=== PATIENT | male | born 1960 | race Caucasian/White ===

== ENCOUNTER 2018-03-27 18:31 | Inpatient (IN) ==
[2018-03-27] MEDS ORDERED: 0.9 % Sodium Chloride 1,000 ML IVC ONE (18:36)
--- NOTE | 2018-03-27 18:42 | Emergency Department Note ---
Disposition Clinical Impression: Alcoholism, NIKITA (acute kidney injury), Hyperglycemia, Heat exposure, Fever Disposition: Admitted As Inpatient Condition: Fair General Adult HPI - General Chief complaint: ED Arrhythmia/Palpitations Stated complaint: SVT Time Seen by Provider: 03/27/18 18:36 - Related Data Previous Rx's Medication Instructions Recorded Famotidine [Pepcid] 20 mg PO BID 10 Days #20 tablet 03/25/18 Allergies Allergy/AdvReac Type Severity Reaction Status Date / Time No Known Allergies Allergy Verified 03/25/18 00:58 Past Medical History - Past Medical History Medical history: Reports: no medical history Psychiatric history: Reports: bipolar - Social History Smoking Status: Never smoker Smokeless Tobacco Status: No Alcohol use: Reports: heavy Drug use: Reports: unknown Course Vital Signs Temperature 103.3 F H 03/27/18 18:33 Pulse Rate 153 03/27/18 18:33 Respiratory Rate 56 03/27/18 18:33 Blood Pressure 135/77 03/27/18 18:33 O2 Sat by Pulse Oximetry 92 03/27/18 18:33 Temperature 98.1 F 03/28/18 07:08 Pulse Rate 77 03/28/18 07:08 Respiratory Rate 16 03/28/18 07:08 Blood Pressure 103/67 03/28/18 07:08 O2 Sat by Pulse Oximetry 94 03/28/18 07:08 Oxygen Delivery Oxygen Delivery Room Air Medical Decision Making - Lab Data Result diagrams: 03/27/18 22:23 03/27/18 22:23 Lab Results 03/27/18 03/27/18 03/27/18 Range/Units 18:36 18:36 18:36 WBC 15.1 H D (4.3-11.1) K/mcL RBC 4.03 L (4.19-5.50) M/mcL Hgb 13.4 (12.9-16.9) g/dL Hct 38.8 (37.5-50.1) % MCV 96.3 (83.0-100.0) fL MCH 33.3 (28.0-33.3) pg MCHC 34.5 (31.6-35.5) g/dL RDW 11.9 (11.5-14.5) % Plt Count 155 (140-400) K/mcL MPV 10.2 (9.4-12.4) fL Immature Gran % 3.2 (0-4) % Seg Neutrophils % 78.3 % Lymphocytes % 7.7 % Monocytes % 10.3 % Eosinophils % 0.1 % Basophils % 0.4 % Neutrophils # 11.8 H (1.6-8.9) K/mcL Lymphocytes # 1.2 (0.6-4.6) K/mcL Monocytes # 1.6 H (0.0-1.3) K/mcL Eosinophils # 0.0 (0.0-0.6) K/mcL Basophils # 0.1 (0.0-0.2) K/mcL PT 13.3 H (9.4-12.1) Seconds INR 1.2 APTT 27.7 (26.0-36.0) Seconds ABG pH (7.32-7.45) pH Units ABG pCO2 (35-45) mmHg ABG pO2 (85-104) mmHg ABG HCO3 (21-27) mEq/L ABG Total CO2 (20-26) mEq/L ABG O2 Saturation (95-98) % ABG Base Excess (-2 to 3) mEq/L Carboxyhemoglobin (0-5) % O2 Delivery Device Inspired O2 (1-15=lpm [id number]=%) Sodium 131 L (136-145) mEq/L Potassium 4.0 (3.5-5.1) mEq/L Chloride 94 L (98-107) mEq/L Carbon Dioxide 14 L (23-29) mEq/L BUN 15 (6-20) mg/dL Creatinine 1.99 H (0.70-1.30) mg/dL Est GFR ( Amer) 42 L (> 60) Est GFR (Non-Af Amer) 35 L (> 60) BUN/Creatinine Ratio 8 (6-26) Glucose 425 H (70-105) mg/dL Calculated Osmolality 291 (280-300) Lactic Acid (0.5-2.2) mmol/L Calcium 9.9 (8.6-10.3) mg/dL Total Bilirubin 0.9 (0.3-1.0) mg/dL Direct Bilirubin 0.4 H (0.0-0.2) mg/dL Indirect Bilirubin 0.5 (0.0-1.2) mg/dL AST 49 H (13-39) Units/L ALT 28 (7-52) Units/L Alkaline Phosphatase 102 (34-104) Units/L Ammonia (16-53) mcmol/L Creatine Kinase 251 H (30-223) Units/L Troponin I 0.04 H* (< 0.04) ng/mL Serum Total Protein 8.0 (6.4-8.9) g/dL Albumin 4.2 (3.5-5.7) g/dL Globulin 3.8 H (2.4-3.5) g/dL Albumin/Globulin Ratio 1.1 (1.1-2.2) Beta-Hydroxybutyric Acd (0.02-0.27) mmol/L TSH 4.080 (0.340-5.600) mcIU/mL Urine Color (Yellow) Urine Clarity (Clear) Urine pH (5.0-8.0) pH Units Ur Specific [place] (1.010-1.025) Urine Protein (Neg-Trace) mg/dL Urine Glucose (UA) (Normal) mg/dL Urine Ketones (Negative) mg/dL Urine Blood (Negative) Urine Nitrite (Negative) Urine Bilirubin (Negative) Urine Urobilinogen (Normal) mg/dL Ur Leukocyte Esterase (Negative) Ur Transition Epith Cell (None-Few) per hpf Urine Bacteria (None-Few) per hpf Hyaline Casts (None-Few) per lpf Ur Culture Indicated? (NO) Urine Opiates Screen (Gpeliz=538) ng/mL Ur Barbiturates Screen (Pmyrky=306) ng/mL Ur Phencyclidine Scrn (Cutoff=25) ng/mL Ur Amphetamines Screen (Hrxgfc=0479) ng/mL U Benzodiazepines Scrn (Iyrpuv=525) ng/mL Urine Cocaine Screen (Cutoff= 300) ng/mL U Marijuana (THC) Screen (Cutoff = 50) ng/mL Ur Drug Screen Interp Ethyl Alcohol < 10 (Less than 10) mg/dL 03/27/18 03/27/18 03/27/18 Range/Units 18:36 18:36 18:36 WBC (4.3-11.1) K/mcL RBC (4.19-5.50) M/mcL Hgb (12.9-16.9) g/dL Hct (37.5-50.1) % MCV (83.0-100.0) fL MCH (28.0-33.3) pg MCHC (31.6-35.5) g/dL RDW (11.5-14.5) % Plt Count (140-400) K/mcL MPV (9.4-12.4) fL Immature Gran % (0-4) % Seg Neutrophils % % Lymphocytes % % Monocytes % % Eosinophils % % Basophils % % Neutrophils # (1.6-8.9) K/mcL Lymphocytes # (0.6-4.6) K/mcL Monocytes # (0.0-1.3) K/mcL Eosinophils # (0.0-0.6) K/mcL Basophils # (0.0-0.2) K/mcL PT (9.4-12.1) Seconds INR APTT (26.0-36.0) Seconds ABG pH (7.32-7.45) pH Units ABG pCO2 (35-45) mmHg ABG pO2 (85-104) mmHg ABG HCO3 (21-27) mEq/L ABG Total CO2 (20-26) mEq/L ABG O2 Saturation (95-98) % ABG Base Excess (-2 to 3) mEq/L Carboxyhemoglobin 4.7 (0-5) % O2 Delivery Device Inspired O2 (1-15=lpm [id number]=%) Sodium (136-145) mEq/L Potassium (3.5-5.1) mEq/L Chloride (98-107) mEq/L Carbon Dioxide (23-29) mEq/L BUN (6-20) mg/dL Creatinine (0.70-1.30) mg/dL Est GFR ( Amer) (> 60) Est GFR (Non-Af Amer) (> 60) BUN/Creatinine Ratio (6-26) Glucose (70-105) mg/dL Calculated Osmolality (280-300) Lactic Acid 8.8 H* (0.5-2.2) mmol/L Calcium (8.6-10.3) mg/dL Total Bilirubin (0.3-1.0) mg/dL Direct Bilirubin (0.0-0.2) mg/dL Indirect Bilirubin (0.0-1.2) mg/dL AST (13-39) Units/L ALT (7-52) Units/L Alkaline Phosphatase (34-104) Units/L Ammonia (16-53) mcmol/L Creatine Kinase (30-223) Units/L Troponin I (< 0.04) ng/mL Serum Total Protein (6.4-8.9) g/dL Albumin (3.5-5.7) g/dL Globulin (2.4-3.5) g/dL Albumin/Globulin Ratio (1.1-2.2) Beta-Hydroxybutyric Acd 0.36 H (0.02-0.27) mmol/L TSH (0.340-5.600) mcIU/mL Urine Color (Yellow) Urine Clarity (Clear) Urine pH (5.0-8.0) pH Units Ur Specific [place] (1.010-1.025) Urine Protein (Neg-Trace) mg/dL Urine Glucose (UA) (Normal) mg/dL Urine Ketones (Negative) mg/dL Urine Blood (Negative) Urine Nitrite (Negative) Urine Bilirubin (Negative) Urine Urobilinogen (Normal) mg/dL Ur Leukocyte Esterase (Negative) Ur Transition Epith Cell (None-Few) per hpf Urine Bacteria (None-Few) per hpf Hyaline Casts (None-Few) per lpf Ur Culture Indicated? (NO) Urine Opiates Screen (Dngrel=620) ng/mL Ur Barbiturates Screen (Qdgjxt=011) ng/mL Ur Phencyclidine Scrn (Cutoff=25) ng/mL Ur Amphetamines Screen (Zpgrsp=7125) ng/mL U Benzodiazepines Scrn (Hhdgnv=401) ng/mL Urine Cocaine Screen (Cutoff= 300) ng/mL U Marijuana (THC) Screen (Cutoff = 50) ng/mL Ur Drug Screen Interp Ethyl Alcohol (Less than 10) mg/dL 03/27/18 03/27/18 03/27/18 Range/Units 19:12 20:13 20:13 WBC (4.3-11.1) K/mcL RBC (4.19-5.50) M/mcL Hgb (12.9-16.9) g/dL Hct (37.5-50.1) % MCV (83.0-100.0) fL MCH (28.0-33.3) pg MCHC (31.6-35.5) g/dL RDW (11.5-14.5) % Plt Count (140-400) K/mcL MPV (9.4-12.4) fL Immature Gran % (0-4) % Seg Neutrophils % % Lymphocytes % % Monocytes % % Eosinophils % % Basophils % % Neutrophils # (1.6-8.9) K/mcL Lymphocytes # (0.6-4.6) K/mcL Monocytes # (0.0-1.3) K/mcL Eosinophils # (0.0-0.6) K/mcL Basophils # (0.0-0.2) K/mcL PT (9.4-12.1) Seconds INR APTT (26.0-36.0) Seconds ABG pH (7.32-7.45) pH Units ABG pCO2 (35-45) mmHg ABG pO2 (85-104) mmHg ABG HCO3 (21-27) mEq/L ABG Total CO2 (20-26) mEq/L ABG O2 Saturation (95-98) % ABG Base Excess (-2 to 3) mEq/L Carboxyhemoglobin (0-5) % O2 Delivery Device Inspired O2 (1-15=lpm [id number]=%) Sodium (136-145) mEq/L Potassium (3.5-5.1) mEq/L Chloride (98-107) mEq/L Carbon Dioxide (23-29) mEq/L BUN (6-20) mg/dL Creatinine (0.70-1.30) mg/dL Est GFR ( Amer) (> 60) Est GFR (Non-Af Amer) (> 60) BUN/Creatinine Ratio (6-26) Glucose (70-105) mg/dL Calculated Osmolality (280-300) Lactic Acid (0.5-2.2) mmol/L Calcium (8.6-10.3) mg/dL Total Bilirubin (0.3-1.0) mg/dL Direct Bilirubin (0.0-0.2) mg/dL Indirect Bilirubin (0.0-1.2) mg/dL AST (13-39) Units/L ALT (7-52) Units/L Alkaline Phosphatase (34-104) Units/L Ammonia 66 H (16-53) mcmol/L Creatine Kinase (30-223) Units/L Troponin I (< 0.04) ng/mL Serum Total Protein (6.4-8.9) g/dL Albumin (3.5-5.7) g/dL Globulin (2.4-3.5) g/dL Albumin/Globulin Ratio (1.1-2.2) Beta-Hydroxybutyric Acd (0.02-0.27) mmol/L TSH (0.340-5.600) mcIU/mL Urine Color Yellow (Yellow) Urine Clarity Clear (Clear) Urine pH 5.5 (5.0-8.0) pH Units Ur Specific [place] 1.028 H (1.010-1.025) Urine Protein 30 H (Neg-Trace) mg/dL Urine Glucose (UA) >=1000 H (Normal) mg/dL Urine Ketones Trace H (Negative) mg/dL Urine Blood Negative (Negative) Urine Nitrite Negative (Negative) Urine Bilirubin Small H (Negative) Urine Urobilinogen Normal (Normal) mg/dL Ur Leukocyte Esterase Negative (Negative) Ur Transition Epith Cell Few (None-Few) per hpf Urine Bacteria Few (None-Few) per hpf Hyaline Casts Few (None-Few) per lpf Ur Culture Indicated? NO (NO) Urine Opiates Screen Negative (Hxnxgx=721) ng/mL Ur Barbiturates Screen Negative (Obzhuc=037) ng/mL Ur Phencyclidine Scrn Negative (Cutoff=25) ng/mL Ur Amphetamines Screen Negative (Jluwca=4092) ng/mL U Benzodiazepines Scrn Negative (Wygatw=436) ng/mL Urine Cocaine Screen Negative (Cutoff= 300) ng/mL U Marijuana (THC) Screen Negative (Cutoff = 50) ng/mL Ur Drug Screen Interp See Below Ethyl Alcohol (Less than 10) mg/dL 03/27/18 03/27/18 03/27/18 Range/Units 20:17 20:59 22:23 WBC (4.3-11.1) K/mcL RBC (4.19-5.50) M/mcL Hgb (12.9-16.9) g/dL Hct (37.5-50.1) % MCV (83.0-100.0) fL MCH (28.0-33.3) pg MCHC (31.6-35.5) g/dL RDW (11.5-14.5) % Plt Count (140-400) K/mcL MPV (9.4-12.4) fL Immature Gran % (0-4) % Seg Neutrophils % % Lymphocytes % % Monocytes % % Eosinophils % % Basophils % % Neutrophils # (1.6-8.9) K/mcL Lymphocytes # (0.6-4.6) K/mcL Monocytes # (0.0-1.3) K/mcL Eosinophils # (0.0-0.6) K/mcL Basophils # (0.0-0.2) K/mcL PT (9.4-12.1) Seconds INR APTT (26.0-36.0) Seconds ABG pH 7.41 (7.32-7.45) pH Units ABG pCO2 37 (35-45) mmHg ABG pO2 86 (85-104) mmHg ABG HCO3 23 (21-27) mEq/L ABG Total CO2 25 (20-26) mEq/L ABG O2 Saturation 97 (95-98) % ABG Base Excess -1 (-2 to 3) mEq/L Carboxyhemoglobin (0-5) % O2 Delivery Device Cannula Inspired O2 2.0 (1-15=lpm sk00-331=%) Sodium 135 L (136-145) mEq/L Potassium 3.9 (3.5-5.1) mEq/L Chloride 105 (98-107) mEq/L Carbon Dioxide 20 L (23-29) mEq/L BUN 14 (6-20) mg/dL Creatinine 1.44 H (0.70-1.30) mg/dL Est GFR ( Amer) > 60 (> 60) Est GFR (Non-Af Amer) 50 L (> 60) BUN/Creatinine Ratio 10 (6-26) Glucose 180 H (70-105) mg/dL Calculated Osmolality 285 (280-300) Lactic Acid 2.9 H (0.5-2.2) mmol/L Calcium 8.4 L (8.6-10.3) mg/dL Total Bilirubin (0.3-1.0) mg/dL Direct Bilirubin (0.0-0.2) mg/dL Indirect Bilirubin (0.0-1.2) mg/dL AST (13-39) Units/L ALT (7-52) Units/L Alkaline Phosphatase (34-104) Units/L Ammonia (16-53) mcmol/L Creatine Kinase (30-223) Units/L Troponin I (< 0.04) ng/mL Serum Total Protein (6.4-8.9) g/dL Albumin (3.5-5.7) g/dL Globulin (2.4-3.5) g/dL Albumin/Globulin Ratio (1.1-2.2) Beta-Hydroxybutyric Acd (0.02-0.27) mmol/L TSH (0.340-5.600) mcIU/mL Urine Color (Yellow) Urine Clarity (Clear) Urine pH (5.0-8.0) pH Units Ur Specific [place] (1.010-1.025) Urine Protein (Neg-Trace) mg/dL Urine Glucose (UA) (Normal) mg/dL Urine Ketones (Negative) mg/dL Urine Blood (Negative) Urine Nitrite (Negative) Urine Bilirubin (Negative) Urine Urobilinogen (Normal) mg/dL Ur Leukocyte Esterase (Negative) Ur Transition Epith Cell (None-Few) per hpf Urine Bacteria (None-Few) per hpf Hyaline Casts (None-Few) per lpf Ur Culture Indicated? (NO) Urine Opiates Screen (Ccpfze=364) ng/mL Ur Barbiturates Screen (Nwhfcv=936) ng/mL Ur Phencyclidine Scrn (Cutoff=25) ng/mL Ur Amphetamines Screen (Egtmcu=2407) ng/mL U Benzodiazepines Scrn (Qftafi=802) ng/mL Urine Cocaine Screen (Cutoff= 300) ng/mL U Marijuana (THC) Screen (Cutoff = 50) ng/mL Ur Drug Screen Interp Ethyl Alcohol (Less than 10) mg/dL 03/27/18 03/27/18 03/28/18 Range/Units 22:23 22:23 02:07 WBC 12.0 H (4.3-11.1) K/mcL RBC 3.51 L (4.19-5.50) M/mcL Hgb 11.8 L D (12.9-16.9) g/dL Hct 34.5 L (37.5-50.1) % MCV 98.3 (83.0-100.0) fL MCH 33.6 H (28.0-33.3) pg MCHC 34.2 (31.6-35.5) g/dL RDW 12.0 (11.5-14.5) % Plt Count 108 L (140-400) K/mcL MPV 10.0 (9.4-12.4) fL Immature Gran % 4.5 H (0-4) % Seg Neutrophils % 75.2 % Lymphocytes % 2.8 % Monocytes % 17.1 % Eosinophils % 0.1 % Basophils % 0.3 % Neutrophils # 9.0 H (1.6-8.9) K/mcL Lymphocytes # 0.3 L (0.6-4.6) K/mcL Monocytes # 2.1 H (0.0-1.3) K/mcL Eosinophils # 0.0 (0.0-0.6) K/mcL Basophils # 0.0 (0.0-0.2) K/mcL PT (9.4-12.1) Seconds INR APTT (26.0-36.0) Seconds ABG pH (7.32-7.45) pH Units ABG pCO2 (35-45) mmHg ABG pO2 (85-104) mmHg ABG HCO3 (21-27) mEq/L ABG Total CO2 (20-26) mEq/L ABG O2 Saturation (95-98) % ABG Base Excess (-2 to 3) mEq/L Carboxyhemoglobin (0-5) % O2 Delivery Device Inspired O2 (1-15=lpm [id number]=%) Sodium (136-145) mEq/L Potassium (3.5-5.1) mEq/L Chloride (98-107) mEq/L Carbon Dioxide (23-29) mEq/L BUN (6-20) mg/dL Creatinine (0.70-1.30) mg/dL Est GFR ( Amer) (> 60) Est GFR (Non-Af Amer) (> 60) BUN/Creatinine Ratio (6-26) Glucose (70-105) mg/dL Calculated Osmolality (280-300) Lactic Acid 2.2 (0.5-2.2) mmol/L Calcium (8.6-10.3) mg/dL Total Bilirubin (0.3-1.0) mg/dL Direct Bilirubin (0.0-0.2) mg/dL Indirect Bilirubin (0.0-1.2) mg/dL AST (13-39) Units/L ALT (7-52) Units/L Alkaline Phosphatase (34-104) Units/L Ammonia (16-53) mcmol/L Creatine Kinase (30-223) Units/L Troponin I 0.05 H* (< 0.04) ng/mL Serum Total Protein (6.4-8.9) g/dL Albumin (3.5-5.7) g/dL Globulin (2.4-3.5) g/dL Albumin/Globulin Ratio (1.1-2.2) Beta-Hydroxybutyric Acd (0.02-0.27) mmol/L TSH (0.340-5.600) mcIU/mL Urine Color (Yellow) Urine Clarity (Clear) Urine pH (5.0-8.0) pH Units Ur Specific [place] (1.010-1.025) Urine Protein (Neg-Trace) mg/dL Urine Glucose (UA) (Normal) mg/dL Urine Ketones (Negative) mg/dL Urine Blood (Negative) Urine Nitrite (Negative) Urine Bilirubin (Negative) Urine Urobilinogen (Normal) mg/dL Ur Leukocyte Esterase (Negative) Ur Transition Epith Cell (None-Few) per hpf Urine Bacteria (None-Few) per hpf Hyaline Casts (None-Few) per lpf Ur Culture Indicated? (NO) Urine Opiates Screen (Aunttl=737) ng/mL Ur Barbiturates Screen (Udypwg=651) ng/mL Ur Phencyclidine Scrn (Cutoff=25) ng/mL Ur Amphetamines Screen (Cjmyre=5752) ng/mL U Benzodiazepines Scrn (Scyenv=400) ng/mL Urine Cocaine Screen (Cutoff= 300) ng/mL U Marijuana (THC) Screen (Cutoff = 50) ng/mL Ur Drug Screen Interp Ethyl Alcohol (Less than 10) mg/dL Critical Care Time Critical Care Time: Yes Total Critical Care Time: 30 Attestation: The high probability of a clinically significant, sudden or life threatening deterioration of the [] system(s) required my full and direct attention, intervention and personal management. The aggregate critical care time was [] minutes. This time is in addition to time spent performing reported procedures but includes the following: [] Data Review and interpretation [] Patient assessment and monitoring of vital signs [] Documentation [] Medication orders and management Attestation Statement - Attestation Attestation: I examined this patient and my medical decision-making was reviewed with the Resident Physician. I agree with the documented findings, disposition and treatment plan as described except to the extent set forth below. Cvwe-mn-behs time provided 18:30: Patient arrives by EMS. The patient is appropriately answering questions but answers them slowly. He is profusely diaphoretic and tachycardic. He is febrile. He complains of no chest pain. It was reported that the patient was found in front of an auto [employer] store with an abrasion to his nose. He denies drinking alcohol today. He cannot explain to me why he was sitting outside. Upon arrival given the patient's fever and tachycardia the differential is broad but includes sepsis versus heat exposure versus thyroid storm versus NMS versus serotonin syndrome. Workup initiated. Care will be endorsed to oncoming physician Dr. Hall at 19:00 pending workup. He will reevaluate the patient upon completion of studies and determine disposition
--- NOTE | 2018-03-27 18:43 | Emergency Department Note ---
Disposition Clinical Impression: Altered mental status Qualifiers: Altered mental status type: unspecified Qualified Code(s): R41.82 - Altered mental status, unspecified Disposition: Still a Patient Condition: Fair Forms: ED Satisfaction Letter General Adult HPI - General Chief complaint: ED Arrhythmia/Palpitations Stated complaint: SVT Time Seen by Provider: 03/27/18 18:36 Source: patient, EMS Mode of arrival: EMS Limitations: no limitations Nursing Notes Reviewed: Yes Vital Signs Reviewed: Yes - History of Present Illness HPI Narrative: 57-year-old male presents with EMS after being altered mental status. Someone said he was sitting in front of an [employer] store sitting on the ground. They said he was profusely diaphoretic he was able to answer questions easily was and where he was at. They noticed that he was very tachycardic so they brought him immediately here to the emergency department. Patient is alert and oriented 3. It is unknown if patient took anything. There was no one around the scene. Patient did not have any neurological deficits. Patient was recent seen 2 days ago for epigastric pain for most likely peptic ulcers. Otherwise patient has no other complaints. He is feverish at 103. - Related Data Previous Rx's Medication Instructions Recorded Famotidine [Pepcid] 20 mg PO BID 10 Days #20 tablet 03/25/18 Allergies Allergy/AdvReac Type Severity Reaction Status Date / Time No Known Allergies Allergy Verified 03/25/18 00:58 Limitations: ROS unobtainable due to patients medical condition Past Medical History - Past Medical History Attestation: Yes The following information was validated with the patient. Source: patient Medical history: Reports: no medical history Psychiatric history: Reports: bipolar - Social History Smoking Status: Never smoker Smokeless Tobacco Status: No Alcohol use: Reports: heavy Drug use: Reports: unknown Physical Exam - General Limitations: no limitations General appearance: in no apparent distress, lethargic, obese, other (Patient is very diaphoretic and he seems very lethargic and he is able to answer questions but is very slow to answer them.) - Head Head exam: atraumatic, normocephalic, normal inspection - Eye Eye exam: Present: normal appearance, PERRL, EOMI - ENT ENT exam: normal exam, normal oropharynx, mucous membranes moist - Neck Neck exam: Present: normal inspection, full ROM, trachea midline - Chest Chest inspection: Present: normal inspection, symmetric chest wall rise - Respiratory Respiratory exam: Present: normal lung sounds bilaterally. Absent: respiratory distress, wheezes, accessory muscle use - Cardiovascular Cardiovascular exam: Present: normal rhythm, tachycardia, normal heart sounds - Abdominal Exam Abdominal exam: Present: soft, Non-Tender, distention, normal bowel sounds. Absent: tenderness, guarding, rebound, rigidity - Extremities Exam Extremities exam: Present: normal inspection, full ROM. Absent: tenderness, pedal edema - Neurological Exam Neurological exam: Present: alert, oriented X3. Absent: motor sensory deficit - Expanded Neurological Exam Patient oriented to: Present: person, place, time Motor strength - LUE: 3/5 Motor strength - RUE: 3/5 Motor strength - LLE: 3/5 Motor strength - RLE: 3/5 Coma Scale Eye Opening: Spontaneous Coma Scale Motor Response: Obeys Commands Coma Scale Verbal Response: Oriented Coma Scale Total: 15 - Skin Skin exam: Present: warm Course Course Narrative: 57-year-old male presents to the emergency department altered mental status very diaphoretic with an unknown differential. We will do a very broad workup including head CT as well as EKG and chest x-ray. We will also get labs including CBC, BMP, blood glucose, VBG, beta hydroxybutyrate, hepatic panel, urinalysis, urine drug sting, ethanol, salicylates, acetaminophen, urinalysis, blood cultures carboxyhemoglobin. We will give patient IV fluids as well as start cooling measures as patient's temperature is 103. Patient was not in SVT when we evaluated him he did have noticeable P waves on EKG. Medical Decision Making - [facility] Narrative Medical decision making narrative: Patient came in with altered mental status were doing a very broad workup. On the differential is thyroid storm, heat exhaustion, heat stroke, DKA, acute [place], stroke, NMS, and it a possible ingestion. We are getting patient's medication list. This patient will be signed out to the night team Dr. Hall and Dr. Rogers. See their note for further workup results. - Medical Records Medical records reviewed: Yes I reviewed the patient's medical records. - EKG Data EKG #1 EKG attestation: Yes I reviewed and interpreted this EKG. EKG results narrative: EKG done at 1839 reviewed on myself and attending shows sinus tachycardia at a rate of 153, CO 129, QRS 91, QTC 420. There is no acute ST changes no acute T- wave changes there are noticeable P waves. There is no other signs of ischemia. No hypertrophy no heart strain, heart block. No WPW/Brugada/HOCM. This EKG does show tachycardia when compared with old one done 03/02/18.
[2018-03-27 18:51] LABS: Basophils # 0.1 K/mcL (0.0-0.2); Basophils % 0.4 %; Eosinophils % 0.1 %; Hematocrit 38.8 % (37.5-50.1); Hemoglobin 13.4 g/dL (12.9-16.9); Immature Granulocytes % 3.2 % (0-4); Lymphocytes # 1.2 K/mcL (0.6-4.6); Lymphocytes % 7.7 %; Mean Corpuscular HGB Conc 34.5 g/dL (31.6-35.5); Mean Corpuscular Hemoglobin 33.3 pg (28.0-33.3); Mean Corpuscular Volume 96.3 fL (83.0-100.0); Mean Platelet Volume 10.2 fL (9.4-12.4); Monocytes # 1.6 K/mcL (0.0-1.3); Monocytes % 10.3 %; Neutrophils # 11.8 K/mcL (1.6-8.9); Platelet Count 155 K/mcL (140-400); Red Blood Count 4.03 M/mcL (4.19-5.50); Red Cell Distribution Width 11.9 % (11.5-14.5); Segmented Neutrophils % 78.3 %
[2018-03-27 18:57] LABS: INR 1.2; Prothrombin Time 13.3 Seconds (9.4-12.1)
[2018-03-27 19:00] LABS: Activated Partial Thrombo Time 27.7 Seconds (26.0-36.0)
[2018-03-27 19:18] LABS: Alanine Aminotransferase 28 Units/L (7-52); Albumin 4.2 g/dL (3.5-5.7); Albumin/Globulin Ratio 1.1 (1.1-2.2); Alkaline Phosphatase 102 Units/L (34-104); Aspartate Amino Transferase 49 Units/L (13-39); BUN/Creatinine Ratio 8 (6-26); Bilirubin,Direct 0.4 mg/dL (0.0-0.2); Bilirubin,Indirect 0.5 mg/dL (0.0-1.2); Bilirubin,Total 0.9 mg/dL (0.3-1.0); Blood Urea Nitrogen 15 mg/dL (6-20); Calcium 9.9 mg/dL (8.6-10.3); Carbon Dioxide 14 mEq/L (23-29); Chloride 94 mEq/L (98-107); Creatine Kinase 251 Units/L (30-223); Ethanol < 10 mg/dL (Less than 10); Globulin 3.8 g/dL (2.4-3.5); Glucose 425 mg/dL (70-105); Osmolality,Calculated 291 (280-300); Sodium 131 mEq/L (136-145); eGFR For Non-African Americans 35 (> 60)
[2018-03-27 19:28] LABS: Troponin I 0.04 ng/mL (< 0.04)
[2018-03-27] MEDS ORDERED: 0.9 % Sodium Chloride 1,000 ML ONE (19:43)
[2018-03-27] MEDS: 0.9 % Sodium Chloride 1,000 ML IVC SCH ×2 (19:47→21:34)
[2018-03-27] MEDS ORDERED: Insulin Human Regular 10 UNIT in 0.9 % Sodium Chloride 10 ML IV ONE (20:06)
--- NOTE | 2018-03-27 20:13 | Emergency Department Note ---
Disposition Clinical Impression: Alcoholism, NIKITA (acute kidney injury), Hyperglycemia Heat exposure Qualifiers: Encounter type: initial encounter Qualified Code(s): T67.9XXA - Effect of heat and light, unspecified, initial encounter Fever Qualifiers: Fever type: unspecified Qualified Code(s): R50.9 - Fever, unspecified Disposition: Admitted As Inpatient Condition: Fair [facility] Care Provider[facility] - Forms: ED Satisfaction Letter Time of Disposition: 21:45 General Adult HPI - General Chief complaint: ED Arrhythmia/Palpitations Stated complaint: SVT Time Seen by Provider: 03/27/18 18:36 Source: patient, EMS Mode of arrival: EMS Limitations: no limitations - History of Present Illness HPI Narrative: Patient was signed out by the prior provider. Please see their documentation for complete history and physical. Pain Scale: 0 - Related Data Previous Rx's Medication Instructions Recorded Famotidine [Pepcid] 20 mg PO BID 10 Days #20 tablet 03/25/18 Allergies Allergy/AdvReac Type Severity Reaction Status Date / Time No Known Allergies Allergy Verified 03/25/18 00:58 Past Medical History - Past Medical History Medical history: Reports: no medical history Psychiatric history: Reports: bipolar - Social History Smoking Status: Never smoker Smokeless Tobacco Status: No Alcohol use: Reports: heavy Drug use: Reports: unknown Physical Exam - General Limitations: no limitations General appearance: in no apparent distress, lethargic, obese, other (Patient is very diaphoretic and he seems very lethargic and he is able to answer questions but is very slow to answer them.) Course Course Narrative: Briefly, the patient is a 57-year-old alcoholic who presented with concerns of heat stroke. Patient was febrile with a temperature and active cooling measures were in place. Patient had a broad workup including metabolic as well as infectious etiologies. Head CT was negative. Chest x-ray was also negative. Patient states that he does report what happened today. States that he fell asleep outside in the heat. Does admit to drinking earlier today. States that he drinks a pint a day. No changes in medications. Patient denies any fevers or cough. No abdominal pain. No nausea or vomiting. - Reevaluation(s) Reevaluation #1: Patient seen and examined. Patient's records from the [place] were obtained. Patient heart rate as well as temperature is improving with active drooling. Patient's lactate was noted be elevated. Patient received 3 L boluses and started on a rate. Becerra catheter was placed. Patient is producing urine. Patient was noted to have elevated glucose with some ketones and was given a bolus dose of 10 units of insulin. Patient denies any needs at this time. Alert and oriented. Time: 20:22 Vital Signs Temperature 103.3 F H 03/27/18 18:33 Pulse Rate 153 03/27/18 18:33 Respiratory Rate 56 03/27/18 18:33 Blood Pressure 135/77 03/27/18 18:33 O2 Sat by Pulse Oximetry 92 03/27/18 18:33 Temperature 98 F 03/27/18 22:00 Pulse Rate 97 03/27/18 22:00 Respiratory Rate 20 03/27/18 22:00 Blood Pressure 143/87 03/27/18 22:00 O2 Sat by Pulse Oximetry 96 03/27/18 22:00 Oxygen Delivery Oxygen Delivery Room Air Medical Decision Making - MDM Narrative Medical decision making narrative: Patient presented initially for concerns of hearing related illness. Patient's workup was initiated by the prior provider. Patient had a broad differential given his tachycardia as well as associated fever. Patient admits to drinking and passing out earlier today and heat. Upon arrival he was noted the patient was diaphoretic and profusely sweating. Patient did have active cooling measures given his elevated temperature. Patient ED evaluation included an elevated lactate. Patient received 3 L of fluid was placed on maintenance. Patient's lactate did trend down. Patient was also noted to have an elevated glucose with ketones. Patient was given a bolus of insulin. Patient was not treated and DKA given multifactorial setting of elevated lactate as well as known alcoholism. Patient's urine shows no signs of infection. Patient's chest x-ray also shows no signs of infection. Antibiotics were not initiated as there was no potential source. Patient's lactate likely secondary to the patient's stress induced with the he related illness. Patient did have an elevated troponin with no complaints of chest pain and was given aspirin. Patient abdominal exam is been unremarkable and nontender. Patient's mental status has been appropriate at baseline. Alert and oriented 3. Nonfocal exam. Patient did get initial head CT given his history of alcoholism and the fact that he was found passed out. Patient's heart rate did not improve with IV fluids. - Lab Data Lab results reviewed: Yes I reviewed the patient's lab results. Result diagrams: 03/27/18 18:36 03/27/18 18:36 Lab Results 03/27/18 03/27/18 03/27/18 Range/Units 18:36 18:36 18:36 WBC 15.1 H D (4.3-11.1) K/mcL RBC 4.03 L (4.19-5.50) M/mcL Hgb 13.4 (12.9-16.9) g/dL Hct 38.8 (37.5-50.1) % MCV 96.3 (83.0-100.0) fL MCH 33.3 (28.0-33.3) pg MCHC 34.5 (31.6-35.5) g/dL RDW 11.9 (11.5-14.5) % Plt Count 155 (140-400) K/mcL MPV 10.2 (9.4-12.4) fL Immature Gran % 3.2 (0-4) % Seg Neutrophils % 78.3 % Lymphocytes % 7.7 % Monocytes % 10.3 % Eosinophils % 0.1 % Basophils % 0.4 % Neutrophils # 11.8 H (1.6-8.9) K/mcL Lymphocytes # 1.2 (0.6-4.6) K/mcL Monocytes # 1.6 H (0.0-1.3) K/mcL Eosinophils # 0.0 (0.0-0.6) K/mcL Basophils # 0.1 (0.0-0.2) K/mcL PT 13.3 H (9.4-12.1) Seconds INR 1.2 APTT 27.7 (26.0-36.0) Seconds ABG pH (7.32-7.45) pH Units ABG pCO2 (35-45) mmHg ABG pO2 (85-104) mmHg ABG HCO3 (21-27) mEq/L ABG Total CO2 (20-26) mEq/L ABG O2 Saturation (95-98) % ABG Base Excess (-2 to 3) mEq/L Carboxyhemoglobin (0-5) % O2 Delivery Device Inspired O2 (1-15=lpm [id number]=%) Sodium 131 L (136-145) mEq/L Potassium 4.0 (3.5-5.1) mEq/L Chloride 94 L (98-107) mEq/L Carbon Dioxide 14 L (23-29) mEq/L BUN 15 (6-20) mg/dL Creatinine 1.99 H (0.70-1.30) mg/dL Est GFR ( Amer) 42 L (> 60) Est GFR (Non-Af Amer) 35 L (> 60) BUN/Creatinine Ratio 8 (6-26) Glucose 425 H (70-105) mg/dL Calculated Osmolality 291 (280-300) Lactic Acid (0.5-2.2) mmol/L Calcium 9.9 (8.6-10.3) mg/dL Total Bilirubin 0.9 (0.3-1.0) mg/dL Direct Bilirubin 0.4 H (0.0-0.2) mg/dL Indirect Bilirubin 0.5 (0.0-1.2) mg/dL AST 49 H (13-39) Units/L ALT 28 (7-52) Units/L Alkaline Phosphatase 102 (34-104) Units/L Ammonia (16-53) mcmol/L Creatine Kinase 251 H (30-223) Units/L Troponin I 0.04 H* (< 0.04) ng/mL Serum Total Protein 8.0 (6.4-8.9) g/dL Albumin 4.2 (3.5-5.7) g/dL Globulin 3.8 H (2.4-3.5) g/dL Albumin/Globulin Ratio 1.1 (1.1-2.2) Beta-Hydroxybutyric Acd (0.02-0.27) mmol/L TSH 4.080 (0.340-5.600) mcIU/mL Urine Color (Yellow) Urine Clarity (Clear) Urine pH (5.0-8.0) pH Units Ur Specific [place] (1.010-1.025) Urine Protein (Neg-Trace) mg/dL Urine Glucose (UA) (Normal) mg/dL Urine Ketones (Negative) mg/dL Urine Blood (Negative) Urine Nitrite (Negative) Urine Bilirubin (Negative) Urine Urobilinogen (Normal) mg/dL Ur Leukocyte Esterase (Negative) Ur Transition Epith Cell (None-Few) per hpf Urine Bacteria (None-Few) per hpf Hyaline Casts (None-Few) per lpf Ur Culture Indicated? (NO) Urine Opiates Screen (Yemcds=231) ng/mL Ur Barbiturates Screen (Zsqtvt=079) ng/mL Ur Phencyclidine Scrn (Cutoff=25) ng/mL Ur Amphetamines Screen (Acqxhf=2706) ng/mL U Benzodiazepines Scrn (Cqnqln=727) ng/mL Urine Cocaine Screen (Cutoff= 300) ng/mL U Marijuana (THC) Screen (Cutoff = 50) ng/mL Ur Drug Screen Interp Ethyl Alcohol < 10 (Less than 10) mg/dL 03/27/18 03/27/18 03/27/18 Range/Units 18:36 18:36 18:36 WBC (4.3-11.1) K/mcL RBC (4.19-5.50) M/mcL Hgb (12.9-16.9) g/dL Hct (37.5-50.1) % MCV (83.0-100.0) fL MCH (28.0-33.3) pg MCHC (31.6-35.5) g/dL RDW (11.5-14.5) % Plt Count (140-400) K/mcL MPV (9.4-12.4) fL Immature Gran % (0-4) % Seg Neutrophils % % Lymphocytes % % Monocytes % % Eosinophils % % Basophils % % Neutrophils # (1.6-8.9) K/mcL Lymphocytes # (0.6-4.6) K/mcL Monocytes # (0.0-1.3) K/mcL Eosinophils # (0.0-0.6) K/mcL Basophils # (0.0-0.2) K/mcL PT (9.4-12.1) Seconds INR APTT (26.0-36.0) Seconds ABG pH (7.32-7.45) pH Units ABG pCO2 (35-45) mmHg ABG pO2 (85-104) mmHg ABG HCO3 (21-27) mEq/L ABG Total CO2 (20-26) mEq/L ABG O2 Saturation (95-98) % ABG Base Excess (-2 to 3) mEq/L Carboxyhemoglobin 4.7 (0-5) % O2 Delivery Device Inspired O2 (1-15=lpm ae44-639=%) Sodium (136-145) mEq/L Potassium (3.5-5.1) mEq/L Chloride (98-107) mEq/L Carbon Dioxide (23-29) mEq/L BUN (6-20) mg/dL Creatinine (0.70-1.30) mg/dL Est GFR ( Amer) (> 60) Est GFR (Non-Af Amer) (> 60) BUN/Creatinine Ratio (6-26) Glucose (70-105) mg/dL Calculated Osmolality (280-300) Lactic Acid 8.8 H* (0.5-2.2) mmol/L Calcium (8.6-10.3) mg/dL Total Bilirubin (0.3-1.0) mg/dL Direct Bilirubin (0.0-0.2) mg/dL Indirect Bilirubin (0.0-1.2) mg/dL AST (13-39) Units/L ALT (7-52) Units/L Alkaline Phosphatase (34-104) Units/L Ammonia (16-53) mcmol/L Creatine Kinase (30-223) Units/L Troponin I (< 0.04) ng/mL Serum Total Protein (6.4-8.9) g/dL Albumin (3.5-5.7) g/dL Globulin (2.4-3.5) g/dL Albumin/Globulin Ratio (1.1-2.2) Beta-Hydroxybutyric Acd 0.36 H (0.02-0.27) mmol/L TSH (0.340-5.600) mcIU/mL Urine Color (Yellow) Urine Clarity (Clear) Urine pH (5.0-8.0) pH Units Ur Specific [place] (1.010-1.025) Urine Protein (Neg-Trace) mg/dL Urine Glucose (UA) (Normal) mg/dL Urine Ketones (Negative) mg/dL Urine Blood (Negative) Urine Nitrite (Negative) Urine Bilirubin (Negative) Urine Urobilinogen (Normal) mg/dL Ur Leukocyte Esterase (Negative) Ur Transition Epith Cell (None-Few) per hpf Urine Bacteria (None-Few) per hpf Hyaline Casts (None-Few) per lpf Ur Culture Indicated? (NO) Urine Opiates Screen (Lcvocd=472) ng/mL Ur Barbiturates Screen (Ruwrfp=527) ng/mL Ur Phencyclidine Scrn (Cutoff=25) ng/mL Ur Amphetamines Screen (Fttccb=1059) ng/mL U Benzodiazepines Scrn (Uibzel=073) ng/mL Urine Cocaine Screen (Cutoff= 300) ng/mL U Marijuana (THC) Screen (Cutoff = 50) ng/mL Ur Drug Screen Interp Ethyl Alcohol (Less than 10) mg/dL 03/27/18 03/27/18 03/27/18 Range/Units 19:12 20:13 20:13 WBC (4.3-11.1) K/mcL RBC (4.19-5.50) M/mcL Hgb (12.9-16.9) g/dL Hct (37.5-50.1) % MCV (83.0-100.0) fL MCH (28.0-33.3) pg MCHC (31.6-35.5) g/dL RDW (11.5-14.5) % Plt Count (140-400) K/mcL MPV (9.4-12.4) fL Immature Gran % (0-4) % Seg Neutrophils % % Lymphocytes % % Monocytes % % Eosinophils % % Basophils % % Neutrophils # (1.6-8.9) K/mcL Lymphocytes # (0.6-4.6) K/mcL Monocytes # (0.0-1.3) K/mcL Eosinophils # (0.0-0.6) K/mcL Basophils # (0.0-0.2) K/mcL PT (9.4-12.1) Seconds INR APTT (26.0-36.0) Seconds ABG pH (7.32-7.45) pH Units ABG pCO2 (35-45) mmHg ABG pO2 (85-104) mmHg ABG HCO3 (21-27) mEq/L ABG Total CO2 (20-26) mEq/L ABG O2 Saturation (95-98) % ABG Base Excess (-2 to 3) mEq/L Carboxyhemoglobin (0-5) % O2 Delivery Device Inspired O2 (1-15=lpm [id number]=%) Sodium (136-145) mEq/L Potassium (3.5-5.1) mEq/L Chloride (98-107) mEq/L Carbon Dioxide (23-29) mEq/L BUN (6-20) mg/dL Creatinine (0.70-1.30) mg/dL Est GFR ( Amer) (> 60) Est GFR (Non-Af Amer) (> 60) BUN/Creatinine Ratio (6-26) Glucose (70-105) mg/dL Calculated Osmolality (280-300) Lactic Acid (0.5-2.2) mmol/L Calcium (8.6-10.3) mg/dL Total Bilirubin (0.3-1.0) mg/dL Direct Bilirubin (0.0-0.2) mg/dL Indirect Bilirubin (0.0-1.2) mg/dL AST (13-39) Units/L ALT (7-52) Units/L Alkaline Phosphatase (34-104) Units/L Ammonia 66 H (16-53) mcmol/L Creatine Kinase (30-223) Units/L Troponin I (< 0.04) ng/mL Serum Total Protein (6.4-8.9) g/dL Albumin (3.5-5.7) g/dL Globulin (2.4-3.5) g/dL Albumin/Globulin Ratio (1.1-2.2) Beta-Hydroxybutyric Acd (0.02-0.27) mmol/L TSH (0.340-5.600) mcIU/mL Urine Color Yellow (Yellow) Urine Clarity Clear (Clear) Urine pH 5.5 (5.0-8.0) pH Units Ur Specific [place] 1.028 H (1.010-1.025) Urine Protein 30 H (Neg-Trace) mg/dL Urine Glucose (UA) >=1000 H (Normal) mg/dL Urine Ketones Trace H (Negative) mg/dL Urine Blood Negative (Negative) Urine Nitrite Negative (Negative) Urine Bilirubin Small H (Negative) Urine Urobilinogen Normal (Normal) mg/dL Ur Leukocyte Esterase Negative (Negative) Ur Transition Epith Cell Few (None-Few) per hpf Urine Bacteria Few (None-Few) per hpf Hyaline Casts Few (None-Few) per lpf Ur Culture Indicated? NO (NO) Urine Opiates Screen Negative (Kooneq=433) ng/mL Ur Barbiturates Screen Negative (Ftlmno=012) ng/mL Ur Phencyclidine Scrn Negative (Cutoff=25) ng/mL Ur Amphetamines Screen Negative (Hkeell=7659) ng/mL U Benzodiazepines Scrn Negative (Fxzdsu=564) ng/mL Urine Cocaine Screen Negative (Cutoff= 300) ng/mL U Marijuana (THC) Screen Negative (Cutoff = 50) ng/mL Ur Drug Screen Interp See Below Ethyl Alcohol (Less than 10) mg/dL 03/27/18 03/27/18 Range/Units 20:17 20:59 WBC (4.3-11.1) K/mcL RBC (4.19-5.50) M/mcL Hgb (12.9-16.9) g/dL Hct (37.5-50.1) % MCV (83.0-100.0) fL MCH (28.0-33.3) pg MCHC (31.6-35.5) g/dL RDW (11.5-14.5) % Plt Count (140-400) K/mcL MPV (9.4-12.4) fL Immature Gran % (0-4) % Seg Neutrophils % % Lymphocytes % % Monocytes % % Eosinophils % % Basophils % % Neutrophils # (1.6-8.9) K/mcL Lymphocytes # (0.6-4.6) K/mcL Monocytes # (0.0-1.3) K/mcL Eosinophils # (0.0-0.6) K/mcL Basophils # (0.0-0.2) K/mcL PT (9.4-12.1) Seconds INR APTT (26.0-36.0) Seconds ABG pH 7.41 (7.32-7.45) pH Units ABG pCO2 37 (35-45) mmHg ABG pO2 86 (85-104) mmHg ABG HCO3 23 (21-27) mEq/L ABG Total CO2 25 (20-26) mEq/L ABG O2 Saturation 97 (95-98) % ABG Base Excess -1 (-2 to 3) mEq/L Carboxyhemoglobin (0-5) % O2 Delivery Device Cannula Inspired O2 2.0 (1-15=lpm el38-288=%) Sodium (136-145) mEq/L Potassium (3.5-5.1) mEq/L Chloride (98-107) mEq/L Carbon Dioxide (23-29) mEq/L BUN (6-20) mg/dL Creatinine (0.70-1.30) mg/dL Est GFR ( Amer) (> 60) Est GFR (Non-Af Amer) (> 60) BUN/Creatinine Ratio (6-26) Glucose (70-105) mg/dL Calculated Osmolality (280-300) Lactic Acid 2.9 H (0.5-2.2) mmol/L Calcium (8.6-10.3) mg/dL Total Bilirubin (0.3-1.0) mg/dL Direct Bilirubin (0.0-0.2) mg/dL Indirect Bilirubin (0.0-1.2) mg/dL AST (13-39) Units/L ALT (7-52) Units/L Alkaline Phosphatase (34-104) Units/L Ammonia (16-53) mcmol/L Creatine Kinase (30-223) Units/L Troponin I (< 0.04) ng/mL Serum Total Protein (6.4-8.9) g/dL Albumin (3.5-5.7) g/dL Globulin (2.4-3.5) g/dL Albumin/Globulin Ratio (1.1-2.2) Beta-Hydroxybutyric Acd (0.02-0.27) mmol/L TSH (0.340-5.600) mcIU/mL Urine Color (Yellow) Urine Clarity (Clear) Urine pH (5.0-8.0) pH Units Ur Specific [place] (1.010-1.025) Urine Protein (Neg-Trace) mg/dL Urine Glucose (UA) (Normal) mg/dL Urine Ketones (Negative) mg/dL Urine Blood (Negative) Urine Nitrite (Negative) Urine Bilirubin (Negative) Urine Urobilinogen (Normal) mg/dL Ur Leukocyte Esterase (Negative) Ur Transition Epith Cell (None-Few) per hpf Urine Bacteria (None-Few) per hpf Hyaline Casts (None-Few) per lpf Ur Culture Indicated? (NO) Urine Opiates Screen (Uxoewc=038) ng/mL Ur Barbiturates Screen (Ecvapm=977) ng/mL Ur Phencyclidine Scrn (Cutoff=25) ng/mL Ur Amphetamines Screen (Qvwrur=6900) ng/mL U Benzodiazepines Scrn (Btzpez=169) ng/mL Urine Cocaine Screen (Cutoff= 300) ng/mL U Marijuana (THC) Screen (Cutoff = 50) ng/mL Ur Drug Screen Interp Ethyl Alcohol (Less than 10) mg/dL - Radiology Data Radiology results reviewed: Yes I reviewed the patient's radiology results. Chest X-Ray 03/27/18 18:36 IMPRESSION: Bibasilar hypoaeration. Otherwise, stable chest D/ / Valdemar Jules MD / Valdemar Jules MD Interpreting Provider: Valdemar Jules MD Head CT 03/27/18 18:37 IMPRESSION: No acute intracranial abnormality. Diffuse atrophic changes with findings suggesting chronic microvascular ischemia D/ / Valdemar Jules MD / Valdemar Jules MD Interpreting Provider: Valdemar Jules MD uhas - Christopher Situation: Demographics Background: Presenting Complaint Assessment: Vital Signs, Course and respsone to treatment, Patient/Family Expectation Recommendation: Barrier(s) to disposition, Recommendation based on pending studies, treatments, or consults S.B.AMorgan Report Given to: Dr. Kelley White Repor Time: 22:18
[2018-03-27] MEDS ORDERED: 0.9 % Sodium Chloride 1,000 ML IVC SCH (20:15)
[2018-03-27 20:20] LABS: ABG Base Excess -1 mEq/L (-2 to 3); ABG HCO3 23 mEq/L (21-27); ABG Oxygen Saturation 97 % (95-98); ABG PCO2 37 mmHg (35-45); ABG PH 7.41 pH Units (7.32-7.45); ABG PO2 86 mmHg (85-104); ABG TCO2 25 mEq/L (20-26)
[2018-03-27 20:25] LABS: Bilirubin,Urine Small (Negative); Blood,Urine Negative (Negative); Clarity,Urine Clear (Clear); Color,Urine Yellow (Yellow); Glucose,Urine (UA) >=1000 mg/dL (Normal); Ketones,Urine Trace mg/dL (Negative); Leukocyte Esterase,Urine Negative (Negative); Nitrite,Urine Negative (Negative); PH,Urine 5.5 pH Units (5.0-8.0); Protein,Urine 30 mg/dL (Neg-Trace); Specific Gravity,Urine 1.028 (1.010-1.025); Urobilinogen,Urine Normal (Normal)
[2018-03-27 20:34] LABS: Amphetamine Screen,Urine Negative ng/mL (Cutoff=1000); Barbiturate Screen,Urine Negative ng/mL (Cutoff=200); Benzodiazepines Screen,Urine Negative ng/mL (Cutoff=200); Cannabinoid Screen,Urine Negative ng/mL (Cutoff = 50); Cocaine Screen,Urine Negative ng/mL (Cutoff= 300); Opiate Screen,Urine Negative ng/mL (Cutoff=300); Phencyclidine Screen,Urine Negative ng/mL (Cutoff=25)
[2018-03-27 20:56] LABS: Bacteria,Urine Few per hpf (None-Few); Hyaline Casts,Urine Few per lpf (None-Few); Transitional Epi Cells,Urine Few per hpf (None-Few)
[2018-03-27] MEDS ORDERED: Aspirin 325 MG TABLET PO ONE (21:10)
--- NOTE | 2018-03-27 21:57 | Emergency Department Note ---
Disposition Clinical Impression: Alcoholism, NIKITA (acute kidney injury), Hyperglycemia Heat exposure Qualifiers: Encounter type: initial encounter Qualified Code(s): T67.9XXA - Effect of heat and light, unspecified, initial encounter Fever Qualifiers: Fever type: unspecified Qualified Code(s): R50.9 - Fever, unspecified Disposition: Admitted As Inpatient Condition: Fair General Adult HPI - General Chief complaint: ED Arrhythmia/Palpitations Stated complaint: SVT Time Seen by Provider: 03/27/18 18:36 Source: patient, EMS Mode of arrival: EMS Limitations: no limitations Nursing Notes Reviewed: Yes Vital Signs Reviewed: Yes - History of Present Illness Pain Scale: 0 - Related Data Previous Rx's Medication Instructions Recorded Famotidine [Pepcid] 20 mg PO BID 10 Days #20 tablet 03/25/18 Allergies Allergy/AdvReac Type Severity Reaction Status Date / Time No Known Allergies Allergy Verified 03/25/18 00:58 Past Medical History - Past Medical History Medical history: Reports: no medical history Psychiatric history: Reports: bipolar - Social History Smoking Status: Never smoker Smokeless Tobacco Status: No Alcohol use: Reports: heavy Drug use: Reports: unknown Physical Exam - General Limitations: no limitations General appearance: in no apparent distress, lethargic, obese, other (Patient is very diaphoretic and he seems very lethargic and he is able to answer questions but is very slow to answer them.) Course Vital Signs Temperature 103.3 F H 03/27/18 18:33 Pulse Rate 153 03/27/18 18:33 Respiratory Rate 56 03/27/18 18:33 Blood Pressure 135/77 03/27/18 18:33 O2 Sat by Pulse Oximetry 92 03/27/18 18:33 Temperature 98 F 03/27/18 22:00 Pulse Rate 97 03/27/18 22:00 Respiratory Rate 20 03/27/18 22:00 Blood Pressure 143/87 03/27/18 22:00 O2 Sat by Pulse Oximetry 96 03/27/18 22:00 Oxygen Delivery Oxygen Delivery Room Air Medical Decision Making - Medical Records Medical records reviewed: Yes I reviewed the patient's medical records. - Lab Data Lab results reviewed: Yes I reviewed the patient's lab results. Result diagrams: 03/27/18 22:23 03/27/18 18:36 Lab Results 03/27/18 03/27/18 03/27/18 Range/Units 18:36 18:36 18:36 WBC 15.1 H D (4.3-11.1) K/mcL RBC 4.03 L (4.19-5.50) M/mcL Hgb 13.4 (12.9-16.9) g/dL Hct 38.8 (37.5-50.1) % MCV 96.3 (83.0-100.0) fL MCH 33.3 (28.0-33.3) pg MCHC 34.5 (31.6-35.5) g/dL RDW 11.9 (11.5-14.5) % Plt Count 155 (140-400) K/mcL MPV 10.2 (9.4-12.4) fL Immature Gran % 3.2 (0-4) % Seg Neutrophils % 78.3 % Lymphocytes % 7.7 % Monocytes % 10.3 % Eosinophils % 0.1 % Basophils % 0.4 % Neutrophils # 11.8 H (1.6-8.9) K/mcL Lymphocytes # 1.2 (0.6-4.6) K/mcL Monocytes # 1.6 H (0.0-1.3) K/mcL Eosinophils # 0.0 (0.0-0.6) K/mcL Basophils # 0.1 (0.0-0.2) K/mcL PT 13.3 H (9.4-12.1) Seconds INR 1.2 APTT 27.7 (26.0-36.0) Seconds ABG pH (7.32-7.45) pH Units ABG pCO2 (35-45) mmHg ABG pO2 (85-104) mmHg ABG HCO3 (21-27) mEq/L ABG Total CO2 (20-26) mEq/L ABG O2 Saturation (95-98) % ABG Base Excess (-2 to 3) mEq/L Carboxyhemoglobin (0-5) % O2 Delivery Device Inspired O2 (1-15=lpm [id number]=%) Sodium 131 L (136-145) mEq/L Potassium 4.0 (3.5-5.1) mEq/L Chloride 94 L (98-107) mEq/L Carbon Dioxide 14 L (23-29) mEq/L BUN 15 (6-20) mg/dL Creatinine 1.99 H (0.70-1.30) mg/dL Est GFR ( Amer) 42 L (> 60) Est GFR (Non-Af Amer) 35 L (> 60) BUN/Creatinine Ratio 8 (6-26) Glucose 425 H (70-105) mg/dL Calculated Osmolality 291 (280-300) Lactic Acid (0.5-2.2) mmol/L Calcium 9.9 (8.6-10.3) mg/dL Total Bilirubin 0.9 (0.3-1.0) mg/dL Direct Bilirubin 0.4 H (0.0-0.2) mg/dL Indirect Bilirubin 0.5 (0.0-1.2) mg/dL AST 49 H (13-39) Units/L ALT 28 (7-52) Units/L Alkaline Phosphatase 102 (34-104) Units/L Ammonia (16-53) mcmol/L Creatine Kinase 251 H (30-223) Units/L Troponin I 0.04 H* (< 0.04) ng/mL Serum Total Protein 8.0 (6.4-8.9) g/dL Albumin 4.2 (3.5-5.7) g/dL Globulin 3.8 H (2.4-3.5) g/dL Albumin/Globulin Ratio 1.1 (1.1-2.2) Beta-Hydroxybutyric Acd (0.02-0.27) mmol/L TSH 4.080 (0.340-5.600) mcIU/mL Urine Color (Yellow) Urine Clarity (Clear) Urine pH (5.0-8.0) pH Units Ur Specific [place] (1.010-1.025) Urine Protein (Neg-Trace) mg/dL Urine Glucose (UA) (Normal) mg/dL Urine Ketones (Negative) mg/dL Urine Blood (Negative) Urine Nitrite (Negative) Urine Bilirubin (Negative) Urine Urobilinogen (Normal) mg/dL Ur Leukocyte Esterase (Negative) Ur Transition Epith Cell (None-Few) per hpf Urine Bacteria (None-Few) per hpf Hyaline Casts (None-Few) per lpf Ur Culture Indicated? (NO) Urine Opiates Screen (Cdplso=383) ng/mL Ur Barbiturates Screen (Lygwbw=059) ng/mL Ur Phencyclidine Scrn (Cutoff=25) ng/mL Ur Amphetamines Screen (Lmjigg=9462) ng/mL U Benzodiazepines Scrn (Nakoex=037) ng/mL Urine Cocaine Screen (Cutoff= 300) ng/mL U Marijuana (THC) Screen (Cutoff = 50) ng/mL Ur Drug Screen Interp Ethyl Alcohol < 10 (Less than 10) mg/dL 03/27/18 03/27/18 03/27/18 Range/Units 18:36 18:36 18:36 WBC (4.3-11.1) K/mcL RBC (4.19-5.50) M/mcL Hgb (12.9-16.9) g/dL Hct (37.5-50.1) % MCV (83.0-100.0) fL MCH (28.0-33.3) pg MCHC (31.6-35.5) g/dL RDW (11.5-14.5) % Plt Count (140-400) K/mcL MPV (9.4-12.4) fL Immature Gran % (0-4) % Seg Neutrophils % % Lymphocytes % % Monocytes % % Eosinophils % % Basophils % % Neutrophils # (1.6-8.9) K/mcL Lymphocytes # (0.6-4.6) K/mcL Monocytes # (0.0-1.3) K/mcL Eosinophils # (0.0-0.6) K/mcL Basophils # (0.0-0.2) K/mcL PT (9.4-12.1) Seconds INR APTT (26.0-36.0) Seconds ABG pH (7.32-7.45) pH Units ABG pCO2 (35-45) mmHg ABG pO2 (85-104) mmHg ABG HCO3 (21-27) mEq/L ABG Total CO2 (20-26) mEq/L ABG O2 Saturation (95-98) % ABG Base Excess (-2 to 3) mEq/L Carboxyhemoglobin 4.7 (0-5) % O2 Delivery Device Inspired O2 (1-15=lpm [id number]=%) Sodium (136-145) mEq/L Potassium (3.5-5.1) mEq/L Chloride (98-107) mEq/L Carbon Dioxide (23-29) mEq/L BUN (6-20) mg/dL Creatinine (0.70-1.30) mg/dL Est GFR ( Amer) (> 60) Est GFR (Non-Af Amer) (> 60) BUN/Creatinine Ratio (6-26) Glucose (70-105) mg/dL Calculated Osmolality (280-300) Lactic Acid 8.8 H* (0.5-2.2) mmol/L Calcium (8.6-10.3) mg/dL Total Bilirubin (0.3-1.0) mg/dL Direct Bilirubin (0.0-0.2) mg/dL Indirect Bilirubin (0.0-1.2) mg/dL AST (13-39) Units/L ALT (7-52) Units/L Alkaline Phosphatase (34-104) Units/L Ammonia (16-53) mcmol/L Creatine Kinase (30-223) Units/L Troponin I (< 0.04) ng/mL Serum Total Protein (6.4-8.9) g/dL Albumin (3.5-5.7) g/dL Globulin (2.4-3.5) g/dL Albumin/Globulin Ratio (1.1-2.2) Beta-Hydroxybutyric Acd 0.36 H (0.02-0.27) mmol/L TSH (0.340-5.600) mcIU/mL Urine Color (Yellow) Urine Clarity (Clear) Urine pH (5.0-8.0) pH Units Ur Specific [place] (1.010-1.025) Urine Protein (Neg-Trace) mg/dL Urine Glucose (UA) (Normal) mg/dL Urine Ketones (Negative) mg/dL Urine Blood (Negative) Urine Nitrite (Negative) Urine Bilirubin (Negative) Urine Urobilinogen (Normal) mg/dL Ur Leukocyte Esterase (Negative) Ur Transition Epith Cell (None-Few) per hpf Urine Bacteria (None-Few) per hpf Hyaline Casts (None-Few) per lpf Ur Culture Indicated? (NO) Urine Opiates Screen (Nlshkv=285) ng/mL Ur Barbiturates Screen (Deuxap=449) ng/mL Ur Phencyclidine Scrn (Cutoff=25) ng/mL Ur Amphetamines Screen (Ehtdis=1498) ng/mL U Benzodiazepines Scrn (Renznv=233) ng/mL Urine Cocaine Screen (Cutoff= 300) ng/mL U Marijuana (THC) Screen (Cutoff = 50) ng/mL Ur Drug Screen Interp Ethyl Alcohol (Less than 10) mg/dL 03/27/18 03/27/18 03/27/18 Range/Units 19:12 20:13 20:13 WBC (4.3-11.1) K/mcL RBC (4.19-5.50) M/mcL Hgb (12.9-16.9) g/dL Hct (37.5-50.1) % MCV (83.0-100.0) fL MCH (28.0-33.3) pg MCHC (31.6-35.5) g/dL RDW (11.5-14.5) % Plt Count (140-400) K/mcL MPV (9.4-12.4) fL Immature Gran % (0-4) % Seg Neutrophils % % Lymphocytes % % Monocytes % % Eosinophils % % Basophils % % Neutrophils # (1.6-8.9) K/mcL Lymphocytes # (0.6-4.6) K/mcL Monocytes # (0.0-1.3) K/mcL Eosinophils # (0.0-0.6) K/mcL Basophils # (0.0-0.2) K/mcL PT (9.4-12.1) Seconds INR APTT (26.0-36.0) Seconds ABG pH (7.32-7.45) pH Units ABG pCO2 (35-45) mmHg ABG pO2 (85-104) mmHg ABG HCO3 (21-27) mEq/L ABG Total CO2 (20-26) mEq/L ABG O2 Saturation (95-98) % ABG Base Excess (-2 to 3) mEq/L Carboxyhemoglobin (0-5) % O2 Delivery Device Inspired O2 (1-15=lpm fr85-425=%) Sodium (136-145) mEq/L Potassium (3.5-5.1) mEq/L Chloride (98-107) mEq/L Carbon Dioxide (23-29) mEq/L BUN (6-20) mg/dL Creatinine (0.70-1.30) mg/dL Est GFR ( Amer) (> 60) Est GFR (Non-Af Amer) (> 60) BUN/Creatinine Ratio (6-26) Glucose (70-105) mg/dL Calculated Osmolality (280-300) Lactic Acid (0.5-2.2) mmol/L Calcium (8.6-10.3) mg/dL Total Bilirubin (0.3-1.0) mg/dL Direct Bilirubin (0.0-0.2) mg/dL Indirect Bilirubin (0.0-1.2) mg/dL AST (13-39) Units/L ALT (7-52) Units/L Alkaline Phosphatase (34-104) Units/L Ammonia 66 H (16-53) mcmol/L Creatine Kinase (30-223) Units/L Troponin I (< 0.04) ng/mL Serum Total Protein (6.4-8.9) g/dL Albumin (3.5-5.7) g/dL Globulin (2.4-3.5) g/dL Albumin/Globulin Ratio (1.1-2.2) Beta-Hydroxybutyric Acd (0.02-0.27) mmol/L TSH (0.340-5.600) mcIU/mL Urine Color Yellow (Yellow) Urine Clarity Clear (Clear) Urine pH 5.5 (5.0-8.0) pH Units Ur Specific [place] 1.028 H (1.010-1.025) Urine Protein 30 H (Neg-Trace) mg/dL Urine Glucose (UA) >=1000 H (Normal) mg/dL Urine Ketones Trace H (Negative) mg/dL Urine Blood Negative (Negative) Urine Nitrite Negative (Negative) Urine Bilirubin Small H (Negative) Urine Urobilinogen Normal (Normal) mg/dL Ur Leukocyte Esterase Negative (Negative) Ur Transition Epith Cell Few (None-Few) per hpf Urine Bacteria Few (None-Few) per hpf Hyaline Casts Few (None-Few) per lpf Ur Culture Indicated? NO (NO) Urine Opiates Screen Negative (Oltfdg=583) ng/mL Ur Barbiturates Screen Negative (Bizkqn=771) ng/mL Ur Phencyclidine Scrn Negative (Cutoff=25) ng/mL Ur Amphetamines Screen Negative (Utsrty=2676) ng/mL U Benzodiazepines Scrn Negative (Rjqgde=924) ng/mL Urine Cocaine Screen Negative (Cutoff= 300) ng/mL U Marijuana (THC) Screen Negative (Cutoff = 50) ng/mL Ur Drug Screen Interp See Below Ethyl Alcohol (Less than 10) mg/dL 0903/27/18 03/27/18 Range/Units 20:17 20:59 22:23 WBC 12.0 H (4.3-11.1) K/mcL RBC 3.51 L (4.19-5.50) M/mcL Hgb 11.8 L D (12.9-16.9) g/dL Hct 34.5 L (37.5-50.1) % MCV 98.3 (83.0-100.0) fL MCH 33.6 H (28.0-33.3) pg MCHC 34.2 (31.6-35.5) g/dL RDW 12.0 (11.5-14.5) % Plt Count 108 L (140-400) K/mcL MPV 10.0 (9.4-12.4) fL Immature Gran % 4.5 H (0-4) % Seg Neutrophils % 75.2 % Lymphocytes % 2.8 % Monocytes % 17.1 % Eosinophils % 0.1 % Basophils % 0.3 % Neutrophils # 9.0 H (1.6-8.9) K/mcL Lymphocytes # 0.3 L (0.6-4.6) K/mcL Monocytes # 2.1 H (0.0-1.3) K/mcL Eosinophils # 0.0 (0.0-0.6) K/mcL Basophils # 0.0 (0.0-0.2) K/mcL PT (9.4-12.1) Seconds INR APTT (26.0-36.0) Seconds ABG pH 7.41 (7.32-7.45) pH Units ABG pCO2 37 (35-45) mmHg ABG pO2 86 (85-104) mmHg ABG HCO3 23 (21-27) mEq/L ABG Total CO2 25 (20-26) mEq/L ABG O2 Saturation 97 (95-98) % ABG Base Excess -1 (-2 to 3) mEq/L Carboxyhemoglobin (0-5) % O2 Delivery Device Cannula Inspired O2 2.0 (1-15=lpm ih75-305=%) Sodium (136-145) mEq/L Potassium (3.5-5.1) mEq/L Chloride (98-107) mEq/L Carbon Dioxide (23-29) mEq/L BUN (6-20) mg/dL Creatinine (0.70-1.30) mg/dL Est GFR ( Amer) (> 60) Est GFR (Non-Af Amer) (> 60) BUN/Creatinine Ratio (6-26) Glucose (70-105) mg/dL Calculated Osmolality (280-300) Lactic Acid 2.9 H (0.5-2.2) mmol/L Calcium (8.6-10.3) mg/dL Total Bilirubin (0.3-1.0) mg/dL Direct Bilirubin (0.0-0.2) mg/dL Indirect Bilirubin (0.0-1.2) mg/dL AST (13-39) Units/L ALT (7-52) Units/L Alkaline Phosphatase (34-104) Units/L Ammonia (16-53) mcmol/L Creatine Kinase (30-223) Units/L Troponin I (< 0.04) ng/mL Serum Total Protein (6.4-8.9) g/dL Albumin (3.5-5.7) g/dL Globulin (2.4-3.5) g/dL Albumin/Globulin Ratio (1.1-2.2) Beta-Hydroxybutyric Acd (0.02-0.27) mmol/L TSH (0.340-5.600) mcIU/mL Urine Color (Yellow) Urine Clarity (Clear) Urine pH (5.0-8.0) pH Units Ur Specific [place] (1.010-1.025) Urine Protein (Neg-Trace) mg/dL Urine Glucose (UA) (Normal) mg/dL Urine Ketones (Negative) mg/dL Urine Blood (Negative) Urine Nitrite (Negative) Urine Bilirubin (Negative) Urine Urobilinogen (Normal) mg/dL Ur Leukocyte Esterase (Negative) Ur Transition Epith Cell (None-Few) per hpf Urine Bacteria (None-Few) per hpf Hyaline Casts (None-Few) per lpf Ur Culture Indicated? (NO) Urine Opiates Screen (Udkovt=961) ng/mL Ur Barbiturates Screen (Fcpljr=228) ng/mL Ur Phencyclidine Scrn (Cutoff=25) ng/mL Ur Amphetamines Screen (Yvccpq=4286) ng/mL U Benzodiazepines Scrn (Paauqg=658) ng/mL Urine Cocaine Screen (Cutoff= 300) ng/mL U Marijuana (THC) Screen (Cutoff = 50) ng/mL Ur Drug Screen Interp Ethyl Alcohol (Less than 10) mg/dL - Radiology Data Radiology results reviewed: Yes I reviewed the patient's radiology results. Chest X-Ray 03/27/18 18:36 IMPRESSION: Bibasilar hypoaeration. Otherwise, stable chest D/ / Valdemar Jules MD / Valdemar Jules MD Interpreting Provider: Valdemar Jules MD Head CT 03/27/18 18:37 IMPRESSION: No acute intracranial abnormality. Diffuse atrophic changes with findings suggesting chronic microvascular ischemia D/ / Valdemar Julse MD / Valdemar Jules MD Interpreting Provider: Valdemar Jules MD Critical Care Time Critical Care Time: Yes Total Critical Care Time: 45 Attestation: Critical care performed: Time is exclusive of separately billable procedures. Time includes: direct patient care, patient reassessment, coordination of patient care, interpretation of data (laboratory data, radiology data, and respiratory data), review of patient's medical records, medical consultation and documentation of patient care. Procedures included in critical care time: Procedures excluded from critical care time: Attestation Statement - Attestation Attestation: I, Ayad Hall MD, personally evaluated this patient and discussed their management with the resident physician. I reviewed the resident's note and agree with the documented findings, medical decision making, and plan of care. This patient was signed out at shift change from Dr. Turk and Dr. Friedman. Please refer to their notes for complete details of the history and physical examination. Patient is a 57-year-old male with a history of psychiatric problems who resides at a [place] prison. He was apparently found in a park or parking lot leaning against a tree. They felt he had an altered mental status and he was brought here. Patient was profusely diaphoretic and febrile with a temperature greater than 103. He was tachypneic. Patient reported that he had been out in the heat all day and he just got overheated. He was thought to possibly be altered however he did respond appropriately and answers questions appropriately. I just saw this patient here 2 days ago for a different problem and on talking with the patient tonight his mental status and speech is his baseline and unchanged from 2 days ago. Patient denies any complaints other than he states he just feels like he is in a daze. He denies any headache. No chest pain or shortness of breath. No abdominal pain. He denies vomiting or diarrhea. No UTI symptoms. On examination patient is a well-developed well-nourished male. He is alert and oriented and answers questions appropriately. He is mildly diaphoretic. No cyanosis. Breath sounds are equal bilaterally. No rales or wheezes noted. Heart is tachycardic and regular. Abdomen is soft and nontender with normal bowel sounds. No gross focal neurological deficits. Chest x-ray negative. Head CT negative. Urinalysis negative. Labs reviewed. Patient has elevated glucose and positive ketones however he is not acidotic with a normal pH on ABG. Initial lactate 8.8 which improved down to 2.9 with IV fluids. Also his heart rate improved from 140s down to about 110 with IV fluids. Fever also resolved. Patient feeling much better and still has no specific complaints. The hospitalist, Dr. Benson, was consulted and accepted admission of the patient.
[2018-03-27 22:38] LABS: Basophils % 0.3 %; Eosinophils % 0.1 %; Hematocrit 34.5 % (37.5-50.1); Hemoglobin 11.8 g/dL (12.9-16.9); Immature Granulocytes % 4.5 % (0-4); Lymphocytes # 0.3 K/mcL (0.6-4.6); Lymphocytes % 2.8 %; Mean Corpuscular HGB Conc 34.2 g/dL (31.6-35.5); Mean Corpuscular Hemoglobin 33.6 pg (28.0-33.3); Mean Corpuscular Volume 98.3 fL (83.0-100.0); Monocytes # 2.1 K/mcL (0.0-1.3); Monocytes % 17.1 %; Platelet Count 108 K/mcL (140-400); Red Blood Count 3.51 M/mcL (4.19-5.50); Segmented Neutrophils % 75.2 %
[2018-03-27 22:56] LABS: BUN/Creatinine Ratio 10 (6-26); Blood Urea Nitrogen 14 mg/dL (6-20); Calcium 8.4 mg/dL (8.6-10.3); Carbon Dioxide 20 mEq/L (23-29); Chloride 105 mEq/L (98-107); Glucose 180 mg/dL (70-105); Osmolality,Calculated 285 (280-300); Potassium 3.9 mEq/L (3.5-5.1); Sodium 135 mEq/L (136-145); eGFR For Non-African Americans 50 (> 60)
--- NOTE | 2018-03-28 01:00 | Internal Med History&Physical ---
<Jeri Payne M - Last Filed: 03/28/18 04:55> Date of Encounter: 03/28/18 Time of Encounter: 01:00 Internal Medicine - H&P: HPI Chief complaint: found passed out Admitted From: Home Plans for Post Hospital Care: Home History of present illness: Mr. Gooden is a 57 year old male who was found passed out and brought to ED. He is now more awake but last thing he remembers today is buying a soda because he was hot and then walking towards the red [employer]. He denies that he has a problem with alcohol use but admits that he drank 2 cans of 24 oz beer yesterday before passing out. He denos taking anything was not prescribed for him but then admits to getting high early in day. He became irritated when I asked how much alcohol he drank and protested that he drinks a "normal amount for a man". He complains of headache and shaking he attributes to being cold - he denies chest pain. In ED, he had tempatature of 103 and HR 153- improved with cooling and 3L bolus of IV fluids. Glucose of 425 - given insulin. Per chart review, patient has presented to ED altered due to intoxication on several previous occasions including 12-13-17 and more recently on 03-02-18 when he was transferred to trauma center after found with GCS of 14. Past Med Surg Social Fam HX - Past Medical History Medical history: no medical history Psychiatric history: bipolar - Past Surgical History Surgical History: appendectomy - Social History Smoking Status: Current every day smoker Packs per day: <pack Smokeless Tobacco Status: No Alcohol use: heavy Drug use: unknown - Family History Father Living Status: Age at : 69 Cause of : cancer Hx Family Cancer: Yes Internal Medicine - H&P: Meds Famotidine [Pepcid] 20 mg PO BID 10 Days #20 tablet 03/25/18 [Rx] 3 Allergy/AdvReac Type Severity Reaction Status Date / Time No Known Allergies Allergy Verified 03/25/18 00:58 ROS unobtainable: due to mental status All Systems PM: A 10-system review of systems was performed and is negative for pertinent findings except as documented above in the HPI. - Constitutional Constitutional: chills - Cardiovascular Cardiovascular ROS IM: syncope, no chest pain - Respiratory Respiratory: no cough, no dyspnea on exertion - Gastrointestinal Gastrointestinal: no abdominal pain - Genitourinary Genitourinary ROS male: no dysuria, no urinary incontinence - Neurological Neurological ROS: headache(s), no dizziness - Constitutional Vitals: Temp Pulse Resp BP Pulse Ox 98.2 F 91 17 134/80 96 03/27/18 23:43 03/27/18 23:43 03/27/18 23:43 03/27/18 23:43 03/27/18 23:43 General appearance: Present: mild distress, A&O X 3, obese. Absent: answers questions appropriately Exam: Patient appears drowsy - Head Head exam: Present: atraumatic, normocephalic - Respiratory Respiratory exam: Present: CTAB. Absent: rales, wheezes - Cardiovascular Cardiovascular exam: Present: RRR. Absent: gallop, rubs - GI/Abdominal GI/Abdominal exam: Present: normal bowel sounds. Absent: mass, tenderness - Extremities Exam Extremities exam: Present: full ROM, radial pulses palpable and symmetrical. Absent: pedal edema - Psychiatric Psychiatric exam: Present: agitated. Absent: anxious Additional comments: he often fails to complete sentences, decrease focus, must be asked simple questions multiple times before answering Internal Med - H&P Results - Labs CBC & Chem 7: 03/27/18 22:23 03/27/18 22:23 - Assessment and plan (1) Encephalopathy Status: Acute Assessment and plan: unclear etiology but possibly due to heat stroke or chronic EtOH abuse - UDS negative several hours after he was found - CIWAS protocol with Ativan - Thiamine, Folic Acid - Acetaminophen for headache - Diet Clear Liquids (2) Heat exposure Status: Acute Assessment and plan: Improved after aggressive IV fluids - T 97.5 -lactic acid improved at normal 2.2 from 8.87 Qualifiers: Encounter type: initial encounter Qualified Code(s): T67.9XXA - Effect of heat and light, unspecified, initial encounter (3) Hyperglycemia Status: Acute Assessment and plan: Improving; Glucose 425 on arrival now 180. More likely to be chronically uncontrolled diabetes than to hyperosmolar hyperglycemia syndrome or DKA - pH 7.41 but beta hydroxybutyric acid elevated at 0.36 - no anion gap - Serum Osm calculated normal at 291 (4) NIKITA (acute kidney injury) Status: Acute Assessment and plan: Improved Scr 1.44 from 1.99 after IVF -Likely due to heat exhaustion and dehydration from baseline around 1.05 (5) Hyponatremia Status: Acute (6) Elevated troponin Status: Acute Assessment and plan: Elevated troponins with out symptoms or EKG changes likely due to heat exhaustion - monitor with q 6hr : 0.05, 0.04 - Time Spent With Patient Total time spent is greater than 50% in coordination of care (as documented) at patient's floor/unit and/or counseling patient: Greater than 35 minutes <Lui Benson - Last Filed: 03/29/18 08:37> Date of Encounter: 03/28/18 Internal Medicine - H&P: HPI History of present illness: Mr. Gooden is a 57 year old male All Systems PM: A 10-system review of systems was performed and is negative for pertinent findings except as documented above in the HPI. - Constitutional Vitals: Temp Pulse Resp BP Pulse Ox 98.1 F 77 16 103/67 94 03/28/18 07:08 03/28/18 07:08 03/28/18 07:08 03/28/18 07:08 03/28/18 07:08 Internal Med - H&P Results - Labs CBC & Chem 7: 03/27/18 22:23 03/27/18 22:23 - Time Spent With Patient Total time spent is greater than 50% in coordination of care (as documented) at patient's floor/unit and/or counseling patient: - Attending Attestation Patient seen and examined. Case discussed with the resident. Agree with assessment and plan. We will continue supportive care for possible heat exhaustion, alcohol withdrawal. Patient hurt improving after fluid resuscitation.
[2018-03-28] MEDS ORDERED: Acetaminophen 325 MG TABLET PO PRN (01:50)
[2018-03-28] MEDS ORDERED: Naloxone 0.4 MG/ML INJ IVP PRN ×2 (01:50→05:27)
[2018-03-28] MEDS ORDERED: *HR* LORazepam 2 MG/ML VIAL IVP PRN ×3 (02:06→04:43)
[2018-03-28] MEDS ORDERED: Thiamine (B-1) 100 MG in 0.9 % Sodium Chloride 50 ML IVPB ONE (02:30)
[2018-03-28 07:19] VITALS: BP 103/67
[2018-03-28] MEDS ORDERED: Folic Acid 1 MG TABLET PO SCH (09:00)
--- NOTE | 2018-03-28 09:36 | Event Note ---
Date of Encounter: 03/28/18 Time of Encounter: 08:00 Pt was admitted overnight for acute encephalopathy secondary to dehydration vs alcohol abuse. He signed out AMA this am before I got a chance to see him
--- NOTE | 2018-04-01 10:58 | Electrocardiograph Report ---
[address] [place], [place] [address] Test Date: 2018-03-27 Pat Name: Srini Gooden Department: [id number] Room: 3B47 Gender: M [employer] Tender: : 1960 Requested By: Christian Turk Order Number: [id number] Reading MD: Camelia Babcock Measurements Intervals [place] Rate: 153 P: 50 DC: 129 QRS: 114 QRSD: 91 T: -1 QT: 263 QTc: 420 Interpretive Statements Sinus tachycardia Right axis deviation Repolarization abnormality, prob rate related Electronically Signed On 04-01-2018 10:56:27 EDT by Camelia Babcock
== END 2018-03-28 07:47 | disposition left against medical advice (07) | DRG 922 ==
LOC: 3BNU 18:31 → EMEROOARM 18:31 → 3BNU 22:52
PROVIDERS: ADMIT Internal Medicine; ATTEND Internal Medicine

== ENCOUNTER 2018-03-30 15:10 | Inpatient (IN) ==
[2018-03-30] MEDS ORDERED: *HR* LORazepam 2 MG/ML VIAL IVP ONE (15:13)
[2018-03-30] MEDS ORDERED: 0.9 % Sodium Chloride 1,000 ML ONE (15:16)
[2018-03-30] MEDS ORDERED: *HR* LORazepam 2 MG/ML VIAL ONE (15:16)
[2018-03-30] MEDS ORDERED: Acetaminophen 650 MG RECTAL SUPP RC ONE (15:18)
--- NOTE | 2018-03-30 15:18 | Emergency Department Note ---
Disposition Clinical Impression: Confusion, Lactic acidemia, Alcohol abuse Acute kidney failure Qualifiers: Acute renal failure type: unspecified Qualified Code(s): N17.9 - Acute kidney failure, unspecified Disposition: Admitted As Inpatient Condition: Fair Forms: ED Satisfaction Letter Time of Disposition: 17:30 General Adult HPI - General Chief complaint: ED Altered Mental Status Stated complaint: unresponsive Time Seen by Provider: 03/30/18 15:13 Source: EMS Limitations: altered mental status Nursing Notes Reviewed: Yes Vital Signs Reviewed: Yes - History of Present Illness HPI Narrative: 57yo male presents from skilled nursing via EMS for evaluation of unresponsiveness. Patient is shivering, diaphoretic, slow mentation. He is protecting his airway. He occasionally answers simple questions. He knows that he did fall today however, is unable to provide additional detail. ROS not obtainable secondary to patient's medical condition. Pain Scale: 0 - Related Data Home Medications Medication Instructions Recorded Confirmed Unable To Obtain [Unable to Obtain] 03/30/18 03/30/18 Allergies Allergy/AdvReac Type Severity Reaction Status Date / Time No Known Allergies Allergy Verified 03/25/18 00:58 All systems ED: reviewed and negative except as stated. Review of Systems: As Per HPI Past Medical History - Past Medical History Medical history: Reports: non-contributory Surgical history: Reports: appendectomy Psychiatric history: Reports: bipolar - Social History Smoking Status: Never smoker Smokeless Tobacco Status: No Alcohol use: Reports: heavy Drug use: Reports: unknown Physical Exam Primary survey: Airway: Intact; patient is speaking in 1-2 word sentences. Maintaining secretions. Breathing: No chest wall tenderness. Bilateral breath sounds equal. Circulation: Bilateral radial, posterior tibial, pulses 2/4. No hemorrhaging. Disability: GCS 15. Exposure: Skin diaphoretic. No abrasions, lacerations, ecchymosis, or hematomas on the patient's scalp or face, trunk, extremities. Secondary survey Vital Signs Reviewed General: Patient is alert, oriented, and in no acute distress. HEENT: No facial asymmetry. Head is normocephalic and atraumatic. PERRLA, EOMI. Cardiovascular: Heart tachycardic rate and regular rhythm without clicks, rubs, gallops, or murmurs. No JVD. PMI nondisplaced. Respiratory: Symmetric chest rise with poor respiratory effort. Bilateral breath sounds are clear without wheezing, crackles, or rhonchi. Abdomen: Bowel sounds present normoactive x-4 quadrants. Abdomen is soft, nondistended, and nontender. No organomegaly noted. Musculoskeletal: Spontaneously moving all extremities. Fire Extinguisher Installer strength 5/5 and equal. Neuro: Sensation light touch intact. Psych: Patient's affect is appropriate for situation. - General Limitations: altered mental status General appearance: alert, lethargic Course Course Narrative: On intake, patient is tachycardic, diaphoretic, febrile to 101. He is able to take oral Tylenol. EKG dated 04/13/1815: 19 interpreted as sinus tachycardia with rate of 135. OK 127, QTC 434. Right axis. Lipoma branch block. Nonspecific ST-T changes. Compared to previous EKG dated 03/27/2018 showing no acute ischemic changes or comparison. Chart check shows patient was seen in this department 2 days ago with similar presentation. He was admitted then left AMA the following morning. He has a known history of alcoholism. Current every day smoker. Urinalysis unremarkable at that time. CT head unremarkable at that time. CT head and CT C-spine as patient reports a fall. Will not repeat urinalysis as recent UA was unremarkable. Patient verbally agrees to lumbar puncture. He is unable to write his name. Provided 2 mg IV Ativan with 1 L banana bag. Serum hematology is unremarkable. Patient does have very mild leukocytosis and very mild anemia however this is not exquisite his clinical picture. Serum chemistry shows acute kidney injury with elevated creatinine as well as lactic acidemia with lactate 6.0. Patient is receiving fluids. CSF analysis not indicative of a CSF infection. CSF is hyperglycemic however, patient's serum is also hyperglycemic. There is the possibility of EtOH withdrawl. Ativan 2mg provided on arrival. No listed psychiatric medications; serotonin syndrome unlikely. I discussed the patient with the admitting hospitalist, Dr. Reich, who agrees to accept the patient for continued evaluation monitoring. Vital Signs Temperature 101.0 F H 03/30/18 15:11 Pulse Rate 130 03/30/18 15:11 Respiratory Rate 22 03/30/18 15:11 Blood Pressure 124/90 03/30/18 15:11 O2 Sat by Pulse Oximetry 94 03/30/18 15:11 Temperature 101.0 F H 03/30/18 15:11 Pulse Rate 104 09/06/18 17:13 Respiratory Rate 20 03/30/18 17:13 Blood Pressure 118/77 03/30/18 17:13 O2 Sat by Pulse Oximetry 98 03/30/18 17:13 Oxygen Delivery Oxygen Delivery Room Air Procedures - Lumbar Puncture Consent Obtained: verbal consent Time Out Performed: Yes Patient Position: upright Skin Prep: Povidone-Iodine 1% Local Anesthetic: lidocaine 1% Amount of anesthesia used (mL): 5 Spinal Needle Gauge: 22G Interspace Used: L3-L4 Fluid Initially Obtained: clear Additional Comments: Levoscoliosis. Patient moving throughout the procedure despite appropriate holding and instruction. Complications: Need to have other Practitioner Attempt, bleeding Medical Decision Making - Lab Data Result diagrams: 03/30/18 15:19 03/30/18 15:19 Lab Results 03/30/18 03/30/18 03/30/18 Range/Units 15:19 15:19 15:19 WBC 11.6 H (4.3-11.1) K/mcL RBC 3.84 L (4.19-5.50) M/mcL Hgb 12.6 L (12.9-16.9) g/dL Hct 38.3 (37.5-50.1) % MCV 99.7 (83.0-100.0) fL MCH 32.8 (28.0-33.3) pg MCHC 32.9 (31.6-35.5) g/dL RDW 12.4 (11.5-14.5) % Plt Count 161 (140-400) K/mcL MPV 10.0 (9.4-12.4) fL Immature Gran % 2.8 (0-4) % Seg Neutrophils % 74.5 % Lymphocytes % 9.8 % Monocytes % 12.3 % Eosinophils % 0.1 % Basophils % 0.5 % Neutrophils # 8.6 (1.6-8.9) K/mcL Lymphocytes # 1.1 (0.6-4.6) K/mcL Monocytes # 1.4 H (0.0-1.3) K/mcL Eosinophils # 0.0 (0.0-0.6) K/mcL Basophils # 0.1 (0.0-0.2) K/mcL ESR (0-10) mm/hr PT (9.4-12.1) Seconds INR Sodium 137 (136-145) mEq/L Potassium 3.9 (3.5-5.1) mEq/L Chloride 100 (98-107) mEq/L Carbon Dioxide 22 L (23-29) mEq/L BUN 13 (6-20) mg/dL Creatinine 1.69 H (0.70-1.30) mg/dL Est GFR ( Amer) 51 L (> 60) Est GFR (Non-Af Amer) 42 L (> 60) BUN/Creatinine Ratio 8 (6-26) Glucose 220 H (70-105) mg/dL POC Glucose (70-99) mg/dL Calculated Osmolality 291 (280-300) Lactic Acid 6.0 H* (0.5-2.2) mmol/L Calcium 9.2 (8.6-10.3) mg/dL Magnesium 2.0 (1.6-2.6) mg/dL Total Bilirubin 0.8 (0.3-1.0) mg/dL AST 44 H (13-39) Units/L ALT 26 (7-52) Units/L Alkaline Phosphatase 100 (34-104) Units/L Ammonia (16-53) mcmol/L Troponin I 0.03 (< 0.04) ng/mL C-Reactive Protein 161 H (Less than 10) mg/L Serum Total Protein 7.7 (6.4-8.9) g/dL Albumin 3.7 (3.5-5.7) g/dL Globulin 4.0 H (2.4-3.5) g/dL Albumin/Globulin Ratio 0.9 L (1.1-2.2) CSF Volume mL CSF Appearance (Clear) CSF Color (Colorless) CSF RBC (0.000 - 0.002) M/mcL CSF Tot Nucleated Cells (0-5) TNC/mcL CSF Glucose (40-70) mg/dL CSF Xanth Comm (Not Observe) CSF Total Protein (15-45) mg/dL Ethyl Alcohol 13 H (Less than 10) mg/dL 03/30/18 03/30/18 03/30/18 Range/Units 15:19 15:19 15:19 WBC (4.3-11.1) K/mcL RBC (4.19-5.50) M/mcL Hgb (12.9-16.9) g/dL Hct (37.5-50.1) % MCV (83.0-100.0) fL MCH (28.0-33.3) pg MCHC (31.6-35.5) g/dL RDW (11.5-14.5) % Plt Count (140-400) K/mcL MPV (9.4-12.4) fL Immature Gran % (0-4) % Seg Neutrophils % % Lymphocytes % % Monocytes % % Eosinophils % % Basophils % % Neutrophils # (1.6-8.9) K/mcL Lymphocytes # (0.6-4.6) K/mcL Monocytes # (0.0-1.3) K/mcL Eosinophils # (0.0-0.6) K/mcL Basophils # (0.0-0.2) K/mcL ESR 124 H (0-10) mm/hr PT 13.7 H (9.4-12.1) Seconds INR 1.2 Sodium (136-145) mEq/L Potassium (3.5-5.1) mEq/L Chloride (98-107) mEq/L Carbon Dioxide (23-29) mEq/L BUN (6-20) mg/dL Creatinine (0.70-1.30) mg/dL Est GFR ( Amer) (> 60) Est GFR (Non-Af Amer) (> 60) BUN/Creatinine Ratio (6-26) Glucose (70-105) mg/dL POC Glucose (70-99) mg/dL Calculated Osmolality (280-300) Lactic Acid (0.5-2.2) mmol/L Calcium (8.6-10.3) mg/dL Magnesium (1.6-2.6) mg/dL Total Bilirubin (0.3-1.0) mg/dL AST (13-39) Units/L ALT (7-52) Units/L Alkaline Phosphatase (34-104) Units/L Ammonia 58 H (16-53) mcmol/L Troponin I (< 0.04) ng/mL C-Reactive Protein (Less than 10) mg/L Serum Total Protein (6.4-8.9) g/dL Albumin (3.5-5.7) g/dL Globulin (2.4-3.5) g/dL Albumin/Globulin Ratio (1.1-2.2) CSF Volume mL CSF Appearance (Clear) CSF Color (Colorless) CSF RBC (0.000 - 0.002) M/mcL CSF Tot Nucleated Cells (0-5) TNC/mcL CSF Glucose (40-70) mg/dL CSF Xanth Comm (Not Observe) CSF Total Protein (15-45) mg/dL Ethyl Alcohol (Less than 10) mg/dL 03/30/18 03/30/18 Range/Units 15:22 16:00 WBC (4.3-11.1) K/mcL RBC (4.19-5.50) M/mcL Hgb (12.9-16.9) g/dL Hct (37.5-50.1) % MCV (83.0-100.0) fL MCH (28.0-33.3) pg MCHC (31.6-35.5) g/dL RDW (11.5-14.5) % Plt Count (140-400) K/mcL MPV (9.4-12.4) fL Immature Gran % (0-4) % Seg Neutrophils % % Lymphocytes % % Monocytes % % Eosinophils % % Basophils % % Neutrophils # (1.6-8.9) K/mcL Lymphocytes # (0.6-4.6) K/mcL Monocytes # (0.0-1.3) K/mcL Eosinophils # (0.0-0.6) K/mcL Basophils # (0.0-0.2) K/mcL ESR (0-10) mm/hr PT (9.4-12.1) Seconds INR Sodium (136-145) mEq/L Potassium (3.5-5.1) mEq/L Chloride (98-107) mEq/L Carbon Dioxide (23-29) mEq/L BUN (6-20) mg/dL Creatinine (0.70-1.30) mg/dL Est GFR ( Amer) (> 60) Est GFR (Non-Af Amer) (> 60) BUN/Creatinine Ratio (6-26) Glucose (70-105) mg/dL POC Glucose 230 H (70-99) mg/dL Calculated Osmolality (280-300) Lactic Acid (0.5-2.2) mmol/L Calcium (8.6-10.3) mg/dL Magnesium (1.6-2.6) mg/dL Total Bilirubin (0.3-1.0) mg/dL AST (13-39) Units/L ALT (7-52) Units/L Alkaline Phosphatase (34-104) Units/L Ammonia (16-53) mcmol/L Troponin I (< 0.04) ng/mL C-Reactive Protein (Less than 10) mg/L Serum Total Protein (6.4-8.9) g/dL Albumin (3.5-5.7) g/dL Globulin (2.4-3.5) g/dL Albumin/Globulin Ratio (1.1-2.2) CSF Volume 2.0 mL CSF Appearance Clear (Clear) CSF Color Colorless (Colorless) CSF RBC < 0.002 (0.000 - 0.002) M/mcL CSF Tot Nucleated Cells < 3 (0-5) TNC/mcL CSF Glucose 85 H (40-70) mg/dL CSF Xanth Comm Not Observed (Not Observe) CSF Total Protein 44 (15-45) mg/dL Ethyl Alcohol (Less than 10) mg/dL Attestation Statement - Attestation Attestation: I examined this patient and my medical decision-making was reviewed with the Resident Physician. I agree with the documented findings, disposition and treatment plan as described except to the extent set forth below. Face to face time provided Patient to the emergency department from a skilled nursing after patient was found to have altered mentation. Possible seizure activity. Concern for possible alcohol withdrawal. Patient is alert but tachycardic and diaphoretic upon arrival. He is protecting his airway
[2018-03-30] MEDS ORDERED: 0.9 % Sodium Chloride 1,000 ML IVC ONE (15:22)
[2018-03-30 15:39] LABS: Basophils # 0.1 K/mcL (0.0-0.2); Basophils % 0.5 %; Eosinophils % 0.1 %; Hematocrit 38.3 % (37.5-50.1); Hemoglobin 12.6 g/dL (12.9-16.9); Immature Granulocytes % 2.8 % (0-4); Lymphocytes # 1.1 K/mcL (0.6-4.6); Lymphocytes % 9.8 %; Mean Corpuscular HGB Conc 32.9 g/dL (31.6-35.5); Mean Corpuscular Hemoglobin 32.8 pg (28.0-33.3); Mean Corpuscular Volume 99.7 fL (83.0-100.0); Monocytes # 1.4 K/mcL (0.0-1.3); Monocytes % 12.3 %; Neutrophils # 8.6 K/mcL (1.6-8.9); Platelet Count 161 K/mcL (140-400); Red Blood Count 3.84 M/mcL (4.19-5.50); Red Cell Distribution Width 12.4 % (11.5-14.5); Segmented Neutrophils % 74.5 %
[2018-03-30 15:54] LABS: INR 1.2; Prothrombin Time 13.7 Seconds (9.4-12.1)
[2018-03-30] MEDS ORDERED: Lidocaine -MPF 1% 2 ML VIAL ONE (15:55)
[2018-03-30 15:59] LABS: Albumin 3.7 g/dL (3.5-5.7); Albumin/Globulin Ratio 0.9 (1.1-2.2); Bilirubin,Total 0.8 mg/dL (0.3-1.0); Calcium 9.2 mg/dL (8.6-10.3); Potassium 3.9 mEq/L (3.5-5.1); Total Protein 7.7 g/dL (6.4-8.9); Troponin I 0.03 ng/mL (< 0.04)
[2018-03-30] MEDS ORDERED: Thiamine (B-1) 100 MG, Folic Acid 1 MG, MVI, adult with vitamin K 10 ML in 0.9 % Sodi... IVPB SCH (16:00)
[2018-03-30 16:27] LABS: Red Blood Cell,CSF < 0.002 M/mcL
[2018-03-30 16:38] LABS: Appearance,CSF Clear (Clear)
[2018-03-30 16:56] LABS: Glucose,CSF 85 mg/dL (40-70); Total Protein,CSF 44 mg/dL (15-45)
[2018-03-30] MEDS ORDERED: Acetaminophen 325 MG TABLET PO PRN (19:58)
[2018-03-30] MEDS ORDERED: Naloxone 0.4 MG/ML INJ IVP PRN ×2 (19:58→21:13)
[2018-03-30] MEDS ORDERED: *HR* Promethazine 25 MG/ML VIAL IVP PRN (20:04)
--- NOTE | 2018-03-30 20:25 | Internal Med History&Physical ---
<Jeri Payne M - Last Filed: 03/30/18 22:22> Date of Encounter: 03/30/18 Time of Encounter: 20:13 Internal Medicine - H&P: HPI Chief complaint: fall Admitted From: Emergency Dept Plans for Post Hospital Care: Transfer Inp Rehab Fac History of present illness: Mr. Gooden is a 57 year old male with hx of EtOH presented by [facility] for fall and AMS. In ED he was shivering , diaphoretic and slow mentation but afebrile with stable vitals. A mild leukocystosis with elevated lactic acid 6 lead them to work up for sepsis and meningitis with lumbar puncture which was negative except for elevated glucose 85 corresponding to blood glucose 230. In response to history of fall - negative chest X-ray, CT cervical spine and head CT showed atrophy but no acute process. Creatinine of 1.69 is elevated from last admit. [facility] halfway at [phone]: Another resident found him fallen in bathroom, fall was unwitnessed as gentleman who saw it happen has significant psychiatric history. She called the EMS because he was snoring and could not be awoke. In last four months income increased thus EtOH consumption of 2 large 40oz beers and 2 pints of wine daily. He has had several falls while intoxicated and often goes into "coma" were he doesn't speak and muscle tight and shakes - he urinates on self and doesn't bit tongue. He sleeps 16 hrs per day. He doesn't use any other substances other than EtOH but in past used crack cocaine. She know of no other medical problems and his stomach always looks "funny" for 2 years which he attributed to emergency appendectomy in past. [facility] is [facility] - maybe diagnosed with schizophrenia with and takes all his medications including divalproex as she manages it. He has delusion of government mind control brain wave machine and congregational outburst. Now, he is difficult to arouse but sleeping comfortably and snoring loudly. When woken he denies pain and can not tell me what happened today. He left AMA on 03-28-18 after overnight admit for AMS where he told me that his drinking was not a problem and was standard consumption for male. Past Med Surg Social Fam HX - Past Medical History Medical history: non-contributory Psychiatric history: bipolar - Past Surgical History Surgical History: appendectomy - Social History Smoking Status: Never smoker Smokeless Tobacco Status: No Alcohol use: heavy Drug use: unknown - Family History Father Living Status: Hx Family Cancer: Yes Internal Medicine - H&P: Meds Unable To Obtain [Unable to Obtain] 03/30/18 [History] 3 Allergy/AdvReac Type Severity Reaction Status Date / Time No Known Allergies Allergy Verified 03/25/18 00:58 ROS unobtainable: due to mental status - Constitutional Vitals: Temp Pulse Resp BP Pulse Ox 98.4 F 94 18 138/94 95 03/30/18 18:52 03/30/18 18:52 03/30/18 18:52 03/30/18 18:52 03/30/18 18:52 General appearance: Present: disheveled, no acute distress, obese. Absent: cooperative, answers questions appropriately Exam: opens eyes in response to yelling his name, after sternal rub he answers questions but begins snoring again with in seconds . Thus unable to comply with full neurological exam - Head Head exam: Present: atraumatic, normocephalic - Respiratory Respiratory exam: Present: CTAB. Absent: rales, respiratory distress, rhonchi, wheezes, tachypnea Additional comments: snoring loudly - Cardiovascular Cardiovascular exam: Present: RRR. Absent: gallop, rubs - GI/Abdominal GI/Abdominal exam: Present: diminished bowel sounds, distended, soft. Absent: mass, tenderness - Extremities Exam Extremities exam: Present: warm, radial pulses palpable and symmetrical. Absent : pedal edema, tenderness - Neurological Exam Neurological exam: Present: altered. Absent: alert Additional comments: arms held rigid on abdomen and increased tone makes difficult to move - Psychiatric Psychiatric exam: Absent: agitated, anxious - Skin Skin exam: Present: diaphoretic, normal color. Absent: rash Additional comments: previous noted excoriations to bilat lower extremities appear to healing, no new injuries noted Internal Med - H&P Results - Labs CBC & Chem 7: 03/30/18 15:19 03/30/18 15:19 - Assessment and plan (1) Encephalopathy Current Visit: No Status: Acute Assessment and plan: likely due to acute EtOH intoxication with level of 13 but ddx still includes Wernicke- Korsokoff and seizure as history from halfway is consistent -Head CT with artifact showed no acute but there is signs of atrophy - consider neurology consult, brain MRI and EEG in future - monitor with neuro checks q2hr, CIWAS q1hr and cardiac monitoring overnight - we will pink slip him due to his inability to provide for his own basic physical needs and consult psychiatry - hepatic encephalopathy unlikely due near normal ammonium level and liver function - EKG is same as earlier this week and troponins negative - for sepsis work up see lactic acidemia (2) NIKITA (acute kidney injury) Current Visit: No Status: Acute Assessment and plan: Scr 1.69 up from 1.44 last admit and baseline around 1.05 - IVF - received 1.5 liters in ED - creatinine kinase to evaluate for rhabdomyolysis as history of all in unknown (3) Fall Current Visit: No Status: Acute Assessment and plan: No obvious signs of injury and patient denies pain - no acute on chest x-ray, CT head or neck Qualifiers: Encounter type: initial encounter Qualified Code(s): W19.XXXA - Unspecified fall, initial encounter (4) Alcoholism Current Visit: No Status: Acute Assessment and plan: 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 - CIWAS protocol - NPO - social work consulted (5) Lactic acidemia Current Visit: Yes Status: Acute Assessment and plan: LA 6.00 and CRP 161; unknown etiology with no obvious sources of infectious process and current vitals do not meet SIRs criteria Ddx: - meningitis ruled out with lumbar puncture - PNA unlikely with normal chest x-ray - UTI -will obtain UA when awakes (6) Hyperammonemia Current Visit: Yes Status: Acute Assessment and plan: level 58 with distended abdomen and history of alcoholism - CT abdomen (7) Schizophrenia Current Visit: Yes Status: Acute Assessment and plan: Continue home medications as confirmed by halfway when he awakes - psych consulted Qualifiers: Schizophrenia type: paranoid schizophrenia Qualified Code(s): F20.0 - Paranoid schizophrenia (8) DVT prophylaxis Current Visit: Yes Status: Acute Assessment and plan: heparin SQ - Time Spent With Patient Total time spent is greater than 50% in coordination of care (as documented) at patient's floor/unit and/or counseling patient: 25 - 35 minutes <Lui Benson - Last Filed: 04/04/18 10:51> Date of Encounter: 03/30/18 Internal Medicine - H&P: HPI History of present illness: Mr. Gooden is a 57 year old male All Systems PM: A 10-system review of systems was performed and is negative for pertinent findings except as documented above in the HPI. - Constitutional Vitals: Temp Pulse Resp BP Pulse Ox 98.3 F 92 18 131/70 91 04/04/18 08:06 04/04/18 08:45 04/04/18 08:06 04/04/18 08:45 04/04/18 08:45 Internal Med - H&P Results - Labs CBC & Chem 7: 04/04/18 05:28 04/04/18 05:28 Labs: Short CBC 04/04/18 Range/Units 05:28 WBC 5.3 (4.3-11.1) K/mcL Hgb 11.7 L (12.9-16.9) g/dL Hct 36.1 L (37.5-50.1) % Plt Count 215 (140-400) K/mcL Neutrophils # 2.7 (1.6-8.9) K/mcL BMP 04/04/18 05:28 Sodium 142 Potassium 3.5 Chloride 107 Carbon Dioxide 26 BUN 7 Creatinine 0.90 Glucose 111 H Calcium 8.7 Liver Function 04/04/18 04/04/18 Range/Units 05:28 05:28 Total Bilirubin 0.4 0.5 (0.3-1.0) mg/dL Direct Bilirubin 0.1 (0.0-0.2) mg/dL AST 36 34 (13-39) Units/L ALT 17 17 (7-52) Units/L Alkaline Phosphatase 97 100 (34-104) Units/L Albumin 3.1 L 3.1 L (3.5-5.7) g/dL - Impressions ITS Impressions Gallbladder Ultrasound 03/31/18 14:00 IMPRESSION: 1. Cholelithiasis and thickening of the gallbladder wall with mild distention. Small amount of pericholecystic fluid also seen. Acute cholecystitis should be considered. 2. Fatty infiltration of the liver. 3. Normal looking common bile duct. RECOMMENDATIONS: HIDA scan to confirm the diagnosis of acute cholecystitis. D/ / 03/31/2018 14:20:17 Jacklyn Arroyo MD / kevin Interpreting Provider: Jacklyn Arroyo MD Abdomen/Pelvis CT 03/31/18 21:46 IMPRESSION: 1. Findings suggest acute cholecystitis. 2. Fatty liver. 3. Gas in the urinary bladder may indicate cystitis if there has not been recent catheterization. D/ / Delonte Mott MD / Delonte Mott MD Interpreting Provider: Delonte Mott MD - Assessment and plan (1) Fall Current Visit: Yes Status: Acute Qualifiers: Encounter type: initial encounter Qualified Code(s): W19.XXXA - Unspecified fall, initial encounter (2) Alcoholism Current Visit: No Status: Chronic (3) NIKITA (acute kidney injury) Current Visit: Yes Status: Resolved (4) DVT prophylaxis Current Visit: Yes Status: Acute (5) Schizophrenia Current Visit: No Status: Chronic Qualifiers: Schizophrenia type: paranoid schizophrenia Qualified Code(s): F20.0 - Paranoid schizophrenia (6) Acute cholecystitis Current Visit: Yes Status: Acute (7) Acute encephalopathy Current Visit: Yes Status: Resolved (8) Alcohol withdrawal delirium Current Visit: Yes Status: Acute - Time Spent With Patient Total time spent is greater than 50% in coordination of care (as documented) at patient's floor/unit and/or counseling patient: - Attending Attestation Patient seen and examined. Findings discussed with resident. Recurrent admission for AMS in the setting of mild leukocytosis and elevated LA of 6 in a patient with Psych Hx and alocohol abuse who recently left AMA. Suspicion for Seizure withdrawal vs infectious etiology. CT abdomen due to elevated LA. C/w fluids; supportive care. Psych Consult AM. Will pink slip patient due to recurrent admission for similar presentation after patient recently left AMA before further workup could be completed.
[2018-03-30] MEDS: *HR* Heparin 5,000 UNIT/ML VIAL SQ SCH (21:23)
[2018-03-30] MEDS ORDERED: Isovue-370 500 ML INFUS..BTL IV ONE (21:46)
[2018-03-30] MEDS: *HR* LORazepam 2 MG/ML VIAL IVP PRN (22:36)
[2018-03-31 00:33] LABS: Bilirubin,Urine Negative (Negative); Blood,Urine Negative (Negative); Clarity,Urine Cloudy (Clear); Color,Urine Yellow (Yellow); Glucose,Urine (UA) Normal (Normal); Ketones,Urine Trace mg/dL (Negative); Leukocyte Esterase,Urine Negative (Negative); Nitrite,Urine Negative (Negative); PH,Urine 5.5 pH Units (5.0-8.0); Protein,Urine Negative (Neg-Trace); Specific Gravity,Urine 1.014 (1.010-1.025); Urobilinogen,Urine Normal (Normal)
[2018-03-31 00:36] LABS: Bacteria,Urine None Seen per hpf (None-Few); Hyaline Casts,Urine None Seen per lpf (None-Few); Squamous Epithelial Cell,Urine Moderate per lpf (None-Few); WBC,Urine 0-3 per hpf (0-3)
[2018-03-31 00:43] LABS: Amphetamine Screen,Urine Negative ng/mL (Cutoff=1000); Barbiturate Screen,Urine Negative ng/mL (Cutoff=200); Benzodiazepines Screen,Urine Negative ng/mL (Cutoff=200); Cannabinoid Screen,Urine Negative ng/mL (Cutoff = 50); Cocaine Screen,Urine Negative ng/mL (Cutoff= 300); Opiate Screen,Urine Negative ng/mL (Cutoff=300); Phencyclidine Screen,Urine Negative ng/mL (Cutoff=25)
[2018-03-31 02:29] LABS: Basophils # 0.1 K/mcL (0.0-0.2); Basophils % 0.4 %; Hematocrit 37.9 % (37.5-50.1); Hemoglobin 11.9 g/dL (12.9-16.9); Immature Granulocytes % 1.9 % (0-4); Lymphocytes % 15.4 %; Mean Corpuscular HGB Conc 31.4 g/dL (31.6-35.5); Mean Corpuscular Hemoglobin 31.9 pg (28.0-33.3); Mean Corpuscular Volume 101.6 fL (83.0-100.0); Mean Platelet Volume 10.5 fL (9.4-12.4); Monocytes # 1.5 K/mcL (0.0-1.3); Monocytes % 11.5 %; Neutrophils # 9.1 K/mcL (1.6-8.9); Platelet Count 153 K/mcL (140-400); Red Blood Count 3.73 M/mcL (4.19-5.50); Red Cell Distribution Width 12.6 % (11.5-14.5); Segmented Neutrophils % 70.8 %
[2018-03-31 02:45] LABS: Alanine Aminotransferase 22 Units/L (7-52); Albumin 3.5 g/dL (3.5-5.7); Albumin/Globulin Ratio 1.1 (1.1-2.2); Alkaline Phosphatase 84 Units/L (34-104); Aspartate Amino Transferase 50 Units/L (13-39); BUN/Creatinine Ratio 10 (6-26); Bilirubin,Total 0.7 mg/dL (0.3-1.0); Blood Urea Nitrogen 13 mg/dL (6-20); Calcium 8.6 mg/dL (8.6-10.3); Carbon Dioxide 24 mEq/L (23-29); Chloride 108 mEq/L (98-107); Globulin 3.3 g/dL (2.4-3.5); Glucose 111 mg/dL (70-105); Osmolality,Calculated 293 (280-300); Potassium 4.2 mEq/L (3.5-5.1); Sodium 141 mEq/L (136-145); Total Protein 6.8 g/dL (6.4-8.9); eGFR For Non-African Americans 58 (> 60)
[2018-03-31] MEDS: *HR* Heparin 5,000 UNIT/ML VIAL SQ SCH ×2 (05:57→16:59)
[2018-03-31] MEDS: cefTRIAXone 2,000 MG in Water for inj. (sterile) 20 ML 20 ML IVP SCH (05:58)
[2018-03-31] MEDS: metroNIDAZOLE 500 MG TABLET PO SCH ×3 (08:51→20:40)
[2018-03-31] MEDS: Divalproex (24 HR) 500 MG TABLET PO SCH ×2 (08:51→20:40)
[2018-03-31] MEDS: *HR* LORazepam 2 MG/ML VIAL IVP PRN ×2 (09:06→17:00)
--- NOTE | 2018-03-31 10:00 | Internal Med Progress Note ---
<SchaefferMagdiel S - Last Filed: 03/31/18 09:57> Hospitalist Progress Note - Encounter Date of Encounter: 03/31/18 Time of Encounter: 09:57 - Subjective Interval History: Pt is seen at [facility] He is a 57yo male with an extensive hx of EtOH abuse and mental health issues. He is shivering in bed and appears to be in distress. He is hard to arouse and I have to ask him multiple times to get any qustions. He is unsure about why he is here or what is going on but knows he had a fall. -Another resident found him in the bathroom at detention according to notes from night resident -he has been increasing his EtOH intake over the last few months Pt is unable to give me a history. Nurse states he urinated himself this morning , has been shaking and sweating. - Exam Vitals: Temp Pulse Resp BP Pulse Ox 99.3 F 93 20 124/76 96 03/31/18 07:02 03/31/18 07:02 03/31/18 07:02 03/31/18 07:02 03/31/18 07:02 Exam: general - aox3, in distress cardio - S1s2, cta, rrr lungs - ctab abd - (+) poe sign, distended abd extremities - no edema skin - intact - Assessment and Plan (1) Fall Current Visit: Yes Status: Acute Assessment and Plan: Workup for fall showed no acute changes on CXR, CT head or neck -no s/s of injury, no bruises -pt denies pain, although it is hard to get a hx from him (2) Alcoholism Current Visit: No Status: Chronic Assessment and Plan: Pt has a senior care hx of EtOH abuse, has been drinking more as of recently Plan: -[facility] protocol -NPO in case of sx -social work consulted (3) NIKITA (acute kidney injury) Current Visit: Yes Status: Acute Assessment and Plan: Creatinine 1.69 on admission, 1.27 this monring -baseline around 1.05 Plan: -continue 125cc/hr IVF -check CMP in AM -check CK (4) DVT prophylaxis Current Visit: Yes Status: Acute (5) Schizophrenia Current Visit: No Status: Chronic Assessment and Plan: Continue home meds when detention confirms -psych consulted (6) Acute cholecystitis Current Visit: Yes Status: Acute Assessment and Plan: CT scan showed -marked fatty infiltration of the liver, gallbladder wall thickening with pericholecystic fat stranding. No definite cholelithiasis is identified. --findings suggest acute cholecstisits Pt is afebrile currently, had a t 101 on admission WBC count of 12.8 BP stable Lactic acid 6 on admission, 1.2 currently ESR 124 Not likely to be ascending cholangitis, pt shows no s/s of jaundice, hypotension , currently febrile. Plan: -surgery consulted -start 125cc.hr IVF NS -keep NPO. -on ceftriaxone day 1 -abdominal ultrasound pending DVT Prophylaxis: sq heparin - Time Spent with Patient Total time spent is greater than 50% in coordination of care (as documented) at patient's floor/unit and/or counseling patient: less than 15 minutes Plan of Care Discussed with: patient Internal Medicine: Result - Labs CBC & Chem 7: 03/31/18 00:38 03/31/18 00:38 Labs: Short CBC 03/31/18 Range/Units 00:38 WBC 12.8 H (4.3-11.1) K/mcL Hgb 11.9 L (12.9-16.9) g/dL Hct 37.9 (37.5-50.1) % Plt Count 153 (140-400) K/mcL Neutrophils # 9.1 H (1.6-8.9) K/mcL BMP 03/31/18 00:38 Sodium 141 Potassium 4.2 Chloride 108 H Carbon Dioxide 24 BUN 13 Creatinine 1.27 Glucose 111 H Calcium 8.6 Liver Function 03/31/18 Range/Units 00:38 Total Bilirubin 0.7 (0.3-1.0) mg/dL AST 50 H (13-39) Units/L ALT 22 (7-52) Units/L Alkaline Phosphatase 84 (34-104) Units/L Albumin 3.5 (3.5-5.7) g/dL Urine 03/31/18 Range/Units 00:19 Urine Color Yellow (Yellow) Urine Clarity Cloudy A (Clear) Urine pH 5.5 (5.0-8.0) pH Units Ur Specific Ventress 1.014 (1.010-1.025) Urine Protein Negative (Neg-Trace) mg/dL Urine Glucose (UA) Normal (Normal) mg/dL - ABG Interpretation ABG results: PT/INR, D-dimer PT 13.7 Seconds (9.4-12.1) H 03/30/18 15:19 - Impressions Impressions Abdomen/Pelvis CT 03/31/18 21:46 IMPRESSION: 1. Findings suggest acute cholecystitis. 2. Fatty liver. 3. Gas in the urinary bladder may indicate cystitis if there has not been recent catheterization. D/ / Delonte Mott MD / Delonte Mott MD Interpreting Provider: Delonte Mott MD Consult Discharge Plan - Plan Additional Instructions: Coordinate mental health follow up once surgery is complete. [facility]: [facility] Care Provider[facility] - <Verna Mcmanus - Last Filed: 03/31/18 16:13> Hospitalist Progress Note - Encounter Date of Encounter: 03/31/18 - Exam Vitals: Temp Pulse Resp BP Pulse Ox 99.8 F H 98 20 152/80 95 03/31/18 15:03 03/31/18 15:03 03/31/18 15:03 03/31/18 15:03 03/31/18 15:03 - Assessment and Plan (1) Fall Current Visit: Yes Status: Acute (2) Alcoholism Current Visit: No Status: Chronic (3) NIKITA (acute kidney injury) Current Visit: Yes Status: Acute (4) DVT prophylaxis Current Visit: Yes Status: Acute (5) Schizophrenia Current Visit: No Status: Chronic (6) Acute cholecystitis Current Visit: Yes Status: Acute - Time Spent with Patient Total time spent is greater than 50% in coordination of care (as documented) at patient's floor/unit and/or counseling patient: Internal Medicine: Result - Labs CBC & Chem 7: 03/31/18 00:38 03/31/18 00:38 - ABG Interpretation ABG results: PT/INR, D-dimer PT 13.7 Seconds (9.4-12.1) H 03/30/18 15:19 - Impressions Impressions Gallbladder Ultrasound 03/31/18 14:00 IMPRESSION: 1. Cholelithiasis and thickening of the gallbladder wall with mild distention. Small amount of pericholecystic fluid also seen. Acute cholecystitis should be considered. 2. Fatty infiltration of the liver. 3. Normal looking common bile duct. RECOMMENDATIONS: HIDA scan to confirm the diagnosis of acute cholecystitis. D/ / 03/31/2018 14:20:17 Jacklyn Arroyo MD / kevin Interpreting Provider: Jacklyn Arroyo MD Abdomen/Pelvis CT 03/31/18 21:46 IMPRESSION: 1. Findings suggest acute cholecystitis. 2. Fatty liver. 3. Gas in the urinary bladder may indicate cystitis if there has not been recent catheterization. D/ / Delonte Mott MD / Delonte Mott MD Interpreting Provider: Delonte Mott MD - Attending Attestation I examined this patient and my medical decision-making was reviewed with the Resident Physician Dr. Schaeffer. I agree with the documented findings, disposition and treatment plan as described except to the extent set forth below. Mr. Gooden is a 57-year-old gentlemen with known history of schizophrenia and substance abuse patient who is chronic alcohol dependence admitted here with acute abdominal pain and the fall. Patient CT of abdomen showed acute cholecystitis. He is alert, awake oriented to self only seems to be sleepy/ sedative. Gen: Sleepy Chest: Diminished BS b/l, No wheezing, no crackles Heart: S1S2+ sinus tachy Abd: Soft, NT a/p 1. Acute cholecystitis Surgery consulted NPO IV hydration empirical abx Rocephin + Flagyl 2. Alcohol dependence 3. Alcohol withdrawal symptoms Cont CIWA protocol Patient does need to stay in the hospital more than 2 midnights due to his complex medical problems. So we will change him to full admission today. I did review my colleague H & P including HPI, PMH, PSH, FH, SH, and ROS no changes noticed <Magdiel Schaeffer S - Last Filed: 03/31/18 09:57> (1) Fall Qualifiers: Encounter type: initial encounter Qualified Code(s): W19.XXXA - Unspecified fall, initial encounter (5) Schizophrenia Qualifiers: Schizophrenia type: paranoid schizophrenia Qualified Code(s): F20.0 - Paranoid schizophrenia <Verna Mcmanus - Last Filed: 03/31/18 16:13> (1) Fall Qualifiers: Encounter type: initial encounter Qualified Code(s): W19.XXXA - Unspecified fall, initial encounter (5) Schizophrenia Qualifiers: Schizophrenia type: paranoid schizophrenia Qualified Code(s): F20.0 - Paranoid schizophrenia
[2018-03-31] MEDS: 0.9 % Sodium Chloride 1,000 ML IVC SCH ×2 (10:31→18:10)
--- NOTE | 2018-03-31 11:09 | General Surgery Consult Note ---
<Andrew Garsia R - Last Filed: 03/31/18 16:16> Date of Encounter: 03/31/18 Time of Encounter: 11:07 Assessment and Plan (1) Abnormal CT of the abdomen Current Visit: Yes Status: Acute History and Exam are unreliable at this time Patient is withdrawing from EtOH, and is on benzodiazepine medications Plan: Obtain hepatitis panel IV- fluids IV antibiotics NPO comfort care and pain management Will reassess as patient becomes more reliable Repeat labs, ordered by internal medicine team Withdrawal management per primary team History of Present Illness Consult date: 03/31/18 (Dr. Blanco) Reason for consult: other (possible acute cholecystitis by CT) Requesting physician: Magdiel Schaeffer History of present illness: Mr. Gooden is a 57 year old resident of a longterm with a history of alcoholism and schizophrenia. Presented to the ED by EMS yesterday after falling , found by another resident. Patient presented to ED shivering, diaphoretic, febrile at 101 F, tachycardic, and altered mental status. Mild leukocytosis and elevated lactate of 6. Initial work up for sepsis was negative. Patient was admitted with pink slip for encephalopathy and medical management of withdrawal. History of alcohol abuse with prior admissions for falls, recently left AMA. CT of the abdomen was obtained by primary care team. Findings were suggestive of acute cholecystitis with gallbladder wall thickening and pericholecystic fat stranding. No cholelithiasis was identified on CT. Gallbladder ultrasound did reveal cholithiasis, wall thickening and pericholecystic fluid. Patient was seen and examined at the bed side. He is snoring and somnolent but will arouse with effort to answer questions. He doesn' t know why he is in the hospital. He denies an recent or ongoing abdominal pain. Denies nausea, vomiting, change in bowel habits. States scars on abdomen are from prior hernia repair. Past Med Surg Social Fam HX - Past Medical History Medical history: non-contributory Psychiatric history: bipolar - Past Surgical History Surgical History: appendectomy - Social History Smoking Status: Never smoker Smokeless Tobacco Status: No Alcohol use: heavy Drug use: unknown - Family History Father Living Status: Hx Family Cancer: Yes Medications and Allergies Unable To Obtain [Unable to Obtain] 03/30/18 [History] 3 Allergy/AdvReac Type Severity Reaction Status Date / Time No Known Allergies Allergy Verified 03/25/18 00:58 Review of Systems All systems PM: The remainder of the systems were reviewed and are negative General Surgery Exam Initial Vital Signs Temp Pulse Resp BP Pulse Ox 101.0 F H 130 22 124/90 94 03/30/18 15:11 03/30/18 15:11 03/30/18 15:11 03/30/18 15:11 03/30/18 15:11 - General physical appearance well developed, no distress, no pain, other (somnolent) - Eyes PERRL - ENT normal mucosa, atraumatic, normocephalic - Neck trachea midline - Respiratory normal respiratory effort, clear to auscultation - Cardiovascular Cardiovascular exam: Present: RRR - Abdomen Abdomen general surgery: Present: bowel sounds present, soft, non tender, surgical scars (at RLQ and umbilicus). Absent: distended, guarding, rebound - Integumentary Integumentary general surgery: Present: warm and dry - Neurologic Present: other (somnolent) - Musculoskeletal Present: normal posture - Psychiatric Psychiatric general surgery: Present: oriented to person, oriented to place, oriented to time Exam Initial Vital Signs Temp Pulse Resp BP Pulse Ox 101.0 F H 130 22 124/90 94 03/30/18 15:11 03/30/18 15:11 03/30/18 15:11 03/30/18 15:11 03/30/18 15:11 Results - Labs 03/31/18 00:38 03/31/18 00:38 Abnormal lab results WBC 12.8 K/mcL (4.3-11.1) H 03/31/18 00:38 RBC 3.73 M/mcL (4.19-5.50) L 03/31/18 00:38 Hgb 11.9 g/dL (12.9-16.9) L 03/31/18 00:38 MCV 101.6 fL (83.0-100.0) H 03/31/18 00:38 MCHC 31.4 g/dL (31.6-35.5) L 03/31/18 00:38 Neutrophils # 9.1 K/mcL (1.6-8.9) H 03/31/18 00:38 Monocytes # 1.5 K/mcL (0.0-1.3) H 03/31/18 00:38 ESR 124 mm/hr (0-10) H 03/30/18 15:19 PT 13.7 Seconds (9.4-12.1) H 03/30/18 15:19 Chloride 108 mEq/L (98-107) H 03/31/18 00:38 Est GFR (Non-Af Amer) 58 (> 60) L 18 00:38 Glucose 111 mg/dL (70-105) H 03/31/18 00:38 POC Glucose 135 mg/dL (70-99) H 03/31/18 00:24 Phosphorus 5.0 mg/dL (2.7-4.5) H 03/31/18 00:38 AST 50 Units/L (13-39) H 03/31/18 00:38 Ammonia 58 mcmol/L (16-53) H 03/30/18 15:19 C-Reactive Protein 161 mg/L (Less than 10) H 03/30/18 15:19 Prealbumin 10.5 mg/dL (17.0-34.0) L 03/31/18 00:38 Urine Clarity Cloudy (Clear) A 03/31/18 00:19 Urine Ketones Trace mg/dL (Negative) H 03/31/18 00:19 Urine Microscopic RBC 5-15 per hpf (0-3) H 03/31/18 00:19 Ur Squamous Epith Cells Moderate per lpf (None-Few) H 03/31/18 00:19 CSF Glucose 85 mg/dL (40-70) H 03/30/18 16:00 Ethyl Alcohol 13 mg/dL (Less than 10) H 03/30/18 15:19 Diabetes panel 03/31/18 Range/Units 00:38 Sodium 141 (136-145) mEq/L Potassium 4.2 (3.5-5.1) mEq/L Chloride 108 H (98-107) mEq/L Carbon Dioxide 24 (23-29) mEq/L BUN 13 (6-20) mg/dL Creatinine 1.27 (0.70-1.30) mg/dL Glucose 111 H (70-105) mg/dL Calcium 8.6 (8.6-10.3) mg/dL AST 50 H (13-39) Units/L ALT 22 (7-52) Units/L Alkaline Phosphatase 84 (34-104) Units/L Albumin 3.5 (3.5-5.7) g/dL Calcium panel 03/31/18 03/31/18 Range/Units 00:38 00:38 Calcium 8.6 (8.6-10.3) mg/dL Phosphorus 5.0 H (2.7-4.5) mg/dL Albumin 3.5 (3.5-5.7) g/dL Pituitary panel 03/31/18 Range/Units 00:38 Sodium 141 (136-145) mEq/L Potassium 4.2 (3.5-5.1) mEq/L Chloride 108 H (98-107) mEq/L Carbon Dioxide 24 (23-29) mEq/L BUN 13 (6-20) mg/dL Creatinine 1.27 (0.70-1.30) mg/dL Glucose 111 H (70-105) mg/dL Calcium 8.6 (8.6-10.3) mg/dL Adrenal panel 03/31/18 Range/Units 00:38 Sodium 141 (136-145) mEq/L Potassium 4.2 (3.5-5.1) mEq/L Chloride 108 H (98-107) mEq/L Carbon Dioxide 24 (23-29) mEq/L BUN 13 (6-20) mg/dL Creatinine 1.27 (0.70-1.30) mg/dL Glucose 111 H (70-105) mg/dL Calcium 8.6 (8.6-10.3) mg/dL Total Bilirubin 0.7 (0.3-1.0) mg/dL AST 50 H (13-39) Units/L ALT 22 (7-52) Units/L Alkaline Phosphatase 84 (34-104) Units/L Albumin 3.5 (3.5-5.7) g/dL All other labs normal. Consult Discharge Plan - Plan Additional Instructions: Coordinate mental health follow up once surgery is complete. [facility]errals: [facility]Primary Care Provider[facility] - <Diana Blanco - Last Filed: 04/02/18 14:45> Date of Encounter: 03/31/18 Assessment and Plan (1) Delirium Current Visit: Yes Status: Acute alcohol withdrawal per hosptialilst (2) Alcoholism Current Visit: No Status: Chronic (3) Symptomatic cholelithiasis Current Visit: Yes Status: Acute patient appears to have symptomatic cholelithiasis given history, PE and imaging /labs patient is unable to have any type of meaningful conversation given his current mental status/delerium due to alcohol withdrawal. will continue to follow along with patient until he becomes more appropriate continue abx npo ivfh prn pain control History of Present Illness History of present illness: Patient is delerius from alcohol and unable to obtain any appropriate information. The above mentioned by the resident was conveyed information and chart information. Past Med Surg Social Fam HX - Past Medical History Source: old records reviewed Review of Systems ROS unobtainable: due to mental status All systems PM: The remainder of the systems were reviewed and are negative General Surgery Exam Initial Vital Signs Temp Pulse Resp BP Pulse Ox 101.0 F H 130 22 124/90 94 03/30/18 15:11 03/30/18 15:11 03/30/18 15:11 03/30/18 15:11 03/30/18 15:11 - General physical appearance well developed, no distress, no pain - Eyes PERRL - ENT normal mucosa - Respiratory normal expansion, normal respiratory effort - Cardiovascular Cardiovascular exam: Present: RRR - Abdomen Abdomen general surgery: Present: bowel sounds present, soft, tender Abdominal Tenderness: Present: RUQ - Integumentary Integumentary general surgery: Present: warm and dry - Neurologic Present: normal sensation - Musculoskeletal Present: normal posture - Psychiatric Psychiatric general surgery: Present: oriented to person Exam Initial Vital Signs Temp Pulse Resp BP Pulse Ox 101.0 F H 130 22 124/90 94 03/30/18 15:11 03/30/18 15:11 03/30/18 15:11 03/30/18 15:11 03/30/18 15:11 Results - Labs 04/02/18 06:37 04/02/18 06:37 Abnormal lab results RBC 3.27 M/mcL (4.19-5.50) L 04/02/18 06:37 Hgb 10.5 g/dL (12.9-16.9) L 04/02/18 06:37 Hct 33.2 % (37.5-50.1) L 04/02/18 06:37 MCV 101.5 fL (83.0-100.0) H 04/02/18 06:37 ESR 124 mm/hr (0-10) H 09/06/18 15:19 PT 13.7 Seconds (9.4-12.1) H 03/30/18 15:19 Chloride 109 mEq/L (98-107) H 04/02/18 06:37 Calcium 8.3 mg/dL (8.6-10.3) L 04/02/18 06:37 Phosphorus 5.0 mg/dL (2.7-4.5) H 03/31/18 00:38 AST 41 Units/L (13-39) H 04/02/18 06:37 Creatine Kinase 550 Units/L (30-223) H 04/01/18 15:30 C-Reactive Protein 161 mg/L (Less than 10) H 03/30/18 15:19 Serum Total Protein 6.1 g/dL (6.4-8.9) L 04/02/18 06:37 Albumin 2.9 g/dL (3.5-5.7) L 04/02/18 06:37 Albumin/Globulin Ratio 0.9 (1.1-2.2) L 04/02/18 06:37 Prealbumin 10.5 mg/dL (17.0-34.0) L 03/31/18 00:38 Urine Clarity Cloudy (Clear) A 03/31/18 00:19 Urine Ketones Trace mg/dL (Negative) H 03/31/18 00:19 Urine Microscopic RBC 5-15 per hpf (0-3) H 03/31/18 00:19 Ur Squamous Epith Cells Moderate per lpf (None-Few) H 03/31/18 00:19 CSF Glucose 85 mg/dL (40-70) H 03/30/18 16:00 Ethyl Alcohol 13 mg/dL (Less than 10) H 03/30/18 15:19 Diabetes panel 04/02/18 Range/Units 06:37 Sodium 142 (136-145) mEq/L Potassium 3.9 (3.5-5.1) mEq/L Chloride 109 H (98-107) mEq/L Carbon Dioxide 26 (23-29) mEq/L BUN 15 (6-20) mg/dL Creatinine 0.96 (0.70-1.30) mg/dL Glucose 86 (70-105) mg/dL Calcium 8.3 L (8.6-10.3) mg/dL AST 41 H (13-39) Units/L ALT 18 (7-52) Units/L Alkaline Phosphatase 92 (34-104) Units/L Albumin 2.9 L (3.5-5.7) g/dL Calcium panel 04/02/18 Range/Units 06:37 Calcium 8.3 L (8.6-10.3) mg/dL Albumin 2.9 L (3.5-5.7) g/dL Pituitary panel 04/02/18 Range/Units 06:37 Sodium 142 (136-145) mEq/L Potassium 3.9 (3.5-5.1) mEq/L Chloride 109 H (98-107) mEq/L Carbon Dioxide 26 (23-29) mEq/L BUN 15 (6-20) mg/dL Creatinine 0.96 (0.70-1.30) mg/dL Glucose 86 (70-105) mg/dL Calcium 8.3 L (8.6-10.3) mg/dL Adrenal panel 04/02/18 Range/Units 06:37 Sodium 142 (136-145) mEq/L Potassium 3.9 (3.5-5.1) mEq/L Chloride 109 H (98-107) mEq/L Carbon Dioxide 26 (23-29) mEq/L BUN 15 (6-20) mg/dL Creatinine 0.96 (0.70-1.30) mg/dL Glucose 86 (70-105) mg/dL Calcium 8.3 L (8.6-10.3) mg/dL Total Bilirubin 0.5 (0.3-1.0) mg/dL AST 41 H (13-39) Units/L ALT 18 (7-52) Units/L Alkaline Phosphatase 92 (34-104) Units/L Albumin 2.9 L (3.5-5.7) g/dL All other labs normal. - Imaging CT scan - abdomen: report reviewed, image reviewed CT scan - pelvis: report reviewed, image reviewed Additional studies: US gallbladder - Attending Attestation I examined this patient and my medical decision-making was reviewed with the Resident Physician. I agree with the documented findings, disposition and treatment plan as described except to the extent set forth below.
--- NOTE | 2018-03-31 14:42 | Consult Note ---
Date of Encounter: 03/31/18 Time of Encounter: 14:15 Assessment & Recommendation (1) Delirium Current visit: Yes Status: Acute (2) Alcohol abuse Current visit: Yes Status: Acute (3) Confusion Current visit: Yes Status: Acute (4) Schizophrenia Current visit: No Status: Chronic Qualifiers: Schizophrenia type: paranoid schizophrenia Qualified Code(s): F20.0 - Paranoid schizophrenia History of Present Illness Patient: known to practice within the last 3 years Requesting Physician: Josh Morrow MD Reason for consult: alterd mental status History of present illness: Pt was very lethargic during the interview and was minimal in participation. Pt is a 57 yo ,, male, who presents for acute intermittent delirium with hx of schizophrenia and alchol use D/O. Pt noted I don't feel good. Per charting and staff pt has an exacerbation of his gallbladder with multiple stones and requires surgery for removal. Pt noted he did feel safe and comfortable on the unit. Pt denied any side effects to current medications. Pt was in agreement with current treatment plan. Pt noted that he is doing alright today. Pt noted he slept great too much. Pt noted his appetite is hungry. Pt rated his depression a 7, on a scale of zero to ten with ten being the worst and zero being none. Pt rate his anxiety a 10, on the same scale. Pt denied any auditory or visual hallucinations. Pt denied any current thoughts to harm himself or anyone else. Pt denies any recent hx of HEPC, HIV, TBIs or Seizures. No TD noted, AIMS=0 Assessment/Plan 1.Interval hx 2.Continue current medications 3.Review current labs 4.Pt had an opportunity to ask questions and discuss current treatment plan. 5.Supportive therapy was provided 6.Pt encouraged to consider group or individual therapy 7.Pt was in agreement with treatment plan. 8.Pt was educated on the risks benefits and side effects of current medications. 9. Coordinate mental health follow up once surgery is complete. CC: Josh Morrow MD Past Med Surg Social Fam HX - Past Medical History Medical history: non-contributory - Past Psychiatric History Psychiatric history: Reports: schizophrenia, previous psychiatric hospitalization, other (substance abuse) Family psychiatric history: Yes Family History of Suicide: None - Past Surgical History Surgical History: appendectomy - Social History Smoking Status: Never smoker Smokeless Tobacco Status: No Alcohol use: heavy Drug use: unknown - Family History Father Living Status: Hx Family Cancer: Yes Medications & Allergies Unable To Obtain [Unable to Obtain] 03/30/18 [History] 3 Allergy/AdvReac Type Severity Reaction Status Date / Time No Known Allergies Allergy Verified 03/25/18 00:58 Review of Systems Constitutional: Denies: fever, chills, weakness, weight change Eyes: Denies: eye pain, vision change Ears, Nose, Throat: Denies: ear pain, throat pain, dental pain, hearing loss, congestion Cardiovascular: Denies: chest pain, palpitations, dyspnea on exertion Respiratory: Denies: cough, dyspnea, wheezes Gastrointestinal: Reports: abdominal pain, nausea Genitourinary male: Denies: urgency, dysuria, frequency, genital lesions Musculoskeletal: Denies: joint swelling, joint pain Integumentary: Denies: rash, lesions, pruritus Neurological: Denies: headache, weakness, numbness, memory loss Psychiatric: Reports: depression (hx of schizophrenia), homicidal ideation, auditory hallucinations, confusion Endocrine: Denies: fatigue, heat or cold intolerance Hematologic/Lymphatic: Denies: easy bruising, lymphadenopathy Allergic/Immunologic: Denies: urticaria, itchy eyes Psychiatry Exam - Constitutional Vitals: Temp Pulse Resp BP Pulse Ox 98.4 F 95 20 133/83 95 03/31/18 11:00 03/31/18 11:00 03/31/18 11:00 03/31/18 11:00 03/31/18 11:00 General appearance: age & developmentally appropriate, well-groomed, well- nourished - Musculoskeletal Gait: normal Station: relaxed Strength & Tone: normal for patient - Psychiatric Patient Orientation: Yes Person, Yes Time, Yes Place Level of alertness: Sedated Behavior: cooperative Psychomotor activity: Slowed Eye Contact: Minimal Contact Mood Description: Depressed Affect description: flat, dysphoric Speech Volume: Normal Speech pattern: normal rate, normal rhythm, normal tone, fluent, spontaneous Language & Vocabulary: consistent with education Thought Process: Disorganized, Slowed Thinking Thought Content: No Suicidal ideation, No Homicidal ideation, Yes Overt delusions, Yes Paranoid delusion Perceptual Disturbances: No Auditory hallucinations, No Visual hallucinations ( per hx ) Attention Span Ability: Unable to Focus, Unable to Sustain Attention Memory Description: Recent Impaired Patient Reliability: Not Reliable Historian Fund of knowledge: Yes average Intelligence Estimate: Below Average Judgment: Poor Insight: Minimal Results - Labs Labs: Laboratory Last Values WBC 12.8 K/mcL (4.3-11.1) H 03/31/18 00:38 RBC 3.73 M/mcL (4.19-5.50) L 03/31/18 00:38 Hgb 11.9 g/dL (12.9-16.9) L 03/31/18 00:38 Hct 37.9 % (37.5-50.1) 03/31/18 00:38 MCV 101.6 fL (83.0-100.0) H 03/31/18 00:38 MCH 31.9 pg (28.0-33.3) 03/31/18 00:38 MCHC 31.4 g/dL (31.6-35.5) L 03/31/18 00:38 RDW 12.6 % (11.5-14.5) 03/31/18 00:38 Plt Count 153 K/mcL (140-400) 03/31/18 00:38 MPV 10.5 fL (9.4-12.4) 03/31/18 00:38 Immature Gran % 1.9 % (0-4) 03/31/18 00:38 Seg Neutrophils % 70.8 % 03/31/18 00:38 Lymphocytes % 15.4 % 03/31/18 00:38 Monocytes % 11.5 % 03/31/18 00:38 Eosinophils % 0.0 % 03/31/18 00:38 Basophils % 0.4 % 03/31/18 00:38 Neutrophils # 9.1 K/mcL (1.6-8.9) H 03/31/18 00:38 Lymphocytes # 2.0 K/mcL (0.6-4.6) 03/31/18 00:38 Monocytes # 1.5 K/mcL (0.0-1.3) H 03/31/18 00:38 Eosinophils # 0.0 K/mcL (0.0-0.6) 03/31/18 00:38 Basophils # 0.1 K/mcL (0.0-0.2) 03/31/18 00:38 ESR 124 mm/hr (0-10) H 03/30/18 15:19 PT 13.7 Seconds (9.4-12.1) H 03/30/18 15:19 INR 1.2 03/30/18 15:19 Sodium 141 mEq/L (136-145) 03/31/18 00:38 Potassium 4.2 mEq/L (3.5-5.1) 03/31/18 00:38 Chloride 108 mEq/L (98-107) H 03/31/18 00:38 Carbon Dioxide 24 mEq/L (23-29) 03/31/18 00:38 BUN 13 mg/dL (6-20) 03/31/18 00:38 Creatinine 1.27 mg/dL (0.70-1.30) 03/31/18 00:38 Est GFR ( Amer) > 60 (> 60) 03/31/18 00:38 Est GFR (Non-Af Amer) 58 (> 60) L 03/31/18 00:38 BUN/Creatinine Ratio 10 (6-26) 03/31/18 00:38 Glucose 111 mg/dL (70-105) H 03/31/18 00:38 POC Glucose 135 mg/dL (70-99) H 03/31/18 00:24 Calculated Osmolality 293 (280-300) 03/31/18 00:38 Lactic Acid 1.2 mmol/L (0.5-2.2) 03/31/18 00:38 Calcium 8.6 mg/dL (8.6-10.3) 03/31/18 00:38 Phosphorus 5.0 mg/dL (2.7-4.5) H 03/31/18 00:38 Magnesium 2.0 mg/dL (1.6-2.6) 03/30/18 15:19 Total Bilirubin 0.7 mg/dL (0.3-1.0) 03/31/18 00:38 AST 50 Units/L (13-39) H 03/31/18 00:38 ALT 22 Units/L (7-52) 03/31/18 00:38 Alkaline Phosphatase 84 Units/L (34-104) 03/31/18 00:38 Ammonia 58 mcmol/L (16-53) H 03/30/18 15:19 Creatine Kinase 1025 Units/L (30-223) H 03/31/18 10:38 Troponin I 0.03 ng/mL (< 0.04) 03/30/18 15:19 C-Reactive Protein 161 mg/L (Less than 10) H 03/30/18 15:19 Serum Total Protein 6.8 g/dL (6.4-8.9) 03/31/18 00:38 Albumin 3.5 g/dL (3.5-5.7) 03/31/18 00:38 Globulin 3.3 g/dL (2.4-3.5) 03/31/18 00:38 Albumin/Globulin Ratio 1.1 (1.1-2.2) 03/31/18 00:38 Prealbumin 10.5 mg/dL (17.0-34.0) L 03/31/18 00:38 Urine Color Yellow (Yellow) 03/31/18 00:19 Urine Clarity Cloudy (Clear) A 03/31/18 00:19 Urine pH 5.5 pH Units (5.0-8.0) 03/31/18 00:19 Ur Specific [place] 1.014 (1.010-1.025) 03/31/18 00:19 Urine Protein Negative mg/dL (Neg-Trace) 03/31/18 00:19 Urine Glucose (UA) Normal mg/dL (Normal) 03/31/18 00:19 Urine Ketones Trace mg/dL (Negative) H 03/31/18 00:19 Urine Blood Negative (Negative) 03/31/18 00:19 Urine Nitrite Negative (Negative) 03/31/18 00:19 Urine Bilirubin Negative (Negative) 03/31/18 00:19 Urine Urobilinogen Normal mg/dL (Normal) 03/31/18 00:19 Ur Leukocyte Esterase Negative (Negative) 03/31/18 00:19 Urine Microscopic RBC 5-15 per hpf (0-3) H 03/31/18 00:19 Urine Microscopic WBC 0-3 per hpf (0-3) 03/31/18 00:19 Ur Squamous Epith Cells Moderate per lpf (None-Few) H 18 00:19 Urine Bacteria None Seen per hpf (None-Few) 03/31/18 00:19 Hyaline Casts None Seen per lpf (None-Few) 03/31/18 00:19 Ur Culture Indicated? NO (NO) 03/31/18 00:19 CSF Volume 2.0 mL 03/30/18 16:00 CSF Appearance Clear (Clear) 03/30/18 16:00 CSF Color Colorless (Colorless) 03/30/18 16:00 CSF RBC < 0.002 M/mcL (0.000-0.002) 03/30/18 16:00 CSF Tot Nucleated Cells < 3 TNC/mcL (0-5) 03/30/18 16:00 CSF Glucose 85 mg/dL (40-70) H 03/30/18 16:00 CSF Xanth Comm Not Observed (Not Observe) 03/30/18 16:00 CSF Total Protein 44 mg/dL (15-45) 03/30/18 16:00 Urine Opiates Screen Negative ng/mL (Vrypng=952) 03/31/18 00:19 Ur Barbiturates Screen Negative ng/mL (Wzhifu=055) 03/31/18 00:19 Ur Phencyclidine Scrn Negative ng/mL (Cutoff=25) 03/31/18 00:19 Ur Amphetamines Screen Negative ng/mL (Tatmcd=4839) 03/31/18 00:19 U Benzodiazepines Scrn Negative ng/mL (Rhtxtz=765) 03/31/18 00:19 Urine Cocaine Screen Negative ng/mL (Cutoff= 300) 03/31/18 00:19 U Marijuana (THC) Screen Negative ng/mL (Cutoff = 50) 03/31/18 00:19 Ur Drug Screen Interp See Below 03/31/18 00:19 Ethyl Alcohol 13 mg/dL (Less than 10) H 03/30/18 15:19 - Impressions Impressions Gallbladder Ultrasound 03/31/18 14:00 IMPRESSION: 1. Cholelithiasis and thickening of the gallbladder wall with mild distention. Small amount of pericholecystic fluid also seen. Acute cholecystitis should be considered. 2. Fatty infiltration of the liver. 3. Normal looking common bile duct. RECOMMENDATIONS: HIDA scan to confirm the diagnosis of acute cholecystitis. D/ / 03/31/2018 14:20:17 Jacklyn Arroyo MD / kevin Interpreting Provider: Jacklyn Arroyo MD Abdomen/Pelvis CT 03/31/18 21:46 IMPRESSION: 1. Findings suggest acute cholecystitis. 2. Fatty liver. 3. Gas in the urinary bladder may indicate cystitis if there has not been recent catheterization. D/ / Delonte Mott MD / Delonte Mott MD Interpreting Provider: Delonte Mott MD Consult Discharge Plan - Plan Additional Instructions: Coordinate mental health follow up once surgery is complete. [facility]errals: [facility] [Primary Care Provider] -
[2018-03-31] MEDS: Thiamine (B-1) 100 MG, Folic Acid 1 MG, MVI, adult with vitamin K 10 ML in 0.9 % Sodi... IVPB SCH (16:59)
[2018-03-31] MEDS: Acetaminophen 325 MG TABLET PO PRN (17:00)
[2018-03-31 18:08] LABS: Hepatitis A Antibody IgM Nonreactive (Nonreactive); Hepatitis B Core IgM Nonreactive (Nonreactive); Hepatitis B Surface Antigen Nonreactive (Nonreactive); Hepatitis C Virus Antibody Nonreactive (Nonreactive)
[2018-04-01 04:33] LABS: Basophils # 0.1 K/mcL (0.0-0.2); Basophils % 0.6 %; Eosinophils % 0.2 %; Hematocrit 34.6 % (37.5-50.1); Hemoglobin 10.8 g/dL (12.9-16.9); Immature Granulocytes % 2.6 % (0-4); Lymphocytes # 1.2 K/mcL (0.6-4.6); Lymphocytes % 14.7 %; Mean Corpuscular HGB Conc 31.2 g/dL (31.6-35.5); Mean Corpuscular Volume 102.7 fL (83.0-100.0); Monocytes # 0.8 K/mcL (0.0-1.3); Monocytes % 9.7 %; Neutrophils # 5.9 K/mcL (1.6-8.9); Platelet Count 159 K/mcL (140-400); Red Blood Count 3.37 M/mcL (4.19-5.50); Red Cell Distribution Width 12.6 % (11.5-14.5); Segmented Neutrophils % 72.2 %
[2018-04-01 04:49] LABS: Alanine Aminotransferase 19 Units/L (7-52); Albumin 3.1 g/dL (3.5-5.7); Albumin/Globulin Ratio 0.9 (1.1-2.2); Alkaline Phosphatase 88 Units/L (34-104); Aspartate Amino Transferase 44 Units/L (13-39); BUN/Creatinine Ratio 15 (6-26); Bilirubin,Total 0.4 mg/dL (0.3-1.0); Blood Urea Nitrogen 16 mg/dL (6-20); Calcium 8.4 mg/dL (8.6-10.3); Carbon Dioxide 28 mEq/L (23-29); Chloride 107 mEq/L (98-107); Globulin 3.5 g/dL (2.4-3.5); Glucose 92 mg/dL (70-105); Osmolality,Calculated 297 (280-300); Sodium 143 mEq/L (136-145); Total Protein 6.6 g/dL (6.4-8.9); eGFR For Non-African Americans > 60 (> 60)
[2018-04-01] MEDS: *HR* Heparin 5,000 UNIT/ML VIAL SQ SCH ×2 (05:33→18:44)
[2018-04-01] MEDS: cefTRIAXone 2,000 MG in Water for inj. (sterile) 20 ML 20 ML IVP SCH (05:33)
[2018-04-01] MEDS: 0.9 % Sodium Chloride 1,000 ML IVC SCH ×3 (06:18→18:13)
[2018-04-01] MEDS: metroNIDAZOLE 500 MG TABLET PO SCH ×3 (08:19→19:47)
[2018-04-01] MEDS: Divalproex (24 HR) 500 MG TABLET PO SCH ×2 (08:19→19:47)
[2018-04-01] MEDS: *HR* LORazepam 2 MG/ML VIAL IVP PRN ×3 (11:09→16:49)
--- NOTE | 2018-04-01 12:02 | General Surgery Progress Note ---
<Andrew Garsia - Last Filed: 04/01/18 15:05> Date of Encounter: 04/01/18 Time of Encounter: 11:50 - Assessment and Plan (1) Abnormal CT of the abdomen Current Visit: Yes Status: Acute History and exam remain unreliable due to active withdrawal from EtOH and ongoing treatment Plan: IV- fluids Continue IV antibiotics NPO Comfort care pain management Will continue to reassess patient has exam becomes more reliable Repeat a.m. labs- CBC, BMP, LFTs (2) Alcoholism Current Visit: No Status: Chronic Management per primary team (3) DVT prophylaxis Current Visit: Yes Status: Acute Heparin SQ 5000 units Q12H Subjective Patient reports: no new complaints, afebrile Narrative: Patient was seen and evaluated at the bedside. Remains poor historian with ongoing delirium and somnolence. Patient does not endorse new complaint at this time. Objective Vital Signs - Last 8 Hours Temp Pulse Resp BP Pulse Ox 04/01/18 11:21 97.9 F 87 16 148/88 91 04/01/18 07:23 99.2 F 83 16 165/105 96 Intake and Output 03/31/18 04/01/18 04/01/18 23:59 07:59 15:59 Intake Total 1000 / 1000 1000 / 1000 0 / 0 Output Total 350 / 350 400 / 400 Balance 650 / 650 1000 / 1000 -400 / -400 Intake: IV Fluids 1000 / 1000 1000 / 1000 0.9 % Sodium Chloride 1,000 ML 1000 / 1000 1000 / 1000 @ 125 mls/hr IVC .Q8H [facility] Rx#: [id number] Oral 0 / 0 Output: Urine 350 / 350 400 / 400 Other: Meal Breakfast Percent of Meal Consumed 0% Weight 102.9 kg Blood Glucose* 96 99 Patient Weight 04/01/18 23:59 Weight 102.9 kg - General physical appearance no pain, other (Mild distress related to alcohol withdrawal) - Eyes PERRL, normal ocular movement - ENT normal mucosa, atraumatic, normocephalic - Neck Neck exam: trachea midline - Respiratory normal respiratory effort, clear to auscultation - Cardiovascular Cardiovascular exam: Present: RRR - Abdomen Abdomen: Present: bowel sounds present, soft, non tender (No areas identified is tender to palpation, however reliability of exam is limited at this time) - Integumentary no rash - Neurologic CN 2-12 grossly intact - Musculoskeletal normal posture - Psychiatric oriented to time, oriented to person, oriented to place - Labs 04/01/18 03:20 04/01/18 03:20 Diabetes panel 04/01/18 Range/Units 03:20 Sodium 143 (136-145) mEq/L Potassium 4.0 (3.5-5.1) mEq/L Chloride 107 (98-107) mEq/L Carbon Dioxide 28 (23-29) mEq/L BUN 16 (6-20) mg/dL Creatinine 1.04 (0.70-1.30) mg/dL Glucose 92 (70-105) mg/dL Calcium 8.4 L (8.6-10.3) mg/dL AST 44 H (13-39) Units/L ALT 19 (7-52) Units/L Alkaline Phosphatase 88 (34-104) Units/L Albumin 3.1 L (3.5-5.7) g/dL Calcium panel 04/01/18 Range/Units 03:20 Calcium 8.4 L (8.6-10.3) mg/dL Albumin 3.1 L (3.5-5.7) g/dL Pituitary panel 04/01/18 Range/Units 03:20 Sodium 143 (136-145) mEq/L Potassium 4.0 (3.5-5.1) mEq/L Chloride 107 (98-107) mEq/L Carbon Dioxide 28 (23-29) mEq/L BUN 16 (6-20) mg/dL Creatinine 1.04 (0.70-1.30) mg/dL Glucose 92 (70-105) mg/dL Calcium 8.4 L (8.6-10.3) mg/dL Adrenal panel 04/01/18 Range/Units 03:20 Sodium 143 (136-145) mEq/L Potassium 4.0 (3.5-5.1) mEq/L Chloride 107 (98-107) mEq/L Carbon Dioxide 28 (23-29) mEq/L BUN 16 (6-20) mg/dL Creatinine 1.04 (0.70-1.30) mg/dL Glucose 92 (70-105) mg/dL Calcium 8.4 L (8.6-10.3) mg/dL Total Bilirubin 0.4 (0.3-1.0) mg/dL AST 44 H (13-39) Units/L ALT 19 (7-52) Units/L Alkaline Phosphatase 88 (34-104) Units/L Albumin 3.1 L (3.5-5.7) g/dL Consult Discharge Plan - Plan Additional Instructions: Coordinate mental health follow up once surgery is complete. Referrals: [facility] [Primary Care Provider] - <Diana Blanco - Last Filed: 04/01/18 16:40> Date of Encounter: 04/01/18 - Assessment and Plan (1) Delirium Current Visit: Yes Status: Acute (2) Alcoholism Current Visit: No Status: Chronic (3) Symptomatic cholelithiasis Current Visit: Yes Status: Acute patient still is not able to have any appropriate conversation regarding his symptoms he is tender RUQ wbc normal today ok clears ok po meds patient is undergoing delerium d/t alcohol withdrawal patient is not consentable currently continue current management prn pain control Subjective Narrative: asked patient if having pain and he said no, voluntary guarding with palpation of RUQ told patient I was here to talk with him about his gallbladder and he told me he already had it removed 3 months ago Objective Vital Signs - Last 8 Hours Temp Pulse Resp BP Pulse Ox 04/01/18 11:21 97.9 F 87 16 148/88 91 Intake and Output 04/01/18 04/01/18 04/01/18 07:59 15:59 23:59 Intake Total 1000 / 1000 0 / 0 Output Total 400 / 400 Balance 1000 / 1000 -400 / -400 Intake: IV Fluids 1000 / 1000 0.9 % Sodium Chloride 1,000 ML 1000 / 1000 @ 125 mls/hr IVC .Q8H [facility] Rx#: [id number] Oral 0 / 0 Output: Urine 400 / 400 Other: Meal Breakfast Percent of Meal Consumed 0% Weight 102.9 kg Blood Glucose* 99 81 Patient Weight 04/01/18 23:59 Weight 102.9 kg - General physical appearance well developed, well nourished, moderate distress, moderate pain - Eyes PERRL, normal ocular movement - ENT dry mucosa, atraumatic, normocephalic - Neck Neck exam: trachea midline - Respiratory normal expansion, normal respiratory effort - Cardiovascular Cardiovascular exam: Present: RRR - Abdomen Abdomen: Present: bowel sounds present, soft, tender, guarding (volutanry). Absent: distended, rebound Abdominal Tenderness: RUQ - Integumentary no rash, no growths - Neurologic CN 2-12 grossly intact - Musculoskeletal normal posture - Psychiatric oriented to person, other (confused) - Labs 04/01/18 03:20 04/01/18 03:20 Diabetes panel 04/01/18 Range/Units 03:20 Sodium 143 (136-145) mEq/L Potassium 4.0 (3.5-5.1) mEq/L Chloride 107 (98-107) mEq/L Carbon Dioxide 28 (23-29) mEq/L BUN 16 (6-20) mg/dL Creatinine 1.04 (0.70-1.30) mg/dL Glucose 92 (70-105) mg/dL Calcium 8.4 L (8.6-10.3) mg/dL AST 44 H (13-39) Units/L ALT 19 (7-52) Units/L Alkaline Phosphatase 88 (34-104) Units/L Albumin 3.1 L (3.5-5.7) g/dL Calcium panel 04/01/18 Range/Units 03:20 Calcium 8.4 L (8.6-10.3) mg/dL Albumin 3.1 L (3.5-5.7) g/dL Pituitary panel 04/01/18 Range/Units 03:20 Sodium 143 (136-145) mEq/L Potassium 4.0 (3.5-5.1) mEq/L Chloride 107 (98-107) mEq/L Carbon Dioxide 28 (23-29) mEq/L BUN 16 (6-20) mg/dL Creatinine 1.04 (0.70-1.30) mg/dL Glucose 92 (70-105) mg/dL Calcium 8.4 L (8.6-10.3) mg/dL Adrenal panel 04/01/18 Range/Units 03:20 Sodium 143 (136-145) mEq/L Potassium 4.0 (3.5-5.1) mEq/L Chloride 107 (98-107) mEq/L Carbon Dioxide 28 (23-29) mEq/L BUN 16 (6-20) mg/dL Creatinine 1.04 (0.70-1.30) mg/dL Glucose 92 (70-105) mg/dL Calcium 8.4 L (8.6-10.3) mg/dL Total Bilirubin 0.4 (0.3-1.0) mg/dL AST 44 H (13-39) Units/L ALT 19 (7-52) Units/L Alkaline Phosphatase 88 (34-104) Units/L Albumin 3.1 L (3.5-5.7) g/dL - Attending Attestation I examined this patient and my medical decision-making was reviewed with the Resident Physician. I agree with the documented findings, disposition and treatment plan as described except to the extent set forth below.
--- NOTE | 2018-04-01 14:44 | Internal Med Progress Note ---
Hospitalist Progress Note - Encounter Date of Encounter: 04/01/18 Time of Encounter: 13:00 - Subjective Interval History: Mr. Gooden is a 57-year-old gentlemen with known history of schizophrenia and substance abuse patient who is chronic alcohol dependence admitted here with acute abdominal pain and the fall. Patient CT of abdomen showed acute cholecystitis. He is alert, awake oriented to self only seems to be still sleepy/sedative. No even so night - Exam Vitals: Temp Pulse Resp BP Pulse Ox 97.9 F 87 16 148/88 91 04/01/18 11:21 04/01/18 11:21 04/01/18 11:21 04/01/18 11:21 04/01/18 11:21 Exam: Gen: sleepy/sedative and confused Chest: Diminished breath sounds B/L, No wheezing, No crackles, No rales Heart: S1S2+ RRR No murmurs Abd: Soft, NT, BS +, No organomegaly Ext: No edema, pulses are palpable, No calf tenderness Neuro : Benign findings Skin: No rash. - Assessment and Plan (1) Acute cholecystitis Current Visit: Yes Status: Acute Assessment and Plan: CT of abdomen showed acute cholecystitis ultrasound of gallbladder showed: Cholelithiasis and thickening of the gallbladder wall with the mild distention concerning for acute cholecystitis he does not have any abdominal pain right now NPO for now diet as per surgery recommendations only IV hydration surgery consulted a pressure surgery recommendation continue empirical antibiotic Rocephin + Flagyl (2) Alcoholism Current Visit: No Status: Chronic Assessment and Plan: Pt has a exterminator termite hx of EtOH abuse, has been drinking more as of recently Cont CIWA protocol Cont NPO since pt is still sleepy / toxicated Banana bag IV hydration (3) Acute encephalopathy Current Visit: Yes Status: Acute Assessment and Plan: Mostly due to toxic encephalopathy Due to alcohol withdrawal improving slowly continue close monitoring strict NPO continue sitter (4) Fall Current Visit: Yes Status: Acute Assessment and Plan: Workup for fall showed no acute changes on CXR, CT head or neck no s/s of injury, no bruises - (5) NIKITA (acute kidney injury) Current Visit: Yes Status: Acute Assessment and Plan: Due to dehydration Improving (6) DVT prophylaxis Current Visit: Yes Status: Acute Assessment and Plan: On SQ heparin (7) Schizophrenia Current Visit: No Status: Chronic Assessment and Plan: Continue home meds when [facility] psych consulted - Time Spent with Patient Total time spent is greater than 50% in coordination of care (as documented) at patient's floor/unit and/or counseling patient: Internal Medicine: Result - Labs CBC & Chem 7: 04/01/18 03:20 04/01/18 03:20 Labs: Short CBC 04/01/18 Range/Units 03:20 WBC 8.2 (4.3-11.1) K/mcL Hgb 10.8 L (12.9-16.9) g/dL Hct 34.6 L (37.5-50.1) % Plt Count 159 (140-400) K/mcL Neutrophils # 5.9 (1.6-8.9) K/mcL BMP 04/01/18 03:20 Sodium 143 Potassium 4.0 Chloride 107 Carbon Dioxide 28 BUN 16 Creatinine 1.04 Glucose 92 Calcium 8.4 L Liver Function 04/01/18 Range/Units 03:20 Total Bilirubin 0.4 (0.3-1.0) mg/dL AST 44 H (13-39) Units/L ALT 19 (7-52) Units/L Alkaline Phosphatase 88 (34-104) Units/L Albumin 3.1 L (3.5-5.7) g/dL - ABG Interpretation ABG results: PT/INR, D-dimer PT 13.7 Seconds (9.4-12.1) H 03/30/18 15:19 - Impressions Impressions Gallbladder Ultrasound 03/31/18 14:00 IMPRESSION: 1. Cholelithiasis and thickening of the gallbladder wall with mild distention. Small amount of pericholecystic fluid also seen. Acute cholecystitis should be considered. 2. Fatty infiltration of the liver. 3. Normal looking common bile duct. RECOMMENDATIONS: HIDA scan to confirm the diagnosis of acute cholecystitis. D/ / 03/31/2018 14:20:17 Jacklyn Arroyo MD / kevin Interpreting Provider: Jacklyn Arroyo MD Consult Discharge Plan - Plan Additional Instructions: Coordinate mental health follow up once surgery is complete. Referrals: [facility] [Primary Care Provider] - (4) Fall Qualifiers: Encounter type: initial encounter Qualified Code(s): W19.XXXA - Unspecified fall, initial encounter (7) Schizophrenia Qualifiers: Schizophrenia type: paranoid schizophrenia Qualified Code(s): F20.0 - Paranoid schizophrenia
--- NOTE | 2018-04-01 15:39 | Electrocardiograph Report ---
[address] [place], [place] [address] Test Date: 2018-03-30 Pat Name: Srini Gooden Department: [id number] Room: 3B Gender: M Manager Image: : 1960 Requested By: Gordon Friedman Order Number: [id number] Reading MD: Camelia Babcock Measurements Intervals [place] Rate: 135 P: 76 VA: 127 QRS: 96 QRSD: 81 T: 32 QT: 289 QTc: 434 Interpretive Statements Sinus tachycardia Electronically Signed On 04-01-2018 15:37:33 EDT by Camelia Babcock
[2018-04-01] MEDS: Thiamine (B-1) 100 MG, Folic Acid 1 MG, MVI, adult with vitamin K 10 ML in 0.9 % Sodi... IVPB SCH (18:54)
[2018-04-02] MEDS: 0.9 % Sodium Chloride 1,000 ML IVC SCH ×2 (00:44→10:04)
[2018-04-02 07:38] LABS: Hematocrit 33.2 % (37.5-50.1); Hemoglobin 10.5 g/dL (12.9-16.9); Mean Corpuscular HGB Conc 31.6 g/dL (31.6-35.5); Mean Corpuscular Hemoglobin 32.1 pg (28.0-33.3); Mean Corpuscular Volume 101.5 fL (83.0-100.0); Mean Platelet Volume 9.8 fL (9.4-12.4); Platelet Count 176 K/mcL (140-400); Red Blood Count 3.27 M/mcL (4.19-5.50); Red Cell Distribution Width 12.2 % (11.5-14.5)
[2018-04-02 07:45] LABS: Alanine Aminotransferase 18 Units/L (7-52); Albumin 2.9 g/dL (3.5-5.7); Albumin/Globulin Ratio 0.9 (1.1-2.2); Alkaline Phosphatase 92 Units/L (34-104); Aspartate Amino Transferase 41 Units/L (13-39); BUN/Creatinine Ratio 16 (6-26); Bilirubin,Direct 0.1 mg/dL (0.0-0.2); Bilirubin,Indirect 0.4 mg/dL (0.0-1.2); Bilirubin,Total 0.5 mg/dL (0.3-1.0); Blood Urea Nitrogen 15 mg/dL (6-20); Calcium 8.3 mg/dL (8.6-10.3); Carbon Dioxide 26 mEq/L (23-29); Chloride 109 mEq/L (98-107); Globulin 3.2 g/dL (2.4-3.5); Glucose 86 mg/dL (70-105); Osmolality,Calculated 294 (280-300); Potassium 3.9 mEq/L (3.5-5.1); Sodium 142 mEq/L (136-145); Total Protein 6.1 g/dL (6.4-8.9); eGFR For Non-African Americans > 60 (> 60)
--- NOTE | 2018-04-02 07:55 | General Surgery Progress Note ---
<Andrew Garsia Moises - Last Filed: 04/02/18 11:47> Date of Encounter: 04/02/18 Time of Encounter: 07:35 - Assessment and Plan (1) Abnormal CT of the abdomen Current Visit: Yes Status: Acute History and exam remain unreliable due to active withdrawal from EtOH and ongoing treatment Vital signs WNL, afebrile. Leukocytosis resolved. Plan: Continue antibiotics IV fluids Clear liquid diet okay PO medications okay Comfort care and pain management Will continue to reassess for reliable exam and consent (2) Alcoholism Current Visit: No Status: Chronic Management per primary team (3) Delirium Current Visit: Yes Status: Acute Ongoing EtOH withdrawal and management. Management per primary team with psych following (4) DVT prophylaxis Current Visit: Yes Status: Acute Heparin SQ 5000 units Q12H Subjective Patient reports: no new complaints, voiding w/o difficulty, flatus, afebrile Narrative: Patient was seen and evaluated at the bedside. Patient remains on 1:1 observation precautions. History was obtained from the patient and nursing staff. This morning patient states he has not had his gallbladder removed. Denies abdominal pain or nausea. Does not know why he is in the hospital. Objective Vital Signs - Last 8 Hours Temp Pulse Resp BP Pulse Ox 04/02/18 07:25 98.0 F 84 19 159/94 95 04/02/18 06:00 98.1 F 82 20 147/91 96 04/02/18 00:00 98.6 F 85 158/94 95 Intake and Output 04/01/18 04/01/18 04/02/18 15:59 23:59 07:59 Intake Total 1000 / 1000 0 / 0 Output Total 400 / 400 Balance 600 / 600 0 / 0 Intake: IV Fluids 1000 / 1000 0 / 0 0.9 % Sodium Chloride 1,000 ML 1000 / 1000 0 / 0 @ 125 mls/hr IVC .Q8H [facility] Rx#: [id number] Oral 0 / 0 Output: Urine 400 / 400 Other: Meal Breakfast Percent of Meal Consumed 0% Blood Glucose* 81 - General physical appearance well nourished, no distress, no pain, other (Delirium present from acute alcohol withdrawal, limiting exam reliability) - Eyes PERRL - ENT normal mucosa, atraumatic, normocephalic - Neck Neck exam: trachea midline - Respiratory normal expansion, clear to auscultation - Cardiovascular Cardiovascular exam: Present: RRR - Abdomen Abdomen: Present: bowel sounds present, soft, non tender, surgical scars (Well- healed scars from prior hernia repair in the region of right lower quadrant and umbilicus). Absent: distended, guarding, rebound - Integumentary no rash, no growths - Psychiatric oriented to person - Labs 04/02/18 06:37 04/02/18 06:37 Diabetes panel 04/02/18 Range/Units 06:37 Sodium 142 (136-145) mEq/L Potassium 3.9 (3.5-5.1) mEq/L Chloride 109 H (98-107) mEq/L Carbon Dioxide 26 (23-29) mEq/L BUN 15 (6-20) mg/dL Creatinine 0.96 (0.70-1.30) mg/dL Glucose 86 (70-105) mg/dL Calcium 8.3 L (8.6-10.3) mg/dL AST 41 H (13-39) Units/L ALT 18 (7-52) Units/L Alkaline Phosphatase 92 (34-104) Units/L Albumin 2.9 L (3.5-5.7) g/dL Calcium panel 04/02/18 Range/Units 06:37 Calcium 8.3 L (8.6-10.3) mg/dL Albumin 2.9 L (3.5-5.7) g/dL Pituitary panel 04/02/18 Range/Units 06:37 Sodium 142 (136-145) mEq/L Potassium 3.9 (3.5-5.1) mEq/L Chloride 109 H (98-107) mEq/L Carbon Dioxide 26 (23-29) mEq/L BUN 15 (6-20) mg/dL Creatinine 0.96 (0.70-1.30) mg/dL Glucose 86 (70-105) mg/dL Calcium 8.3 L (8.6-10.3) mg/dL Adrenal panel 04/02/18 Range/Units 06:37 Sodium 142 (136-145) mEq/L Potassium 3.9 (3.5-5.1) mEq/L Chloride 109 H (98-107) mEq/L Carbon Dioxide 26 (23-29) mEq/L BUN 15 (6-20) mg/dL Creatinine 0.96 (0.70-1.30) mg/dL Glucose 86 (70-105) mg/dL Calcium 8.3 L (8.6-10.3) mg/dL Total Bilirubin 0.5 (0.3-1.0) mg/dL AST 41 H (13-39) Units/L ALT 18 (7-52) Units/L Alkaline Phosphatase 92 (34-104) Units/L Albumin 2.9 L (3.5-5.7) g/dL Consult Discharge Plan - Plan Additional Instructions: Coordinate mental health follow up once surgery is complete. [facility]errals: [facility]Primary Care Provider[facility] - <Diana Blanco - Last Filed: 04/02/18 14:59> Date of Encounter: 04/02/18 Time of Encounter: 12:00 - Assessment and Plan (1) Delirium Current Visit: Yes Status: Acute appears to be improving, hopefully will be able to have an appropriate conversation in the next 24-48 hrs (2) Alcoholism Current Visit: No Status: Chronic (3) Symptomatic cholelithiasis Current Visit: Yes Status: Acute again patient with symptomatic cholelithiasis mikayla appears to have resolved today continue clears prn pain control prn antiemetics antibiotics awaiting for delerium to clear to be able to talk about potential for surgery Subjective Patient reports: no new complaints, feels better, pain is less, tolerating liquids well, voiding w/o difficulty, flatus, afebrile, other (still confused but improved, could tell me he was at the [place] or [place] "to get checked out" but could not relay further information) Objective Vital Signs - Last 8 Hours Temp Pulse Resp BP Pulse Ox 04/02/18 11:49 98.1 F 67 18 129/77 95 04/02/18 07:25 98.0 F 84 19 159/94 95 Intake and Output 04/01/18 04/02/18 04/02/18 23:59 07:59 15:59 Intake Total 0 / 0 1120 / 1120 Balance 0 / 0 1120 / 1120 Intake: IV Fluids 0 / 0 1000 / 1000 0.9 % Sodium Chloride 1,000 ML 0 / 0 1000 / 1000 @ 125 mls/hr IVC .Q8H [facility] Rx#: [id number] Oral 120 / 120 Other: Meal Lunch Percent of Meal Consumed 0% # Urine Diapers 1 - General physical appearance well nourished, no distress, no pain - Eyes PERRL - ENT normal mucosa, normocephalic - Neck Neck exam: trachea midline - Respiratory normal expansion, normal respiratory effort - Cardiovascular Cardiovascular exam: Present: RRR - Abdomen Abdomen: Present: bowel sounds present, soft, non tender. Absent: distended, guarding, rebound - Integumentary no rash, no growths - Neurologic CN 2-12 grossly intact - Psychiatric oriented to person - Labs 04/02/18 06:37 04/02/18 06:37 Vital Signs Temp Pulse Resp BP Pulse Ox 04/02/18 11:49 98.1 F 67 18 129/77 95 04/02/18 07:25 98.0 F 84 19 159/94 95 04/02/18 06:00 98.1 F 82 20 147/91 96 04/02/18 00:00 98.6 F 85 158/94 95 04/01/18 19:59 98.5 F 89 154/103 92 Intake and Output 04/01/18 04/02/18 04/02/18 23:59 07:59 15:59 Intake Total 0 / 0 1120 / 1120 Balance 0 / 0 1120 / 1120 Intake: IV Fluids 0 / 0 1000 / 1000 0.9 % Sodium Chloride 1,000 ML 0 / 0 1000 / 1000 @ 125 mls/hr IVC .Q8H [facility] Rx#: [id number] Oral 120 / 120 Other: Meal Lunch Percent of Meal Consumed 0% # Urine Diapers 1 Short CBC 04/02/18 Range/Units 06:37 WBC 6.4 (4.3-11.1) K/mcL Hgb 10.5 L (12.9-16.9) g/dL Hct 33.2 L (37.5-50.1) % Plt Count 176 (140-400) K/mcL Neutrophils # 4.7 (1.6-8.9) K/mcL BMP 04/02/18 Range/Units 06:37 Sodium 142 (136-145) mEq/L Potassium 3.9 (3.5-5.1) mEq/L Chloride 109 H (98-107) mEq/L Carbon Dioxide 26 (23-29) mEq/L BUN 15 (6-20) mg/dL Creatinine 0.96 (0.70-1.30) mg/dL Glucose 86 (70-105) mg/dL Calcium 8.3 L (8.6-10.3) mg/dL Liver Function 04/02/18 Range/Units 06:37 Total Bilirubin 0.5 (0.3-1.0) mg/dL Direct Bilirubin 0.1 (0.0-0.2) mg/dL AST 41 H (13-39) Units/L ALT 18 (7-52) Units/L Alkaline Phosphatase 92 (34-104) Units/L Albumin 2.9 L (3.5-5.7) g/dL - Attending Attestation I examined this patient and my medical decision-making was reviewed with the Resident Physician. I agree with the documented findings, disposition and treatment plan as described except to the extent set forth below.
[2018-04-02] MEDS: metroNIDAZOLE 500 MG TABLET PO SCH ×3 (08:22→20:23)
[2018-04-02] MEDS: *HR* Heparin 5,000 UNIT/ML VIAL SQ SCH ×2 (08:22→18:48)
[2018-04-02] MEDS: Divalproex (24 HR) 500 MG TABLET PO SCH ×2 (08:22→20:23)
[2018-04-02] MEDS: cefTRIAXone 2,000 MG in Water for inj. (sterile) 20 ML 20 ML IVP SCH (08:22)
[2018-04-02 10:04] LABS: Monocytes # 0.6 K/mcL (0.0-1.3); Neutrophils # 4.7 K/mcL (1.6-8.9); Platelet Estimate Normal (Normal)
--- NOTE | 2018-04-02 12:57 | Internal Med Progress Note ---
Hospitalist Progress Note - Encounter Date of Encounter: 04/02/18 Time of Encounter: 12:55 - Subjective Interval History: Mr. Gooden is a 57-year-old gentlemen with known history of schizophrenia and substance abuse patient who is chronic alcohol dependence admitted here with acute abdominal pain and the fall. Patient CT of abdomen showed acute cholecystitis.Going through active DT's now, so transferred to step down unit on 04/01/18 He is more alert, awake and O to place and person today. Still looks confused.. - Exam Vitals: Temp Pulse Resp BP Pulse Ox 98.1 F 67 18 129/77 95 04/02/18 11:49 04/02/18 11:49 04/02/18 11:49 04/02/18 11:49 04/02/18 11:49 Exam: Gen: sleepy and confused Chest: Diminished breath sounds B/L, No wheezing, No crackles, No rales Heart: S1S2+ RRR No murmurs Abd: Soft, NT, BS +, No organomegaly Ext: No edema, pulses are palpable, No calf tenderness Neuro : Benign findings Skin: No rash. - Assessment and Plan (1) Alcohol withdrawal delirium Current Visit: Yes Status: Acute Assessment and Plan: Going through active DT's now cont CIWA protocol No need of precedex at this point cont Ativan PRN cont close monitoring IV hydration + Banana bag (2) Acute cholecystitis Current Visit: Yes Status: Acute Assessment and Plan: CT of abdomen showed acute cholecystitis ultrasound of gallbladder showed: Cholelithiasis and thickening of the gallbladder wall with the mild distention concerning for acute cholecystitis he does not have any abdominal pain right now surgery cleared for clear liquid diet diet as per surgery recommendations only IV hydration appreciate surgery recommendations continue empirical antibiotic Rocephin + Flagyl (3) Alcoholism Current Visit: No Status: Chronic Assessment and Plan: Pt has a mcfp hx of EtOH abuse, has been drinking more as of recently Cont CIWA protocol Banana bag IV hydration (4) Acute encephalopathy Current Visit: Yes Status: Acute Assessment and Plan: Mostly due to toxic encephalopathy Due to alcohol withdrawal improving slowly no suicidal ideation continue close monitoring may not need sitter any more (5) Fall Current Visit: Yes Status: Acute Assessment and Plan: Workup for fall showed no acute changes on CXR, CT head or neck no s/s of injury, no bruises - (6) NIKITA (acute kidney injury) Current Visit: Yes Status: Acute Assessment and Plan: Due to dehydration Improving (7) DVT prophylaxis Current Visit: Yes Status: Acute Assessment and Plan: On SQ heparin (8) Schizophrenia Current Visit: No Status: Chronic Assessment and Plan: Continue home meds when longterm confirms psych consulted - Time Spent with Patient Total time spent is greater than 50% in coordination of care (as documented) at patient's floor/unit and/or counseling patient: Internal Medicine: Result - Labs CBC & Chem 7: 04/02/18 06:37 04/02/18 06:37 Labs: Short CBC 04/02/18 Range/Units 06:37 WBC 6.4 (4.3-11.1) K/mcL Hgb 10.5 L (12.9-16.9) g/dL Hct 33.2 L (37.5-50.1) % Plt Count 176 (140-400) K/mcL Neutrophils # 4.7 (1.6-8.9) K/mcL BMP 04/02/18 06:37 Sodium 142 Potassium 3.9 Chloride 109 H Carbon Dioxide 26 BUN 15 Creatinine 0.96 Glucose 86 Calcium 8.3 L Liver Function 04/02/18 Range/Units 06:37 Total Bilirubin 0.5 (0.3-1.0) mg/dL Direct Bilirubin 0.1 (0.0-0.2) mg/dL AST 41 H (13-39) Units/L ALT 18 (7-52) Units/L Alkaline Phosphatase 92 (34-104) Units/L Albumin 2.9 L (3.5-5.7) g/dL - ABG Interpretation ABG results: PT/INR, D-dimer PT 13.7 Seconds (9.4-12.1) H 03/30/18 15:19 Consult Discharge Plan - Plan Additional Instructions: Coordinate mental health follow up once surgery is complete. [facility]errals: [facility] [Primary Care Provider[facility] - (5) Fall Qualifiers: Encounter type: initial encounter Qualified Code(s): W19.XXXA - Unspecified fall, initial encounter (8) Schizophrenia Qualifiers: Schizophrenia type: paranoid schizophrenia Qualified Code(s): F20.0 - Paranoid schizophrenia
[2018-04-02] MEDS: *HR* LORazepam 2 MG/ML VIAL IVP PRN ×4 (13:01→23:50)
[2018-04-02] MEDS: D5% in 0.45% NACL 1,000 ML IVC SCH (13:01)
[2018-04-02] MEDS: Thiamine (B-1) 100 MG, Folic Acid 1 MG, MVI, adult with vitamin K 10 ML in 0.9 % Sodi... IVPB SCH (20:00)
[2018-04-03] MEDS: *HR* LORazepam 2 MG/ML VIAL IVP PRN ×3 (00:42→17:17)
[2018-04-03 05:54] LABS: Basophils # 0.1 K/mcL (0.0-0.2); Hematocrit 37.1 % (37.5-50.1); Hemoglobin 11.6 g/dL (12.9-16.9); Mean Corpuscular HGB Conc 31.3 g/dL (31.6-35.5); Mean Corpuscular Hemoglobin 31.4 pg (28.0-33.3); Mean Corpuscular Volume 100.5 fL (83.0-100.0); Mean Platelet Volume 9.8 fL (9.4-12.4); Platelet Count 201 K/mcL (140-400); Red Blood Count 3.69 M/mcL (4.19-5.50); Red Cell Distribution Width 12.2 % (11.5-14.5)
[2018-04-03 06:11] LABS: BUN/Creatinine Ratio 11 (6-26); Blood Urea Nitrogen 11 mg/dL (6-20); Calcium 8.9 mg/dL (8.6-10.3); Carbon Dioxide 29 mEq/L (23-29); Chloride 108 mEq/L (98-107); Glucose 104 mg/dL (70-105); Osmolality,Calculated 294 (280-300); Sodium 142 mEq/L (136-145); eGFR For Non-African Americans > 60 (> 60)
[2018-04-03 06:26] LABS: Eosinophils # 0.2 K/mcL (0.0-0.6); Lymphocytes # 1.7 K/mcL (0.6-4.6); Macrocytosis Present (Not Present); Monocytes # 0.5 K/mcL (0.0-1.3); Neutrophils # 3.2 K/mcL (1.6-8.9); Platelet Estimate Normal (Normal)
[2018-04-03] MEDS: D5% in 0.45% NACL 1,000 ML IVC SCH ×4 (06:34→23:30)
[2018-04-03] MEDS: cefTRIAXone 2,000 MG in Water for inj. (sterile) 20 ML 20 ML IVP SCH (06:34)
[2018-04-03] MEDS: *HR* Heparin 5,000 UNIT/ML VIAL SQ SCH ×2 (06:38→17:17)
[2018-04-03] MEDS ORDERED: Vitamin B Complex/Vit C/Vit E 1 EACH TABLET PO SCH (09:00)
[2018-04-03] MEDS ORDERED: Thiamine (B-1) 100 MG TABLET PO SCH (09:00)
--- NOTE | 2018-04-03 09:00 | General Surgery Progress Note ---
<AdyAshishAndrew R - Last Filed: 04/03/18 11:51> Date of Encounter: 04/03/18 Time of Encounter: 08:35 - Assessment and Plan (1) Abnormal CT of the abdomen Current Visit: Yes Status: Acute History and exam somewhat improved however remains unreliable due to active withdrawal from EtOH and ongoing treatment Afebrile. Leukocytosis resolved. No apparent abdominal pain to palpation Plan: Continue Abx Clear liquid diet PO medications ok prn antiemetic Comfort care and pain management Will follow and reassess for resolution of delerium (2) Alcoholism Current Visit: No Status: Chronic Management per primary team (3) Delirium Current Visit: Yes Status: Acute Ongoing EtOH withdrawal and management. Management per primary team with psych following Will continue to reassess for improvement (4) DVT prophylaxis Current Visit: Yes Status: Acute Heparin SQ 5000 units Q12H Subjective Patient reports: no new complaints, tolerating liquids well, voiding w/o difficulty, flatus, bowel movement, afebrile Narrative: Patient does not know why he is in the hospital. Remains quite somnolent but arousable and more alert than yesterday. States that sometimes his abdomen hurts "a little", doesn't currently hurt, cannot localize position of pain. States that he doesn't need surgery because it doesn't really hurt. Denies nausea or vomiting. Denies previous history of gallbladder disease. Objective Vital Signs - Last 8 Hours Temp Pulse Resp BP Pulse Ox 04/03/18 07:52 97.6 F 72 18 144/90 95 04/03/18 04:08 99.2 F 71 18 127/66 95 Intake and Output 04/02/18 04/03/18 04/03/18 23:59 07:59 15:59 Intake Total 1000 / 1000 Output Total 900 / 900 Balance 1000 / 1000 -900 / -900 Intake: IV Fluids 1000 / 1000 D5% And 0.45% Nacl 1000 Ml Bag 1000 / 1000 1,000 ML @ 125 mls/hr IVC .Q8H [facility] Rx#:[id number] Output: Urine 900 / 900 Other: # Voids 1 # Urine Diapers 1 Weight 102.5 kg Patient Weight 04/03/18 23:59 Weight 102.5 kg - General physical appearance well nourished, no distress - Eyes PERRL - ENT normal mucosa, atraumatic, normocephalic - Neck Neck exam: trachea midline - Respiratory normal expansion, normal respiratory effort - Cardiovascular Cardiovascular exam: Present: RRR - Abdomen Abdomen: Present: bowel sounds present, soft, non tender, surgical scars (well healed). Absent: distended, guarding, rebound - Integumentary no rash - Neurologic CN 2-12 grossly intact, other - Psychiatric oriented to person, oriented to place - Labs 04/03/18 05:20 04/03/18 05:20 Diabetes panel 04/03/18 Range/Units 05:20 Sodium 142 (136-145) mEq/L Potassium 4.0 (3.5-5.1) mEq/L Chloride 108 H (98-107) mEq/L Carbon Dioxide 29 (23-29) mEq/L BUN 11 (6-20) mg/dL Creatinine 0.98 (0.70-1.30) mg/dL Glucose 104 (70-105) mg/dL Calcium 8.9 (8.6-10.3) mg/dL Calcium panel 04/03/18 Range/Units 05:20 Calcium 8.9 (8.6-10.3) mg/dL Pituitary panel 04/03/18 Range/Units 05:20 Sodium 142 (136-145) mEq/L Potassium 4.0 (3.5-5.1) mEq/L Chloride 108 H (98-107) mEq/L Carbon Dioxide 29 (23-29) mEq/L BUN 11 (6-20) mg/dL Creatinine 0.98 (0.70-1.30) mg/dL Glucose 104 (70-105) mg/dL Calcium 8.9 (8.6-10.3) mg/dL Adrenal panel 04/03/18 Range/Units 05:20 Sodium 142 (136-145) mEq/L Potassium 4.0 (3.5-5.1) mEq/L Chloride 108 H (98-107) mEq/L Carbon Dioxide 29 (23-29) mEq/L BUN 11 (6-20) mg/dL Creatinine 0.98 (0.70-1.30) mg/dL Glucose 104 (70-105) mg/dL Calcium 8.9 (8.6-10.3) mg/dL Consult Discharge Plan - Plan Additional Instructions: Coordinate mental health follow up once surgery is complete. Referrals: [facility] [Primary Care Provider[facility] - 04/14/18 10:30 am (THIS APPOINTMENT IS WITH [facility]) <Diana Blanco - Last Filed: 04/03/18 15:57> Date of Encounter: 04/03/18 - Assessment and Plan (1) Delirium Current Visit: Yes Status: Acute appears to be making small progress daily patient is still not consentable (2) Alcoholism Current Visit: No Status: Chronic (3) Symptomatic cholelithiasis Current Visit: Yes Status: Acute patient presented to hospital with symptomatic cholelithiasis his symptoms seem to have resolved currently and he has no RUQ pain advance diet to fulls, if tolerates advance to low fat diet given that patient has been delerious this entire admission he will not remember his pain or discomfort as he has none now. I imagine it will be an unfruitful conversation to convince him he needs his gallbladder out if he does not remember any of the reason he is here to begin with. will follow along Subjective Patient reports: no new complaints, tolerating liquids well, flatus, afebrile Objective Vital Signs - Last 8 Hours Temp Pulse Resp BP Pulse Ox 04/03/18 15:40 98.7 F 73 16 135/70 98 04/03/18 15:00 65 16 98 04/03/18 14:45 65 04/03/18 13:00 62 16 98 04/03/18 11:46 98.9 F 67 19 114/84 94 Intake and Output 04/02/18 04/03/18 04/03/18 23:59 07:59 15:59 Intake Total 1999 2551.2 / 2551.2 Output Total 900 / 900 Balance 1999 -880 / -880 2551.2 / 2551.2 Intake: IV Fluids 1999 1511.2 / 1511.2 D5% And 0.45% Nacl 1000 Ml Bag 1000 / 1000 1000 / 1000 1,000 ML @ 125 mls/hr IVC .Q8H [facility] Rx#:[id number] Rocephin 2,000 MG In Water for inj. (sterile) 20 ML @ 600 mls/ hr IVP Q24H [facility] Rx#:[id number] Vitamin B-1 100 MG Folvite 1 MG 511.2 / 511.2 M.v.i. Adult 10 ml In 0.9 % Sodium Chloride 500 ML @ 85.2 mls/hr IVPB DAILY@1800 [facility] Rx#: [id number] Oral 1040 / 1040 Output: Urine 900 / 900 Other: Meal Lunch Percent of Meal Consumed 0% Stool Size Large Stool Consistency soft Stool Color Brown Green # Voids 1 # Urine Diapers 1 2 Weight 102.5 kg Patient Weight 04/03/18 23:59 Weight 102.5 kg - General physical appearance well developed, well nourished, no distress - Eyes PERRL - ENT normal mucosa, normocephalic - Neck Neck exam: trachea midline - Respiratory normal expansion, normal respiratory effort - Cardiovascular Cardiovascular exam: Present: RRR - Abdomen Abdomen: Present: bowel sounds present, soft, non tender. Absent: distended, guarding, rebound - Integumentary no rash, no growths - Neurologic CN 2-12 grossly intact - Musculoskeletal normal posture - Psychiatric oriented to person, oriented to place - Labs 04/03/18 05:20 04/03/18 05:20 Diabetes panel 04/03/18 Range/Units 05:20 Sodium 142 (136-145) mEq/L Potassium 4.0 (3.5-5.1) mEq/L Chloride 108 H (98-107) mEq/L Carbon Dioxide 29 (23-29) mEq/L BUN 11 (6-20) mg/dL Creatinine 0.98 (0.70-1.30) mg/dL Glucose 104 (70-105) mg/dL Calcium 8.9 (8.6-10.3) mg/dL Calcium panel 04/03/18 Range/Units 05:20 Calcium 8.9 (8.6-10.3) mg/dL Pituitary panel 04/03/18 Range/Units 05:20 Sodium 142 (136-145) mEq/L Potassium 4.0 (3.5-5.1) mEq/L Chloride 108 H (98-107) mEq/L Carbon Dioxide 29 (23-29) mEq/L BUN 11 (6-20) mg/dL Creatinine 0.98 (0.70-1.30) mg/dL Glucose 104 (70-105) mg/dL Calcium 8.9 (8.6-10.3) mg/dL Adrenal panel 04/03/18 Range/Units 05:20 Sodium 142 (136-145) mEq/L Potassium 4.0 (3.5-5.1) mEq/L Chloride 108 H (98-107) mEq/L Carbon Dioxide 29 (23-29) mEq/L BUN 11 (6-20) mg/dL Creatinine 0.98 (0.70-1.30) mg/dL Glucose 104 (70-105) mg/dL Calcium 8.9 (8.6-10.3) mg/dL - Attending Attestation I examined this patient and my medical decision-making was reviewed with the Resident Physician. I agree with the documented findings, disposition and treatment plan as described except to the extent set forth below.
[2018-04-03] MEDS: metroNIDAZOLE 500 MG TABLET PO SCH ×2 (09:07→14:43)
[2018-04-03] MEDS: Divalproex (24 HR) 500 MG TABLET PO SCH (09:07)
[2018-04-03] MEDS: Folic Acid 1 MG TABLET PO SCH (09:07)
--- NOTE | 2018-04-03 09:55 | Internal Med Progress Note ---
<Magdiel Schaeffer S - Last Filed: 04/03/18 11:18> Hospitalist Progress Note - Encounter Date of Encounter: 04/03/18 Time of Encounter: 09:53 - Subjective Interval History: Pt is seen at [facility] He is a 57yo male with an extensive hx of EtOH abuse and mental health issues. He is shivering in bed and appears to be in distress. He is hard to arouse and I have to ask him multiple times to get any qustions. On admission he was unsure about why he is here or what is going on but knows he had a fall. -Another resident found him in the bathroom at half-way according to notes from night resident -he has been increasing his EtOH intake over the last few months Pt this morning knows where he is but states that the year is 1988 and Rick Earl is president. He is hard to arouse and very sleepy. He denies any pain after being asked multiple times. - Exam Vitals: Temp Pulse Resp BP Pulse Ox 97.6 F 72 18 144/90 95 04/03/18 07:52 04/03/18 07:52 04/03/18 07:52 04/03/18 07:52 04/03/18 07:52 Exam: Gen: sleepy and confused Chest: Diminished breath sounds B/L, No wheezing, No crackles, No rales Heart: S1S2+ RRR No murmurs Abd: Soft, NT, negative poe, slightly distended, obese Ext: No edema, pulses are palpable, No calf tenderness Neuro : Benign findings, no FND Skin: No rash., no track merrill, no ulcer - Assessment and Plan (1) Acute cholecystitis Current Visit: Yes Status: Acute Assessment and Plan: CT of abdomen showed acute cholecystitis -ultrasound of gallbladder showed: Cholelithiasis and thickening of the gallbladder wall with the mild distention concerning for acute cholecystitis Pt denies abd pain, (-) poe sign -WBC count 5.7 -BP stable, no jaundice/RUQ tenderness -AST 41, ALT 18 -alk phos 92 Plan: -IV fluid 125cc/hr D5 0.45 -Blood cx pending -diet as per surgery, CLD -pt is on rocephin day 4 for g(-) and g(+) coverage and flagyl day 4 for anaerobic coverage -surgery consulted and following, may try to do sx when stable and able to give consent (2) Fall Current Visit: Yes Status: Acute Assessment and Plan: Workup for fall showed no acute changes on CXR, CT head or neck no s/s of injury, no bruises (3) Alcoholism Current Visit: No Status: Chronic Assessment and Plan: 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, has been drinking more as of recently last CIWA score reported was 14 nurses report the pt is trembling at times but currently is ok Plan: Banana bag IV hydration with D5 in 0.45 125cc/hr CIWA protocol, lorazepam as indicated (4) NIKITA (acute kidney injury) Current Visit: Yes Status: Resolved Assessment and Plan: Creatinine on admission 1.69 -has improved, creatinine today (04/03) is 0.98 -BUN 11 Plan: -resolved -continue to monitor CMP (5) DVT prophylaxis Current Visit: Yes Status: Acute Assessment and Plan: On SQ heparin (6) Schizophrenia Current Visit: No Status: Chronic Assessment and Plan: Continue home meds -psych consulted (7) Acute encephalopathy Current Visit: Yes Status: Resolved Assessment and Plan: Toxic encephalophy 2/2 EtOH abuse -due to EtOH withdrawal -pt is improved from admission Plan: -continue to monitor -continue CIWA protocol and hydration (8) Alcohol withdrawal delirium Current Visit: Yes Status: Acute Assessment and Plan: Currently not trembling -BP stable, HR 72, autonomic stability -mental status is still fluctuating Plan: -continue CIWA procol -continue banana bag -continue ativan as needed -continue to monitor pt closely DVT Prophylaxis: sq heparin - Time Spent with Patient Total time spent is greater than 50% in coordination of care (as documented) at patient's floor/unit and/or counseling patient: less than 15 minutes Plan of Care Discussed with: nurse Internal Medicine: Result - Labs CBC & Chem 7: 04/03/18 05:20 04/03/18 05:20 Labs: Short CBC 04/02/18 04/03/18 Range/Units 06:37 05:20 WBC 5.7 (4.3-11.1) K/mcL Hgb 11.6 L (12.9-16.9) g/dL Hct 37.1 L (37.5-50.1) % Plt Count 201 (140-400) K/mcL Neutrophils # 4.7 3.2 (1.6-8.9) K/mcL [facility] 04/03/18 05:20 Sodium 142 Potassium 4.0 Chloride 108 H Carbon Dioxide 29 BUN 11 Creatinine 0.98 Glucose 104 Calcium 8.9 - ABG Interpretation ABG results: PT/INR, D-dimer PT 13.7 Seconds (9.4-12.1) H 03/30/18 15:19 Consult Discharge Plan - Plan Additional Instructions: Coordinate mental health follow up once surgery is complete. [facility] - 04/14/18 10:30 am (THIS APPOINTMENT IS WITH THE [facility]) <Verna Mcmanus - Last Filed: 04/03/18 17:53> Hospitalist Progress Note - Encounter Date of Encounter: 04/03/18 - Exam Vitals: Temp Pulse Resp BP Pulse Ox 98.7 F 75 16 135/70 98 04/03/18 15:40 04/03/18 17:00 04/03/18 17:00 04/03/18 15:40 04/03/18 17:00 - Assessment and Plan (1) Fall Current Visit: Yes Status: Acute (2) Alcoholism Current Visit: No Status: Chronic (3) NIKITA (acute kidney injury) Current Visit: Yes Status: Resolved (4) DVT prophylaxis Current Visit: Yes Status: Acute (5) Schizophrenia Current Visit: No Status: Chronic (6) Acute cholecystitis Current Visit: Yes Status: Acute (7) Acute encephalopathy Current Visit: Yes Status: Resolved (8) Alcohol withdrawal delirium Current Visit: Yes Status: Acute - Time Spent with Patient Total time spent is greater than 50% in coordination of care (as documented) at patient's floor/unit and/or counseling patient: Internal Medicine: Result - Labs CBC & Chem 7: 04/03/18 05:20 04/03/18 05:20 Labs: Short CBC 04/03/18 Range/Units 05:20 WBC 5.7 (4.3-11.1) K/mcL Hgb 11.6 L (12.9-16.9) g/dL Hct 37.1 L (37.5-50.1) % Plt Count 201 (140-400) K/mcL Neutrophils # 3.2 (1.6-8.9) K/mcL [facility] 04/03/18 05:20 Sodium 142 Potassium 4.0 Chloride 108 H Carbon Dioxide 29 BUN 11 Creatinine 0.98 Glucose 104 Calcium 8.9 - ABG Interpretation ABG results: PT/INR, D-dimer PT 13.7 Seconds (9.4-12.1) H 03/30/18 15:19 - Attending Attestation I examined this patient and my medical decision-making was reviewed with the Resident Physician Dr. Schaeffer. I agree with the documented findings, disposition and treatment plan as described except to the extent set forth below. Mr. Gooden is a 57-year-old gentlemen with known history of schizophrenia and substance abuse patient who is chronic alcohol dependence admitted here with acute abdominal pain and the fall. Patient CT of abdomen showed acute cholecystitis. He is alert, awake oriented to place and self only. Seems to be sleepy/sedative. Gen: Sleepy Chest: Diminished BS b/l, No wheezing, no crackles Heart: S1S2+ sinus tachy Abd: Soft, NT a/p 1. Acute cholecystitis Surgery consulted clear liquid idet IV hydration empirical abx Rocephin + Flagyl 2. Alcohol dependence 3. Alcohol withdrawal symptoms..Active DT's Cont CIWA protocol <Magdiel Schaeffer S - Last Filed: 04/03/18 11:18> (2) Fall Qualifiers: Encounter type: initial encounter Qualified Code(s): W19.XXXA - Unspecified fall, initial encounter (6) Schizophrenia Qualifiers: Schizophrenia type: paranoid schizophrenia Qualified Code(s): F20.0 - Paranoid schizophrenia <Verna Mcmanus - Last Filed: 04/03/18 17:53> (1) Fall Qualifiers: Encounter type: initial encounter Qualified Code(s): W19.XXXA - Unspecified fall, initial encounter (5) Schizophrenia Qualifiers: Schizophrenia type: paranoid schizophrenia Qualified Code(s): F20.0 - Paranoid schizophrenia
[2018-04-03 10:28] LABS: CKMB Percent NOT DONE (0.0-5.0)
[2018-04-04] MEDS: Divalproex (24 HR) 500 MG TABLET PO SCH ×3 (00:18→20:22)
[2018-04-04] MEDS: metroNIDAZOLE 500 MG TABLET PO SCH ×4 (00:18→20:22)
[2018-04-04 06:25] LABS: Hematocrit 36.1 % (37.5-50.1); Hemoglobin 11.7 g/dL (12.9-16.9); Mean Corpuscular HGB Conc 32.4 g/dL (31.6-35.5); Mean Corpuscular Hemoglobin 32.5 pg (28.0-33.3); Mean Corpuscular Volume 100.3 fL (83.0-100.0); Mean Platelet Volume 9.5 fL (9.4-12.4); Platelet Count 215 K/mcL (140-400); Red Cell Distribution Width 12.1 % (11.5-14.5)
[2018-04-04 06:46] LABS: Alanine Aminotransferase 17 Units/L (7-52); Albumin 3.1 g/dL (3.5-5.7); Albumin/Globulin Ratio 0.9 (1.1-2.2); Alkaline Phosphatase 100 Units/L (34-104); Aspartate Amino Transferase 34 Units/L (13-39); BUN/Creatinine Ratio 8 (6-26); Bilirubin,Total 0.5 mg/dL (0.3-1.0); Blood Urea Nitrogen 7 mg/dL (6-20); Calcium 8.7 mg/dL (8.6-10.3); Carbon Dioxide 26 mEq/L (23-29); Chloride 107 mEq/L (98-107); Globulin 3.4 g/dL (2.4-3.5); Glucose 111 mg/dL (70-105); Osmolality,Calculated 293 (280-300); Potassium 3.5 mEq/L (3.5-5.1); Sodium 142 mEq/L (136-145); Total Protein 6.5 g/dL (6.4-8.9); eGFR For Non-African Americans > 60 (> 60)
[2018-04-04 06:47] LABS: Eosinophils # 0.1 K/mcL (0.0-0.6); Monocytes # 0.3 K/mcL (0.0-1.3); Neutrophils # 2.7 K/mcL (1.6-8.9); Platelet Estimate Normal (Normal)
[2018-04-04 06:49] LABS: Albumin 3.1 g/dL (3.5-5.7); Albumin/Globulin Ratio 0.9 (1.1-2.2); Bilirubin,Direct 0.1 mg/dL (0.0-0.2); Bilirubin,Indirect 0.3 mg/dL (0.0-1.2); Bilirubin,Total 0.4 mg/dL (0.3-1.0); Globulin 3.4 g/dL (2.4-3.5); Total Protein 6.5 g/dL (6.4-8.9)
[2018-04-04] MEDS: *HR* Heparin 5,000 UNIT/ML VIAL SQ SCH ×2 (06:53→16:37)
[2018-04-04] MEDS: cefTRIAXone 2,000 MG in Water for inj. (sterile) 20 ML 20 ML IVP SCH (06:55)
[2018-04-04] MEDS: Folic Acid 1 MG TABLET PO SCH (08:33)
--- NOTE | 2018-04-04 08:38 | Event Note ---
Date of Encounter: 04/04/18 Time of Encounter: 08:36 Patient has no abdominal pain and is tolerating diet. General surgery will sign off at this time. Patient once going through DT's can follow up as outpatient to discuss cholecystectomy. I am doubtful the patient will want to have his gallbladder out as he will not remember any of his hospital admission or pain that he presented with. Advance to low fat diet. Please call surgery again if needed.
--- NOTE | 2018-04-04 08:50 | Internal Med Progress Note ---
<Magdiel Schaeffer S - Last Filed: 04/04/18 11:36> Hospitalist Progress Note - Encounter Date of Encounter: 04/04/18 Time of Encounter: 08:44 - Subjective Interval History: Pt is seen at [facility] He is a 57yo male with an extensive hx of EtOH abuse and mental health issues. He is shivering in bed and appears to be in distress. He is hard to arouse and I have to ask him multiple times to get any qustions. On admission he was unsure about why he is here or what is going on but knows he had a fall. -[facility] resident -he has been increasing his EtOH intake over the last few months Pt this morning knows where he is but states that the year is 2007, doesn't know president and states he was born in 2009. He repeatedly tries to take all his clothes off and get out of bed, despite bed alarm going off. The patient is unable to give a reliable hx and states he has "belly pain all over" to the TY resident but tells me he is not in pain. Social work to see today regarding placement. - Exam Vitals: Temp Pulse Resp BP Pulse Ox 98.3 F 102 18 172/95 97 04/04/18 08:06 04/04/18 08:06 04/04/18 08:06 04/04/18 08:06 04/04/18 08:06 Exam: Gen: sleepy and confused, AOx1 Chest: Diminished breath sounds B/L, No wheezing, No crackles, No rales Heart: S1S2+ RRR No murmurs Abd: Soft, NT, negative poe, slightly distended but improving, obese Ext: No edema, pulses are palpable, No calf tenderness Neuro : Benign findings, no FND Skin: No rash., no track merrill, no ulcer - Assessment and Plan (1) Acute cholecystitis Current Visit: Yes Status: Acute Assessment and Plan: CT of abdomen showed acute cholecystitis -ultrasound of gallbladder showed: Cholelithiasis and thickening of the gallbladder wall with the mild distention concerning for acute cholecystitis Pt denies abd pain, (-) poe sign -WBC count 5.3 -BP stable, no jaundice/RUQ tenderness -AST 34, ALT 17 -alk phos 100 Plan: -IV fluid 125cc/hr D5 0.45 discontinued -Blood cx pending -advance diet to full liquid diet, low fat if tolerated -d/c rocephin IV -start ciprofoxacin PO -coverage and flagyl day 5 for anaerobic coverage -surgery consulted and following, they are signing off -social work to see for placement to ECF as per PTOT recommendation (2) Fall Current Visit: Yes Status: Acute Assessment and Plan: Workup for fall showed no acute changes on CXR, CT head or neck no s/s of injury, no bruises (3) Alcoholism Current Visit: No Status: Chronic Assessment and Plan: Pt has a group home hx of EtOH abuse, has been drinking more as of recently last CIWA score reported was 9 nurses report the pt is fidgetly/restless and disoriented to place and person Plan: Banana bag discontinued IV hydration with D5 in 0.45 125cc/hr discontinued CIWA protocol, lorazepam as indicated -start librium 50mg PO TID (4) NIKITA (acute kidney injury) Current Visit: Yes Status: Resolved Assessment and Plan: Creatinine on admission 1.69 -has improved, creatinine today (04/04) is 0.9 -BUN 7 Plan: -resolved -continue to monitor CMP (5) DVT prophylaxis Current Visit: Yes Status: Acute Assessment and Plan: On SQ heparin (6) Schizophrenia Current Visit: No Status: Chronic Assessment and Plan: Continue home meds -psych consulted (7) Acute encephalopathy Current Visit: Yes Status: Resolved Assessment and Plan: Toxic encephalophy 2/2 EtOH abuse -due to EtOH withdrawal -pt is improved from admission Plan: -continue to monitor -continue CIWA protocol (8) Alcohol withdrawal delirium Current Visit: Yes Status: Acute Assessment and Plan: Currently not trembling -BP stable, HR 81, autonomic stability -mental status is still fluctuating Plan: -continue CIWA procol, last score was 9, add librium 50mg PO TID - banana bag discontinued -continue ativan as needed -continue to monitor pt closely DVT Prophylaxis: sq heparin - Time Spent with Patient Total time spent is greater than 50% in coordination of care (as documented) at patient's floor/unit and/or counseling patient: less than 15 minutes Plan of Care Discussed with: patient Internal Medicine: Result - Labs CBC & Chem 7: 04/04/18 05:28 04/04/18 05:28 Labs: Short CBC 04/04/18 Range/Units 05:28 WBC 5.3 (4.3-11.1) K/mcL Hgb 11.7 L (12.9-16.9) g/dL Hct 36.1 L (37.5-50.1) % Plt Count 215 (140-400) K/mcL Neutrophils # 2.7 (1.6-8.9) K/mcL BMP 04/04/18 05:28 Sodium 142 Potassium 3.5 Chloride 107 Carbon Dioxide 26 BUN 7 Creatinine 0.90 Glucose 111 H Calcium 8.7 Liver Function 04/04/18 04/04/18 Range/Units 05:28 05:28 Total Bilirubin 0.4 0.5 (0.3-1.0) mg/dL Direct Bilirubin 0.1 (0.0-0.2) mg/dL AST 36 34 (13-39) Units/L ALT 17 17 (7-52) Units/L Alkaline Phosphatase 97 100 (34-104) Units/L Albumin 3.1 L 3.1 L (3.5-5.7) g/dL - ABG Interpretation ABG results: PT/INR, D-dimer PT 13.7 Seconds (9.4-12.1) H 03/30/18 15:19 Consult Discharge Plan - Plan Additional Instructions: Coordinate mental health follow up once surgery is complete. [facility]: [facility] Provider[facility] - 04/14/18 10:30 am (THIS APPOINTMENT IS WITH THE [facility] TE[facility]) <Blayne Naqvi - Last Filed: 04/04/18 18:35> Hospitalist Progress Note - Encounter Date of Encounter: 04/04/18 - Exam Vitals: Temp Pulse Resp BP Pulse Ox 98.7 F 100 18 130/71 95 04/04/18 16:11 04/04/18 15:37 04/04/18 16:11 04/04/18 16:11 04/04/18 11:29 - Assessment and Plan (1) Fall Current Visit: Yes Status: Acute (2) Alcoholism Current Visit: No Status: Chronic (3) NIKITA (acute kidney injury) Current Visit: Yes Status: Resolved (4) DVT prophylaxis Current Visit: Yes Status: Acute (5) Schizophrenia Current Visit: No Status: Chronic (6) Acute cholecystitis Current Visit: Yes Status: Acute (7) Acute encephalopathy Current Visit: Yes Status: Resolved (8) Alcohol withdrawal delirium Current Visit: Yes Status: Acute - Time Spent with Patient Total time spent is greater than 50% in coordination of care (as documented) at patient's floor/unit and/or counseling patient: Internal Medicine: Result - Labs CBC & Chem 7: 04/04/18 05:28 04/04/18 05:28 Labs: Short CBC 04/04/18 Range/Units 05:28 WBC 5.3 (4.3-11.1) K/mcL Hgb 11.7 L (12.9-16.9) g/dL Hct 36.1 L (37.5-50.1) % Plt Count 215 (140-400) K/mcL Neutrophils # 2.7 (1.6-8.9) K/mcL BMP 04/04/18 05:28 Sodium 142 Potassium 3.5 Chloride 107 Carbon Dioxide 26 BUN 7 Creatinine 0.90 Glucose 111 H Calcium 8.7 Liver Function 04/04/18 04/04/18 Range/Units 05:28 05:28 Total Bilirubin 0.4 0.5 (0.3-1.0) mg/dL Direct Bilirubin 0.1 (0.0-0.2) mg/dL AST 36 34 (13-39) Units/L ALT 17 17 (7-52) Units/L Alkaline Phosphatase 97 100 (34-104) Units/L Albumin 3.1 L 3.1 L (3.5-5.7) g/dL - ABG Interpretation ABG results: PT/INR, D-dimer PT 13.7 Seconds (9.4-12.1) H 03/30/18 15:19 - Attending Attestation I examined this patient and my medical decision-making was reviewed with the Resident Physician Dr. Eason. I agree with the documented findings, disposition and treatment plan as described except to the extent set forth below. <Magdiel Schaeffer - Last Filed: 04/04/18 11:36> (2) Fall Qualifiers: Encounter type: initial encounter Qualified Code(s): W19.XXXA - Unspecified fall, initial encounter (6) Schizophrenia Qualifiers: Schizophrenia type: paranoid schizophrenia Qualified Code(s): F20.0 - Paranoid schizophrenia <Blayne Naqvi - Last Filed: 04/04/18 18:35> (1) Fall Qualifiers: Encounter type: initial encounter Qualified Code(s): W19.XXXA - Unspecified fall, initial encounter (5) Schizophrenia Qualifiers: Schizophrenia type: paranoid schizophrenia Qualified Code(s): F20.0 - Paranoid schizophrenia
[2018-04-04] MEDS: *HR* LORazepam 2 MG/ML VIAL IVP PRN ×3 (10:24→16:37)
[2018-04-04] MEDS: Thiamine (B-1) 100 MG TABLET PO SCH (16:37)
[2018-04-05] MEDS: *HR* Heparin 5,000 UNIT/ML VIAL SQ SCH ×2 (06:22→18:02)
[2018-04-05] MEDS: metroNIDAZOLE 500 MG TABLET PO SCH ×3 (09:02→20:20)
[2018-04-05] MEDS: Divalproex (24 HR) 500 MG TABLET PO SCH ×2 (09:02→20:19)
[2018-04-05] MEDS: Folic Acid 1 MG TABLET PO SCH (09:02)
[2018-04-05] MEDS: Thiamine (B-1) 100 MG TABLET PO SCH (09:02)
[2018-04-05] MEDS: *HR* LORazepam 2 MG/ML VIAL IVP PRN ×3 (09:03→23:55)
--- NOTE | 2018-04-05 09:06 | Internal Med Progress Note ---
<MaksimMagdiel S - Last Filed: 04/05/18 11:19> Hospitalist Progress Note - Encounter Date of Encounter: 04/05/18 Time of Encounter: 09:03 - Subjective Interval History: Pt is seen at [facility] He is a 57yo male with an extensive hx of EtOH abuse and mental health issues. He is shivering in bed and appears to be in distress. He is hard to arouse and I have to ask him multiple times to get any qustions. On admission he was unsure about why he is here or what is going on but knows he had a fall. -[facility] to [facility] from night resident -he has been increasing his EtOH intake over the last few months Pt this morning knows where he is but states that the year is 2007. He knows who the president is. He is unaware of what year he is born in. -he is very fidgety today and restless -pt states he wants me to give him his money and that a nurse took his graham - Exam Vitals: Temp Pulse Resp BP Pulse Ox 98.4 F 92 18 156/95 95 04/05/18 07:18 04/05/18 07:18 04/05/18 07:18 04/05/18 07:18 04/05/18 07:18 Exam: Gen: sleepy and confused, AOx1 Chest: Diminished breath sounds B/L, No wheezing, No crackles, No rales Heart: S1S2+ RRR No murmurs Abd: Soft, NT, negative poe, slightly distended but improving, obese Ext: No edema, pulses are palpable, No calf tenderness Neuro : Benign findings, no FND Skin: No rash., no track merrill, no ulcer - Assessment and Plan (1) Acute cholecystitis Current Visit: Yes Status: Acute Assessment and Plan: CT of abdomen showed acute cholecystitis -ultrasound of gallbladder showed: Cholelithiasis and thickening of the gallbladder wall with the mild distention concerning for acute cholecystitis Pt denies abd pain, (-) poe sign -WBC count 5.3 -BP stable, no jaundice/RUQ tenderness -AST 34, ALT 17 -alk phos 100 Blood cx showed no growth Plan: -IV fluid 125cc/hr D5 0.45 discontinued -advance diet to full liquid diet, low fat if tolerated -d/c rocephin IV - ciprofoxacin PO day 2 -coverage and flagyl day 6 for anaerobic coverage -surgry signed off -social work to see for placement to ECF as per PTOT recommendation ---> pt can' t go to [facility]. Trying to figure out placement for him still (2) Fall Current Visit: Yes Status: Acute Assessment and Plan: Workup for fall showed no acute changes on CXR, CT head or neck no s/s of injury, no bruises (3) Alcoholism Current Visit: No Status: Chronic Assessment and Plan: Pt has a skilled nursing hx of EtOH abuse, has been drinking more as of recently last CIWA score reported was 6 nurses report the pt is fidgetly/restless and disoriented to place and person Pt appears more fidgety and restless this AM. He asks for me to give him money, says nurse took money from him. He continues to try to get out of bed while I was speaking to him Plan: Banana bag discontinued IV hydration with D5 in 0.45 125cc/hr discontinued CIWA protocol, lorazepam as indicated -librium 50mg PO TID increased to 75mg TID -thiamine vitamin daily (4) NIKITA (acute kidney injury) Current Visit: Yes Status: Resolved Assessment and Plan: Creatinine on admission 1.69 -has improved, creatinine today (04/04) is 0.98 -BUN 7 Plan: -resolved -continue to monitor CMP (5) DVT prophylaxis Current Visit: Yes Status: Acute Assessment and Plan: On SQ heparin (6) Schizophrenia Current Visit: No Status: Chronic Assessment and Plan: Continue home meds -psych consulted (7) Acute encephalopathy Current Visit: Yes Status: Resolved Assessment and Plan: Toxic encephalophy 2/2 EtOH abuse -due to EtOH withdrawal -pt is improved from admission Plan: -continue to monitor -continue CIWA protocol -thiamine vitamin -librium 50mg TID to 75mg TID -folic acid vitamin daily (8) Alcohol withdrawal delirium Current Visit: Yes Status: Acute Assessment and Plan: Currently not trembling -BP stable, HR 92, autonomic stability -mental status is still fluctuating Plan: -continue CIWA procol, last score was 6 - banana bag discontinued -continue ativan as needed -continue Librium increased to 75mg TID -thiamine and B9 vitamin daily -continue to monitor pt closely DVT Prophylaxis: sq heparin - Time Spent with Patient Total time spent is greater than 50% in coordination of care (as documented) at patient's floor/unit and/or counseling patient: less than 15 minutes Plan of Care Discussed with: patient Internal Medicine: Result - Labs CBC & Chem 7: 04/05/18 08:27 04/05/18 08:27 - ABG Interpretation ABG results: PT/INR, D-dimer PT 13.7 Seconds (9.4-12.1) H 03/30/18 15:19 Consult Discharge Plan - Plan Additional Instructions: Coordinate mental health follow up once surgery is complete. [facility]errals: [facility]Primary Care Provider[facility] - 04/14/18 10:30 am (THIS APPOINTMENT IS WITH THE [facility] TEAM) <Blayne Naqvi - Last Filed: 04/05/18 18:05> Hospitalist Progress Note - Encounter Date of Encounter: 04/05/18 - Exam Vitals: Temp Pulse Resp BP Pulse Ox 98.1 F 73 16 156/95 95 04/05/18 15:01 04/05/18 15:01 04/05/18 15:01 04/05/18 07:18 04/05/18 15:01 - Assessment and Plan (1) Fall Current Visit: Yes Status: Acute (2) Alcoholism Current Visit: No Status: Chronic (3) NIKITA (acute kidney injury) Current Visit: Yes Status: Resolved (4) DVT prophylaxis Current Visit: Yes Status: Acute (5) Schizophrenia Current Visit: No Status: Chronic (6) Acute cholecystitis Current Visit: Yes Status: Acute (7) Acute encephalopathy Current Visit: Yes Status: Resolved (8) Alcohol withdrawal delirium Current Visit: Yes Status: Acute - Time Spent with Patient Total time spent is greater than 50% in coordination of care (as documented) at patient's floor/unit and/or counseling patient: Internal Medicine: Result - Labs CBC & Chem 7: 04/05/18 08:27 04/05/18 08:27 Labs: Short CBC 04/05/18 Range/Units 08:27 WBC 5.9 (4.3-11.1) K/mcL Hgb 12.1 L (12.9-16.9) g/dL Hct 37.5 (37.5-50.1) % Plt Count 257 (140-400) K/mcL Neutrophils # 3.7 (1.6-8.9) K/mcL BMP 04/05/18 08:27 Sodium 142 Potassium 3.7 Chloride 106 Carbon Dioxide 29 BUN 8 Creatinine 1.04 Glucose 99 Calcium 9.2 Liver Function 04/05/18 Range/Units 08:27 Total Bilirubin 0.5 (0.3-1.0) mg/dL AST 41 H (13-39) Units/L ALT 17 (7-52) Units/L Alkaline Phosphatase 100 (34-104) Units/L Albumin 3.3 L (3.5-5.7) g/dL - ABG Interpretation ABG results: PT/INR, D-dimer PT 13.7 Seconds (9.4-12.1) H 03/30/18 15:19 - Attending Attestation I examined this patient and my medical decision-making was reviewed with the Resident Physician. I agree with the documented findings, disposition and treatment plan as described except to the extent set forth below. <Magdiel Schaeffer S - Last Filed: 04/05/18 11:19> (2) Fall Qualifiers: Encounter type: initial encounter Qualified Code(s): W19.XXXA - Unspecified fall, initial encounter (6) Schizophrenia Qualifiers: Schizophrenia type: paranoid schizophrenia Qualified Code(s): F20.0 - Paranoid schizophrenia <Blayne Naqvi - Last Filed: 04/05/18 18:05> (1) Fall Qualifiers: Encounter type: initial encounter Qualified Code(s): W19.XXXA - Unspecified fall, initial encounter (5) Schizophrenia Qualifiers: Schizophrenia type: paranoid schizophrenia Qualified Code(s): F20.0 - Paranoid schizophrenia
[2018-04-05 09:17] LABS: Basophils # 0.1 K/mcL (0.0-0.2); Basophils % 1.5 %; Eosinophils # 0.1 K/mcL (0.0-0.6); Eosinophils % 1.5 %; Hematocrit 37.5 % (37.5-50.1); Hemoglobin 12.1 g/dL (12.9-16.9); Immature Granulocytes % 7.3 % (0-4); Lymphocytes % 16.9 %; Mean Corpuscular HGB Conc 32.3 g/dL (31.6-35.5); Mean Corpuscular Hemoglobin 31.8 pg (28.0-33.3); Mean Corpuscular Volume 98.4 fL (83.0-100.0); Mean Platelet Volume 9.3 fL (9.4-12.4); Monocytes # 0.6 K/mcL (0.0-1.3); Monocytes % 10.6 %; Neutrophils # 3.7 K/mcL (1.6-8.9); Platelet Count 257 K/mcL (140-400); Red Blood Count 3.81 M/mcL (4.19-5.50); Red Cell Distribution Width 12.4 % (11.5-14.5); Segmented Neutrophils % 62.2 %
[2018-04-05 09:22] LABS: Alanine Aminotransferase 17 Units/L (7-52); Albumin 3.3 g/dL (3.5-5.7); Albumin/Globulin Ratio 0.9 (1.1-2.2); Alkaline Phosphatase 100 Units/L (34-104); Aspartate Amino Transferase 41 Units/L (13-39); BUN/Creatinine Ratio 8 (6-26); Bilirubin,Total 0.5 mg/dL (0.3-1.0); Blood Urea Nitrogen 8 mg/dL (6-20); Calcium 9.2 mg/dL (8.6-10.3); Carbon Dioxide 29 mEq/L (23-29); Chloride 106 mEq/L (98-107); Globulin 3.7 g/dL (2.4-3.5); Glucose 99 mg/dL (70-105); Osmolality,Calculated 292 (280-300); Potassium 3.7 mEq/L (3.5-5.1); Sodium 142 mEq/L (136-145); eGFR For Non-African Americans > 60 (> 60)
[2018-04-05] MEDS ORDERED: *HR* LORazepam 2 MG/ML VIAL IM ONE ×2 (09:30→09:40)
[2018-04-06] MEDS: *HR* LORazepam 2 MG/ML VIAL IVP PRN ×3 (04:07→19:22)
[2018-04-06 06:24] LABS: Hematocrit 36.3 % (37.5-50.1); Hemoglobin 12.2 g/dL (12.9-16.9); Mean Corpuscular HGB Conc 33.6 g/dL (31.6-35.5); Mean Corpuscular Volume 98.1 fL (83.0-100.0); Mean Platelet Volume 10.5 fL (9.4-12.4); Platelet Count 208 K/mcL (140-400); Red Cell Distribution Width 12.3 % (11.5-14.5)
[2018-04-06] MEDS: *HR* Heparin 5,000 UNIT/ML VIAL SQ SCH ×2 (06:32→17:17)
[2018-04-06 07:14] LABS: Eosinophils # 0.1 K/mcL (0.0-0.6); Lymphocytes # 1.7 K/mcL (0.6-4.6); Monocytes # 0.7 K/mcL (0.0-1.3); Neutrophils # 4.5 K/mcL (1.6-8.9); Platelet Estimate Normal (Normal)
[2018-04-06] MEDS: Thiamine (B-1) 100 MG TABLET PO SCH (07:46)
[2018-04-06] MEDS: metroNIDAZOLE 500 MG TABLET PO SCH ×3 (07:46→19:21)
[2018-04-06] MEDS: Divalproex (24 HR) 500 MG TABLET PO SCH ×2 (07:46→19:21)
[2018-04-06] MEDS: Folic Acid 1 MG TABLET PO SCH (07:47)
[2018-04-06 08:11] LABS: Alanine Aminotransferase 17 Units/L (7-52); Albumin 3.4 g/dL (3.5-5.7); Alkaline Phosphatase 106 Units/L (34-104); Aspartate Amino Transferase 48 Units/L (13-39); BUN/Creatinine Ratio 9 (6-26); Bilirubin,Total 0.5 mg/dL (0.3-1.0); Blood Urea Nitrogen 9 mg/dL (6-20); Calcium 9.3 mg/dL (8.6-10.3); Carbon Dioxide 28 mEq/L (23-29); Chloride 108 mEq/L (98-107); Globulin 3.4 g/dL (2.4-3.5); Glucose 102 mg/dL (70-105); Osmolality,Calculated 293 (280-300); Potassium 3.9 mEq/L (3.5-5.1); Sodium 142 mEq/L (136-145); Total Protein 6.8 g/dL (6.4-8.9); eGFR For Non-African Americans > 60 (> 60)
--- NOTE | 2018-04-06 08:56 | Internal Med Progress Note ---
<MaksimMagdiel S - Last Filed: 04/06/18 08:53> Hospitalist Progress Note - Encounter Date of Encounter: 04/06/18 Time of Encounter: 08:54 - Subjective Interval History: Pt is seen at [facility] He is a 57yo male with an extensive hx of EtOH abuse and mental health issues. He is shivering in bed and appears to be in distress. He is hard to arouse and I have to ask him multiple times to get any qustions. On admission he was unsure about why he is here or what is going on but knows he had a fall. -Another [facility] according to notes from night resident -he has been increasing his EtOH intake over the last few months Pt this morning knows where he is but states that the year is 2018. He knows who the president is. He is unaware of what year he is born in, says 1918. -he is very fidgety today and restless -unable to answer questions -nurse states he has been hallucinating, speaking to things not there - Exam Vitals: Temp Pulse Resp BP Pulse Ox 98.3 F 86 18 152/97 98 04/06/18 07:16 04/06/18 07:16 04/06/18 07:16 04/06/18 07:16 04/06/18 07:16 Exam: Gen: sleepy and confused, AOx1 Chest: Diminished breath sounds B/L, No wheezing, No crackles, No rales Heart: S1S2+ RRR No murmurs Abd: Soft, NT, negative poe, slightly distended but improving, obese Ext: No edema, pulses are palpable, No calf tenderness Neuro : Benign findings, no FND Skin: No rash., no track merrill, no ulcer - Assessment and Plan (1) Acute cholecystitis Current Visit: Yes Status: Acute Assessment and Plan: CT of abdomen showed acute cholecystitis -ultrasound of gallbladder showed: Cholelithiasis and thickening of the gallbladder wall with the mild distention concerning for acute cholecystitis Pt denies abd pain, (-) poe sign -WBC count 7 -BP stable, no jaundice/RUQ tenderness -AST 48, ALT 17 -alk phos 106 Blood cx showed no growth Plan: -IV fluid 125cc/hr D5 0.45 discontinued -advance diet to full liquid diet, low fat if tolerated -d/c rocephin IV - ciprofoxacin PO day 3 -coverage and flagyl day 7 for anaerobic coverage -surgry signed off -social work to see for placement to ECF as per PTOT recommendation ---> [facility] Trying to figure out placement for him still -PTOT missed apt yesterday due to sedation (2) Fall Current Visit: Yes Status: Acute Assessment and Plan: Workup for fall showed no acute changes on CXR, CT head or neck no s/s of injury, no bruises (3) Alcoholism Current Visit: No Status: Chronic Assessment and Plan: Pt has a care home hx of EtOH abuse, has been drinking more as of recently CIWA score reported was 12 (4AM) nurses report the pt is fidgetly/restless and disoriented to place and person; he is hallucianting, speaking to things not there CIWA score via day nurse 23 Pt appears more fidgety and restless this AM. He asks for me to give him money, says nurse took money from him. He continues to try to get out of bed while I was speaking to him Plan: Banana bag discontinued IV hydration with D5 in 0.45 125cc/hr discontinued CIWA protocol, lorazepam as indicated -librium 50mg PO TID increased to 75mg TID -thiamine vitamin daily (4) NIKITA (acute kidney injury) Current Visit: Yes Status: Resolved Assessment and Plan: Creatinine on admission 1.69 -has improved, creatinine today (04/04) is 0.99 -BUN 7 Plan: -resolved -continue to monitor CMP (5) DVT prophylaxis Current Visit: Yes Status: Acute Assessment and Plan: On SQ heparin (6) Schizophrenia Current Visit: No Status: Chronic Assessment and Plan: Continue home meds -psych consulted (7) Acute encephalopathy Current Visit: Yes Status: Resolved Assessment and Plan: Toxic encephalophy 2/2 EtOH abuse -due to EtOH withdrawal -pt is improved from admission Plan: -continue to monitor -continue CIWA protocol -librium 50mg TID to 75mg TID -folic acid and thiamine vitamin daily (8) Alcohol withdrawal delirium Current Visit: Yes Status: Acute Assessment and Plan: CIWA score 23 this morning -BP stable, HR 92, autonomic stability -mental status is still fluctuating Plan: -continue CIWA procol - banana bag discontinued -continue ativan as needed -continue Librium increased to 75mg TID -thiamine and B9 vitamin daily -continue to monitor pt closely DVT Prophylaxis: sq heparin - Time Spent with Patient Total time spent is greater than 50% in coordination of care (as documented) at patient's floor/unit and/or counseling patient: less than 15 minutes Plan of Care Discussed with: patient Internal Medicine: Result - Labs CBC & Chem 7: 04/06/18 05:07 04/06/18 07:38 Labs: Short CBC 04/05/18 04/06/18 Range/Units 08:27 05:07 WBC 5.9 7.0 (4.3-11.1) K/mcL Hgb 12.1 L 12.2 L (12.9-16.9) g/dL Hct 37.5 36.3 L (37.5-50.1) % Plt Count 257 208 (140-400) K/mcL Neutrophils # 3.7 4.5 (1.6-8.9) K/mcL BMP 04/05/18 04/06/18 08:27 07:38 Sodium 142 142 Potassium 3.7 3.9 Chloride 106 108 H Carbon Dioxide 29 28 BUN 8 9 Creatinine 1.04 0.99 Glucose 99 102 Calcium 9.2 9.3 Liver Function 04/05/18 04/06/18 Range/Units 08:27 07:38 Total Bilirubin 0.5 0.5 (0.3-1.0) mg/dL AST 41 H 48 H (13-39) Units/L ALT 17 17 (7-52) Units/L Alkaline Phosphatase 100 106 H (34-104) Units/L Albumin 3.3 L 3.4 L (3.5-5.7) g/dL - ABG Interpretation ABG results: PT/INR, D-dimer PT 13.7 Seconds (9.4-12.1) H 03/30/18 15:19 Consult Discharge Plan - Plan Additional Instructions: Coordinate mental health follow up once surgery is complete. [facility] Provider[facility] - 04/14/18 10:30 am (THIS APPOINTMENT IS WITH [facility]) <Blayne Naqvi - Last Filed: 04/06/18 17:58> Hospitalist Progress Note - Encounter Date of Encounter: 04/06/18 - Exam Vitals: Temp Pulse Resp BP Pulse Ox 98.2 F 80 18 115/74 95 04/06/18 16:28 04/06/18 16:28 04/06/18 16:28 04/06/18 16:28 04/06/18 16:28 - Assessment and Plan (1) Fall Current Visit: Yes Status: Acute (2) Alcoholism Current Visit: No Status: Chronic (3) NIKITA (acute kidney injury) Current Visit: Yes Status: Resolved (4) DVT prophylaxis Current Visit: Yes Status: Acute (5) Schizophrenia Current Visit: No Status: Chronic (6) Acute cholecystitis Current Visit: Yes Status: Acute (7) Acute encephalopathy Current Visit: Yes Status: Resolved (8) Alcohol withdrawal delirium Current Visit: Yes Status: Acute - Time Spent with Patient Total time spent is greater than 50% in coordination of care (as documented) at patient's floor/unit and/or counseling patient: Internal Medicine: Result - Labs CBC & Chem 7: 04/06/18 05:07 04/06/18 07:38 Labs: Short CBC 04/06/18 Range/Units 05:07 WBC 7.0 (4.3-11.1) K/mcL Hgb 12.2 L (12.9-16.9) g/dL Hct 36.3 L (37.5-50.1) % Plt Count 208 (140-400) K/mcL Neutrophils # 4.5 (1.6-8.9) K/mcL BMP 04/06/18 07:38 Sodium 142 Potassium 3.9 Chloride 108 H Carbon Dioxide 28 BUN 9 Creatinine 0.99 Glucose 102 Calcium 9.3 Liver Function 04/06/18 Range/Units 07:38 Total Bilirubin 0.5 (0.3-1.0) mg/dL AST 48 H (13-39) Units/L ALT 17 (7-52) Units/L Alkaline Phosphatase 106 H (34-104) Units/L Albumin 3.4 L (3.5-5.7) g/dL - ABG Interpretation ABG results: PT/INR, D-dimer PT 13.7 Seconds (9.4-12.1) H 03/30/18 15:19 - Attending Attestation I examined this patient and my medical decision-making was reviewed with the Resident Physician. I agree with the documented findings, disposition and treatment plan as described except to the extent set forth below. <Magdiel Schaeffer - Last Filed: 04/06/18 08:53> (2) Fall Qualifiers: Encounter type: initial encounter Qualified Code(s): W19.XXXA - Unspecified fall, initial encounter (6) Schizophrenia Qualifiers: Schizophrenia type: paranoid schizophrenia Qualified Code(s): F20.0 - Paranoid schizophrenia <Blayne Naqvi - Last Filed: 04/06/18 17:58> (1) Fall Qualifiers: Encounter type: initial encounter Qualified Code(s): W19.XXXA - Unspecified fall, initial encounter (5) Schizophrenia Qualifiers: Schizophrenia type: paranoid schizophrenia Qualified Code(s): F20.0 - Paranoid schizophrenia
[2018-04-07] MEDS: *HR* LORazepam 2 MG/ML VIAL IVP PRN ×2 (02:53→23:18)
[2018-04-07] MEDS: *HR* Heparin 5,000 UNIT/ML VIAL SQ SCH ×2 (05:34→17:30)
[2018-04-07] MEDS: Thiamine (B-1) 100 MG TABLET PO SCH (08:13)
[2018-04-07] MEDS: Divalproex (24 HR) 500 MG TABLET PO SCH ×2 (08:14→19:59)
[2018-04-07] MEDS: Folic Acid 1 MG TABLET PO SCH (08:15)
[2018-04-07] MEDS: metroNIDAZOLE 500 MG TABLET PO SCH (08:15)
[2018-04-07] MEDS ORDERED: *HR* Metoprolol 5 MG/5 ML VIAL IVP ONE ×3 (08:21→12:08)
--- NOTE | 2018-04-07 09:27 | Internal Med Progress Note ---
<Magdiel Schaeffer S - Last Filed: 04/07/18 11:49> Hospitalist Progress Note - Encounter Date of Encounter: 04/07/18 Time of Encounter: 09:25 - Subjective Interval History: Pt is seen at [facility] He is a 57yo male with an extensive hx of EtOH abuse and mental health issues. He is shivering in bed and appears to be in distress. He is hard to arouse and I have to ask him multiple times to get any qustions. On admission he was unsure about why he is here or what is going on but knows he had a fall. -[facility] -he has been increasing his EtOH intake over the last few months Pt unable to answer questions this morning. Extremely sleepy, snoring loudly and will not wake up to painful stimuli -nurse reports no overnight events - Exam Vitals: Temp Pulse Resp BP Pulse Ox 97.9 F 90 20 128/93 93 04/07/18 06:46 04/07/18 08:42 04/07/18 08:28 04/07/18 08:42 04/07/18 08:44 Exam: Gen: asleep, snoring loudly Chest: Diminished breath sounds B/L, No wheezing, No crackles, No rales Heart: S1S2+ RRR No murmurs Abd: Soft, NT, negative poe, slightly distended but improving, obese Ext: No edema, pulses are palpable, No calf tenderness Neuro : Benign findings, no FND Skin: No rash., no track merrill, no ulcer - Assessment and Plan (1) Acute cholecystitis Current Visit: Yes Status: Acute Assessment and Plan: CT of abdomen showed acute cholecystitis -ultrasound of gallbladder showed: Cholelithiasis and thickening of the gallbladder wall with the mild distention concerning for acute cholecystitis Pt denies abd pain, (-) poe sign -WBC count 7 -BP stable, no jaundice/RUQ tenderness -AST 48, ALT 17 -alk phos 106 Blood cx showed no growth Plan: -IV fluid 125cc/hr D5 0.45 discontinued -advance diet to full liquid diet, low fat if tolerated -d/c rocephin IV - d/c ciprofoxacin PO - flagyl day 8 for anaerobic coverage d/c today -surgry signed off -social work to see for placement to ECF as per PTOT recommendation ---> [facility] 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 Unable to answer questions appropriately. Plan: Banana bag discontinued IV hydration with D5 in 0.45 125cc/hr discontinued CIWA protocol, lorazepam as indicated -librium 75mg tid decreased to 50mg tid -thiamine vitamin daily (4) NIKITA (acute kidney injury) Current Visit: Yes Status: Resolved Assessment and Plan: Creatinine on admission 1.69 -has improved, creatinine (04/04) is 0.99 -BUN 7 Plan: -resolved -continue to monitor CMP (5) DVT prophylaxis Current Visit: Yes Status: Acute Assessment and Plan: On SQ heparin (6) Schizophrenia Current Visit: No Status: Chronic Assessment and Plan: Continue home meds -psych consulted (7) Acute encephalopathy Current Visit: Yes Status: Resolved Assessment and Plan: Toxic encephalophy 2/2 EtOH abuse -due to EtOH withdrawal -pt is improved from admission Plan: -continue to monitor -continue CIWA protocol -librium 50mg TID to 75mg TID -folic acid and thiamine vitamin daily (8) Alcohol withdrawal delirium Current Visit: Yes Status: Acute Assessment and Plan: CIWA score 2 this morning -BP stable, HR 90, autonomic stability -mental status is still fluctuating Plan: -continue CIWA procol - banana bag discontinued -continue ativan as needed -librium 75mg decreased to 50mg -thiamine and B9 vitamin daily -continue to monitor pt closely DVT Prophylaxis: sq heparin - Time Spent with Patient Total time spent is greater than 50% in coordination of care (as documented) at patient's floor/unit and/or counseling patient: less than 15 minutes Plan of Care Discussed with: nurse Internal Medicine: Result - Labs CBC & Chem 7: 04/06/18 05:07 04/06/18 07:38 - ABG Interpretation ABG results: PT/INR, D-dimer PT 13.7 Seconds (9.4-12.1) H 03/30/18 15:19 Consult Discharge Plan - Plan Additional Instructions: Coordinate mental health follow up once surgery is complete. [facility]errals: [facility]Primary Care Provider[facility] - 04/14/18 10:30 am (THIS APPOINTMENT IS WITH THE [facility]) <Blayne Naqvi - Last Filed: 04/07/18 14:52> Hospitalist Progress Note - Encounter Date of Encounter: 04/07/18 - Exam Vitals: Temp Pulse Resp BP Pulse Ox 99.0 F 89 22 138/86 96 04/07/18 11:52 04/07/18 12:22 04/07/18 11:46 04/07/18 12:22 04/07/18 11:46 - Assessment and Plan (1) Fall Current Visit: Yes Status: Acute (2) Alcoholism Current Visit: No Status: Chronic (3) NIKITA (acute kidney injury) Current Visit: Yes Status: Resolved (4) DVT prophylaxis Current Visit: Yes Status: Acute (5) Schizophrenia Current Visit: No Status: Chronic (6) Acute cholecystitis Current Visit: Yes Status: Acute (7) Acute encephalopathy Current Visit: Yes Status: Resolved (8) Alcohol withdrawal delirium Current Visit: Yes Status: Acute - Time Spent with Patient Total time spent is greater than 50% in coordination of care (as documented) at patient's floor/unit and/or counseling patient: Internal Medicine: Result - Labs CBC & Chem 7: 04/06/18 05:07 04/06/18 07:38 - ABG Interpretation ABG results: PT/INR, D-dimer PT 13.7 Seconds (9.4-12.1) H 03/30/18 15:19 - Attending Attestation I examined this patient and my medical decision-making was reviewed with the Resident Physician. I agree with the documented findings, disposition and treatment plan as described except to the extent set forth below. Today patient is less agitated but more drowsy. He did not receive AM Librium because of this. He is not combative, still confused. HR ranging from 90s-119 requiring lopressor. - Acute metabolic encephalopathy - from alcohol withdrawal, possibly acute psychosis too continue per CIWA protocol. Will need to taper Librium today due to patient somnolence. Will need Psychiatry to re evaluate patient in 1-2 days when more medically stable. - Alcohol withdrawal - plan as above. - Hypertension/tachycardia - lopressor prn. - acute cholecystitis - currently afebrile and no leukocytosis and abdominal exam benign. Has received 7 days of Flagyl with Rocephin and Cipro. Will DC antibiotics today. Plan for outpatient follow-up with Surgery. - NIKITA - resolved - Schizophrenia - continue home medications. Psychiatry will need to re evaluate patient. <Magdiel Schaeffer S - Last Filed: 04/07/18 11:49> (2) Fall Qualifiers: Encounter type: initial encounter Qualified Code(s): W19.XXXA - Unspecified fall, initial encounter (6) Schizophrenia Qualifiers: Schizophrenia type: paranoid schizophrenia Qualified Code(s): F20.0 - Paranoid schizophrenia <Blayne Naqvi - Last Filed: 04/07/18 14:52> (1) Fall Qualifiers: Encounter type: initial encounter Qualified Code(s): W19.XXXA - Unspecified fall, initial encounter (5) Schizophrenia Qualifiers: Schizophrenia type: paranoid schizophrenia Qualified Code(s): F20.0 - Paranoid schizophrenia
[2018-04-07] MEDS ORDERED: 0.9 % Sodium Chloride 1,000 ML IVC SCH (12:45)
[2018-04-07] MEDS ORDERED: Divalproex (24 HR) 500 MG TABLET PO SCH (21:00)
[2018-04-08] MEDS: *HR* LORazepam 2 MG/ML VIAL IVP PRN ×2 (05:45→23:02)
[2018-04-08] MEDS: *HR* Heparin 5,000 UNIT/ML VIAL SQ SCH ×2 (05:53→18:26)
[2018-04-08] MEDS: Cholecalciferol (D-3) 1,000 UNIT TABLET PO SCH ×2 (09:15→10:01)
[2018-04-08] MEDS: Divalproex (24 HR) 500 MG TABLET PO SCH ×4 (09:16→20:28)
[2018-04-08] MEDS: Folic Acid 1 MG TABLET PO SCH ×2 (09:16→10:01)
[2018-04-08] MEDS: Aspirin Enteric Coated 81 MG Tablet PO SCH ×2 (09:16→10:01)
[2018-04-08] MEDS: Thiamine (B-1) 100 MG TABLET PO SCH ×2 (09:16→10:01)
--- NOTE | 2018-04-08 09:34 | Internal Med Progress Note ---
Hospitalist Progress Note - Encounter Date of Encounter: 04/08/18 Time of Encounter: 09:32 - Subjective Interval History: No acute events overnight. Patient still drowsy but not as much as yesterday. Responding to verbal stimuli but is not cooperative with exam. - Exam Vitals: Temp Pulse Resp BP Pulse Ox 97.9 F 115 17 103/73 96 04/08/18 07:10 04/08/18 07:10 04/08/18 07:10 04/08/18 07:10 04/08/18 07:10 Exam: Gen: Awake but drowsy, responds to stimuli but is not cooperative with exam. AAOx0 Chest: Diminished breath sounds B/L, No wheezing, No crackles, No rales Heart: S1S2+ RRR No murmurs Abd: Soft, NT, negative poe, slightly distended but improving, obese Ext: No edema Neuro : No focal deficits. Skin: Warm, dry - Assessment and Plan (1) Acute encephalopathy Current Visit: Yes Status: Resolved Assessment and Plan: -due to EtOH withdrawal - Still has abnormal behavior despite lesser withdrawal symptoms - Patient is drowsy but slightly more alert than yesterday. Plan: -folic acid and thiamine vitamin daily - Will give additional IV fluids today - Librium dose again will be decreased, but with caution to avoid withdrawal symptoms and/or withdrawal seizures. - Currently Librium dose was 50 mg TID. Will hold AM and this afternoon dose. If he improves will resume at lower dose. As withdrawal symptoms improve, patient appears to still have blunted affect. Will have Psychiatry re-evaluate patient in 1-2 days. (2) Fall Current Visit: Yes Status: Acute Assessment and Plan: Workup for fall showed no acute changes on CXR, CT head or neck no s/s of injury, no bruises (3) Alcoholism Current Visit: No Status: Chronic Assessment and Plan: Pt has a detention hx of EtOH abuse, has been drinking more as of recently Patient is drowsy but slightly more alert than yesterday. Plan: - Will give additional IV fluids today - Librium dose again will be decreased, but with caution to avoid withdrawal symptoms and/or withdrawal seizures. - Currently Librium dose was 50 mg TID. Will hold AM and afternoon dose. If improves, will resume at 25 mg TID. (4) NIKITA (acute kidney injury) Current Visit: Yes Status: Resolved Assessment and Plan: Creatinine on admission 1.69 Plan: -resolved -continue to monitor CMP (5) DVT prophylaxis Current Visit: Yes Status: Acute Assessment and Plan: On SQ heparin (6) Schizophrenia Current Visit: No Status: Chronic Assessment and Plan: Continue home meds - We re consult Psych when he is more stable, likely in 1-2 days. (7) Acute cholecystitis Current Visit: Yes Status: Acute Assessment and Plan: CT of abdomen showed acute cholecystitis -ultrasound of gallbladder showed: Cholelithiasis and thickening of the gallbladder wall with the mild distention concerning for acute cholecystitis Pt denies abd pain, (-) poe sign -WBC count 7 -BP stable, no jaundice/RUQ tenderness -AST 48, ALT 17 -alk phos 106 Blood cx showed no growth Plan: -IV fluid 125cc/hr D5 0.45 discontinued -advance diet to full liquid diet, low fat if tolerated -d/c rocephin IV - d/c ciprofoxacin PO - flagyl day 8 for anaerobic coverage d/c today -surgry signed off -social work to see for placement to ECF as per PTOT recommendation ---> pt can' t go to [place]. Trying to figure out placement for him still -PTOT missed apt again yesterday due to sedation (8) Alcohol withdrawal delirium Current Visit: Yes Status: Acute Assessment and Plan: Plan as above. - Time Spent with Patient Total time spent is greater than 50% in coordination of care (as documented) at patient's floor/unit and/or counseling patient: Internal Medicine: Result - Labs CBC & Chem 7: 04/06/18 05:07 04/06/18 07:38 - ABG Interpretation ABG results: PT/INR, D-dimer PT 13.7 Seconds (9.4-12.1) H 03/30/18 15:19 Consult Discharge Plan - Plan Additional Instructions: Coordinate mental health follow up once surgery is complete. Referrals: [facility],PCP [Primary Care Provider] - 04/14/18 10:30 am (THIS APPOINTMENT IS WITH THE [facility]) (2) Fall Qualifiers: Encounter type: initial encounter Qualified Code(s): W19.XXXA - Unspecified fall, initial encounter (6) Schizophrenia Qualifiers: Schizophrenia type: paranoid schizophrenia Qualified Code(s): F20.0 - Paranoid schizophrenia
[2018-04-08] MEDS ORDERED: diazePAM 10 MG/2 ML SYRINGE IVP ONE (20:19)
[2018-04-09] MEDS: *HR* Heparin 5,000 UNIT/ML VIAL SQ SCH ×2 (06:09→17:18)
[2018-04-09] MEDS: Aspirin Enteric Coated 81 MG Tablet PO SCH ×2 (09:20→17:01)
[2018-04-09] MEDS: Divalproex (24 HR) 500 MG TABLET PO SCH ×3 (09:20→19:27)
[2018-04-09] MEDS: Folic Acid 1 MG TABLET PO SCH ×2 (09:21→17:02)
[2018-04-09] MEDS: Cholecalciferol (D-3) 1,000 UNIT TABLET PO SCH ×2 (09:21→17:02)
[2018-04-09] MEDS: Thiamine (B-1) 100 MG TABLET PO SCH ×2 (09:21→17:02)
--- NOTE | 2018-04-09 11:26 | Internal Med Progress Note ---
<Lizy Eason - Last Filed: 04/09/18 12:05> Hospitalist Progress Note - Encounter Date of Encounter: 04/09/18 Time of Encounter: 11:22 - Subjective Interval History: Mr. Gooden is a 57 y/o male with a pmh of alcoholism and schizophrenia who presented to the ED with AMS and was found to have acute cholelithiasis and alcohol withdrawl. Librium held yesterday, no ativan given. No acute events overnight. Patient is very sleeping but responding to his name and is able to tell me his name and where is at but not following commands due to drowsiness. - Exam Vitals: Temp Pulse Resp BP Pulse Ox 97.7 F 98 18 117/81 91 04/09/18 07:41 04/09/18 09:20 04/09/18 07:41 04/09/18 07:41 04/09/18 07:41 Exam: Constitutional: sleeping but able to be aroused, not cooperating with exam due to drowsiness, in no acute distress , knows his name and where is his at Head: Normocephalic, atraumatic Heart: Normal, regular rate and rhythm, no murmurs Lungs: On RA ,Clear to auscultation, no wheezes, rales, or rhonchi Abdomen: Soft, nondistended, nontender, negative poe's sign, no guarding or rigidity. Extremities: No edema, No clubbing, radial pulse +2/4, capillary refill <2sec. Skin: Skin warm and dry, no lesions, no rashes, no jaundice Neurologic: strength 5/5 upper extremities, - Assessment and Plan (1) Acute encephalopathy Current Visit: Yes Status: Resolved Assessment and Plan: Most likely due to EtOH withdrawal, Still has abnormal behavior despite lesser withdrawal symptoms. Patient is very drowsy and has not woken up to eat dinner or breakfast last night. The only medications he has had in the last 24 H are Ativan 2mg at 11pm and his Benztropine. Librium and Ativan have been held. 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 Continues to be drowsy and not eating well. Will continue to hold the Librium. See plan above. (3) Fall Current Visit: Yes Status: Acute Assessment and Plan: Workup for fall showed no acute changes on CXR, CT head or neck, no s/s of injury, no bruises. Continue fall risk precautions. (4) NIKITA (acute kidney injury) Current Visit: Yes Status: Resolved Assessment and Plan: Creatinine on admission 1.69 Plan: -resolved (5) Schizophrenia Current Visit: No Status: Chronic Assessment and Plan: Continue home meds, unable to get yesterday depakote due to drowsiness. Plan: - consult psychiatry tomorrow (6) Acute cholecystitis Current Visit: Yes Status: Acute Assessment and Plan: CT of abdomen showed acute cholecystitis -ultrasound of gallbladder showed: Cholelithiasis and thickening of the gallbladder wall with the mild distention concerning for acute cholecystitis Pt denies abd pain, (-) poe sign -WBC count 7 -BP stable, no jaundice/RUQ tenderness -AST 48, ALT 17 -alk phos 106 Blood cx showed no growth Plan: -advance diet to full liquid diet, low fat if tolerated -d/c rocephin IV, ciprofoxacin PO, flagyl -surgery signed off -social work to see for placement to ECF as per PTOT recommendation ---> pt can' t go to [place]. Trying to figure out placement for him still -PT/OT missed apt again due to sedation (7) Alcohol withdrawal delirium Current Visit: Yes Status: Acute Assessment and Plan: see plan above. DVT Prophylaxis: SQ heparin - Time Spent with Patient Total time spent is greater than 50% in coordination of care (as documented) at patient's floor/unit and/or counseling patient: Plan of Care Discussed with: patient Internal Medicine: Result - Labs CBC & Chem 7: 04/06/18 05:07 04/06/18 07:38 - ABG Interpretation ABG results: PT/INR, D-dimer PT 13.7 Seconds (9.4-12.1) H 03/30/18 15:19 Consult Discharge Plan - Plan Additional Instructions: Coordinate mental health follow up once surgery is complete. [facility] - 04/14/18 10:30 am (THIS APPOINTMENT IS WITH [facility]) <Blayne Naqvi - Last Filed: 04/09/18 13:42> Hospitalist Progress Note - Encounter Date of Encounter: 04/09/18 - Exam Vitals: Temp Pulse Resp BP Pulse Ox 97.8 F 100 18 136/81 93 04/09/18 11:35 04/09/18 11:35 04/09/18 11:35 04/09/18 11:35 04/09/18 11:35 - Assessment and Plan (1) Fall Current Visit: Yes Status: Acute (2) Alcoholism Current Visit: No Status: Chronic (3) NIKITA (acute kidney injury) Current Visit: Yes Status: Resolved (4) Schizophrenia Current Visit: No Status: Chronic (5) Acute cholecystitis Current Visit: Yes Status: Acute (6) Acute encephalopathy Current Visit: Yes Status: Resolved (7) Alcohol withdrawal delirium Current Visit: Yes Status: Acute - Time Spent with Patient Total time spent is greater than 50% in coordination of care (as documented) at patient's floor/unit and/or counseling patient: Internal Medicine: Result - Labs CBC & Chem 7: 04/06/18 05:07 04/06/18 07:38 - ABG Interpretation ABG results: PT/INR, D-dimer PT 13.7 Seconds (9.4-12.1) H 03/30/18 15:19 - Attending Attestation I examined this patient and my medical decision-making was reviewed with the Resident Physician. I agree with the documented findings, disposition and treatment plan as described except to the extent set forth below. <Lizy Eason - Last Filed: 04/09/18 12:05> (3) Fall Qualifiers: Encounter type: initial encounter Qualified Code(s): W19.XXXA - Unspecified fall, initial encounter (5) Schizophrenia Qualifiers: Schizophrenia type: paranoid schizophrenia Qualified Code(s): F20.0 - Paranoid schizophrenia <Blayne Naqvi - Last Filed: 04/09/18 13:42> (1) Fall Qualifiers: Encounter type: initial encounter Qualified Code(s): W19.XXXA - Unspecified fall, initial encounter (4) Schizophrenia Qualifiers: Schizophrenia type: paranoid schizophrenia Qualified Code(s): F20.0 - Paranoid schizophrenia
[2018-04-09] MEDS ORDERED: 0.9 % Sodium Chloride 500 ML IVC ONE (19:51)
[2018-04-09] MEDS ORDERED: 0.9 % Sodium Chloride 500 ML ONE (19:54)
[2018-04-09] MEDS: *HR* Metoprolol 5 MG/5 ML VIAL IVP PRN (21:47)
[2018-04-10 04:56] LABS: Bilirubin,Urine Moderate (Negative); Blood,Urine Large (Negative); Clarity,Urine Clear (Clear); Color,Urine Yellow (Yellow); Glucose,Urine (UA) Normal (Normal); Ketones,Urine 15 mg/dL (Negative); Leukocyte Esterase,Urine Negative (Negative); Nitrite,Urine Negative (Negative); PH,Urine 5.5 pH Units (5.0-8.0); Protein,Urine 100 mg/dL (Neg-Trace); Specific Gravity,Urine >= 1.030 (1.010-1.025); Urobilinogen,Urine Normal (Normal)
[2018-04-10 05:29] LABS: RBC,Urine TNTC per hpf (0-3)
[2018-04-10 05:30] LABS: Amorphous Sediment,Urine Many (Few); Bacteria,Urine Present per hpf (None-Few); Granular Casts,Urine Present per lpf (None Seen); Hyaline Casts,Urine Few per lpf (None-Few); Mucus,Urine Present (Few); Renal Epithelial Cells,Urine Present per hpf (None-Few); Squamous Epithelial Cell,Urine Present per lpf (None-Few); WBC,Urine Present per hpf (0-3)
[2018-04-10 05:34] LABS: Alanine Aminotransferase 16 Units/L (7-52); Albumin 3.6 g/dL (3.5-5.7); Alkaline Phosphatase 99 Units/L (34-104); Aspartate Amino Transferase 39 Units/L (13-39); BUN/Creatinine Ratio 10 (6-26); Bilirubin,Total 0.5 mg/dL (0.3-1.0); Blood Urea Nitrogen 10 mg/dL (6-20); Calcium 9.4 mg/dL (8.6-10.3); Carbon Dioxide 27 mEq/L (23-29); Chloride 105 mEq/L (98-107); Globulin 3.7 g/dL (2.4-3.5); Glucose 106 mg/dL (70-105); Osmolality,Calculated 287 (280-300); Potassium 4.2 mEq/L (3.5-5.1); Sodium 139 mEq/L (136-145); Total Protein 7.3 g/dL (6.4-8.9); eGFR For Non-African Americans > 60 (> 60)
[2018-04-10 06:18] LABS: Basophils # 0.1 K/mcL (0.0-0.2); Basophils % 0.4 %; Eosinophils # 0.2 K/mcL (0.0-0.6); Eosinophils % 1.1 %; Hematocrit 41.1 % (37.5-50.1); Hemoglobin 13.5 g/dL (12.9-16.9); Immature Granulocytes % 1.3 % (0-4); Lymphocytes # 1.7 K/mcL (0.6-4.6); Lymphocytes % 12.2 %; Mean Corpuscular HGB Conc 32.8 g/dL (31.6-35.5); Mean Corpuscular Hemoglobin 32.5 pg (28.0-33.3); Mean Platelet Volume 9.8 fL (9.4-12.4); Monocytes # 1.3 K/mcL (0.0-1.3); Monocytes % 9.2 %; Neutrophils # 10.8 K/mcL (1.6-8.9); Platelet Count 310 K/mcL (140-400); Red Blood Count 4.15 M/mcL (4.19-5.50); Red Cell Distribution Width 12.4 % (11.5-14.5); Segmented Neutrophils % 75.8 %
[2018-04-10] MEDS: *HR* Heparin 5,000 UNIT/ML VIAL SQ SCH ×2 (06:50→17:13)
[2018-04-10] MEDS ORDERED: 0.9 % Sodium Chloride 1,000 ML IVC ONE (08:07)
[2018-04-10] MEDS: Cholecalciferol (D-3) 1,000 UNIT TABLET PO SCH (08:31)
[2018-04-10] MEDS: Metoprolol XL (24 HR) Succ 25 MG TAB.ER.24H PO SCH (08:32)
[2018-04-10] MEDS: Aspirin Enteric Coated 81 MG Tablet PO SCH ×2 (08:32→08:49)
[2018-04-10] MEDS: Divalproex (24 HR) 500 MG TABLET PO SCH ×2 (08:32→08:50)
[2018-04-10] MEDS: Folic Acid 1 MG TABLET PO SCH (08:32)
[2018-04-10] MEDS: Thiamine (B-1) 100 MG TABLET PO SCH (08:32)
--- NOTE | 2018-04-10 09:31 | Internal Med Progress Note ---
<MaksimMagdiel S - Last Filed: 04/10/18 11:51> Hospitalist Progress Note - Encounter Date of Encounter: 04/10/18 Time of Encounter: 09:28 - Subjective Interval History: Pt is seen at [facility] He is a 57yo male with an extensive hx of EtOH abuse and mental health issues. He is shivering in bed and appears to be in distress. He is hard to arouse and I have to ask him multiple times to get any qustions. On admission he was unsure about why he is here or what is going on but knows he had a fall. -Another resident found him in the bathroom at snf according to notes from night resident -he has been increasing his EtOH intake over the last few months Pt unable to answer questions this morning. Extremely sleepy, snoring loudly and will not wake up to painful stimuli. -nurse reports no overnight events -nurse states he is very lethargic this AM - Exam Vitals: Temp Pulse Resp BP Pulse Ox 98.2 F 111 22 112/74 95 04/10/18 07:17 04/10/18 07:26 04/10/18 07:17 04/10/18 07:17 04/10/18 07:17 Exam: Constitutional: sleeping and not able to be aroused, not cooperating with exam due to drowsiness, in no acute distress , AOx0 Head: Normocephalic, atraumatic Heart: Normal, regular rate and rhythm, no murmurs Lungs: On RA ,Clear to auscultation, no wheezes, rales, or rhonchi Abdomen: Soft, nondistended, nontender, negative poe's sign, no guarding or rigidity. Extremities: No edema, No clubbing, radial pulse +2/4, capillary refill <2sec. Skin: Skin warm and dry, no lesions, no rashes, no jaundice Neurologic: unable to perform - Assessment and Plan (1) Leukocytosis Current Visit: Yes Status: Acute Assessment and Plan: New WBC count of 14.2 -pt has had no white count since 03/31 UA showed negative leukocyte esterase/nitritres; TNTC rbc, (+) wbc Plan: -cxr ordered -recheck cbc in AM (2) Fall Current Visit: Yes Status: Acute Assessment and Plan: Workup for fall showed no acute changes on CXR, CT head or neck, no s/s of injury, no bruises. Continue fall risk precautions. (3) Alcoholism Current Visit: No Status: Chronic Assessment and Plan: Pt has a termite treater hx of EtOH abuse, has been drinking more as of recently. -continues to be drowsy and not eating well. Last CIWA score 8 Plan: -Will continue to hold the Librium. - folic acid and thiamine vitamin daily - ativan prn based off of [facility] protocol - Will have Psychiatry re-evaluate patient on Tuesday (4) NIKITA (acute kidney injury) Current Visit: Yes Status: Resolved Assessment and Plan: Creatinine on admission 1.69 Plan: -resolved (5) Schizophrenia Current Visit: No Status: Chronic Assessment and Plan: Continue home meds, unable to get yesterday depakote due to drowsiness. Plan: - consult psychiatry (6) Acute cholecystitis Current Visit: Yes Status: Resolved Assessment and Plan: CT of abdomen showed acute cholecystitis -ultrasound of gallbladder showed: Cholelithiasis and thickening of the gallbladder wall with the mild distention concerning for acute cholecystitis Pt denies abd pain, (-) poe sign -WBC count 7 -BP stable, no jaundice/RUQ tenderness -AST 39, ALT 16 -alk phos 99 Blood cx showed no growth Plan: -advance diet to full liquid diet, low fat if tolerated -d/c rocephin IV, ciprofoxacin PO, flagyl -surgery signed off -social work to see for placement to ECF as per PTOT recommendation ---> [facility] Trying to figure out placement for him still -PT/OT missed apt again due to sedation (7) Acute encephalopathy Current Visit: Yes Status: Resolved Assessment and Plan: Most likely due to EtOH withdrawal, Still has abnormal behavior despite lesser withdrawal symptoms. Patient is very drowsy and has not woken up to eat dinner or breakfast last night. Plan: - folic acid and thiamine vitamin daily - Librium dose held all yesterday, continuing to hold - ativan prn based off of [facility] protocol - Will have Psychiatry re-evaluate patient on Tuesday (8) Alcohol withdrawal delirium Current Visit: Yes Status: Acute Assessment and Plan: see plan above. (9) Overweight (BMI 25.0-29.9) Current Visit: No Status: Chronic Assessment and Plan: BMI 28.2 -lifestyle modification DVT Prophylaxis: SQ heparin - Time Spent with Patient Total time spent is greater than 50% in coordination of care (as documented) at patient's floor/unit and/or counseling patient: less than 15 minutes Plan of Care Discussed with: patient Internal Medicine: Result - Labs CBC & Chem 7: 04/10/18 06:05 04/10/18 04:37 Labs: Short CBC 04/10/18 Range/Units 06:05 WBC 14.2 H D (4.3-11.1) K/mcL Hgb 13.5 (12.9-16.9) g/dL Hct 41.1 (37.5-50.1) % Plt Count 310 (140-400) K/mcL Neutrophils # 10.8 H (1.6-8.9) K/mcL BMP 04/10/18 04:37 Sodium 139 Potassium 4.2 Chloride 105 Carbon Dioxide 27 BUN 10 Creatinine 0.97 Glucose 106 H Calcium 9.4 Liver Function 04/10/18 Range/Units 04:37 Total Bilirubin 0.5 (0.3-1.0) mg/dL AST 39 (13-39) Units/L ALT 16 (7-52) Units/L Alkaline Phosphatase 99 (34-104) Units/L Albumin 3.6 (3.5-5.7) g/dL Urine 04/10/18 Range/Units 04:45 Urine Color Yellow (Yellow) Urine Clarity Clear (Clear) Urine pH 5.5 (5.0-8.0) pH Units Ur Specific [place] >= 1.030 H (1.010-1.025) Urine Protein 100 H (Neg-Trace) mg/dL Urine Glucose (UA) Normal (Normal) mg/dL - ABG Interpretation ABG results: PT/INR, D-dimer PT 13.7 Seconds (9.4-12.1) H 03/30/18 15:19 Consult Discharge Plan - Plan Additional Instructions: Coordinate mental health follow up once surgery is complete. [facility]: [facility] Provider[facility] - 04/14/18 10:30 am (THIS APPOINTMENT IS WITH [facility]) <Blayne Naqvi - Last Filed: 04/10/18 17:26> Hospitalist Progress Note - Encounter Date of Encounter: 04/10/18 - Exam Vitals: Temp Pulse Resp BP Pulse Ox 98.3 F 84 17 120/73 95 04/10/18 16:13 04/10/18 16:13 04/10/18 16:13 04/10/18 16:13 04/10/18 16:13 - Assessment and Plan (1) Fall Current Visit: Yes Status: Acute (2) Alcoholism Current Visit: No Status: Chronic (3) NIKITA (acute kidney injury) Current Visit: Yes Status: Resolved (4) Schizophrenia Current Visit: No Status: Chronic (5) Acute cholecystitis Current Visit: Yes Status: Resolved (6) Acute encephalopathy Current Visit: Yes Status: Resolved (7) Alcohol withdrawal delirium Current Visit: Yes Status: Acute (8) Leukocytosis Current Visit: Yes Status: Acute (9) Overweight (BMI 25.0-29.9) Current Visit: No Status: Chronic - Time Spent with Patient Total time spent is greater than 50% in coordination of care (as documented) at patient's floor/unit and/or counseling patient: Internal Medicine: Result - Labs CBC & Chem 7: 04/10/18 06:05 04/10/18 04:37 Labs: Short CBC 04/10/18 Range/Units 06:05 WBC 14.2 H D (4.3-11.1) K/mcL Hgb 13.5 (12.9-16.9) g/dL Hct 41.1 (37.5-50.1) % Plt Count 310 (140-400) K/mcL Neutrophils # 10.8 H (1.6-8.9) K/mcL BMP 04/10/18 04:37 Sodium 139 Potassium 4.2 Chloride 105 Carbon Dioxide 27 BUN 10 Creatinine 0.97 Glucose 106 H Calcium 9.4 Liver Function 04/10/18 Range/Units 04:37 Total Bilirubin 0.5 (0.3-1.0) mg/dL AST 39 (13-39) Units/L ALT 16 (7-52) Units/L Alkaline Phosphatase 99 (34-104) Units/L Albumin 3.6 (3.5-5.7) g/dL Urine 04/10/18 Range/Units 04:45 Urine Color Yellow (Yellow) Urine Clarity Clear (Clear) Urine pH 5.5 (5.0-8.0) pH Units Ur Specific [place] >= 1.030 H (1.010-1.025) Urine Protein 100 H (Neg-Trace) mg/dL Urine Glucose (UA) Normal (Normal) mg/dL - ABG Interpretation ABG results: PT/INR, D-dimer PT 13.7 Seconds (9.4-12.1) H 03/30/18 15:19 - Impressions Impressions Chest X-Ray 04/10/18 10:09 IMPRESSION: No acute process. D/ / Anna Barnett MD / Anna Barnett MD Interpreting Provider: Anna Barnett MD - Attending Attestation I examined this patient and my medical decision-making was reviewed with the Resident Physician. I agree with the documented findings, disposition and treatment plan as described except to the extent set forth below. <Magdiel Schaeffer S - Last Filed: 04/10/18 11:51> (1) Leukocytosis Qualifiers: Leukocytosis type: unspecified Qualified Code(s): D72.829 - Elevated white blood cell count, unspecified (2) Fall Qualifiers: Encounter type: initial encounter Qualified Code(s): W19.XXXA - Unspecified fall, initial encounter (5) Schizophrenia Qualifiers: Schizophrenia type: paranoid schizophrenia Qualified Code(s): F20.0 - Paranoid schizophrenia <Blayne Naqvi - Last Filed: 04/10/18 17:26> (1) Fall Qualifiers: Encounter type: initial encounter Qualified Code(s): W19.XXXA - Unspecified fall, initial encounter (4) Schizophrenia Qualifiers: Schizophrenia type: paranoid schizophrenia Qualified Code(s): F20.0 - Paranoid schizophrenia (8) Leukocytosis Qualifiers: Leukocytosis type: unspecified Qualified Code(s): D72.829 - Elevated white blood cell count, unspecified
[2018-04-10] MEDS ORDERED: Valproic Acid Oral Soln 250 MG/5 ML UDC PO ONE (19:45)
[2018-04-10] MEDS: *HR* Metoprolol 5 MG/5 ML VIAL IVP PRN (22:37)
[2018-04-11] MEDS: Acetaminophen 325 MG TABLET PO PRN (00:36)
--- NOTE | 2018-04-11 00:42 | Event Note ---
Date of Encounter: 04/11/18 Time of Encounter: 00:39 Notified by RN that patient is tachycardic, febrile, and very lethargic. On exam , patient appears ill, tachycardic, has decreased breath sounds bilaterally, skin is warm and shows no signs of phlebitis. CXR and UA results reviewed. Ordered PA lateral chest x-ray due to concern that may have aspirated. Started empiric Zosyn and vancomycin. MRSA nasal screen, Lactic acid level, blood cultures, sputum culture, urine Legionella antigen and urine strep pneumo antigens pending. Patient's blood pressure remains stable, will give 1 liter IV fluid bolus. If patient remains febrile, will consider other potential etiologies including DVT/PE, although patient has been on Heparin for DVT prophylaxis.
[2018-04-11] MEDS ORDERED: 0.9 % Sodium Chloride 1,000 ML IVC ONE (00:52)
[2018-04-11 01:15] LABS: Hemoglobin 14.4 g/dL (12.9-16.9); Lymphocytes % 6.8 %; Mean Corpuscular HGB Conc 32.7 g/dL (31.6-35.5); Mean Corpuscular Hemoglobin 32.4 pg (28.0-33.3); Mean Corpuscular Volume 99.1 fL (83.0-100.0); Mean Platelet Volume 9.8 fL (9.4-12.4); Monocytes % 5.7 %; Platelet Count 391 K/mcL (140-400); Red Blood Count 4.44 M/mcL (4.19-5.50); Red Cell Distribution Width 12.4 % (11.5-14.5); Segmented Neutrophils % 85.6 %
[2018-04-11 01:16] LABS: Basophils # 0.1 K/mcL (0.0-0.2); Basophils % 0.3 %; Eosinophils # 0.1 K/mcL (0.0-0.6); Eosinophils % 0.6 %; Lymphocytes # 1.1 K/mcL (0.6-4.6); Monocytes # 0.9 K/mcL (0.0-1.3); Neutrophils # 13.5 K/mcL (1.6-8.9)
[2018-04-11 01:37] LABS: Alanine Aminotransferase 17 Units/L (7-52); Alkaline Phosphatase 116 Units/L (34-104); Aspartate Amino Transferase 46 Units/L (13-39); BUN/Creatinine Ratio 8 (6-26); Bilirubin,Total 0.6 mg/dL (0.3-1.0); Blood Urea Nitrogen 9 mg/dL (6-20); Calcium 9.8 mg/dL (8.6-10.3); Carbon Dioxide 28 mEq/L (23-29); Chloride 103 mEq/L (98-107); Globulin 4.2 g/dL (2.4-3.5); Glucose 123 mg/dL (70-105); Osmolality,Calculated 290 (280-300); Potassium 4.2 mEq/L (3.5-5.1); Sodium 140 mEq/L (136-145); Total Protein 8.2 g/dL (6.4-8.9); eGFR For Non-African Americans > 60 (> 60)
[2018-04-11] MEDS: *HR* Heparin 5,000 UNIT/ML VIAL SQ SCH ×2 (05:18→17:10)
[2018-04-11] MEDS: Aspirin 81 MG TAB.CHEW PO SCH (07:47)
[2018-04-11] MEDS: Metoprolol XL (24 HR) Succ 25 MG TAB.ER.24H PO SCH (07:47)
[2018-04-11] MEDS: Cholecalciferol (D-3) 1,000 UNIT TABLET PO SCH (07:47)
[2018-04-11] MEDS: Folic Acid 1 MG TABLET PO SCH (07:47)
[2018-04-11] MEDS: Thiamine (B-1) 100 MG TABLET PO SCH (07:47)
[2018-04-11] MEDS: Piperacillin/Tazobactam 3.375 GM in 0.9 % Sodium Chloride Mini Bag 100 ML IVPB SCH ×3 (07:48→23:13)
[2018-04-11] MEDS: Valproic Acid Oral Soln 250 MG/5 ML UDC PO SCH ×3 (07:48→21:10)
--- NOTE | 2018-04-11 08:28 | Internal Med Progress Note ---
<Magdiel Schaeffer S - Last Filed: 04/11/18 11:41> Hospitalist Progress Note - Encounter Date of Encounter: 04/11/18 Time of Encounter: 08:25 - Subjective Interval History: Pt is seen at [facility] He is a 57yo male with an extensive hx of EtOH abuse and mental health issues. He is shivering in bed and appears to be in distress. He is hard to arouse and I have to ask him multiple times to get any qustions. On admission he was unsure about why he is here or what is going on but knows he had a fall. -Another resident found him in the bathroom at intermediate according to notes from night resident -he has been increasing his EtOH intake over the last few months Overnight the pt was continuously febrile at 102.3 and 101.3*F -CXR continued to show no acute changes -pt stared on Vanc/Zosyn as per night team -nursing reports that the pt is much more rigid and is shaking today -he is unable to tell me what year it is, who the president is, or what year he was born in - Exam Vitals: Temp Pulse Resp BP Pulse Ox 99.6 F 115 22 132/86 95 04/11/18 06:38 04/11/18 06:38 04/11/18 06:38 04/11/18 06:38 04/11/18 06:38 Exam: Constitutional: hard to arouse, not cooperating with exam due to drowsiness, aox1 Head: Normocephalic, atraumatic Heart: Normal, tacycardia, no murmur Lungs: On RA ,Clear to auscultation, no wheezes, rales, or rhonchi Abdomen: Soft, distended but no rebound or guarding, nontender, negative poe 's sign, Extremities: No edema, No clubbing, radial pulse +2/4, capillary refill <2sec. Skin: Skin warm and dry, no lesions, no rashes, no jaundice Neurologic: unable to perform - Assessment and Plan (1) Leukocytosis Current Visit: Yes Status: Acute Assessment and Plan: New WBC count of 14.2 (04/10) increased to 15.8 this morning -pt has had no white count since 03/31 UA showed negative leukocyte esterase/nitritres; TNTC rbc, (+) wbc CXR negative x2 Legionella anitgen negative Lactic acid 1.4 MRSA screen negative Plan: - one liter bolus was given as per sepsis protocol -Blood cx pending -s pneumo antigen pending -Vanc and Zosyn day 1 -recheck cbc in AM (2) Fall Current Visit: Yes Status: Acute Assessment and Plan: Workup for fall showed no acute changes on CXR, CT head or neck, no s/s of injury, no bruises. Continue fall risk precautions. 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 -continues to be drowsy and not eating well. -much more tremulous and rigid today Last CIWA score 8 Plan: -Will continue to hold the Librium. - folic acid and thiamine vitamin daily - ativan prn based off of [facility] protocol - psych consulted (4) NIKITA (acute kidney injury) Current Visit: Yes Status: Resolved Assessment and Plan: Creatinine on admission 1.69 Plan: -resolved (5) Schizophrenia Current Visit: No Status: Chronic Assessment and Plan: Continue home meds, unable to get yesterday depakote due to drowsiness. Plan: - consult psychiatry (6) Acute cholecystitis Current Visit: Yes Status: Resolved Assessment and Plan: CT of abdomen showed acute cholecystitis -ultrasound of gallbladder showed: Cholelithiasis and thickening of the gallbladder wall with the mild distention concerning for acute cholecystitis Pt denies abd pain, (-) poe sign -WBC count 7 -BP stable, no jaundice/RUQ tenderness -AST 46, ALT 17 -alk phos 116 Blood cx showed no growth Plan: -advance diet to full liquid diet, low fat if tolerated -d/c rocephin IV, ciprofoxacin PO, flagyl -surgery signed off -social work to see for placement to ECF as per PTOT recommendation ---> [facility]. Trying to figure out placement for him still -PT/OT missed apt again due to sedation (7) Acute encephalopathy Current Visit: Yes Status: Resolved Assessment and Plan: Most likely due to EtOH withdrawal, Still has abnormal behavior despite lesser withdrawal symptoms. Plan: - folic acid and thiamine vitamin daily - Librium dose held all yesterday, continuing to hold - ativan prn based off of [facility] protocol - [facility] consulted (8) Alcohol withdrawal delirium Current Visit: Yes Status: Acute Assessment and Plan: see plan above. (9) Overweight (BMI 25.0-29.9) Current Visit: No Status: Chronic Assessment and Plan: BMI 28.2 -lifestyle modification (10) Constipation Current Visit: Yes Status: Acute Assessment and Plan: Senna plus and miralax -has not had BM in 8days (11) Sepsis Current Visit: Yes Status: Acute Assessment and Plan: Meets SIRS criteria based on WBC count 15.8, HR 115, RR 22 -t max overnight of 102.3 rectally CXR negative for acute process x2 UA had WBC, however, many squamous cells , most likely a contaminate Lactic acid 1.4 Legionella antigen (-) Plan: -check CT of chest and abd/pelvis, r/o abscess and aspiration pneumonia -vanc/zosyn day 1 -blood cx pending -125cc/hr 0.9% NS -s pneumo antigen pending DVT Prophylaxis: heparin sq - Time Spent with Patient Total time spent is greater than 50% in coordination of care (as documented) at patient's floor/unit and/or counseling patient: less than 15 minutes Plan of Care Discussed with: nurse Internal Medicine: Result - Labs CBC & Chem 7: 04/11/18 00:56 04/11/18 00:56 Labs: Short CBC 04/11/18 Range/Units 00:56 WBC 15.8 H (4.3-11.1) K/mcL Hgb 14.4 (12.9-16.9) g/dL Hct 44.0 (37.5-50.1) % Plt Count 391 (140-400) K/mcL Neutrophils # 13.5 H (1.6-8.9) K/mcL BMP 04/11/18 00:56 Sodium 140 Potassium 4.2 Chloride 103 Carbon Dioxide 28 BUN 9 Creatinine 1.12 Glucose 123 H Calcium 9.8 Liver Function 04/11/18 Range/Units 00:56 Total Bilirubin 0.6 (0.3-1.0) mg/dL AST 46 H (13-39) Units/L ALT 17 (7-52) Units/L Alkaline Phosphatase 116 H (34-104) Units/L Albumin 4.0 (3.5-5.7) g/dL - ABG Interpretation ABG results: PT/INR, D-dimer PT 13.7 Seconds (9.4-12.1) H 03/30/18 15:19 - Impressions Impressions Chest X-Ray 04/10/18 10:09 IMPRESSION: No acute process. D/ / Anna Barnett MD / Anna Barnett MD Interpreting Provider: Anna Barnett MD Chest X-Ray 04/11/18 00:35 IMPRESSION: No acute disease. D/ / Delonte Mott MD / Delonte Mott MD Interpreting Provider: Delonte Mott MD Consult Discharge Plan - Plan Additional Instructions: Coordinate mental health follow up once surgery is complete. [facility]errals: [facility] Provider[facility] - 04/14/18 10:30 am (THIS APPOINTMENT IS WITH [facility]) <Verna Mcmanus - Last Filed: 04/11/18 15:16> Hospitalist Progress Note - Encounter Date of Encounter: 04/11/18 - Exam Vitals: Temp Pulse Resp BP Pulse Ox 98.2 F 100 20 124/65 92 04/11/18 11:36 04/11/18 11:36 04/11/18 11:36 04/11/18 11:36 04/11/18 11:36 - Assessment and Plan (1) Fall Current Visit: Yes Status: Acute (2) Alcoholism Current Visit: No Status: Chronic (3) NIKITA (acute kidney injury) Current Visit: Yes Status: Resolved (4) Schizophrenia Current Visit: No Status: Chronic (5) Acute cholecystitis Current Visit: Yes Status: Resolved (6) Acute encephalopathy Current Visit: Yes Status: Resolved (7) Alcohol withdrawal delirium Current Visit: Yes Status: Acute (8) Leukocytosis Current Visit: Yes Status: Acute (9) Overweight (BMI 25.0-29.9) Current Visit: No Status: Chronic (10) Constipation Current Visit: Yes Status: Acute (11) Sepsis Current Visit: Yes Status: Acute - Time Spent with Patient Total time spent is greater than 50% in coordination of care (as documented) at patient's floor/unit and/or counseling patient: Internal Medicine: Result - Labs CBC & Chem 7: 04/11/18 00:56 04/11/18 00:56 Labs: Short CBC 04/11/18 Range/Units 00:56 WBC 15.8 H (4.3-11.1) K/mcL Hgb 14.4 (12.9-16.9) g/dL Hct 44.0 (37.5-50.1) % Plt Count 391 (140-400) K/mcL Neutrophils # 13.5 H (1.6-8.9) K/mcL BMP 04/11/18 00:56 Sodium 140 Potassium 4.2 Chloride 103 Carbon Dioxide 28 BUN 9 Creatinine 1.12 Glucose 123 H Calcium 9.8 Liver Function 04/11/18 Range/Units 00:56 Total Bilirubin 0.6 (0.3-1.0) mg/dL AST 46 H (13-39) Units/L ALT 17 (7-52) Units/L Alkaline Phosphatase 116 H (34-104) Units/L Albumin 4.0 (3.5-5.7) g/dL - ABG Interpretation ABG results: PT/INR, D-dimer PT 13.7 Seconds (9.4-12.1) H 03/30/18 15:19 - Impressions Impressions Chest X-Ray 04/11/18 00:35 IMPRESSION: No acute disease. D/ / Delonte Mott MD / Delonte Mott MD Interpreting Provider: Delonte Mott MD Abdomen/Pelvis CT 04/11/18 13:30 IMPRESSION: 1. CT chest significantly degraded by breathing motion blurring detail. 2. Inspissated secretions evident within the right side of the mid trachea. 3. Minimal bibasilar subsegmental atelectasis. 4. Findings of acute cholecystitis. 5. Broad mouthed ventral hernias are noted to the right and left of the umbilicus, on the right containing a knuckle of colon, on the left containing fat. 6. Hepatic steatosis. D/ / Rommel Felix / Rommel Felix Interpreting Provider: Rommel Felix Chest CT 04/11/18 13:30 IMPRESSION: 1. CT chest significantly degraded by breathing motion blurring detail. 2. Inspissated secretions evident within the right side of the mid trachea. 3. Minimal bibasilar subsegmental atelectasis. 4. Findings of acute cholecystitis. 5. Broad mouthed ventral hernias are noted to the right and left of the umbilicus, on the right containing a knuckle of colon, on the left containing fat. 6. Hepatic steatosis. D/ / Rommel Felix / Rommel Felix Interpreting Provider: Rommel Felix - Attending Attestation I examined this patient and my medical decision-making was reviewed with the Resident Physician Dr. Schaeffer. I agree with the documented findings, disposition and treatment plan as described except to the extent set forth below. Mr. Gooden is a 57-year-old gentlemen with known history of schizophrenia and substance abuse patient who is chronic alcohol dependence admitted here with acute abdominal pain and the fall. Patient CT of abdomen showed acute cholecystitis. He is alert, awake oriented to place and self only. Still looks confused. Developed fever last night with T max-102.8 Gen: Sleepy, tremors +, confused Chest: Diminished BS b/l, No wheezing, no crackles Heart: S1S2+ sinus tachy Abd: Soft, NT a/p 1. Acute delirium 2. Alcohol DT's mixed etiology probably due to underlines psychiatric issues as well as with alcohol intoxication Cont [facility] protocol IV hydration 2. Sepsis chest x-ray did not show any consolidation/ pneumonia with his delirium high risk for aspiration pneumonia with his recent cholecystitis concerning for GI abscess too Obtain CT of the chest and abdomen conforming acute cholecystitis will reconsult surgery continue broad-spectrum antibiotic <Magdiel Schaeffer S - Last Filed: 04/11/18 11:41> (1) Leukocytosis Qualifiers: Leukocytosis type: unspecified Qualified Code(s): D72.829 - Elevated white blood cell count, unspecified (2) Fall Qualifiers: Encounter type: initial encounter Qualified Code(s): W19.XXXA - Unspecified fall, initial encounter (5) Schizophrenia Qualifiers: Schizophrenia type: paranoid schizophrenia Qualified Code(s): F20.0 - Paranoid schizophrenia (10) Constipation Qualifiers: Constipation type: unspecified constipation type Qualified Code(s): K59.00 - Constipation, unspecified (11) Sepsis Qualifiers: Sepsis type: sepsis due to unspecified organism Qualified Code(s): A41.9 - Sepsis, unspecified organism <Thallapaneni,Rambabu - Last Filed: 04/11/18 15:16> (1) Fall Qualifiers: Encounter type: initial encounter Qualified Code(s): W19.XXXA - Unspecified fall, initial encounter (4) Schizophrenia Qualifiers: Schizophrenia type: paranoid schizophrenia Qualified Code(s): F20.0 - Paranoid schizophrenia (8) Leukocytosis Qualifiers: Leukocytosis type: unspecified Qualified Code(s): D72.829 - Elevated white blood cell count, unspecified (10) Constipation Qualifiers: Constipation type: unspecified constipation type Qualified Code(s): K59.00 - Constipation, unspecified (11) Sepsis Qualifiers: Sepsis type: sepsis due to unspecified organism Qualified Code(s): A41.9 - Sepsis, unspecified organism
[2018-04-11] MEDS ORDERED: Sennosides/Docusate Sodium TABLET PO SCH (09:00)
[2018-04-11] MEDS: Sennosides/Docusate Sodium TABLET PO SCH ×2 (12:30→21:04)
[2018-04-11] MEDS: 0.9 % Sodium Chloride 1,000 ML IVC SCH ×2 (12:30→21:04)
--- NOTE | 2018-04-11 15:25 | Event Note ---
Date of Encounter: 04/11/18 Time of Encounter: 15:25 CT abd showed acute cholecystitis -spoke with Dr. Pedraza and surgery has been reconsulted -pt currently afebrile and hemodynamically stable
--- NOTE | 2018-04-11 15:56 | General Surgery Progress Note ---
Date of Encounter: 04/11/18 Time of Encounter: 15:45 - Assessment and Plan (1) Acute cholecystitis Current Visit: Yes Status: Resolved Acute cholecystitis is a very difficult diagnosis to make when physical examination is unavailable for correlation. CAT scan findings suggestive acute cholecystitis area his overall clinical course with spiking temperatures after antibiotics have been discontinued also fits with the diagnosis of acute cholecystitis. We will plan on hepatobiliary testing. If this is positive for nonfilling of the gallbladder, acute cholecystitis diagnosis can be made and we can proceed with surgery planning. Continue antibiotics and nothing by mouth status Subjective Narrative: I was contacted to reconsult on the patient. He is previously been seen by Dr. Blanco. He had an initial CAT scan evidence of acute cholecystitis, however, follow-up ultrasound demonstrated mild gallbladder wall thickening with only a minimal amount of pericholecystic fluid. His white blood cell count normalized quickly on antibiotic therapy. He experienced acute alcohol withdrawal. He has chronic schizophrenia and his consciousness waxed and waned during that period of evaluation. It was felt that he could not give adequate informed consent. His abdominal examination was completely negative and surgery signed off. I was reconsult today. The patient's temperature elevated to 102.6 last evening. His white blood cell count has gone back up to 14,000. He was restarted on vancomycin and Zosyn. Today on physical examination his abdomen is completely negative with no evidence of Brown sign. However, he is not alert. I was able to arouse him but he was unable to answer my questions. I personally reviewed the CAT scan. He has no incisional hernia from a transverse abdominal incision in the right lower quadrant reportedly from appendectomy. There also appears to be a small incision underneath the umbilicus and this appears to have formed a hernia containing fat. Careful evaluation of the CAT scan demonstrated gallbladder wall thickening with inflammatory changes in the fat surrounding the gallbladder. Findings can be consistent with acute cholecystitis. Acalculous cholecystitis is a possibility. I would recommend hepatobiliary scanning. If the gallbladder does not fill, the diagnosis of acute cholecystitis can be made with confidence. If the gallbladder does not fill I think it is reasonable to proceed with cholecystectomy. We should endeavor to obtain informed consent from power of erisa attorney. If power of erisa attorney is unavailable and the situation remains emergent, documentation can be provided from 2 physicians to proceed with indicated surgery. We will make patient nothing by mouth and order hepatobiliary testing for tomorrow morning. Continue antibiotics Objective Vital Signs - Last 8 Hours Temp Pulse Resp BP Pulse Ox 04/11/18 11:36 98.2 F 100 20 124/65 92 Intake and Output 04/10/18 04/11/18 04/11/18 23:59 07:59 15:59 Intake Total 1050 / 1050 1250 / 1250 240 / 240 Output Total 750 / 750 280 / 280 450 / 450 Balance 300 / 300 970 / 970 -210 / -210 Intake: IV Fluids 1000 / 1000 1250 / 1250 0.9 % Sodium Chloride 1,000 ML 1000 / 1000 1000 / 1000 @ 999 mls/hr IVC .Q1H1M ONE Rx# :[id number] Vancocin 1,500 MG In 0.9 % 250 / 250 Sodium Chloride 250 ML @ 166.67 mls/hr IVPB ONCE ONE Rx#: [id number] Oral 50 / 50 240 / 240 Output: Catheter 750 / 750 280 / 280 450 / 450 Other: Meal Dinner Breakfast Percent of Meal Consumed 20% 100% Weight 95.7 kg - General physical appearance other (Obtunded and nonverbal. I question the accuracy of physical examination) - Respiratory normal expansion, normal respiratory effort, clear to percussion, clear to auscultation - Cardiovascular Cardiovascular exam: Present: RRR, no murmurs/rubs/gallops (The abdomen is soft and nontender bowel sounds are positive there is no Brown sign. He has a incisional hernia in the right lower quadrant that is nontender she has no incisional hernia below the umbilicus that is nontender. I question the accuracy of physical examination due to the patient's overall mental status) - Neurologic confused, disoriented, other (Arousable but the patient will not answer my questions) - Labs 04/11/18 00:56 04/11/18 00:56 Diabetes panel 04/11/18 Range/Units 00:56 Sodium 140 (136-145) mEq/L Potassium 4.2 (3.5-5.1) mEq/L Chloride 103 (98-107) mEq/L Carbon Dioxide 28 (23-29) mEq/L BUN 9 (6-20) mg/dL Creatinine 1.12 (0.70-1.30) mg/dL Glucose 123 H (70-105) mg/dL Calcium 9.8 (8.6-10.3) mg/dL AST 46 H (13-39) Units/L ALT 17 (7-52) Units/L Alkaline Phosphatase 116 H (34-104) Units/L Albumin 4.0 (3.5-5.7) g/dL Calcium panel 04/11/18 Range/Units 00:56 Calcium 9.8 (8.6-10.3) mg/dL Albumin 4.0 (3.5-5.7) g/dL Pituitary panel 04/11/18 Range/Units 00:56 Sodium 140 (136-145) mEq/L Potassium 4.2 (3.5-5.1) mEq/L Chloride 103 (98-107) mEq/L Carbon Dioxide 28 (23-29) mEq/L BUN 9 (6-20) mg/dL Creatinine 1.12 (0.70-1.30) mg/dL Glucose 123 H (70-105) mg/dL Calcium 9.8 (8.6-10.3) mg/dL Adrenal panel 04/11/18 Range/Units 00:56 Sodium 140 (136-145) mEq/L Potassium 4.2 (3.5-5.1) mEq/L Chloride 103 (98-107) mEq/L Carbon Dioxide 28 (23-29) mEq/L BUN 9 (6-20) mg/dL Creatinine 1.12 (0.70-1.30) mg/dL Glucose 123 H (70-105) mg/dL Calcium 9.8 (8.6-10.3) mg/dL Total Bilirubin 0.6 (0.3-1.0) mg/dL AST 46 H (13-39) Units/L ALT 17 (7-52) Units/L Alkaline Phosphatase 116 H (34-104) Units/L Albumin 4.0 (3.5-5.7) g/dL Consult Discharge Plan - Plan Additional Instructions: Coordinate mental health follow up once surgery is complete. Referrals: [facility],PCP [Primary Care Provider] - 04/14/18 10:30 am (THIS APPOINTMENT IS WITH THE [facility])
[2018-04-11] MEDS ORDERED: Valproic Acid Oral Soln 250 MG/5 ML UDC PO ONE (21:00)
[2018-04-11] MEDS: Lactulose Oral Soln 20 GM/30 ML UDC PO SCH (21:12)
[2018-04-12 08:02] LABS: Basophils % 0.4 %; Eosinophils # 0.2 K/mcL (0.0-0.6); Eosinophils % 1.9 %; Hematocrit 40.5 % (37.5-50.1); Immature Granulocytes % 0.5 % (0-4); Lymphocytes # 1.2 K/mcL (0.6-4.6); Lymphocytes % 12.4 %; Mean Corpuscular HGB Conc 32.1 g/dL (31.6-35.5); Mean Corpuscular Hemoglobin 32.4 pg (28.0-33.3); Mean Platelet Volume 9.7 fL (9.4-12.4); Monocytes # 0.7 K/mcL (0.0-1.3); Neutrophils # 7.4 K/mcL (1.6-8.9); Platelet Count 318 K/mcL (140-400); Red Blood Count 4.01 M/mcL (4.19-5.50); Red Cell Distribution Width 12.4 % (11.5-14.5); Segmented Neutrophils % 77.8 %
[2018-04-12 08:18] LABS: Alanine Aminotransferase 12 Units/L (7-52); Albumin 3.4 g/dL (3.5-5.7); Albumin/Globulin Ratio 0.9 (1.1-2.2); Alkaline Phosphatase 88 Units/L (34-104); Aspartate Amino Transferase 28 Units/L (13-39); BUN/Creatinine Ratio 7 (6-26); Bilirubin,Total 0.5 mg/dL (0.3-1.0); Blood Urea Nitrogen 9 mg/dL (6-20); Calcium 9.3 mg/dL (8.6-10.3); Carbon Dioxide 26 mEq/L (23-29); Chloride 112 mEq/L (98-107); Glucose 109 mg/dL (70-105); Osmolality,Calculated 301 (280-300); Potassium 3.8 mEq/L (3.5-5.1); Sodium 146 mEq/L (136-145); Total Protein 7.4 g/dL (6.4-8.9); eGFR For Non-African Americans 56 (> 60)
[2018-04-12] MEDS ORDERED: Aminoglycoside Consult 1 EACH MC ONE (08:19)
[2018-04-12] MEDS ORDERED: traMADol 50 MG TABLET PO PRN ×2 (08:43→21:28)
[2018-04-12] MEDS: *HR* Heparin 5,000 UNIT/ML VIAL SQ SCH ×2 (08:57→17:01)
[2018-04-12] MEDS: Piperacillin/Tazobactam 3.375 GM in 0.9 % Sodium Chloride Mini Bag 100 ML IVPB SCH ×3 (08:57→23:28)
--- NOTE | 2018-04-12 09:18 | Internal Med Progress Note ---
<MaksimMagdiel S - Last Filed: 04/12/18 11:02> Hospitalist Progress Note - Encounter Date of Encounter: 04/12/18 Time of Encounter: 09:14 - Subjective Interval History: Pt is seen at [facility] He is a 57yo male with an extensive hx of EtOH abuse and mental health issues. He is shivering in bed and appears to be in distress. He is hard to arouse and I have to ask him multiple times to get any qustions. On admission he was unsure about why he is here or what is going on but knows he had a fall. -Another resident found him in the bathroom at custodial according to notes from night resident -he has been increasing his EtOH intake over the last few months 04/11/18 - Overnight the pt was continuously febrile at 102.3 and 101.3*F -CXR continued to show no acute changes -pt stared on Vanc/Zosyn as per night team -nursing reports that the pt is much more rigid and is shaking today -he is unable to tell me what year it is, who the president is, or what year he was born in Today the pt has complaints of pain in his back. He denies abd pain, N/V/D, active chest pain. He is AOx1. - Exam Vitals: Temp Pulse Resp BP Pulse Ox 98.1 F 83 18 119/67 92 04/12/18 07:01 04/12/18 07:01 04/12/18 07:01 04/12/18 07:01 04/12/18 07:01 Exam: Constitutional: hard to get answers from pt, aox1 Head: Normocephalic, atraumatic Heart: Normal, tacycardia, no murmur Lungs: On RA ,Clear to auscultation, no wheezes, rales, or rhonchi Abdomen: Soft, distention improving but no rebound or guarding, nontender, negative poe's sign, Extremities: No edema, No clubbing, radial pulse +2/4, capillary refill <2sec. Skin: Skin warm and dry, no lesions, no rashes, no jaundice Neurologic: unable to perform - Assessment and Plan (1) Acute cholecystitis Current Visit: Yes Status: Acute Assessment and Plan: CT of abdomen showed acute cholecystitis on admission -ultrasound of gallbladder showed: Cholelithiasis and thickening of the gallbladder wall with the mild distention concerning for acute cholecystitis CT abdomen 04/11 showed acute cholecystitis HIDA scan favors dx of acute cholecystitis Pt denies abd pain, (-) poe sign -WBC count 12.2 -BP stable, no jaundice/RUQ tenderness -AST 28, ALT 12 -alk phos 88 Plan: - see plan above - currently NPO - vanc/zosyn day 2 -surgery reconsulted, appreciate recommendations - pt currently NPO -social work to see for placement to ECF as per PTOT recommendation ---> [facility] Trying to figure out placement for him still -PT/OT missed apt again due to sedation (2) Leukocytosis Current Visit: Yes Status: Acute Assessment and Plan: New WBC count of 14.2 (04/10) increased to 15.8 on 04/11 --> 12.2 today -pt has had no white count since 03/31 UA showed negative leukocyte esterase/nitritres; TNTC rbc, (+) wbc CXR negative x2 Legionella anitgen negative Lactic acid 1.[address] abd and pelvis showed acute cholecystitis Plan: - one liter bolus was given as per sepsis protocol; 125cc/hr 0.9% NS changed to 125cc/hr D5 in water -Blood cx pending -s pneumo antigen pending -Vanc and Zosyn day 2 -recheck cbc in AM (3) Fall Current Visit: Yes Status: Acute Assessment and Plan: Workup for fall showed no acute changes on CXR, CT head or neck, no s/s of injury, no bruises. Continue fall risk precautions. (4) Alcoholism Current Visit: No Status: Chronic Assessment and Plan: Pt has a roasterman hx of EtOH abuse, has been drinking more as of recently. -continues to be drowsy and not eating well. -much more tremulous and rigid today Last CIWA score 11 Plan: -Will continue to hold the Librium. - folic acid and thiamine vitamin daily - ativan prn based off of CIWA protocol - psych consulted (5) NIKITA (acute kidney injury) Current Visit: Yes Status: Resolved Assessment and Plan: Creatinine on admission 1.69 Plan: -resolved (6) Schizophrenia Current Visit: No Status: Chronic Assessment and Plan: Continue home meds, unable to get yesterday depakote due to drowsiness. Plan: - consult psychiatry (7) Acute encephalopathy Current Visit: Yes Status: Resolved Assessment and Plan: Most likely due to EtOH withdrawal, Still has abnormal behavior despite lesser withdrawal symptoms. Plan: - folic acid and thiamine vitamin daily - Librium dose held all yesterday, continuing to hold - ativan prn based off of [place] protocol - [facility] consulted (8) Alcohol withdrawal delirium Current Visit: Yes Status: Acute Assessment and Plan: see plan above. (9) Overweight (BMI 25.0-29.9) Current Visit: No Status: Chronic Assessment and Plan: BMI 28.2 -lifestyle modification (10) Constipation Current Visit: Yes Status: Acute Assessment and Plan: Senna plus and miralax -lactulose 10mg PO BID -pt had BM yesterday after 8 days (11) Sepsis Current Visit: Yes Status: Acute Assessment and Plan: 04/11 - Meets SIRS criteria based on WBC count 15.8, HR 115, RR 22 -t max 04/11 of 102.3 rectally Currently the pt meets SIRS criteria for 15.8 WBC, HR 96, RR 21 -source of infxn gallbladder CXR negative for acute process x2 UA had WBC, however, many squamous cells , most likely a contaminate Lactic acid 1.4 Legionella antigen (-) CT abdomen showed acute cholecystitis HIDA scan was limited due to early termination 2/2 pt compliance -no visualization of GB by 35min, acute cholecystitis favored for diagnosis Plan: - surgery reconsulted, appreciate recommendations -vanc/zosyn day 2 -blood cx pending -125cc/hr 0.9% NS changed to 125cc D5 in water -recheck BMP at 4pm -s pneumo antigen pending - pt currently NPO DVT Prophylaxis: sq heparin - Time Spent with Patient Total time spent is greater than 50% in coordination of care (as documented) at patient's floor/unit and/or counseling patient: less than 15 minutes Plan of Care Discussed with: patient Internal Medicine: Result - Labs CBC & Chem 7: 04/12/18 07:44 04/12/18 07:44 Labs: Short CBC 04/12/18 Range/Units 07:44 WBC 9.5 (4.3-11.1) K/mcL Hgb 13.0 (12.9-16.9) g/dL Hct 40.5 (37.5-50.1) % Plt Count 318 (140-400) K/mcL Neutrophils # 7.4 (1.6-8.9) K/mcL BMP 04/12/18 07:44 Sodium 146 H Potassium 3.8 Chloride 112 H Carbon Dioxide 26 BUN 9 Creatinine 1.31 H Glucose 109 H Calcium 9.3 Liver Function 04/12/18 Range/Units 07:44 Total Bilirubin 0.5 (0.3-1.0) mg/dL AST 28 (13-39) Units/L ALT 12 (7-52) Units/L Alkaline Phosphatase 88 (34-104) Units/L Albumin 3.4 L (3.5-5.7) g/dL - ABG Interpretation ABG results: PT/INR, D-dimer PT 13.7 Seconds (9.4-12.1) H 03/30/18 15:19 - Impressions Impressions Abdomen/Pelvis CT 04/11/18 13:30 IMPRESSION: 1. CT chest significantly degraded by breathing motion blurring detail. 2. Inspissated secretions evident within the right side of the mid trachea. 3. Minimal bibasilar subsegmental atelectasis. 4. Findings of acute cholecystitis. 5. Broad mouthed ventral hernias are noted to the right and left of the umbilicus, on the right containing a knuckle of colon, on the left containing fat. 6. Hepatic steatosis. D/ / Rommel Felix / Rommel Felix Interpreting Provider: Rommel Felix Chest CT 04/11/18 13:30 IMPRESSION: 1. CT chest significantly degraded by breathing motion blurring detail. 2. Inspissated secretions evident within the right side of the mid trachea. 3. Minimal bibasilar subsegmental atelectasis. 4. Findings of acute cholecystitis. 5. Broad mouthed ventral hernias are noted to the right and left of the umbilicus, on the right containing a knuckle of colon, on the left containing fat. 6. Hepatic steatosis. D/ / Rommel Felix / Rommel Felix Interpreting Provider: Rommel Felix Bile Acid Absorption NM 04/11/18 16:00 IMPRESSION: Limited study due to early termination related to patient cooperation. There is no visualization of the gallbladder by 35 minutes, finding that could be related to acute cholecystitis but can also be seen normally. Given the appearance of the gallbladder on the comparison studies, acute cholecystitis is favored. Consider obtaining a delayed image within 4 hours of the time radiotracer administration if the patient can tolerate, and the report can be addended. D/ / Valdemar Holder MD / Valdemar Holder MD Interpreting Provider: Valdemar Holder MD Consult Discharge Plan - Plan Additional Instructions: Coordinate mental health follow up once surgery is complete. [facility]errals[facility] - 04/14/18 10:30 am (THIS APPOINTMENT IS WITH [facility]) <Verna Mcmanus - Last Filed: 04/12/18 15:44> Hospitalist Progress Note - Encounter Date of Encounter: 04/12/18 - Exam Vitals: Temp Pulse Resp BP Pulse Ox 99.0 F 102 18 137/90 93 04/12/18 11:37 04/12/18 11:37 04/12/18 11:37 04/12/18 11:37 04/12/18 11:37 - Assessment and Plan (1) Fall Current Visit: Yes Status: Acute (2) Alcoholism Current Visit: No Status: Chronic (3) NIKITA (acute kidney injury) Current Visit: Yes Status: Resolved (4) Schizophrenia Current Visit: No Status: Chronic (5) Acute cholecystitis Current Visit: Yes Status: Acute (6) Acute encephalopathy Current Visit: Yes Status: Resolved (7) Alcohol withdrawal delirium Current Visit: Yes Status: Acute (8) Leukocytosis Current Visit: Yes Status: Acute (9) Overweight (BMI 25.0-29.9) Current Visit: No Status: Chronic (10) Constipation Current Visit: Yes Status: Acute (11) Sepsis Current Visit: Yes Status: Acute - Time Spent with Patient Total time spent is greater than 50% in coordination of care (as documented) at patient's floor/unit and/or counseling patient: Internal Medicine: Result - Labs CBC & Chem 7: 04/12/18 07:44 04/12/18 13:17 Labs: Short CBC 04/12/18 Range/Units 07:44 WBC 9.5 (4.3-11.1) K/mcL Hgb 13.0 (12.9-16.9) g/dL Hct 40.5 (37.5-50.1) % Plt Count 318 (140-400) K/mcL Neutrophils # 7.4 (1.6-8.9) K/mcL BMP 04/12/18 04/12/18 07:44 13:17 Sodium 146 H 148 H Potassium 3.8 3.8 Chloride 112 H 114 H Carbon Dioxide 26 27 BUN 9 9 Creatinine 1.31 H 1.33 H Glucose 109 H 104 Calcium 9.3 9.3 Liver Function 04/12/18 Range/Units 07:44 Total Bilirubin 0.5 (0.3-1.0) mg/dL AST 28 (13-39) Units/L ALT 12 (7-52) Units/L Alkaline Phosphatase 88 (34-104) Units/L Albumin 3.4 L (3.5-5.7) g/dL - ABG Interpretation ABG results: PT/INR, D-dimer PT 13.7 Seconds (9.4-12.1) H 03/30/18 15:19 - Impressions Impressions Bile Acid Absorption NM 04/11/18 16:00 IMPRESSION: Limited study due to early termination related to patient cooperation. There is no visualization of the gallbladder by 35 minutes, finding that could be related to acute cholecystitis but can also be seen normally. Given the appearance of the gallbladder on the comparison studies, acute cholecystitis is favored. Consider obtaining a delayed image within 4 hours of the time radiotracer administration if the patient can tolerate, and the report can be addended. D/ / Valdemar Holder MD / Valdemar Holder MD Interpreting Provider: Valdemar Holder MD - Attending Attestation I examined this patient and my medical decision-making was reviewed with the Resident Physician Dr. Schaeffer. I agree with the documented findings, disposition and treatment plan as described except to the extent set forth below. Mr. Gooden is a 57-year-old gentlemen with known history of schizophrenia and substance abuse patient who is chronic alcohol dependence admitted here with acute abdominal pain and the fall. Patient CT of abdomen showed acute cholecystitis. He is alert, awake oriented to place and self only. Still looks confused. No more fever spikes since y/d. Gen: Sleepy, tremors +, confused Chest: Diminished BS b/l, No wheezing, no crackles Heart: S1S2+ sinus tachy Abd: Soft, NT a/p 1. Acute delirium 2. Alcohol DT's mixed etiology probably due to underlines psychiatric issues as well as with alcohol intoxication Cont [facility] protocol IV hydration 2. Sepsis 3. Acute cholecystitis CT of the chest and abdomen conforming acute cholecystitis His HIDA scan also confirmatory for acute cholecystitis Since his condition is deteriorating he does need emergency surgery. Unfortnautely he is not able to provide any consent, also he does not have any family members or next to kin to provide consent at this moment. I agree with Dr. Pedraza, he does need emergent cholecystectomy due to his worsening symptoms. continue broad-spectrum antibiotic 4. Hypernatremia due to dehydration changed IVF to d5 with water cont close monitoring <Magdiel Schaeffer S - Last Filed: 04/12/18 11:02> (2) Leukocytosis Qualifiers: Leukocytosis type: unspecified Qualified Code(s): D72.829 - Elevated white blood cell count, unspecified (3) Fall Qualifiers: Encounter type: initial encounter Qualified Code(s): W19.XXXA - Unspecified fall, initial encounter (6) Schizophrenia Qualifiers: Schizophrenia type: paranoid schizophrenia Qualified Code(s): F20.0 - Paranoid schizophrenia (10) Constipation Qualifiers: Constipation type: unspecified constipation type Qualified Code(s): K59.00 - Constipation, unspecified (11) Sepsis Qualifiers: Sepsis type: sepsis due to unspecified organism Qualified Code(s): A41.9 - Sepsis, unspecified organism <Verna Mcmanus - Last Filed: 04/12/18 15:44> (1) Fall Qualifiers: Encounter type: initial encounter Qualified Code(s): W19.XXXA - Unspecified fall, initial encounter (4) Schizophrenia Qualifiers: Schizophrenia type: paranoid schizophrenia Qualified Code(s): F20.0 - Paranoid schizophrenia (8) Leukocytosis Qualifiers: Leukocytosis type: unspecified Qualified Code(s): D72.829 - Elevated white blood cell count, unspecified (10) Constipation Qualifiers: Constipation type: unspecified constipation type Qualified Code(s): K59.00 - Constipation, unspecified (11) Sepsis Qualifiers: Sepsis type: sepsis due to unspecified organism Qualified Code(s): A41.9 - Sepsis, unspecified organism
[2018-04-12] MEDS: *HR* LORazepam 2 MG/ML VIAL IVP PRN ×2 (09:37→14:50)
[2018-04-12] MEDS: Valproic Acid Oral Soln 250 MG/5 ML UDC PO SCH ×3 (11:13→21:24)
[2018-04-12] MEDS: Folic Acid 1 MG TABLET PO SCH (13:16)
[2018-04-12] MEDS: Aspirin 81 MG TAB.CHEW PO SCH (13:16)
[2018-04-12] MEDS: Thiamine (B-1) 100 MG TABLET PO SCH (13:16)
[2018-04-12] MEDS: Lactulose Oral Soln 20 GM/30 ML UDC PO SCH ×2 (13:16→21:24)
[2018-04-12] MEDS: Sennosides/Docusate Sodium TABLET PO SCH ×2 (13:16→21:25)
[2018-04-12] MEDS: Cholecalciferol (D-3) 1,000 UNIT TABLET PO SCH (13:16)
[2018-04-12] MEDS: Metoprolol XL (24 HR) Succ 25 MG TAB.ER.24H PO SCH (13:16)
--- NOTE | 2018-04-12 13:35 | Event Note ---
Date of Encounter: 04/12/18 Time of Encounter: 13:00 The patient is seen and evaluated. Findings are consistent with acute cholecystitis. He has had extended period of conservative management and now is deteriorating clinically. He was febrile last evening and his white blood cell count is rising. Hepatobiliary testing is confirmatory for acute cholecystitis. We will continue to try and obtain authorization for surgery from power of assistant prosecuting attorney, however, he is condition deems emergency intervention. I have recommended to proceed with surgery with or without informed consent in the patient's best interest. Matthew Pedraza MD FACS
[2018-04-12 14:10] LABS: BUN/Creatinine Ratio 7 (6-26); Blood Urea Nitrogen 9 mg/dL (6-20); Calcium 9.3 mg/dL (8.6-10.3); Carbon Dioxide 27 mEq/L (23-29); Chloride 114 mEq/L (98-107); Glucose 104 mg/dL (70-105); Osmolality,Calculated 305 (280-300); Potassium 3.8 mEq/L (3.5-5.1); Sodium 148 mEq/L (136-145); Vancomycin,Trough 20 mcg/mL (5-10); eGFR For Non-African Americans 55 (> 60)
[2018-04-12] MEDS: D5% in Water 1,000 ML IVC SCH ×3 (14:50→23:29)
[2018-04-12] MEDS ORDERED: Dexamethasone 4 MG/ML VIAL ONE (18:06)
[2018-04-12] MEDS ORDERED: Ondansetron 4 MG/2 ML VIAL ONE (18:06)
[2018-04-12] MEDS ORDERED: *HR* Propofol 200 MG/20 ML VIAL IVP ONE (18:06)
[2018-04-12] MEDS ORDERED: Lidocaine -MPF 2% 2 ML VIAL ONE (18:06)
[2018-04-12] MEDS ORDERED: *HR* FentaNYL (PF) 100 MCG/2 ML VIAL ONE ×3 (18:06→19:07)
[2018-04-12] MEDS ORDERED: *HR* Succinylcholine 200 MG/10 ML VIAL IVP ONE (18:07)
[2018-04-12] MEDS ORDERED: Lidocaine -MPF 4% 5 ML AMPUL ONE (18:07)
[2018-04-12] MEDS ORDERED: Neostigmine Methylsulfate 3 MG/3 ML SYRINGE ONE (18:07)
[2018-04-12] MEDS ORDERED: *HR* Rocuronium Bromide 50 MG/5 ML VIAL ONE (18:07)
--- NOTE | 2018-04-12 18:13 | Anesthesia Evaluation PreOp ---
Date of Encounter: 04/12/18 Time of Encounter: 18:10 - Past History Planned Operation: lap natalie Cardiac History: HTN Pulmonary History: Denies Any Significant HX SCRAPER HAND History: Other (catatonic schizophrenia, non communicative, alcoholic encephalopathy, on DT protocol) Other Medical History: Hepatic (alcoholic) Anesthesia History: Past Anesthesia (unknown) Alcohol Use: heavy Drug use: unknown Medications and Allergies Aspirin [Lo-Dose Aspirin EC] 81 mg PO DAILY 04/06/18 [History] Atorvastatin Calcium [Lipitor] 20 mg PO HS 04/06/18 [History] Benztropine [Cogentin] 1 mg PO BID 04/06/18 [History] Cholecalciferol (D-3) [Vitamin D] 2,000 unit PO DAILY 04/06/18 [History] Divalproex (24 HR) [Depakote ER (24 HR)] 1,000 mg PO BID 04/06/18 [History] Ibuprofen [Ibu] 600 mg PO TID PRN 04/06/18 [History] 3 Allergy/AdvReac Type Severity Reaction Status Date / Time No Known Allergies Allergy Verified 03/25/18 00:58 - Meds/Allergy Pre-op Review Medications Reviewed: Yes Allergies Reviewed: Yes Beta Blockers on Current Med List: No Anesthesia Results - Labs 04/12/18 07:44 04/12/18 13:17 - Imaging EKG: report reviewed (sinus rhythm) Anesthesia Exam Selected Entries 04/12/18 17:15 Temperature 98.2 F Pulse Rate 111 Respiratory Rate 18 Blood Pressure 132/85 O2 Sat by Pulse Oximetry 95 Weight: 94 kg NPO (# of Hours): over 8 hours - HEENT Pupil (Motor): Pupils equal Mallampati: II Teeth: Normal Oral Opening: Greater than 3 - Cardiac Rhythm: Regular Murmur: None - Pulmonary Breath Sounds: bilateral Clear Respiratory Effort: Symmetrical Anesthesia Assess/Plan ASA Score: 3 Modified Sammy Scale for Level of Consciousness: Cooperative, oriented, and tranquil Anesthetic Plan: General Monitoring Plan: Standard Monitors Recovery Plan: PACU (No family available for anesthesia consent. Will sign consent with Dr. Pedraza to proceed with surgery.)
[2018-04-12] MEDS ORDERED: Isovue-300 50 ML VIAL IVP ONE (18:25)
[2018-04-12] MEDS ORDERED: *HR* PHENYLEPHRINE 1,000 MCG/10 ML SYRINGE IVP ONE (18:38)
[2018-04-12] MEDS ORDERED: *HR* Labetalol 20 MG/4 ML SYRINGE IVP PRN (18:40)
[2018-04-12] MEDS ORDERED: Naloxone 0.4 MG/ML INJ IVP PRN ×2 (18:40→21:28)
[2018-04-12] MEDS ORDERED: Ondansetron 4 MG/2 ML VIAL IVP ONE (18:40)
[2018-04-12] MEDS ORDERED: *HR* Meperidine 25 MG/ML SYRINGE IVP PRN (18:40)
[2018-04-12] MEDS ORDERED: Albuterol 2.5 MG/3 ML NEBULIZER IH ONE (18:40)
[2018-04-12] MEDS ORDERED: *HR* Morphine 2 MG/ML SYRINGE IVP PRN (18:40)
[2018-04-12] MEDS ORDERED: *HR* Promethazine 25 MG/ML VIAL IVP PRN (18:40)
[2018-04-12] MEDS ORDERED: Naloxone 0.4 MG/ML INJ ONE (19:37)
[2018-04-12] MEDS ORDERED: Water for inj. (sterile) 10 ML IV ONE (19:37)
--- NOTE | 2018-04-12 19:39 | Operative Note ---
Date of procedure: 04/12/18 Pre-op diagnosis: Acute cholecystitis Post-op diagnosis: other (Necrotic gallbladder and acute cholecystitis) Procedure: Laparoscopic cholecystectomy, cholangiogram Anesthesia: BESSIEA Surgeon: Matthew Pedraza Was there an bankruptcy assistant present: No Estimated blood loss (cc): 25 Specimen: Gallbladder and contents Disposition: PACU Procedure in Detail: Laparoscopic cholecystectomy and intraoperative cholangiogram +30% for necrotic gallbladder and increased dissection time Operative procedure after informed consent and appropriate patient identification timeout the patient was taken to the major operating suite and placed supine position given adequate general endotracheal anesthesia the abdomen is prepped and draped in sterile fashion utilizing ChloraPrep standard draping techniques timeout was taken patient is identified. I made a vertical midline incision below the umbilicus dissected down to level of fascia there are 2 traction stitches placed in the abdominal cavity was entered visually. A Garza trocar was placed in the abdomen and the abdomen was insufflated to 15 mmHg pressure CO2 the gallbladder was visualized. A placement 11 port in the subxiphoid area and 2 5 mm ports in the subcostal area. The gallbladder was encased in inflammatory tissue. The Next 15 minutes at the initial portion of the dissection was necessary to carefully identify the gallbladder dome and neck and removed the acute and chronic inflammatory adhesions The gallbladder was grasped and elevated. A variety of blunt and sharp dissection techniques were used to isolate the cystic duct and cystic artery. This was made difficult by the degree of inflammatory changes in the neck gallbladder. An additional 15 minutes of dissection was necessary This was difficult secondary to The cystic artery was controlled with 2 surgical clips proximally and one distally and it was divided I placed a surgical clip on the neck the gallbladder and obtained an intraoperative cholangiogram using 10 mL of Isovue. Intraoperative cholangiogram was normal. The cholangiocatheter was removed and the cystic duct was controlled with 2 surgical clips proximally and was divided the gallbladder was removed from the gallbladder fossae using electrocautery. This was more difficult secondary to acute cholecystitis. The posterior aspect of the dome of the bladder was necrotic and eroding into the hepatic tissue. This was controlled with electrocautery The gallbladder was removed through the #11 port site using a specimen bag. I replaced the #11 port and irrigated with copious amounts of antibiotic containing solution. There is no evidence of bleeding or bile leak. All trochars were removed. Fascia was closed with 0 Vicryl skin with 2-0 and 4-0 Vicryl he tolerated the procedure well and was transferred to recovery in stable condition
[2018-04-12] MEDS ORDERED: *HR* Nalbuphine 20 MG/ML AMPUL IVP ONE (19:52)
[2018-04-12] MEDS ORDERED: *HR* Nalbuphine 10 MG/ML AMPUL ONE (19:52)
[2018-04-12] MEDS ORDERED: Ringers Solution, Lactated 1,000 ML ONE (19:59)
[2018-04-12] MEDS: Ringers Solution, Lactated 1,000 ML IVC SCH ×2 (20:00→21:26)
[2018-04-12] MEDS ORDERED: *HR* Nalbuphine 10 MG/ML AMPUL IVP ONE (20:15)
--- NOTE | 2018-04-12 20:47 | Anesthesia Evaluation Post Op ---
Date of Encounter: 04/12/18 Time of Encounter: 20:47 - Discharge PostOp Status: Transfer Patient to floor (Patient's vital signs have been reviewed. Patient is stable postoperatively and has adequately recovered from anesthesia. Patient is determined to have stable airway patency and respiratory function including respiratory rate and oxygen saturation. Patient has a stable heart rate, blood pressure and adequate hydration. Patients mental status is acceptable. Patients temperature is appropriate. Pain and nausea are adequately controlled.)
[2018-04-12] MEDS ORDERED: *HR* Metoprolol 5 MG/5 ML VIAL IVP PRN (21:28)
[2018-04-12] MEDS ORDERED: *HR* LORazepam 2 MG/ML VIAL IVP PRN ×3 (21:28)
[2018-04-12] MEDS: 0.9 % Sodium Chloride 1,000 ML IVC SCH (23:29)
[2018-04-13 03:44] LABS: Basophils % 0.1 %; Hematocrit 36.2 % (37.5-50.1); Hemoglobin 11.2 g/dL (12.9-16.9); Immature Granulocytes % 1.1 % (0-4); Immature Platelets 3.9 % (1.1-6.1); Lymphocytes # 0.5 K/mcL (0.6-4.6); Lymphocytes % 6.3 %; Mean Corpuscular HGB Conc 30.9 g/dL (31.6-35.5); Mean Corpuscular Hemoglobin 32.2 pg (28.0-33.3); Mean Platelet Volume 10.1 fL (9.4-12.4); Monocytes # 0.3 K/mcL (0.0-1.3); Neutrophils # 6.9 K/mcL (1.6-8.9); Platelet Count 323 K/mcL (140-400); Red Blood Count 3.48 M/mcL (4.19-5.50); Red Cell Distribution Width 12.4 % (11.5-14.5); Segmented Neutrophils % 88.5 %
[2018-04-13] MEDS: *HR* Heparin 5,000 UNIT/ML VIAL SQ SCH ×2 (05:22→16:12)
[2018-04-13 05:47] LABS: Alanine Aminotransferase 14 Units/L (7-52); Albumin 3.1 g/dL (3.5-5.7); Albumin/Globulin Ratio 0.8 (1.1-2.2); Alkaline Phosphatase 77 Units/L (34-104); Aspartate Amino Transferase 42 Units/L (13-39); BUN/Creatinine Ratio 7 (6-26); Bilirubin,Total 0.4 mg/dL (0.3-1.0); Blood Urea Nitrogen 10 mg/dL (6-20); Calcium 8.6 mg/dL (8.6-10.3); Carbon Dioxide 29 mEq/L (23-29); Chloride 112 mEq/L (98-107); Globulin 3.7 g/dL (2.4-3.5); Glucose 138 mg/dL (70-105); Osmolality,Calculated 307 (280-300); Sodium 148 mEq/L (136-145); Total Protein 6.8 g/dL (6.4-8.9); eGFR For Non-African Americans 55 (> 60)
[2018-04-13] MEDS ORDERED: Dextrose Gel 15 GM/37.5 ML TUBE PO PRN ×2 (05:50)
[2018-04-13] MEDS ORDERED: *HR* Dextrose 50 % in Water (Syg) 50 ML SYRINGE IVP PRN (05:50)
[2018-04-13] MEDS ORDERED: D5% in Water 1,000 ML IVC PRN (05:50)
--- NOTE | 2018-04-13 08:52 | Internal Med Progress Note ---
<Magdiel Schaeffer S - Last Filed: 04/13/18 11:13> Hospitalist Progress Note - Encounter Date of Encounter: 04/13/18 Time of Encounter: 08:49 - Subjective Interval History: Pt is seen at [facility] He is a 57yo male with an extensive hx of EtOH abuse and mental health issues. He is shivering in bed and appears to be in distress. He is hard to arouse and I have to ask him multiple times to get any qustions. On admission he was unsure about why he is here or what is going on but knows he had a fall. -Another resident found him in the bathroom at [facility] according to notes from night resident -he has been increasing his EtOH intake over the last few months 04/11/18 - Overnight the pt was continuously febrile at 102.3 and 101.3*F -CXR continued to show no acute changes -pt stared on Vanc/Zosyn as per night team -nursing reports that the pt is much more rigid and is shaking today -he is unable to tell me what year it is, who the president is, or what year he was born in 04/13/18 - pt had sx with Dr. Pedraza yesterday and was found to have a necrotic gallbladder. -Overnight he was hypothermic (t min of 97.3) as per rectal temperature and had to be placed in a bear hugger -the pt was very lethargic post sx as per nursing -no other acute complaints or concerns Today the pt is unable to be aroused. He is laying in bed shaking and snoring, unable to answer questions. Not easily aroused to sternal rub. - Exam Vitals: Temp Pulse Resp BP Pulse Ox 100.5 F H 108 18 117/77 95 04/13/18 06:39 04/13/18 06:32 04/13/18 03:20 04/13/18 06:32 04/13/18 06:32 Exam: Constitutional: hard to get answers from pt, aox0 Head: Normocephalic, atraumatic Heart: Normal, tacycardia, no murmur Lungs: On RA ,Clear to auscultation, no wheezes, rales, or rhonchi Abdomen: Soft, distention improving but no rebound or guarding, nontender, incisions are clean and dry, no serosanginous fluid coming out Extremities: No edema, No clubbing, radial pulse +2/4, capillary refill <2sec. Skin: Skin warm and dry, no lesions, no rashes, no jaundice Neurologic: unable to perform - Assessment and Plan (1) Sepsis Current Visit: Yes Status: Acute Assessment and Plan: Currently the pt meets SIRS criteria for t 100.5 , HR 108 - white count of 7.8 -t max in the last 24hrs 100.5 -source of infxn removed, s/p POD#1 laparoscopic cholecystectomy with intraoperative cholangiogram - CXR negative for acute process x2 - UA had WBC, however, many squamous cells , most likely a contaminate - Lactic acid 1.4, repeat 0.6 - Legionella antigen (-) - CT abdomen showed acute cholecystitis, pt went to OR yesterday - HIDA scan was limited due to early termination 2/2 pt compliance -no visualization of GB by 35min, acute cholecystitis favored for diagnosis Plan: - surgery reconsulted, s/p POD#1 laparoscopic cholecystectomy with intraop cholangiogram - zosyn day 3 - vancomycin d/c yesterday after 2 days of tx - blood cx pending - 125cc/hr 0.9% NS changed to 125cc D5 in water; ISS and accuchecks - s pneumo antigen pending - clear liquid diet as per surgery (2) Acute cholecystitis Current Visit: Yes Status: Acute Assessment and Plan: CT of abdomen showed acute cholecystitis on admission -ultrasound of gallbladder showed: Cholelithiasis and thickening of the gallbladder wall with the mild distention concerning for acute cholecystitis - CT abdomen 04/11 showed acute cholecystitis - HIDA scan favors dx of acute cholecystitis Pt was brought to OR yesterday with Dr. Pedraza - laparoscopic cholecystecomy with intraoperative cholangiogram, had >30% necrotic gallbladder Plan: - see plan above - CLD as per surgery - vancomycin d/c yesterday - zosyn day 3 - surgery consulted, appreciate recommendations -social work to see for placement to [facility] as per PTOT recommendation ---> [facility] Trying to figure out placement for him still -PT/OT missed apt again due to sedation (3) Leukocytosis Current Visit: Yes Status: Resolved Assessment and Plan: New WBC count of 14.2 (04/10) increased to 15.8 on 04/11 --> 12.2 (04/12) ---> 7.8 (04/13) UA showed negative leukocyte esterase/nitritres; TNTC rbc, (+) wbc CXR negative x2 Legionella anitgen negative Lactic acid 1.[address] abd and pelvis showed acute cholecystitis -s/p POD#1 laparoscopic cholecystectomy with intraop cholangiogram Plan: - one liter bolus was given as per sepsis protocol; 125cc/hr 0.9% NS changed to 125cc/hr D5 in water - Blood cx pending - s pneumo antigen pending - Vanc d/c yesterday - Zosyn day 2 - recheck cbc in AM (4) Fall Current Visit: Yes Status: Acute Assessment and Plan: Workup for fall showed no acute changes on CXR, CT head or neck, no s/s of injury, no bruises. Continue fall risk precautions. (5) Alcoholism Current Visit: No Status: Chronic Assessment and Plan: Pt has a longterm hx of EtOH abuse, has been drinking more as of recently. -continues to be drowsy and not eating well. -much more tremulous and rigid today Last CIWA score 11 Plan: -Will continue to hold the Librium. - folic acid and thiamine vitamin daily - ativan prn based off of CIWA protocol - psych consulted (6) NIKITA (acute kidney injury) Current Visit: Yes Status: Resolved Assessment and Plan: Creatinine on admission 1.69 Plan: -resolved (7) Schizophrenia Current Visit: No Status: Chronic Assessment and Plan: Continue home meds, unable to get yesterday depakote due to drowsiness. Plan: - consult psychiatry (8) Acute encephalopathy Current Visit: Yes Status: Resolved Assessment and Plan: Most likely due to EtOH withdrawal, Still has abnormal behavior despite lesser withdrawal symptoms. Plan: - folic acid and thiamine vitamin daily - Librium dose held all yesterday, continuing to hold - ativan prn based off of CIWA protocol - psch consulted (9) Alcohol withdrawal delirium Current Visit: Yes Status: Acute Assessment and Plan: see plan above. (10) Overweight (BMI 25.0-29.9) Current Visit: No Status: Chronic Assessment and Plan: BMI 28.6 -lifestyle modification (11) Constipation Current Visit: Yes Status: Acute Assessment and Plan: Senna plus and miralax -lactulose 10mg PO BID -pt had BM 04/11 after 8 days of constipation (12) Hypoxia Current Visit: Yes Status: Acute Assessment and Plan: Most likely secondary to surgery - O2 sat 95% on 4L simple mask Pt is POD#1 with t max of 100.5*F - post-op fever may be due to atelectasis Plan: - monitor O2 sat and HR, will do CXR if hypoxia persists to r/o atelectasis - encourage incentive spirometry DVT Prophylaxis: sq heparin - Time Spent with Patient Total time spent is greater than 50% in coordination of care (as documented) at patient's floor/unit and/or counseling patient: less than 15 minutes Plan of Care Discussed with: nurse Internal Medicine: Result - Labs CBC & Chem 7: 04/13/18 03:20 04/13/18 03:20 Labs: Short CBC 04/13/18 Range/Units 03:20 WBC 7.8 (4.3-11.1) K/mcL Hgb 11.2 L D (12.9-16.9) g/dL Hct 36.2 L (37.5-50.1) % Plt Count 323 (140-400) K/mcL Neutrophils # 6.9 (1.6-8.9) K/mcL BMP 04/12/18 04/13/18 13:17 03:20 Sodium 148 H 148 H Potassium 3.8 5.0 D Chloride 114 H 112 H Carbon Dioxide 27 29 BUN 9 10 Creatinine 1.33 H 1.34 H Glucose 104 138 H Calcium 9.3 8.6 Liver Function 04/13/18 Range/Units 03:20 Total Bilirubin 0.4 (0.3-1.0) mg/dL AST 42 H (13-39) Units/L ALT 14 (7-52) Units/L Alkaline Phosphatase 77 (34-104) Units/L Albumin 3.1 L (3.5-5.7) g/dL - ABG Interpretation ABG results: PT/INR, D-dimer PT 13.7 Seconds (9.4-12.1) H 03/30/18 15:19 - Impressions Impressions Cholangiogram,Operative 04/12/18 00:00 IMPRESSION: Intraoperative cholangiogram during cholecystectomy without evident complication. D/ / Jun Parker / Jun Parker Interpreting Provider: Jun Parker Consult Discharge Plan - Plan Additional Instructions: Coordinate mental health follow up once surgery is complete. Referrals: Matthew Pedraza MD [Partnered Physician] - 05/02/18 8:45 am [facility] - 04/14/18 10:30 am (THIS APPOINTMENT IS WITH THE [facility]) <Verna Mcmanus - Last Filed: 04/13/18 16:54> Hospitalist Progress Note - Encounter Date of Encounter: 04/13/18 - Exam Vitals: Temp Pulse Resp BP Pulse Ox 97.5 F L 88 19 107/71 98 04/13/18 16:11 04/13/18 16:11 04/13/18 16:11 04/13/18 16:11 04/13/18 16:11 - Assessment and Plan (1) Fall Current Visit: Yes Status: Acute (2) Alcoholism Current Visit: No Status: Chronic (3) NIKITA (acute kidney injury) Current Visit: Yes Status: Resolved (4) Schizophrenia Current Visit: No Status: Chronic (5) Acute cholecystitis Current Visit: Yes Status: Acute (6) Acute encephalopathy Current Visit: Yes Status: Resolved (7) Alcohol withdrawal delirium Current Visit: Yes Status: Acute (8) Leukocytosis Current Visit: Yes Status: Resolved (9) Overweight (BMI 25.0-29.9) Current Visit: No Status: Chronic (10) Constipation Current Visit: Yes Status: Acute (11) Sepsis Current Visit: Yes Status: Acute (12) Hypoxia Current Visit: Yes Status: Acute - Time Spent with Patient Total time spent is greater than 50% in coordination of care (as documented) at patient's floor/unit and/or counseling patient: Internal Medicine: Result - Labs CBC & Chem 7: 04/13/18 03:20 04/13/18 14:25 Labs: Short CBC 04/13/18 Range/Units 03:20 WBC 7.8 (4.3-11.1) K/mcL Hgb 11.2 L D (12.9-16.9) g/dL Hct 36.2 L (37.5-50.1) % Plt Count 323 (140-400) K/mcL Neutrophils # 6.9 (1.6-8.9) K/mcL BMP 04/13/18 04/13/18 03:20 14:25 Sodium 148 H 145 Potassium 5.0 D 4.1 Chloride 112 H 108 H Carbon Dioxide 29 33 H BUN 10 10 Creatinine 1.34 H 1.41 H Glucose 138 H 131 H Calcium 8.6 8.8 Liver Function 04/13/18 Range/Units 03:20 Total Bilirubin 0.4 (0.3-1.0) mg/dL AST 42 H (13-39) Units/L ALT 14 (7-52) Units/L Alkaline Phosphatase 77 (34-104) Units/L Albumin 3.1 L (3.5-5.7) g/dL - ABG Interpretation ABG results: PT/INR, D-dimer PT 13.7 Seconds (9.4-12.1) H 03/30/18 15:19 - Impressions Impressions Cholangiogram,Operative 04/12/18 00:00 IMPRESSION: Intraoperative cholangiogram during cholecystectomy without evident complication. D/ / Jun Parker / Jun Parker Interpreting Provider: Jun Parker - Attending Attestation I examined this patient and my medical decision-making was reviewed with the Resident Physician Dr. Schaeffer. I agree with the documented findings, disposition and treatment plan as described except to the extent set forth below. Mr. Gooden is a 57-year-old gentlemen with known history of schizophrenia and substance abuse patient who is chronic alcohol dependence admitted here with acute abdominal pain and the fall. Patient CT of abdomen showed acute cholecystitis. He is alert, awake oriented to place and self only. Still looks confused. Had T jessica 100.5 y/d. Had laproscopic choleystectomy Gen: Sleepy, tremors +, confused Chest: Diminished BS b/l, No wheezing, no crackles Heart: S1S2+ sinus tachy Abd: Soft, NT a/p 1. Sepsis with necrotizing gallbladder 2. Acute cholecystitis s/p Lap Cholecystecotmy cont empirical abx Zosyn cont close montoring appreciate surgery recommendations 3. Acute hypoxia mostly due to sedative, post op no further work up needed try to wean him off the O2 as he tolerates duoneb and incentive spirometry 4. Acute delirium 5. Alcohol DT's mixed etiology probably due to toxic encephalopathy and alcohol intoxication Cont CIWA protocol IV hydration 6. Hypernatremia due to dehydration Improving slowly Cont d5 with water cont close monitoring <Magdiel Schaeffer S - Last Filed: 04/13/18 11:13> (1) Sepsis Qualifiers: Sepsis type: sepsis due to unspecified organism Qualified Code(s): A41.9 - Sepsis, unspecified organism (3) Leukocytosis Qualifiers: Leukocytosis type: unspecified Qualified Code(s): D72.829 - Elevated white blood cell count, unspecified (4) Fall Qualifiers: Encounter type: initial encounter Qualified Code(s): W19.XXXA - Unspecified fall, initial encounter (7) Schizophrenia Qualifiers: Schizophrenia type: paranoid schizophrenia Qualified Code(s): F20.0 - Paranoid schizophrenia (11) Constipation Qualifiers: Constipation type: unspecified constipation type Qualified Code(s): K59.00 - Constipation, unspecified <Thallapaneni,Rambabu - Last Filed: 04/13/18 16:54> (1) Fall Qualifiers: Encounter type: initial encounter Qualified Code(s): W19.XXXA - Unspecified fall, initial encounter (4) Schizophrenia Qualifiers: Schizophrenia type: paranoid schizophrenia Qualified Code(s): F20.0 - Paranoid schizophrenia (8) Leukocytosis Qualifiers: Leukocytosis type: unspecified Qualified Code(s): D72.829 - Elevated white blood cell count, unspecified (10) Constipation Qualifiers: Constipation type: unspecified constipation type Qualified Code(s): K59.00 - Constipation, unspecified (11) Sepsis Qualifiers: Sepsis type: sepsis due to unspecified organism Qualified Code(s): A41.9 - Sepsis, unspecified organism
[2018-04-13] MEDS: D5% in Water 1,000 ML IVC SCH ×2 (09:10→17:31)
[2018-04-13] MEDS: Piperacillin/Tazobactam 3.375 GM in 0.9 % Sodium Chloride Mini Bag 100 ML IVPB SCH ×2 (09:11→16:07)
[2018-04-13] MEDS: Insulin LISPRO 300 UNITS/3 ML VIAL SQ SCH ×3 (09:11→20:16)
[2018-04-13] MEDS: Aspirin 81 MG TAB.CHEW PO SCH (09:26)
[2018-04-13] MEDS: Lactulose Oral Soln 20 GM/30 ML UDC PO SCH ×2 (09:27→22:03)
[2018-04-13] MEDS: Folic Acid 1 MG TABLET PO SCH (09:27)
[2018-04-13] MEDS: Thiamine (B-1) 100 MG TABLET PO SCH (09:28)
[2018-04-13] MEDS: Sennosides/Docusate Sodium TABLET PO SCH ×2 (09:28→22:04)
[2018-04-13] MEDS: Cholecalciferol (D-3) 1,000 UNIT TABLET PO SCH (09:28)
[2018-04-13] MEDS: Metoprolol XL (24 HR) Succ 25 MG TAB.ER.24H PO SCH (09:28)
--- NOTE | 2018-04-13 09:28 | General Surgery Progress Note ---
<Anai Kulkarni - Last Filed: 04/13/18 09:25> Date of Encounter: 04/13/18 Time of Encounter: 08:00 - Assessment and Plan (1) Acute cholecystitis Current Visit: Yes Status: Acute Date of procedure: 04/12/18 Pre-op diagnosis: Acute cholecystitis Post-op diagnosis: other (Necrotic gallbladder and acute cholecystitis) Procedure: Laparoscopic cholecystectomy, cholangiogram Anesthesia: GETA Surgeon: Matthew Pedraza POD #1 uncomplicated procedure as above. His exam as loosely as expected. -Recommend continue IV antibiotics for another 48 hours then from a surgical standpoint okay for antibiotics to be DC'd. -Recommend continuing physical and occupational therapy for mobilization and discharge planning per primary team. -Clear liquid diet, advanced diet as tolerated. - OK to d/c from a surgical perspective pending completion of IV ATBX and tolerates diet. Subjective Narrative: Unable to obtain subjective information. Objective Vital Signs - Last 8 Hours Temp Pulse Resp BP Pulse Ox 04/13/18 06:39 100.5 F H 04/13/18 06:32 100.1 F H 108 117/77 95 04/13/18 05:27 99.5 F 128 145/87 04/13/18 03:20 99.2 F 124 18 116/73 96 04/13/18 02:00 97.3 F L Intake and Output 04/12/18 04/13/18 04/13/18 23:59 07:59 15:59 Intake Total 1250 / 1250 100 / 100 Output Total 1025 / 1025 300 / 300 Balance 225 / 225 -200 / -200 Intake: IV Fluids 1250 / 1250 100 / 100 Zosyn 3.375 GM In 0.9 % Sodium 100 / 100 Chloride (Mini-Bag +) 100 ML @ 25 mls/hr IVPB Q8HR [facility] Rx#: [id number] Vancocin 1,000 MG In 0.9 % 250 / 250 Sodium Chloride 250 ML @ 167 mls/hr IVPB Q12H [facility] Rx#: [id number] Output: Urine 600 / 600 Estimated Blood Loss 25 / 25 Catheter 400 / 400 300 / 300 Other: Meal Breakfast Percent of Meal Consumed 0% Weight 95.8 kg Blood Glucose* 122 174 Patient Weight 04/13/18 23:59 Weight 95.8 kg - General physical appearance no distress - ENT poor usp - Respiratory normal expansion, normal respiratory effort, clear to auscultation - Cardiovascular Cardiovascular exam: Present: RRR - Abdomen Abdomen: Present: bowel sounds present, soft, tender (Expected postoperative) Hernia: none - Incision Incision: Present: clean and dry, intact - Integumentary no rash - Musculoskeletal other (resting in bed. reaches for hand as we approach bedside) - Psychiatric other - Labs 04/13/18 03:20 04/13/18 03:20 Diabetes panel 04/12/18 04/13/18 Range/Units 13:17 03:20 Sodium 148 H 148 H (136-145) mEq/L Potassium 3.8 5.0 D (3.5-5.1) mEq/L Chloride 114 H 112 H (98-107) mEq/L Carbon Dioxide 27 29 (23-29) mEq/L BUN 9 10 (6-20) mg/dL Creatinine 1.33 H 1.34 H (0.70-1.30) mg/dL Glucose 104 138 H (70-105) mg/dL Calcium 9.3 8.6 (8.6-10.3) mg/dL AST 42 H (13-39) Units/L ALT 14 (7-52) Units/L Alkaline Phosphatase 77 (34-104) Units/L Albumin 3.1 L (3.5-5.7) g/dL Calcium panel 04/12/18 04/13/18 Range/Units 13:17 03:20 Calcium 9.3 8.6 (8.6-10.3) mg/dL Albumin 3.1 L (3.5-5.7) g/dL Pituitary panel 04/12/18 04/13/18 Range/Units 13:17 03:20 Sodium 148 H 148 H (136-145) mEq/L Potassium 3.8 5.0 D (3.5-5.1) mEq/L Chloride 114 H 112 H (98-107) mEq/L Carbon Dioxide 27 29 (23-29) mEq/L BUN 9 10 (6-20) mg/dL Creatinine 1.33 H 1.34 H (0.70-1.30) mg/dL Glucose 104 138 H (70-105) mg/dL Calcium 9.3 8.6 (8.6-10.3) mg/dL Adrenal panel 04/12/18 04/13/18 Range/Units 13:17 03:20 Sodium 148 H 148 H (136-145) mEq/L Potassium 3.8 5.0 D (3.5-5.1) mEq/L Chloride 114 H 112 H (98-107) mEq/L Carbon Dioxide 27 29 (23-29) mEq/L BUN 9 10 (6-20) mg/dL Creatinine 1.33 H 1.34 H (0.70-1.30) mg/dL Glucose 104 138 H (70-105) mg/dL Calcium 9.3 8.6 (8.6-10.3) mg/dL Total Bilirubin 0.4 (0.3-1.0) mg/dL AST 42 H (13-39) Units/L ALT 14 (7-52) Units/L Alkaline Phosphatase 77 (34-104) Units/L Albumin 3.1 L (3.5-5.7) g/dL Consult Discharge Plan - Plan Additional Instructions: Coordinate mental health follow up once surgery is complete. Referrals: Matthew Pedraza MD [Partnered Physician] - 05/02/18 8:45 am [facility] - 04/14/18 10:30 am (THIS APPOINTMENT IS WITH [facility]) <Matthew Pedraza - Last Filed: 04/13/18 15:00> Date of Encounter: 04/13/18 - Assessment and Plan (1) Acute cholecystitis Current Visit: Yes Status: Acute Objective Vital Signs - Last 8 Hours Temp Pulse Resp BP Pulse Ox 04/13/18 13:41 93 04/13/18 11:16 99.1 F 97 16 107/68 92 04/13/18 11:04 99.1 F Intake and Output 04/12/18 04/13/18 04/13/18 23:59 07:59 15:59 Intake Total 1250 / 1250 100 / 100 100 / 100 Output Total 1025 / 1025 300 / 300 400 / 400 Balance 225 / 225 -200 / -200 -300 / -300 Intake: IV Fluids 1250 / 1250 100 / 100 100 / 100 Zosyn 3.375 GM In 0.9 % Sodium 100 / 100 100 / 100 Chloride (Mini-Bag +) 100 ML @ 25 mls/hr IVPB Q8HR [facility] Rx#: [id number] Vancocin 1,000 MG In 0.9 % 250 / 250 Sodium Chloride 250 ML @ 167 mls/hr IVPB Q12H [facility] Rx#: [id number] Output: Urine 600 / 600 Estimated Blood Loss 25 / 25 Catheter 400 / 400 300 / 300 400 / 400 Other: Meal Lunch Percent of Meal Consumed 0% Weight 95.8 kg Blood Glucose* 122 174 126 Patient Weight 04/13/18 23:59 Weight 95.8 kg - Labs 04/13/18 03:20 04/13/18 03:20 Diabetes panel 04/13/18 Range/Units 03:20 Sodium 148 H (136-145) mEq/L Potassium 5.0 D (3.5-5.1) mEq/L Chloride 112 H (98-107) mEq/L Carbon Dioxide 29 (23-29) mEq/L BUN 10 (6-20) mg/dL Creatinine 1.34 H (0.70-1.30) mg/dL Glucose 138 H (70-105) mg/dL Calcium 8.6 (8.6-10.3) mg/dL AST 42 H (13-39) Units/L ALT 14 (7-52) Units/L Alkaline Phosphatase 77 (34-104) Units/L Albumin 3.1 L (3.5-5.7) g/dL Calcium panel 04/13/18 Range/Units 03:20 Calcium 8.6 (8.6-10.3) mg/dL Albumin 3.1 L (3.5-5.7) g/dL Pituitary panel 04/13/18 Range/Units 03:20 Sodium 148 H (136-145) mEq/L Potassium 5.0 D (3.5-5.1) mEq/L Chloride 112 H (98-107) mEq/L Carbon Dioxide 29 (23-29) mEq/L BUN 10 (6-20) mg/dL Creatinine 1.34 H (0.70-1.30) mg/dL Glucose 138 H (70-105) mg/dL Calcium 8.6 (8.6-10.3) mg/dL Adrenal panel 04/13/18 Range/Units 03:20 Sodium 148 H (136-145) mEq/L Potassium 5.0 D (3.5-5.1) mEq/L Chloride 112 H (98-107) mEq/L Carbon Dioxide 29 (23-29) mEq/L BUN 10 (6-20) mg/dL Creatinine 1.34 H (0.70-1.30) mg/dL Glucose 138 H (70-105) mg/dL Calcium 8.6 (8.6-10.3) mg/dL Total Bilirubin 0.4 (0.3-1.0) mg/dL AST 42 H (13-39) Units/L ALT 14 (7-52) Units/L Alkaline Phosphatase 77 (34-104) Units/L Albumin 3.1 L (3.5-5.7) g/dL - Attending Attestation I examined this patient and my medical decision-making was reviewed with the Resident Physician. I agree with the documented findings, disposition and treatment plan as described except to the extent set forth below. The patient is seen and evaluated on morning rounds with the resident and the clinical nurse practitioner. He really does not respond much to me. His incisions are clean and dry. We will try and continue supportive care until he gets back to his baseline. Successful laparoscopic cholecystectomy for gallbladder necrosis. Matthew Pedraza MD FACS
[2018-04-13] MEDS: Valproic Acid Oral Soln 250 MG/5 ML UDC PO SCH ×4 (09:29→22:03)
[2018-04-13 15:23] LABS: BUN/Creatinine Ratio 7 (6-26); Blood Urea Nitrogen 10 mg/dL (6-20); Calcium 8.8 mg/dL (8.6-10.3); Carbon Dioxide 33 mEq/L (23-29); Chloride 108 mEq/L (98-107); Glucose 131 mg/dL (70-105); Osmolality,Calculated 301 (280-300); Potassium 4.1 mEq/L (3.5-5.1); Sodium 145 mEq/L (136-145); eGFR For Non-African Americans 52 (> 60)
[2018-04-14] MEDS: Piperacillin/Tazobactam 3.375 GM in 0.9 % Sodium Chloride Mini Bag 100 ML IVPB SCH ×3 (00:11→17:03)
[2018-04-14] MEDS: Insulin LISPRO 300 UNITS/3 ML VIAL SQ SCH ×4 (00:26→17:29)
[2018-04-14] MEDS: D5% in Water 1,000 ML IVC SCH ×2 (01:31→17:04)
[2018-04-14 03:58] LABS: Basophils % 0.3 %; Eosinophils % 0.5 %; Hematocrit 33.1 % (37.5-50.1); Immature Granulocytes % 0.5 % (0-4); Lymphocytes # 1.5 K/mcL (0.6-4.6); Lymphocytes % 24.2 %; Mean Corpuscular HGB Conc 30.8 g/dL (31.6-35.5); Mean Corpuscular Hemoglobin 30.8 pg (28.0-33.3); Mean Platelet Volume 9.8 fL (9.4-12.4); Monocytes # 0.5 K/mcL (0.0-1.3); Monocytes % 7.7 %; Neutrophils # 4.3 K/mcL (1.6-8.9); Platelet Count 258 K/mcL (140-400); Red Blood Count 3.31 M/mcL (4.19-5.50); Red Cell Distribution Width 12.1 % (11.5-14.5); Segmented Neutrophils % 66.8 %
[2018-04-14 03:59] LABS: Hemoglobin 10.2 g/dL (12.9-16.9)
[2018-04-14 04:16] LABS: Alanine Aminotransferase 16 Units/L (7-52); Albumin/Globulin Ratio 0.8 (1.1-2.2); Alkaline Phosphatase 74 Units/L (34-104); Aspartate Amino Transferase 42 Units/L (13-39); BUN/Creatinine Ratio 6 (6-26); Bilirubin,Total 0.5 mg/dL (0.3-1.0); Blood Urea Nitrogen 8 mg/dL (6-20); Calcium 8.6 mg/dL (8.6-10.3); Carbon Dioxide 30 mEq/L (23-29); Chloride 105 mEq/L (98-107); Globulin 3.6 g/dL (2.4-3.5); Glucose 122 mg/dL (70-105); Osmolality,Calculated 296 (280-300); Potassium 3.7 mEq/L (3.5-5.1); Sodium 143 mEq/L (136-145); Total Protein 6.6 g/dL (6.4-8.9); eGFR For Non-African Americans 53 (> 60)
[2018-04-14] MEDS: Acetaminophen 325 MG TABLET PO PRN (04:57)
[2018-04-14] MEDS: *HR* Heparin 5,000 UNIT/ML VIAL SQ SCH ×2 (04:58→17:07)
[2018-04-14] MEDS: Lactulose Oral Soln 20 GM/30 ML UDC PO SCH ×2 (09:45→20:37)
[2018-04-14] MEDS: Sennosides/Docusate Sodium TABLET PO SCH ×2 (09:46→20:37)
[2018-04-14] MEDS: Folic Acid 1 MG TABLET PO SCH (09:46)
[2018-04-14] MEDS: Aspirin 81 MG TAB.CHEW PO SCH (09:46)
[2018-04-14] MEDS: Metoprolol XL (24 HR) Succ 25 MG TAB.ER.24H PO SCH (09:46)
[2018-04-14] MEDS: Thiamine (B-1) 100 MG TABLET PO SCH (09:47)
[2018-04-14] MEDS: Cholecalciferol (D-3) 1,000 UNIT TABLET PO SCH (09:48)
--- NOTE | 2018-04-14 09:50 | Internal Med Progress Note ---
<Magdiel Schaeffer S - Last Filed: 04/14/18 11:04> Hospitalist Progress Note - Encounter Date of Encounter: 04/14/18 Time of Encounter: 09:49 - Subjective Interval History: Pt is seen at [facility] He is a 57yo male with an extensive hx of EtOH abuse and mental health issues. He is shivering in bed and appears to be in distress. He is hard to arouse and I have to ask him multiple times to get any qustions. On admission he was unsure about why he is here or what is going on but knows he had a fall. -Another resident found him in the bathroom at [facility] according to notes from night resident -he has been increasing his EtOH intake over the last few months 04/11/18 - Overnight the pt was continuously febrile at 102.3 and 101.3*F -CXR continued to show no acute changes -pt stared on Vanc/Zosyn as per night team -nursing reports that the pt is much more rigid and is shaking today -he is unable to tell me what year it is, who the president is, or what year he was born in 04/13/18 - pt had sx with Dr. Pedraza yesterday and was found to have a necrotic gallbladder. -Overnight (04/13) he was hypothermic (t min of 97.3) as per rectal temperature and had to be placed in a bear hugger Today the pt is hard to arouse. He is answering questions sometimes. Responds to sternal rub. - has no complaints of chest pain, SOB, N/V/D - no complaints of abd pain - Exam Vitals: Temp Pulse Resp BP Pulse Ox 97.9 F 82 16 144/81 94 04/14/18 07:46 04/14/18 07:46 04/14/18 07:46 04/14/18 07:46 04/14/18 07:46 Exam: Constitutional: hard to get answers from pt, aox1 Head: Normocephalic, atraumatic Heart: Normal, tacycardia, no murmur Lungs: On RA ,Clear to auscultation, no wheezes, rales, or rhonchi Abdomen: Soft, distention improving but no rebound or guarding, nontender, incisions are clean and dry, no serosanginous fluid coming out Extremities: No edema, No clubbing, radial pulse +2/4, capillary refill <2sec. Skin: Skin warm and dry, no lesions, no rashes, no jaundice Neurologic: unable to perform - Assessment and Plan (1) Sepsis Current Visit: Yes Status: Resolved Assessment and Plan: Currently the pt meets SIRS criteria for t 97.9, HR 82 - white count of 6.4 -t max in the last 24hrs 99.5 -source of infxn removed, s/p POD#2 laparoscopic cholecystectomy with intraoperative cholangiogram - CXR negative for acute process x2 - UA had WBC, however, many squamous cells , most likely a contaminate - Lactic acid 1.4, repeat 0.6 - Legionella antigen (-) - CT abdomen showed acute cholecystitis, pt went to OR yesterday - HIDA scan was limited due to early termination 2/ pt compliance -no visualization of GB by 35min, acute cholecystitis favored for diagnosis Plan: - surgery reconsulted, s/p POD#2 laparoscopic cholecystectomy with intraop cholangiogram - zosyn day 4 (d/c tomorrow 04/15 as per surgery) - vancomycin d/c after 2 days of tx - blood cx pending - 125cc/hr 0.9% NS changed to 125cc D5 in water; ISS and accuchecks ---> decreased to 75cc this morning - s pneumo antigen pending - clear liquid diet as per surgery - up to chair today, OOB (2) Acute cholecystitis Current Visit: Yes Status: Acute Assessment and Plan: CT of abdomen showed acute cholecystitis on admission -ultrasound of gallbladder showed: Cholelithiasis and thickening of the gallbladder wall with the mild distention concerning for acute cholecystitis - CT abdomen 04/11 showed acute cholecystitis - HIDA scan favors dx of acute cholecystitis Pt was brought to OR yesterday with Dr. Pedraza - laparoscopic cholecystecomy with intraoperative cholangiogram, had >30% necrotic gallbladder Plan: - see plan above - CLD as per surgery , advance as tolerated - vancomycin d/c yesterday - zosyn day 4 , d/c tomorrow - surgery consulted, appreciate recommendations -social work to see for placement to ECF as per PTOT recommendation ---> [facility]. Trying to figure out placement for him still -PT/OT missed apt again due to sedation (3) Leukocytosis Current Visit: Yes Status: Resolved Assessment and Plan: New WBC count of 14.2 (04/10) increased to 15.8 on 04/11 --> 12.2 (04/12) ---> 7.8 (04/13) ---> 6.4 (04/14) UA showed negative leukocyte esterase/nitritres; TNTC rbc, (+) wbc CXR negative x2 Legionella anitgen negative Lactic acid 1.[address] abd and pelvis showed acute cholecystitis -s/p POD#2 laparoscopic cholecystectomy with intraop cholangiogram Plan: - 75cc/hr D5 in water - Blood cx pending - s pneumo antigen pending - Vanc d/c yesterday - Zosyn day 3, d/c tomorrow - recheck cbc in AM (4) Fall Current Visit: Yes Status: Acute Assessment and Plan: Workup for fall showed no acute changes on CXR, CT head or neck, no s/s of injury, no bruises. Continue fall risk precautions. 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 -continues to be drowsy and not eating well. -much more tremulous and rigid today Plan: -Will continue to hold the Librium. - folic acid and thiamine vitamin daily - ativan held 2/2 lethargy - psych consulted (6) NIKITA (acute kidney injury) Current Visit: Yes Status: Resolved Assessment and Plan: Creatinine on admission 1.69 Creatinine today 1.38, most likely 2/2 poor PO intake Plan: -[facility] renal fxn -BMP in AM (7) Schizophrenia Current Visit: No Status: Chronic Assessment and Plan: Continue home meds, unable to get yesterday depakote due to drowsiness. Plan: - consult psychiatry (8) Acute encephalopathy Current Visit: Yes Status: Resolved Assessment and Plan: Most likely due to EtOH withdrawal, Still has abnormal behavior despite lesser withdrawal symptoms. Plan: - folic acid and thiamine vitamin daily - Librium dose held all yesterday, continuing to hold - ativan held 2/2 lethargy - psch consulted (9) Alcohol withdrawal delirium Current Visit: Yes Status: Acute Assessment and Plan: see plan above. (10) Overweight (BMI 25.0-29.9) Current Visit: No Status: Chronic Assessment and Plan: BMI 29 -lifestyle modification (11) Constipation Current Visit: Yes Status: Resolved Assessment and Plan: Senna plus and miralax -lactulose 10mg PO BID -pt had BM 04/11 after 8 days of constipation (12) Hypoxia Current Visit: Yes Status: Acute Assessment and Plan: Most likely secondary to surgery - O2 sat 94% 2L NC Pt is POD#2 - post-op fever may be due to atelectasis, however, fever has resolved Plan: - encourage incentive spirometry DVT Prophylaxis: sq heparin - Time Spent with Patient Total time spent is greater than 50% in coordination of care (as documented) at patient's floor/unit and/or counseling patient: less than 15 minutes Plan of Care Discussed with: patient Internal Medicine: Result - Labs CBC & Chem 7: 04/14/18 03:40 04/14/18 03:40 Labs: Short CBC 04/14/18 Range/Units 03:40 WBC 6.4 (4.3-11.1) K/mcL Hgb 10.2 L (12.9-16.9) g/dL Hct 33.1 L (37.5-50.1) % Plt Count 258 (140-400) K/mcL Neutrophils # 4.3 (1.6-8.9) K/mcL BMP 04/13/18 04/14/18 14:25 03:40 Sodium 145 143 Potassium 4.1 3.7 Chloride 108 H 105 Carbon Dioxide 33 H 30 H BUN 10 8 Creatinine 1.41 H 1.38 H Glucose 131 H 122 H Calcium 8.8 8.6 Liver Function 04/14/18 Range/Units 03:40 Total Bilirubin 0.5 (0.3-1.0) mg/dL AST 42 H (13-39) Units/L ALT 16 (7-52) Units/L Alkaline Phosphatase 74 (34-104) Units/L Albumin 3.0 L (3.5-5.7) g/dL - ABG Interpretation ABG results: PT/INR, D-dimer PT 13.7 Seconds (9.4-12.1) H 03/30/18 15:19 Consult Discharge Plan - Plan Additional Instructions: Coordinate mental health follow up once surgery is complete. General Surgical Discharge Instructions 1. No pushing, pulling, or lifting greater than 15 lbs for 2 weeks 2. You may shower beginning today, but no tub baths, soaking, or swimming for 2 weeks. 3. Take ibuprofen every 8 hours for discomfort. If this does not relieve discomfort, you may take the as needed Percocet. Take narcotics as directed. Do not take more narcotics then directed and do not share your narcotics with any other person. Do not drink alcohol while on narcotics. 4. Take stool softeners (Colace) or a water based laxative (Miralax) while taking narcotics. You may hold for loose stools. 5. Report any fevers greater than 100.5F, increase abdominal discomfort, drainage that looks like pus, increased redness or pain at the surgical site, or any vomiting. 6. Report any pain in the calves, shortness of breath, or rapid heartbeat. 7. Follow-up in the office as directed. Referrals: Matthew Pedraza MD [Partnered Physician] - 05/02/18 8:45 am PR,PCP [Primary Care Provider] - 04/14/18 10:30 am (THIS APPOINTMENT IS WITH THE [facility] TEAM) <Verna Mcmanus - Last Filed: 04/14/18 16:17> Hospitalist Progress Note - Encounter Date of Encounter: 04/14/18 - Exam Vitals: Temp Pulse Resp BP Pulse Ox 98.3 F 100 14 147/111 97 04/14/18 11:06 04/14/18 11:06 04/14/18 11:06 04/14/18 11:06 04/14/18 11:06 - Assessment and Plan (1) Fall Current Visit: Yes Status: Acute (2) Alcoholism Current Visit: No Status: Chronic (3) NIKITA (acute kidney injury) Current Visit: Yes Status: Resolved (4) Schizophrenia Current Visit: No Status: Chronic (5) Acute cholecystitis Current Visit: Yes Status: Acute (6) Acute encephalopathy Current Visit: Yes Status: Acute (7) Alcohol withdrawal delirium Current Visit: Yes Status: Acute (8) Leukocytosis Current Visit: Yes Status: Resolved (9) Overweight (BMI 25.0-29.9) Current Visit: No Status: Chronic (10) Constipation Current Visit: Yes Status: Resolved (11) Sepsis Current Visit: Yes Status: Resolved (12) Hypoxia Current Visit: Yes Status: Acute - Time Spent with Patient Total time spent is greater than 50% in coordination of care (as documented) at patient's floor/unit and/or counseling patient: Internal Medicine: Result - Labs CBC & Chem 7: 04/14/18 03:40 04/14/18 03:40 Labs: Short CBC 04/14/18 Range/Units 03:40 WBC 6.4 (4.3-11.1) K/mcL Hgb 10.2 L (12.9-16.9) g/dL Hct 33.1 L (37.5-50.1) % Plt Count 258 (140-400) K/mcL Neutrophils # 4.3 (1.6-8.9) K/mcL BMP 04/14/18 03:40 Sodium 143 Potassium 3.7 Chloride 105 Carbon Dioxide 30 H BUN 8 Creatinine 1.38 H Glucose 122 H Calcium 8.6 Liver Function 04/14/18 Range/Units 03:40 Total Bilirubin 0.5 (0.3-1.0) mg/dL AST 42 H (13-39) Units/L ALT 16 (7-52) Units/L Alkaline Phosphatase 74 (34-104) Units/L Albumin 3.0 L (3.5-5.7) g/dL - ABG Interpretation ABG results: PT/INR, D-dimer PT 13.7 Seconds (9.4-12.1) H 03/30/18 15:19 - Attending Attestation I examined this patient and my medical decision-making was reviewed with the Resident Physician Dr. Schaeffer. I agree with the documented findings, disposition and treatment plan as described except to the extent set forth below. Mr. Gooden is a 57-year-old gentlemen with known history of schizophrenia and substance abuse patient who is chronic alcohol dependence admitted here with acute abdominal pain and the fall. Patient CT of abdomen showed acute cholecystitis. He is alert, awake oriented to place and self only. Still looks confused. Had laproscopic choleystectomy Gen: Sleepy, tremors +, confused Chest: Diminished BS b/l, No wheezing, no crackles Heart: S1S2+ sinus tachy Abd: Soft, NT a/p 1. Sepsis with necrotizing gallbladder 2. Acute cholecystitis s/p Lap Cholecystecotmy POD #2 cont empirical abx Zosyn cont close monitoring appreciate surgery recommendations 3. Acute hypoxia mostly due to sedative, post op and deconditioning improving no further work up needed try to wean him off the O2 as he tolerates duoneb and incentive spirometry 4. Acute delirium 5. Alcohol DT's mixed etiology probably due to toxic encephalopathy and alcohol intoxication 6. Hypernatremia due to dehydration Improved Cont d5 with water @ 60 ml/hr 7. Dysphagia / protein caloric malnutrition unable to put NG tube for feedings due to his delirium will put PICC Line and start TPN tonight check pre albumin level in AM <Magdiel Schaeffer - Last Filed: 04/14/18 11:04> (1) Sepsis Qualifiers: Sepsis type: sepsis due to unspecified organism Qualified Code(s): A41.9 - Sepsis, unspecified organism (3) Leukocytosis Qualifiers: Leukocytosis type: unspecified Qualified Code(s): D72.829 - Elevated white blood cell count, unspecified (4) Fall Qualifiers: Encounter type: initial encounter Qualified Code(s): W19.XXXA - Unspecified fall, initial encounter (7) Schizophrenia Qualifiers: Schizophrenia type: paranoid schizophrenia Qualified Code(s): F20.0 - Paranoid schizophrenia (11) Constipation Qualifiers: Constipation type: unspecified constipation type Qualified Code(s): K59.00 - Constipation, unspecified <Thallapaneni,Rambabu - Last Filed: 04/14/18 16:17> (1) Fall Qualifiers: Encounter type: initial encounter Qualified Code(s): W19.XXXA - Unspecified fall, initial encounter (4) Schizophrenia Qualifiers: Schizophrenia type: paranoid schizophrenia Qualified Code(s): F20.0 - Paranoid schizophrenia (8) Leukocytosis Qualifiers: Leukocytosis type: unspecified Qualified Code(s): D72.829 - Elevated white blood cell count, unspecified (10) Constipation Qualifiers: Constipation type: unspecified constipation type Qualified Code(s): K59.00 - Constipation, unspecified (11) Sepsis Qualifiers: Sepsis type: sepsis due to unspecified organism Qualified Code(s): A41.9 - Sepsis, unspecified organism
[2018-04-14] MEDS: Valproic Acid Oral Soln 250 MG/5 ML UDC PO SCH ×3 (10:20→20:37)
--- NOTE | 2018-04-14 14:02 | General Surgery Progress Note ---
<Elzbieta Gallagher - Last Filed: 04/14/18 13:59> Date of Encounter: 04/14/18 Time of Encounter: 13:00 - Assessment and Plan (1) Acute cholecystitis Current Visit: Yes Status: Acute POD #[address] Pedraza Pathology- Gallbladder, cholecystectomy: Acute and chronic cholecystitis. Cholelithiasis. One lymph node with reactive change. IV antibiotics- Zosyn (may transition to Augmentin upon discharge Advance diet as tolerated Supportive care PPI therapy daily DVT prophylaxis Increase activities as tolerated May discharge from a surgical standpoint when the patient is medically stabilized Please call if any further questions/concerns (2) Alcohol withdrawal delirium Current Visit: Yes Status: Acute Management per medicine service (3) Schizophrenia Current Visit: No Status: Chronic Management per medicine service Qualifiers: Schizophrenia type: paranoid schizophrenia Qualified Code(s): F20.0 - Paranoid schizophrenia (4) Acute encephalopathy Current Visit: Yes Status: Acute Management per medicine service (5) DVT prophylaxis Current Visit: Yes Status: Acute Heparin 5,000 units SQ twice daily for DVT prophylaxis EPCDs to bilateral lower extremities for DVT prophylaxis Subjective Patient reports: no new complaints, afebrile, other (Patient if lying in bed in no acute distress, minimal response with stimulation. Unable to obtain subjective information from patient at this time.) Objective Vital Signs - Last 8 Hours Temp Pulse Resp BP Pulse Ox 04/14/18 11:06 98.3 F 100 14 147/111 97 04/14/18 07:46 97.9 F 82 16 144/81 94 Intake and Output 04/13/18 04/14/18 04/14/18 23:59 07:59 15:59 Intake Total 1100 / 1100 1100 / 1100 240 / 240 Output Total 450 / 450 400 / 400 Balance 650 / 650 1100 / 1100 -160 / -160 Intake: IV Fluids 1100 / 1100 1100 / 1100 Dextrose 5% 1,000 ML @ 125 mls/ 1000 / 1000 1000 / 1000 hr IVC .Q8H NEAL Rx#:[id number] Zosyn 3.375 GM In 0.9 % Sodium 100 / 100 100 / 100 Chloride (Mini-Bag +) 100 ML @ 25 mls/hr IVPB Q8HR NEAL Rx#: [id number] Oral 240 / 240 Output: Urine 400 / 400 Catheter 450 / 450 Other: # Voids 1 # Urine Diapers 1 Weight 97 kg Blood Glucose* 99 127 106 Patient Weight 04/14/18 23:59 Weight 97 kg - General physical appearance no distress, no pain, chronically ill - Eyes PERRL - ENT dry mucosa, atraumatic, normocephalic - Neck Neck exam: trachea midline - Respiratory clear to auscultation, other (diminished bibasilar bases) - Cardiovascular Cardiovascular exam: Present: RRR - Abdomen Abdomen: Present: bowel sounds present, soft, non tender (no tenderness appreciated on examination; no grimace with palpation) - Incision Incision: Present: clean and dry, intact - Neurologic CN 2-12 grossly intact - Musculoskeletal other (physical deconditioning noted) - Psychiatric other (Unable to assess orientation at this time) - Labs 04/14/18 03:40 04/14/18 03:40 Diabetes panel 04/13/18 04/14/18 Range/Units 14:25 03:40 Sodium 145 143 (136-145) mEq/L Potassium 4.1 3.7 (3.5-5.1) mEq/L Chloride 108 H 105 (98-107) mEq/L Carbon Dioxide 33 H 30 H (23-29) mEq/L BUN 10 8 (6-20) mg/dL Creatinine 1.41 H 1.38 H (0.70-1.30) mg/dL Glucose 131 H 122 H (70-105) mg/dL Calcium 8.8 8.6 (8.6-10.3) mg/dL AST 42 H (13-39) Units/L ALT 16 (7-52) Units/L Alkaline Phosphatase 74 (34-104) Units/L Albumin 3.0 L (3.5-5.7) g/dL Calcium panel 04/13/18 04/14/18 Range/Units 14:25 03:40 Calcium 8.8 8.6 (8.6-10.3) mg/dL Albumin 3.0 L (3.5-5.7) g/dL Pituitary panel 04/13/18 04/14/18 Range/Units 14:25 03:40 Sodium 145 143 (136-145) mEq/L Potassium 4.1 3.7 (3.5-5.1) mEq/L Chloride 108 H 105 (98-107) mEq/L Carbon Dioxide 33 H 30 H (23-29) mEq/L BUN 10 8 (6-20) mg/dL Creatinine 1.41 H 1.38 H (0.70-1.30) mg/dL Glucose 131 H 122 H (70-105) mg/dL Calcium 8.8 8.6 (8.6-10.3) mg/dL Adrenal panel 04/13/18 04/14/18 Range/Units 14:25 03:40 Sodium 145 143 (136-145) mEq/L Potassium 4.1 3.7 (3.5-5.1) mEq/L Chloride 108 H 105 (98-107) mEq/L Carbon Dioxide 33 H 30 H (23-29) mEq/L BUN 10 8 (6-20) mg/dL Creatinine 1.41 H 1.38 H (0.70-1.30) mg/dL Glucose 131 H 122 H (70-105) mg/dL Calcium 8.8 8.6 (8.6-10.3) mg/dL Total Bilirubin 0.5 (0.3-1.0) mg/dL AST 42 H (13-39) Units/L ALT 16 (7-52) Units/L Alkaline Phosphatase 74 (34-104) Units/L Albumin 3.0 L (3.5-5.7) g/dL Consult Discharge Plan - Plan Additional Instructions: Coordinate mental health follow up once surgery is complete. General Surgical Discharge Instructions 1. No pushing, pulling, or lifting greater than 15 lbs for 2 weeks 2. You may shower beginning today, but no tub baths, soaking, or swimming for 2 weeks. 3. Take ibuprofen every 8 hours for discomfort. If this does not relieve discomfort, you may take the as needed Percocet. Take narcotics as directed. Do not take more narcotics then directed and do not share your narcotics with any other person. Do not drink alcohol while on narcotics. 4. Take stool softeners (Colace) or a water based laxative (Miralax) while taking narcotics. You may hold for loose stools. 5. Report any fevers greater than 100.5F, increase abdominal discomfort, drainage that looks like pus, increased redness or pain at the surgical site, or any vomiting. 6. Report any pain in the calves, shortness of breath, or rapid heartbeat. 7. Follow-up in the office as directed. Referrals: Matthew Pedraza MD [Partnered Physician] - 05/02/18 8:45 am [place],PCP [Primary Care Provider] - 04/14/18 10:30 am (THIS APPOINTMENT IS WITH THE [facility]) - Attending Attestation For this encounter, I have reviewed the SANITOR or PA documentation, treatment plan, and medical decision making; and I have had face to face time with this patient. <Matthew Pedraza - Last Filed: 04/17/18 09:23> Date of Encounter: 04/14/18 - Assessment and Plan (1) Acute cholecystitis Current Visit: Yes Status: Acute Objective Vital Signs - Last 8 Hours Temp Pulse Resp BP Pulse Ox 04/17/18 06:51 98.7 F 78 18 130/73 94 04/17/18 03:39 98.5 F 77 18 125/74 93 Intake and Output 04/16/18 04/17/18 04/17/18 23:59 07:59 15:59 Intake Total 120 / 120 Balance 120 / 120 Intake: Oral 120 / 120 Other: Meal Dinner Breakfast Percent of Meal Consumed 5% 25% # Voids 1 Weight 92.2 kg Blood Glucose* 114 123 Patient Weight 04/17/18 23:59 Weight 92.2 kg - Labs 04/17/18 04:00 04/17/18 04:00 Diabetes panel 04/17/18 Range/Units 04:00 Sodium 141 (136-145) mEq/L Potassium 3.3 L (3.5-5.1) mEq/L Chloride 104 (98-107) mEq/L Carbon Dioxide 28 (23-29) mEq/L BUN 11 (6-20) mg/dL Creatinine 1.06 (0.70-1.30) mg/dL Glucose 109 H (70-105) mg/dL Calcium 9.1 (8.6-10.3) mg/dL Calcium panel 04/17/18 Range/Units 04:00 Calcium 9.1 (8.6-10.3) mg/dL Pituitary panel 04/17/18 Range/Units 04:00 Sodium 141 (136-145) mEq/L Potassium 3.3 L (3.5-5.1) mEq/L Chloride 104 (98-107) mEq/L Carbon Dioxide 28 (23-29) mEq/L BUN 11 (6-20) mg/dL Creatinine 1.06 (0.70-1.30) mg/dL Glucose 109 H (70-105) mg/dL Calcium 9.1 (8.6-10.3) mg/dL Adrenal panel 04/17/18 Range/Units 04:00 Sodium 141 (136-145) mEq/L Potassium 3.3 L (3.5-5.1) mEq/L Chloride 104 (98-107) mEq/L Carbon Dioxide 28 (23-29) mEq/L BUN 11 (6-20) mg/dL Creatinine 1.06 (0.70-1.30) mg/dL Glucose 109 H (70-105) mg/dL Calcium 9.1 (8.6-10.3) mg/dL - Attending Attestation I have personally performed a face to face evaluation on this patient. I have reviewed and agree with the care plan. History and Exam by me shows: The patient is seen and evaluated on morning rounds with the clinical nurse practitioner. He tolerated his laparoscopic cholecystectomy very well. He did have an area of gallbladder necrosis eroding into the liver. Continue supportive care. He is ready for discharge from a surgery standpoint.
[2018-04-14] MEDS ORDERED: Lidocaine -MPF 1% 5 ML AMPUL INFILT ONE ×2 (14:17→16:13)
[2018-04-15] MEDS: Piperacillin/Tazobactam 3.375 GM in 0.9 % Sodium Chloride Mini Bag 100 ML IVPB SCH ×3 (00:54→14:34)
[2018-04-15] MEDS: Insulin LISPRO 300 UNITS/3 ML VIAL SQ SCH ×4 (01:00→18:22)
[2018-04-15 04:26] LABS: Basophils % 0.6 %; Eosinophils # 0.1 K/mcL (0.0-0.6); Eosinophils % 2.1 %; Hematocrit 31.5 % (37.5-50.1); Hemoglobin 9.9 g/dL (12.9-16.9); Immature Granulocytes % 0.4 % (0-4); Lymphocytes # 1.4 K/mcL (0.6-4.6); Lymphocytes % 26.9 %; Mean Corpuscular HGB Conc 31.4 g/dL (31.6-35.5); Mean Corpuscular Hemoglobin 31.7 pg (28.0-33.3); Mean Platelet Volume 10.2 fL (9.4-12.4); Monocytes # 0.5 K/mcL (0.0-1.3); Monocytes % 10.4 %; Neutrophils # 3.1 K/mcL (1.6-8.9); Platelet Count 223 K/mcL (140-400); Red Blood Count 3.12 M/mcL (4.19-5.50); Red Cell Distribution Width 11.8 % (11.5-14.5); Segmented Neutrophils % 59.6 %
[2018-04-15 04:52] LABS: BUN/Creatinine Ratio 6 (6-26); Blood Urea Nitrogen 8 mg/dL (6-20); Calcium 8.6 mg/dL (8.6-10.3); Carbon Dioxide 31 mEq/L (23-29); Chloride 105 mEq/L (98-107); Glucose 135 mg/dL (70-105); Osmolality,Calculated 298 (280-300); Potassium 3.3 mEq/L (3.5-5.1); Sodium 144 mEq/L (136-145); eGFR For Non-African Americans 53 (> 60)
[2018-04-15] MEDS: *HR* Heparin 5,000 UNIT/ML VIAL SQ SCH ×2 (06:12→18:10)
[2018-04-15] MEDS: D5% in Water 1,000 ML IVC SCH (08:41)
[2018-04-15] MEDS: Metoprolol XL (24 HR) Succ 25 MG TAB.ER.24H PO SCH (08:42)
[2018-04-15] MEDS: Lactulose Oral Soln 20 GM/30 ML UDC PO SCH ×2 (08:42→21:45)
[2018-04-15] MEDS: Folic Acid 1 MG TABLET PO SCH (08:43)
[2018-04-15] MEDS: Aspirin 81 MG TAB.CHEW PO SCH (08:43)
[2018-04-15] MEDS: Thiamine (B-1) 100 MG TABLET PO SCH (08:43)
[2018-04-15] MEDS: Cholecalciferol (D-3) 1,000 UNIT TABLET PO SCH (08:43)
[2018-04-15] MEDS: Valproic Acid Oral Soln 250 MG/5 ML UDC PO SCH ×3 (08:44→21:45)
[2018-04-15] MEDS: Sennosides/Docusate Sodium TABLET PO SCH ×2 (10:11→21:45)
--- NOTE | 2018-04-15 12:31 | Internal Med Progress Note ---
Hospitalist Progress Note - Encounter Date of Encounter: 04/15/18 Time of Encounter: 11:45 - Subjective Interval History: Mr. Gooden is a 57-year-old gentlemen with known history of schizophrenia and substance abuse patient who is chronic alcohol dependence admitted here with acute abdominal pain and the fall. Patient CT of abdomen showed acute cholecystitis. Went through active DT's , so pt was transferred to step down unit on 04/01/18 later he became septic again with fever and tachycardia due cholecystitis with necrotizing gallbladder. He had lap cholecystectomy done on 04/12/18. He is more alert, awake and O to self only. Still looks very confused. - Exam Vitals: Temp Pulse Resp BP Pulse Ox 98.0 F 76 15 101/57 95 04/15/18 11:22 04/15/18 11:22 04/15/18 11:22 04/15/18 11:22 04/15/18 11:22 Exam: Gen: alert, awake and still confused Chest: Diminished breath sounds B/L, No wheezing, No crackles, No rales Heart: S1S2+ RRR No murmurs Abd: Soft, NT, BS +, No organomegaly, clean incision Ext: No edema, pulses are palpable, No calf tenderness Neuro : Benign findings Skin: No rash. - Assessment and Plan (1) Sepsis Current Visit: Yes Status: Resolved Assessment and Plan: Improved mostly due to acute cholecystitis with necrotic gallbladder s/p lap cholecystectomy no need of abx any more (2) Acute encephalopathy Current Visit: Yes Status: Acute Assessment and Plan: Multifactorial due to alcohol encephalopathy, sepsis and DT's He is not DTs any more His current mental status could be his baseline, will talk to his halfway place and find out Ammonia level - WNL Lactulose PRN avoid any benzo folic acid and thiamine vitamin daily (3) Protein-calorie malnutrition, moderate Current Visit: Yes Status: Acute Assessment and Plan: Pt has poor PO intake due to delirium unable to start enteral nutrition with NG tube, due to his delirium / agitation placed a PICC line and started him on TPN today (4) Acute cholecystitis Current Visit: Yes Status: Acute Assessment and Plan: s/p Lap cholecystectomy Improving will d/c abx (5) Alcoholism Current Visit: No Status: Chronic Assessment and Plan: Pt has a [facility] hx of EtOH abuse, has been drinking more as of recently. Cont Folic acid and thiamine vitamin daily Avoid any Benzo's due to delirium (6) Fall Current Visit: Yes Status: Acute Assessment and Plan: Workup for fall showed no acute changes on CXR, CT head or neck, no s/s of injury, no bruises. Continue fall risk precautions. (7) NIKITA (acute kidney injury) Current Visit: Yes Status: Resolved Assessment and Plan: Improving seems to be he developed CKD stage II with new baseline creatinine at 1.3 (8) Schizophrenia Current Visit: No Status: Chronic Assessment and Plan: Cont Cogentin and Valproic acid (9) Alcohol withdrawal delirium Current Visit: Yes Status: Acute Assessment and Plan: see plan above. (10) Overweight (BMI 25.0-29.9) Current Visit: No Status: Chronic Assessment and Plan: BMI 29 -lifestyle modification (11) Constipation Current Visit: Yes Status: Resolved Assessment and Plan: Senna plus and miralax -lactulose 10mg PO BID (12) Hypoxia Current Visit: Yes Status: Acute Assessment and Plan: Most likely secondary to deconditioning improving when patient is more alert, awake will encourage more frequent incentives spirometry Neb treatments PRN - Time Spent with Patient Total time spent is greater than 50% in coordination of care (as documented) at patient's floor/unit and/or counseling patient: Internal Medicine: Result - Labs CBC & Chem 7: 04/15/18 03:55 04/15/18 03:55 Labs: Short CBC 04/15/18 Range/Units 03:55 WBC 5.2 (4.3-11.1) K/mcL Hgb 9.9 L (12.9-16.9) g/dL Hct 31.5 L (37.5-50.1) % Plt Count 223 (140-400) K/mcL Neutrophils # 3.1 (1.6-8.9) K/mcL BMP 04/15/18 03:55 Sodium 144 Potassium 3.3 L Chloride 105 Carbon Dioxide 31 H BUN 8 Creatinine 1.37 H Glucose 135 H Calcium 8.6 - ABG Interpretation ABG results: PT/INR, D-dimer PT 13.7 Seconds (9.4-12.1) H 03/30/18 15:19 Consult Discharge Plan - Plan Additional Instructions: Coordinate mental health follow up once surgery is complete. General Surgical Discharge Instructions 1. No pushing, pulling, or lifting greater than 15 lbs for 2 weeks 2. You may shower beginning today, but no tub baths, soaking, or swimming for 2 weeks. 3. Take ibuprofen every 8 hours for discomfort. If this does not relieve discomfort, you may take the as needed Percocet. Take narcotics as directed. Do not take more narcotics then directed and do not share your narcotics with any other person. Do not drink alcohol while on narcotics. 4. Take stool softeners (Colace) or a water based laxative (Miralax) while taking narcotics. You may hold for loose stools. 5. Report any fevers greater than 100.5F, increase abdominal discomfort, drainage that looks like pus, increased redness or pain at the surgical site, or any vomiting. 6. Report any pain in the calves, shortness of breath, or rapid heartbeat. 7. Follow-up in the office as directed. Referrals: Matthew Pedraza MD [Partnered Physician] - 05/02/18 8:45 am [place],PCP [Primary Care Provider] - 04/14/18 10:30 am (THIS APPOINTMENT IS WITH THE [facility]) (1) Sepsis Qualifiers: Sepsis type: sepsis due to unspecified organism Qualified Code(s): A41.9 - Sepsis, unspecified organism (6) Fall Qualifiers: Encounter type: initial encounter Qualified Code(s): W19.XXXA - Unspecified fall, initial encounter (8) Schizophrenia Qualifiers: Schizophrenia type: paranoid schizophrenia Qualified Code(s): F20.0 - Paranoid schizophrenia (11) Constipation Qualifiers: Constipation type: unspecified constipation type Qualified Code(s): K59.00 - Constipation, unspecified
[2018-04-15] MEDS ORDERED: D5% in Water 1,000 ML IVC SCH (13:00)
[2018-04-15] MEDS ORDERED: D10% in Water 500 ML IVC PRN ×2 (14:48→14:51)
[2018-04-15] MEDS ORDERED: Clinimix E 5%-20% SOLUTION 2,000 ML with MVI, adult with vitamin K 10 ML IVC SCH (17:00)
[2018-04-15] MEDS ORDERED: Clinimix E 5%-15% SOLUTION 2,000 ML with MVI, adult with vitamin K 10 ML IVC SCH (17:00)
[2018-04-15] MEDS ORDERED: Clinimix E 5%-15% SOLUTION 2,000 ML, Parenteral Amino Acid 10% 0 ML with MVI, adult wi... IVC SCH (17:00)
[2018-04-16] MEDS: Piperacillin/Tazobactam 3.375 GM in 0.9 % Sodium Chloride Mini Bag 100 ML IVPB SCH ×2 (00:40→08:52)
[2018-04-16] MEDS: Insulin LISPRO 300 UNITS/3 ML VIAL SQ SCH ×4 (01:01→17:40)
[2018-04-16 04:30] LABS: Alanine Aminotransferase 10 Units/L (7-52); Albumin 3.1 g/dL (3.5-5.7); Albumin/Globulin Ratio 0.8 (1.1-2.2); Alkaline Phosphatase 64 Units/L (34-104); Aspartate Amino Transferase 26 Units/L (13-39); BUN/Creatinine Ratio 6 (6-26); Bilirubin,Total 0.4 mg/dL (0.3-1.0); Blood Urea Nitrogen 7 mg/dL (6-20); Calcium 8.8 mg/dL (8.6-10.3); Carbon Dioxide 31 mEq/L (23-29); Chloride 104 mEq/L (98-107); Globulin 3.8 g/dL (2.4-3.5); Glucose 106 mg/dL (70-105); Magnesium 2.1 mg/dL (1.6-2.6); Osmolality,Calculated 292 (280-300); Potassium 3.3 mEq/L (3.5-5.1); Sodium 142 mEq/L (136-145); Total Protein 6.9 g/dL (6.4-8.9); eGFR For Non-African Americans > 60 (> 60)
[2018-04-16] MEDS: *HR* Heparin 5,000 UNIT/ML VIAL SQ SCH ×2 (06:17→16:59)
[2018-04-16] MEDS: Valproic Acid Oral Soln 250 MG/5 ML UDC PO SCH ×3 (08:57→22:22)
[2018-04-16] MEDS: Lactulose Oral Soln 20 GM/30 ML UDC PO SCH ×2 (08:58→22:22)
[2018-04-16] MEDS: Thiamine (B-1) 100 MG TABLET PO SCH (08:59)
[2018-04-16] MEDS: Aspirin 81 MG TAB.CHEW PO SCH (08:59)
[2018-04-16] MEDS: Sennosides/Docusate Sodium TABLET PO SCH ×2 (08:59→22:22)
[2018-04-16] MEDS: Metoprolol XL (24 HR) Succ 25 MG TAB.ER.24H PO SCH (08:59)
[2018-04-16] MEDS: Folic Acid 1 MG TABLET PO SCH (09:00)
[2018-04-16] MEDS: Cholecalciferol (D-3) 1,000 UNIT TABLET PO SCH (09:00)
--- NOTE | 2018-04-16 09:58 | Internal Med Progress Note ---
Hospitalist Progress Note - Encounter Date of Encounter: 04/16/18 Time of Encounter: 09:30 - Subjective Interval History: Mr. Gooden is a 57-year-old gentlemen with known history of schizophrenia and substance abuse patient who is chronic alcohol dependence admitted here with acute abdominal pain and the fall. Patient CT of abdomen showed acute cholecystitis. Went through active DT's , so pt was transferred to step down unit on 04/01/18 later he became septic again with fever and tachycardia due cholecystitis with necrotizing gallbladder. He had lap cholecystectomy done on 04/12/18. He is more alert, awake and O to place, person and self. Still looks little confused. However overall much better mentation [place]. - Exam Vitals: Temp Pulse Resp BP Pulse Ox 99.3 F 76 20 122/73 93 04/16/18 07:14 04/16/18 07:14 04/16/18 07:14 04/16/18 07:14 04/16/18 07:14 Exam: Gen: alert, awake and still confused Chest: Diminished breath sounds B/L, No wheezing, No crackles, No rales Heart: S1S2+ RRR No murmurs Abd: Soft, NT, BS +, No organomegaly, clean incision Ext: No edema, pulses are palpable, No calf tenderness Neuro : Benign findings Skin: No rash. - Assessment and Plan (1) Sepsis Current Visit: Yes Status: Resolved Assessment and Plan: Improved mostly due to acute cholecystitis with necrotic gallbladder s/p lap cholecystectomy no need of abx any more (2) Acute encephalopathy Current Visit: Yes Status: Acute Assessment and Plan: Multifactorial due to alcohol encephalopathy, sepsis and DT's He is not DTs any more His current mental status could be his baseline, will talk to his senior care place and find out Ammonia level - WNL Lactulose PRN avoid any benzo folic acid and thiamine vitamin daily (3) Protein-calorie malnutrition, moderate Current Visit: Yes Status: Acute Assessment and Plan: Pt has poor PO intake due to delirium Pre albumin @ 11.8 Since his mentation better , he started tolerating PO intake little better will try to wean him off the TPN in AM (4) Acute cholecystitis Current Visit: Yes Status: Acute Assessment and Plan: s/p Lap cholecystectomy Improving will d/c abx (5) Alcoholism Current Visit: No Status: Chronic Assessment and Plan: Pt has a intermediate hx of EtOH abuse, has been drinking more as of recently. Cont Folic acid and thiamine vitamin daily Avoid any Benzo's due to delirium (6) Fall Current Visit: Yes Status: Acute Assessment and Plan: Workup for fall showed no acute changes on CXR, CT head or neck, no s/s of injury, no bruises. Continue fall risk precautions. (7) NIKITA (acute kidney injury) Current Visit: Yes Status: Resolved Assessment and Plan: Improving seems to be he developed CKD stage II with new baseline creatinine at 1.3 (8) Schizophrenia Current Visit: No Status: Chronic Assessment and Plan: Cont Cogentin and Valproic acid (9) Alcohol withdrawal delirium Current Visit: Yes Status: Acute Assessment and Plan: see plan above. (10) Overweight (BMI 25.0-29.9) Current Visit: No Status: Chronic Assessment and Plan: BMI 29 -lifestyle modification (11) Constipation Current Visit: Yes Status: Resolved Assessment and Plan: Senna plus and miralax -lactulose 10mg PO BID (12) Hypoxia Current Visit: Yes Status: Acute Assessment and Plan: Most likely secondary to deconditioning improved off the O2 when patient is more alert, awake will encourage more frequent incentives spirometry Neb treatments PRN - Time Spent with Patient Total time spent is greater than 50% in coordination of care (as documented) at patient's floor/unit and/or counseling patient: Internal Medicine: Result - Labs CBC & Chem 7: 04/15/18 03:55 04/16/18 03:58 Labs: BMP 04/16/18 03:58 Sodium 142 Potassium 3.3 L Chloride 104 Carbon Dioxide 31 H BUN 7 Creatinine 1.23 Glucose 106 H Calcium 8.8 Liver Function 04/16/18 Range/Units 03:58 Total Bilirubin 0.4 (0.3-1.0) mg/dL AST 26 (13-39) Units/L ALT 10 (7-52) Units/L Alkaline Phosphatase 64 (34-104) Units/L Albumin 3.1 L (3.5-5.7) g/dL - ABG Interpretation ABG results: PT/INR, D-dimer PT 13.7 Seconds (9.4-12.1) H 03/30/18 15:19 Consult Discharge Plan - Plan Additional Instructions: Coordinate mental health follow up once surgery is complete. General Surgical Discharge Instructions 1. No pushing, pulling, or lifting greater than 15 lbs for 2 weeks 2. You may shower beginning today, but no tub baths, soaking, or swimming for 2 weeks. 3. Take ibuprofen every 8 hours for discomfort. If this does not relieve discomfort, you may take the as needed Percocet. Take narcotics as directed. Do not take more narcotics then directed and do not share your narcotics with any other person. Do not drink alcohol while on narcotics. 4. Take stool softeners (Colace) or a water based laxative (Miralax) while taking narcotics. You may hold for loose stools. 5. Report any fevers greater than 100.5F, increase abdominal discomfort, drainage that looks like pus, increased redness or pain at the surgical site, or any vomiting. 6. Report any pain in the calves, shortness of breath, or rapid heartbeat. 7. Follow-up in the office as directed. Referrals: Matthew Pedraza MD [Partnered Physician] - 05/02/18 8:45 am [place],PCP [Primary Care Provider] - 04/14/18 10:30 am (THIS APPOINTMENT IS WITH [facility]) (1) Sepsis Qualifiers: Sepsis type: sepsis due to unspecified organism Qualified Code(s): A41.9 - Sepsis, unspecified organism (6) Fall Qualifiers: Encounter type: initial encounter Qualified Code(s): W19.XXXA - Unspecified fall, initial encounter (8) Schizophrenia Qualifiers: Schizophrenia type: paranoid schizophrenia Qualified Code(s): F20.0 - Paranoid schizophrenia (11) Constipation Qualifiers: Constipation type: unspecified constipation type Qualified Code(s): K59.00 - Constipation, unspecified
[2018-04-16] MEDS ORDERED: Clinimix E 5%-15% SOLUTION 2,000 ML with MVI, adult with vitamin K 10 ML IVC SCH (17:00)
[2018-04-17] MEDS: Insulin LISPRO 300 UNITS/3 ML VIAL SQ SCH ×4 (02:03→18:42)
[2018-04-17 04:33] LABS: Basophils % 0.5 %; Eosinophils # 0.1 K/mcL (0.0-0.6); Eosinophils % 1.7 %; Hematocrit 29.8 % (37.5-50.1); Hemoglobin 9.7 g/dL (12.9-16.9); Immature Granulocytes % 0.6 % (0-4); Lymphocytes # 1.3 K/mcL (0.6-4.6); Lymphocytes % 20.2 %; Mean Corpuscular HGB Conc 32.6 g/dL (31.6-35.5); Mean Corpuscular Hemoglobin 31.3 pg (28.0-33.3); Mean Corpuscular Volume 96.1 fL (83.0-100.0); Mean Platelet Volume 10.5 fL (9.4-12.4); Monocytes # 0.5 K/mcL (0.0-1.3); Neutrophils # 4.5 K/mcL (1.6-8.9); Platelet Count 191 K/mcL (140-400); Red Cell Distribution Width 11.7 % (11.5-14.5)
[2018-04-17 04:45] LABS: BUN/Creatinine Ratio 10 (6-26); Blood Urea Nitrogen 11 mg/dL (6-20); Calcium 9.1 mg/dL (8.6-10.3); Carbon Dioxide 28 mEq/L (23-29); Chloride 104 mEq/L (98-107); Glucose 109 mg/dL (70-105); Magnesium 2.3 mg/dL (1.6-2.6); Osmolality,Calculated 292 (280-300); Potassium 3.3 mEq/L (3.5-5.1); Sodium 141 mEq/L (136-145); eGFR For Non-African Americans > 60 (> 60)
[2018-04-17] MEDS: *HR* Heparin 5,000 UNIT/ML VIAL SQ SCH ×2 (06:10→19:20)
[2018-04-17] MEDS: Lactulose Oral Soln 20 GM/30 ML UDC PO SCH ×2 (08:17→22:14)
[2018-04-17] MEDS: Sennosides/Docusate Sodium TABLET PO SCH ×2 (08:18→22:13)
[2018-04-17] MEDS: Aspirin 81 MG TAB.CHEW PO SCH (08:18)
[2018-04-17] MEDS: Metoprolol XL (24 HR) Succ 25 MG TAB.ER.24H PO SCH (08:18)
[2018-04-17] MEDS: Folic Acid 1 MG TABLET PO SCH (08:18)
[2018-04-17] MEDS: Thiamine (B-1) 100 MG TABLET PO SCH (08:18)
[2018-04-17] MEDS: Cholecalciferol (D-3) 1,000 UNIT TABLET PO SCH (08:18)
--- NOTE | 2018-04-17 10:42 | Internal Med Progress Note ---
Hospitalist Progress Note - Encounter Date of Encounter: 04/17/18 Time of Encounter: 10:40 - Subjective Interval History: Mr. Gooden is a 57-year-old gentlemen with known history of schizophrenia and substance abuse patient who is chronic alcohol dependence admitted here with acute abdominal pain and the fall. Patient CT of abdomen showed acute cholecystitis. Went through active DT's , so pt was transferred to step down unit on 04/01/18 later he became septic again with fever and tachycardia due cholecystitis with necrotizing gallbladder. He had lap cholecystectomy done on 04/12/18. He is more alert, awake and O to place, person and self. Still looks little confused. However overall much better mentation [place]. No events over night. Still very poor PO intake. - Exam Vitals: Temp Pulse Resp BP Pulse Ox 98.7 F 78 18 130/73 94 04/17/18 06:51 04/17/18 06:51 04/17/18 06:51 04/17/18 06:51 04/17/18 06:51 Exam: Gen: alert, awake and still confused Chest: Diminished breath sounds B/L, No wheezing, No crackles, No rales Heart: S1S2+ RRR No murmurs Abd: Soft, NT, BS +, No organomegaly, clean incision Ext: No edema, pulses are palpable, No calf tenderness Neuro : Benign findings Skin: No rash. - Assessment and Plan (1) Sepsis Current Visit: Yes Status: Resolved Assessment and Plan: Improved mostly due to acute cholecystitis with necrotic gallbladder s/p lap cholecystectomy no need of abx any more (2) Acute encephalopathy Current Visit: Yes Status: Acute Assessment and Plan: Multi factorial due to alcohol encephalopathy, sepsis, DT's and deconditioning He is not in DTs any more His current mental status could be his baseline, will talk to his [facility] place and find out Ammonia level - WNL Lactulose PRN avoid any benzo / narcotic / sedatives folic acid and thiamine vitamin daily PT / OT Eval Medically stable to transfer to Med Surg Will talk to SW about placement (3) Protein-calorie malnutrition, moderate Current Visit: Yes Status: Acute Assessment and Plan: Pt has poor PO intake due to delirium Pre albumin @ 11.8 Since his mentation better , once he started tolerating PO intake better will try to wean him off the TPN..Cont TPN for now (4) Acute cholecystitis Current Visit: Yes Status: Acute Assessment and Plan: s/p Lap cholecystectomy Improved off the abx (5) Alcoholism Current Visit: No Status: Chronic Assessment and Plan: Pt has a [facility] hx of ETOH abuse, has been drinking more as of recently. Cont Folic acid and thiamine vitamin daily Avoid any Benzo's due to delirium (6) Fall Current Visit: Yes Status: Acute Assessment and Plan: Workup for fall showed no acute changes on CXR, CT head or neck, no s/s of injury, no bruises. Continue fall risk precautions. (7) NIKITA (acute kidney injury) Current Visit: Yes Status: Resolved Assessment and Plan: resolved back to baseline (8) Schizophrenia Current Visit: No Status: Chronic Assessment and Plan: Cont Cogentin and Valproic acid (9) Alcohol withdrawal delirium Current Visit: Yes Status: Acute Assessment and Plan: see plan above. (10) Overweight (BMI 25.0-29.9) Current Visit: No Status: Chronic Assessment and Plan: BMI 29 -lifestyle modification (11) Constipation Current Visit: Yes Status: Resolved Assessment and Plan: Senna plus and miralax -lactulose 10mg PO BID (12) Hypoxia Current Visit: Yes Status: Acute Assessment and Plan: Most likely secondary to deconditioning improved off the O2 when patient is more alert, awake will encourage more frequent incentives spirometry Neb treatments PRN - Time Spent with Patient Total time spent is greater than 50% in coordination of care (as documented) at patient's floor/unit and/or counseling patient: Internal Medicine: Result - Labs CBC & Chem 7: 04/17/18 04:00 04/17/18 04:00 Labs: Short CBC 04/17/18 Range/Units 04:00 WBC 6.5 (4.3-11.1) K/mcL Hgb 9.7 L (12.9-16.9) g/dL Hct 29.8 L (37.5-50.1) % Plt Count 191 (140-400) K/mcL Neutrophils # 4.5 (1.6-8.9) K/mcL BMP 04/17/18 04:00 Sodium 141 Potassium 3.3 L Chloride 104 Carbon Dioxide 28 BUN 11 Creatinine 1.06 Glucose 109 H Calcium 9.1 - ABG Interpretation ABG results: PT/INR, D-dimer PT 13.7 Seconds (9.4-12.1) H 03/30/18 15:19 Consult Discharge Plan - Plan Additional Instructions: Coordinate mental health follow up once surgery is complete. General Surgical Discharge Instructions 1. No pushing, pulling, or lifting greater than 15 lbs for 2 weeks 2. You may shower beginning today, but no tub baths, soaking, or swimming for 2 weeks. 3. Take ibuprofen every 8 hours for discomfort. If this does not relieve discomfort, you may take the as needed Percocet. Take narcotics as directed. Do not take more narcotics then directed and do not share your narcotics with any other person. Do not drink alcohol while on narcotics. 4. Take stool softeners (Colace) or a water based laxative (Miralax) while taking narcotics. You may hold for loose stools. 5. Report any fevers greater than 100.5F, increase abdominal discomfort, drainage that looks like pus, increased redness or pain at the surgical site, or any vomiting. 6. Report any pain in the calves, shortness of breath, or rapid heartbeat. 7. Follow-up in the office as directed. Referrals: Matthew Pedraza MD [Partnered Physician] - 05/02/18 8:45 am [place],PCP [Primary Care Provider] - 04/14/18 10:30 am (THIS APPOINTMENT IS WITH THE [facility]) (1) Sepsis Qualifiers: Sepsis type: sepsis due to unspecified organism Qualified Code(s): A41.9 - Sepsis, unspecified organism (6) Fall Qualifiers: Encounter type: initial encounter Qualified Code(s): W19.XXXA - Unspecified fall, initial encounter (8) Schizophrenia Qualifiers: Schizophrenia type: paranoid schizophrenia Qualified Code(s): F20.0 - Paranoid schizophrenia (11) Constipation Qualifiers: Constipation type: unspecified constipation type Qualified Code(s): K59.00 - Constipation, unspecified
[2018-04-17] MEDS: Valproic Acid Oral Soln 250 MG/5 ML UDC PO SCH ×2 (16:17→22:14)
[2018-04-17] MEDS: Acetaminophen 325 MG TABLET PO PRN (16:17)
[2018-04-17] MEDS ORDERED: Clinimix E 5%-15% SOLUTION 2,000 ML with MVI, adult with vitamin K 10 ML IVC SCH (17:00)
[2018-04-17] MEDS: Piperacillin/Tazobactam 3.375 GM in 0.9 % Sodium Chloride Mini Bag 100 ML IVPB SCH (19:20)
[2018-04-18] MEDS: Piperacillin/Tazobactam 3.375 GM in 0.9 % Sodium Chloride Mini Bag 100 ML IVPB SCH ×2 (00:37→10:22)
[2018-04-18] MEDS: Insulin LISPRO 300 UNITS/3 ML VIAL SQ SCH ×4 (00:43→17:48)
[2018-04-18 04:52] LABS: BUN/Creatinine Ratio 12 (6-26); Blood Urea Nitrogen 15 mg/dL (6-20); Calcium 9.1 mg/dL (8.6-10.3); Carbon Dioxide 27 mEq/L (23-29); Chloride 105 mEq/L (98-107); Glucose 109 mg/dL (70-105); Magnesium 2.2 mg/dL (1.6-2.6); Osmolality,Calculated 289 (280-300); Potassium 3.6 mEq/L (3.5-5.1); Sodium 139 mEq/L (136-145); Triglycerides 228 mg/dL (< 150); eGFR For Non-African Americans 57 (> 60)
[2018-04-18] MEDS: *HR* Heparin 5,000 UNIT/ML VIAL SQ SCH ×2 (06:00→18:41)
[2018-04-18] MEDS: Aspirin 81 MG TAB.CHEW PO SCH (10:11)
[2018-04-18] MEDS: Lactulose Oral Soln 20 GM/30 ML UDC PO SCH ×3 (10:11→22:16)
[2018-04-18] MEDS: Folic Acid 1 MG TABLET PO SCH (10:12)
[2018-04-18] MEDS: Thiamine (B-1) 100 MG TABLET PO SCH (10:12)
--- NOTE | 2018-04-18 10:12 | Internal Med Progress Note ---
<Julián Davis He - Last Filed: 04/18/18 13:44> Hospitalist Progress Note - Encounter Date of Encounter: 04/18/18 Time of Encounter: 10:11 - Subjective Interval History: Patient was seen this morning and was very briefly arousable, had been given benzo this AM. Patient did not verbalize any answers to questions. Currently still on TPN and appeared that patient minimally touched his breakfast. No overnight events. - Exam Vitals: Temp Pulse Resp BP Pulse Ox 98.8 F 90 21 110/71 92 04/18/18 08:00 04/18/18 08:00 04/18/18 08:00 04/18/18 08:00 04/18/18 08:00 Exam: General: briefly arousable, no acute distress HEENT: moist mucus membranes CV: RRR, no murmurs Lungs: diminished bilaterally, no wheezing or rales Abd: soft, nontender, normal bowel sounds, incision healing clean dry and intact Ext: no edema, pulses palpable Skin: normal color, no rash. - Assessment and Plan (1) Sepsis Current Visit: Yes Status: Resolved Assessment and Plan: Improved. Secondary to acute choolecystitis with necrotic gallbladder POD 6 s/p cholecystectomy No additional antibiotics at this time. Did have a fever of 101.2F around 4pm yesterday evening, CBC returned back unremarkable. Continue Zosyn d1 again, may consider discontinuing if no fevers overnight. CXR 04/17/18 negative for acute findings. (2) Acute encephalopathy Current Visit: Yes Status: Acute Assessment and Plan: Secondary to Sepsis from necrotic gallbladder/acute cholecystitis vs alcohol encephalopathy, vs withdrawal vs deconditioning. Mental status difficult to assess this morning as was just administered benzo, but was reportedly possibly at baseline yesterday. Most recent ammonia normal, however has been on lactulose in case of hepatic encephalopathy concern and for constipation -AVOID benzo/narcotics/sedatives as planning for discharge. Need to try to control agitation at evenings before discharge. -Haldol prn 2mg for acute evening agitation. -Continue folate and thiamine -PT/OT participation -Social work for placement, considering Tuesday discharge. -Sitter due to acute evening agitation. (3) Fall Current Visit: Yes Status: Acute Assessment and Plan: Presented to ED via transfer from [place] with complaint of fall. Workup was negative. CT neck and head negative for acute findings. No exam findings of significant injuries. Continue with Fall precautions. Encourage PT/OT participation. (4) Alcoholism Current Visit: Yes Status: Chronic Assessment and Plan: History of known alcoholism with depedence. -Sitter (5) Schizophrenia Current Visit: Yes Status: Chronic Assessment and Plan: History of schizophrenia or bipolar -Continue with cogentin and Valproic acid -Sitter (6) Acute cholecystitis Current Visit: Yes Status: Resolved Assessment and Plan: Acute cholecystitis with necrotic gallbladder, POD 6, s/p cholecystectomy. (7) Alcohol withdrawal delirium Current Visit: Yes Status: Resolved Assessment and Plan: per plan in assessment above. (8) Hypoxia Current Visit: Yes Status: Acute Assessment and Plan: Resolved, currently off supplemental oxygen, satting well on room air. Incentive spirometry nebulizer treatments as needed. Most likely due to deconditioning vs possible TREMAYNE. (9) Protein-calorie malnutrition, moderate Current Visit: Yes Status: Acute Assessment and Plan: Pre albumin 11.8 on admission. Improved oral intake. Discontinue TPN. DVT Prophylaxis: Heparin sq - Time Spent with Patient Total time spent is greater than 50% in coordination of care (as documented) at patient's floor/unit and/or counseling patient: Internal Medicine: Result - Labs CBC & Chem 7: 04/18/18 10:36 04/18/18 03:50 Labs: BMP 04/18/18 03:50 Sodium 139 Potassium 3.6 Chloride 105 Carbon Dioxide 27 BUN 15 Creatinine 1.29 Glucose 109 H Calcium 9.1 - ABG Interpretation ABG results: PT/INR, D-dimer PT 13.7 Seconds (9.4-12.1) H 03/30/18 15:19 - Impressions Impressions Chest X-Ray 04/17/18 00:00 IMPRESSION: Cardiomegaly with no acute finding in the chest. D/ / Musa Noble MD / Musa Noble MD Interpreting Provider: Musa Noble MD Consult Discharge Plan - Plan Additional Instructions: Coordinate mental health follow up once surgery is complete. General Surgical Discharge Instructions 1. No pushing, pulling, or lifting greater than 15 lbs for 2 weeks 2. You may shower beginning today, but no tub baths, soaking, or swimming for 2 weeks. 3. Take ibuprofen every 8 hours for discomfort. If this does not relieve discomfort, you may take the as needed Percocet. Take narcotics as directed. Do not take more narcotics then directed and do not share your narcotics with any other person. Do not drink alcohol while on narcotics. 4. Take stool softeners (Colace) or a water based laxative (Miralax) while taking narcotics. You may hold for loose stools. 5. Report any fevers greater than 100.5F, increase abdominal discomfort, drainage that looks like pus, increased redness or pain at the surgical site, or any vomiting. 6. Report any pain in the calves, shortness of breath, or rapid heartbeat. 7. Follow-up in the office as directed. Referrals: Matthew Pedraza MD [Partnered Physician] - 05/02/18 8:45 am [place],PCP [Primary Care Provider] - 04/14/18 10:30 am (THIS APPOINTMENT IS WITH THE [facility]) <Severo Washington - Last Filed: 04/18/18 17:19> Hospitalist Progress Note - Encounter Date of Encounter: 04/18/18 - Exam Vitals: Temp Pulse Resp BP Pulse Ox 99.0 F 93 18 122/75 90 04/18/18 16:42 04/18/18 16:42 04/18/18 16:42 04/18/18 16:42 04/18/18 16:42 - Assessment and Plan (1) Fall Current Visit: Yes Status: Acute (2) Alcoholism Current Visit: Yes Status: Chronic (3) NIKITA (acute kidney injury) Current Visit: Yes Status: Resolved (4) Schizophrenia Current Visit: Yes Status: Chronic (5) Acute cholecystitis Current Visit: Yes Status: Resolved (6) Acute encephalopathy Current Visit: Yes Status: Acute (7) Alcohol withdrawal delirium Current Visit: Yes Status: Resolved (8) Overweight (BMI 25.0-29.9) Current Visit: No Status: Chronic (9) Constipation Current Visit: Yes Status: Resolved (10) Sepsis Current Visit: Yes Status: Resolved (11) Hypoxia Current Visit: Yes Status: Acute (12) Protein-calorie malnutrition, moderate Current Visit: Yes Status: Acute - Time Spent with Patient Total time spent is greater than 50% in coordination of care (as documented) at patient's floor/unit and/or counseling patient: Internal Medicine: Result - Labs CBC & Chem 7: 04/18/18 10:36 04/18/18 03:50 Labs: Short CBC 04/18/18 Range/Units 10:36 WBC 6.4 (4.3-11.1) K/mcL Hgb 10.5 L (12.9-16.9) g/dL Hct 31.8 L (37.5-50.1) % Plt Count 193 (140-400) K/mcL Neutrophils # 3.8 (1.6-8.9) K/mcL BMP 04/18/18 03:50 Sodium 139 Potassium 3.6 Chloride 105 Carbon Dioxide 27 BUN 15 Creatinine 1.29 Glucose 109 H Calcium 9.1 - ABG Interpretation ABG results: PT/INR, D-dimer PT 13.7 Seconds (9.4-12.1) H 03/30/18 15:19 - Impressions Impressions Chest X-Ray 04/17/18 00:00 IMPRESSION: Cardiomegaly with no acute finding in the chest. D/ / Musa Noble MD / Musa Noble MD Interpreting Provider: Musa Noble MD - Attending Attestation I have seen and examined this pt independently. I have discussed with resident physician Dr. Davis regarding the management plan. Agree with the documentation. <Julián Davis - Last Filed: 04/18/18 13:44> (1) Sepsis Qualifiers: Sepsis type: sepsis due to unspecified organism Qualified Code(s): A41.9 - Sepsis, unspecified organism (3) Fall Qualifiers: Encounter type: initial encounter Qualified Code(s): W19.XXXA - Unspecified fall, initial encounter (5) Schizophrenia Qualifiers: Schizophrenia type: paranoid schizophrenia Qualified Code(s): F20.0 - Paranoid schizophrenia <Severo Washington - Last Filed: 04/18/18 17:19> (1) Fall Qualifiers: Encounter type: initial encounter Qualified Code(s): W19.XXXA - Unspecified fall, initial encounter (4) Schizophrenia Qualifiers: Schizophrenia type: paranoid schizophrenia Qualified Code(s): F20.0 - Paranoid schizophrenia (9) Constipation Qualifiers: Constipation type: unspecified constipation type Qualified Code(s): K59.00 - Constipation, unspecified (10) Sepsis Qualifiers: Sepsis type: sepsis due to unspecified organism Qualified Code(s): A41.9 - Sepsis, unspecified organism
[2018-04-18] MEDS: Sennosides/Docusate Sodium TABLET PO SCH ×2 (10:15→22:15)
[2018-04-18] MEDS: Metoprolol XL (24 HR) Succ 25 MG TAB.ER.24H PO SCH (10:15)
[2018-04-18] MEDS: Cholecalciferol (D-3) 1,000 UNIT TABLET PO SCH (10:16)
[2018-04-18] MEDS: Valproic Acid Oral Soln 250 MG/5 ML UDC PO SCH ×3 (10:42→22:15)
[2018-04-18 11:28] LABS: Basophils % 0.5 %; Eosinophils # 0.2 K/mcL (0.0-0.6); Eosinophils % 3.3 %; Hematocrit 31.8 % (37.5-50.1); Hemoglobin 10.5 g/dL (12.9-16.9); Immature Granulocytes % 1.1 % (0-4); Lymphocytes # 1.6 K/mcL (0.6-4.6); Lymphocytes % 24.7 %; Mean Corpuscular Hemoglobin 32.1 pg (28.0-33.3); Mean Corpuscular Volume 97.2 fL (83.0-100.0); Mean Platelet Volume 10.8 fL (9.4-12.4); Monocytes # 0.7 K/mcL (0.0-1.3); Monocytes % 10.7 %; Neutrophils # 3.8 K/mcL (1.6-8.9); Platelet Count 193 K/mcL (140-400); Red Blood Count 3.27 M/mcL (4.19-5.50); Red Cell Distribution Width 11.9 % (11.5-14.5); Segmented Neutrophils % 59.7 %
[2018-04-18] MEDS ORDERED: Haloperidol Lactate 5 MG/ML VIAL IVP PRN (13:41)
[2018-04-19] MEDS: Insulin LISPRO 300 UNITS/3 ML VIAL SQ SCH ×3 (01:39→12:30)
[2018-04-19 04:39] LABS: Basophils # 0.1 K/mcL (0.0-0.2); Basophils % 0.8 %; Eosinophils # 0.2 K/mcL (0.0-0.6); Eosinophils % 3.1 %; Hematocrit 33.3 % (37.5-50.1); Hemoglobin 10.7 g/dL (12.9-16.9); Immature Granulocytes % 0.9 % (0-4); Lymphocytes # 1.9 K/mcL (0.6-4.6); Mean Corpuscular HGB Conc 32.1 g/dL (31.6-35.5); Mean Corpuscular Hemoglobin 31.5 pg (28.0-33.3); Mean Corpuscular Volume 97.9 fL (83.0-100.0); Mean Platelet Volume 10.6 fL (9.4-12.4); Monocytes # 0.7 K/mcL (0.0-1.3); Monocytes % 10.8 %; Neutrophils # 3.5 K/mcL (1.6-8.9); Platelet Count 186 K/mcL (140-400); Red Cell Distribution Width 11.9 % (11.5-14.5); Segmented Neutrophils % 54.4 %
[2018-04-19 04:49] LABS: BUN/Creatinine Ratio 12 (6-26); Blood Urea Nitrogen 15 mg/dL (6-20); Calcium 9.2 mg/dL (8.6-10.3); Carbon Dioxide 28 mEq/L (23-29); Chloride 106 mEq/L (98-107); Glucose 93 mg/dL (70-105); Osmolality,Calculated 295 (280-300); Potassium 3.9 mEq/L (3.5-5.1); Sodium 142 mEq/L (136-145); eGFR For Non-African Americans 58 (> 60)
[2018-04-19] MEDS: *HR* Heparin 5,000 UNIT/ML VIAL SQ SCH ×2 (06:34→18:10)
[2018-04-19] MEDS: Sennosides/Docusate Sodium TABLET PO SCH ×2 (08:57→20:43)
[2018-04-19] MEDS: Lactulose Oral Soln 20 GM/30 ML UDC PO SCH ×2 (08:57→20:43)
[2018-04-19] MEDS: Aspirin 81 MG TAB.CHEW PO SCH (08:57)
[2018-04-19] MEDS: Metoprolol XL (24 HR) Succ 25 MG TAB.ER.24H PO SCH (08:57)
[2018-04-19] MEDS: Cholecalciferol (D-3) 1,000 UNIT TABLET PO SCH (08:57)
[2018-04-19] MEDS: Folic Acid 1 MG TABLET PO SCH (08:58)
[2018-04-19] MEDS: Thiamine (B-1) 100 MG TABLET PO SCH (08:58)
[2018-04-19] MEDS: Valproic Acid Oral Soln 250 MG/5 ML UDC PO SCH ×3 (08:58→20:44)
[2018-04-19] MEDS: Haloperidol Lactate 5 MG/ML VIAL IVP PRN (10:13)
[2018-04-19] MEDS: Acetaminophen 325 MG TABLET PO PRN (12:31)
--- NOTE | 2018-04-19 13:45 | Internal Med Progress Note ---
Hospitalist Progress Note - Encounter Date of Encounter: 04/19/18 Time of Encounter: 09:00 - Subjective Interval History: Pt still very sleepy, not eating well, sometimes agitatated and delirium. No fever, vitals stable. - Exam Vitals: Temp Pulse Resp BP Pulse Ox 98.2 F 90 16 122/72 93 04/19/18 05:54 04/19/18 05:54 04/19/18 05:54 04/19/18 05:54 04/19/18 05:54 Exam: General: Sleepy, briefly arousable, no acute distress HEENT: moist mucus membranes CV: RRR, no murmurs Lungs: diminished bilaterally, no wheezing or rales Abd: soft, nontender, normal bowel sounds, incision healing clean dry and intact Ext: no edema, pulses palpable Skin: normal color, no rash. - Assessment and Plan (1) Fall Current Visit: Yes Status: Acute Assessment and Plan: Workup for fall showed no acute changes on CXR, CT head or neck, no s/s of injury, no bruises. Continue fall risk precautions. 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 Cont Folic acid and thiamine vitamin daily Avoid any Benzo's due to delirium (3) NIKITA (acute kidney injury) Current Visit: Yes Status: Resolved Assessment and Plan: resolved back to baseline, encourage hydration and avoid nephrotoxic meds. (4) Schizophrenia Current Visit: Yes Status: Chronic Assessment and Plan: Cont Cogentin and Valproic acid, consider reconsult psych as pt is still delirium/sleepy. (5) Acute cholecystitis Current Visit: Yes Status: Resolved Assessment and Plan: s/p Lap cholecystectomy Improved off the abx (6) Acute encephalopathy Current Visit: Yes Status: Acute Assessment and Plan: Multi factorial due to alcohol encephalopathy, sepsis, DT's and deconditioning He is not in DTs any more His current mental status could be his baseline, will talk to his long term place and find out Ammonia level - WNL Lactulose PRN avoid any benzo / narcotic / sedatives folic acid and thiamine vitamin daily PT / OT Eval Medically stable to transfer to Med Surg Will talk to about placement (7) Alcohol withdrawal delirium Current Visit: Yes Status: Resolved Assessment and Plan: see plan above. (8) Overweight (BMI 25.0-29.9) Current Visit: No Status: Chronic Assessment and Plan: BMI 29 -lifestyle modification (9) Constipation Current Visit: Yes Status: Resolved Assessment and Plan: Senna plus and miralax -lactulose 10mg PO BID (10) Sepsis Current Visit: Yes Status: Resolved Assessment and Plan: Improved mostly due to acute cholecystitis with necrotic gallbladder s/p lap cholecystectomy no need of abx any more (11) Hypoxia Current Visit: Yes Status: Acute Assessment and Plan: Most likely secondary to deconditioning improved off the O2 when patient is more alert, awake will encourage more frequent incentives spirometry Neb treatments PRN (12) Protein-calorie malnutrition, moderate Current Visit: Yes Status: Acute Assessment and Plan: Pt has poor PO intake due to delirium Pre albumin @ 11.8 Since his mentation better , once he started tolerating PO intake better Improved eating, off TPN now. DVT Prophylaxis: Heparin sq - Time Spent with Patient Total time spent is greater than 50% in coordination of care (as documented) at patient's floor/unit and/or counseling patient: 30 min 25 - 35 minutes Plan of Care Discussed with: patient Internal Medicine: Result - Labs CBC & Chem 7: 04/19/18 04:00 04/19/18 04:00 Labs: Short CBC 04/19/18 Range/Units 04:00 WBC 6.5 (4.3-11.1) K/mcL Hgb 10.7 L (12.9-16.9) g/dL Hct 33.3 L (37.5-50.1) % Plt Count 186 (140-400) K/mcL Neutrophils # 3.5 (1.6-8.9) K/mcL BMP 04/19/18 04:00 Sodium 142 Potassium 3.9 Chloride 106 Carbon Dioxide 28 BUN 15 Creatinine 1.28 Glucose 93 Calcium 9.2 - ABG Interpretation ABG results: PT/INR, D-dimer PT 13.7 Seconds (9.4-12.1) H 03/30/18 15:19 Consult Discharge Plan - Plan Additional Instructions: Coordinate mental health follow up once surgery is complete. General Surgical Discharge Instructions 1. No pushing, pulling, or lifting greater than 15 lbs for 2 weeks 2. You may shower beginning today, but no tub baths, soaking, or swimming for 2 weeks. 3. Take ibuprofen every 8 hours for discomfort. If this does not relieve discomfort, you may take the as needed Percocet. Take narcotics as directed. Do not take more narcotics then directed and do not share your narcotics with any other person. Do not drink alcohol while on narcotics. 4. Take stool softeners (Colace) or a water based laxative (Miralax) while taking narcotics. You may hold for loose stools. 5. Report any fevers greater than 100.5F, increase abdominal discomfort, drainage that looks like pus, increased redness or pain at the surgical site, or any vomiting. 6. Report any pain in the calves, shortness of breath, or rapid heartbeat. 7. Follow-up in the office as directed. Referrals: Matthew Pedraza MD [Partnered Physician] - 05/02/18 8:45 am [place],PCP [Primary Care Provider] - 04/14/18 10:30 am (THIS APPOINTMENT IS WITH [facility]) (1) Fall Qualifiers: Encounter type: initial encounter Qualified Code(s): W19.XXXA - Unspecified fall, initial encounter (4) Schizophrenia Qualifiers: Schizophrenia type: paranoid schizophrenia Qualified Code(s): F20.0 - Paranoid schizophrenia (9) Constipation Qualifiers: Constipation type: unspecified constipation type Qualified Code(s): K59.00 - Constipation, unspecified (10) Sepsis Qualifiers: Sepsis type: sepsis due to unspecified organism Qualified Code(s): A41.9 - Sepsis, unspecified organism
[2018-04-20] MEDS: *HR* Heparin 5,000 UNIT/ML VIAL SQ SCH ×2 (05:27→17:37)
[2018-04-20] MEDS: Haloperidol Lactate 5 MG/ML VIAL IVP PRN ×3 (05:33→19:02)
[2018-04-20] MEDS: Lactulose Oral Soln 20 GM/30 ML UDC PO SCH ×2 (08:43→20:47)
[2018-04-20] MEDS: Thiamine (B-1) 100 MG TABLET PO SCH (08:44)
[2018-04-20] MEDS: Folic Acid 1 MG TABLET PO SCH (08:44)
[2018-04-20] MEDS: Sennosides/Docusate Sodium TABLET PO SCH ×2 (08:44→20:47)
[2018-04-20] MEDS: Cholecalciferol (D-3) 1,000 UNIT TABLET PO SCH (08:44)
[2018-04-20] MEDS: Metoprolol XL (24 HR) Succ 25 MG TAB.ER.24H PO SCH (08:44)
[2018-04-20] MEDS: Aspirin 81 MG TAB.CHEW PO SCH (08:45)
[2018-04-20] MEDS: Valproic Acid Oral Soln 250 MG/5 ML UDC PO SCH ×3 (08:45→20:49)
--- NOTE | 2018-04-20 09:16 | Internal Med Progress Note ---
<RyanJulián He - Last Filed: 04/20/18 11:24> Hospitalist Progress Note - Encounter Date of Encounter: 04/20/18 Time of Encounter: 09:13 - Subjective Interval History: Patient was seen this morning and was awake and alert. Patient has no new complaints, he is alert but oriented only to person, he also answers questions and discusses things unrelated. Patient did eat almost all hist breakfast this morning. Overnight did have some agitation, did receive 2mg haldol around 5am this morning. Denies fevers, sweats, chest pain, troubles breathing, abdominal pain, changes with bowels or bladder, or weakness. - Exam Vitals: Temp Pulse Resp BP Pulse Ox 98.4 F 102 17 105/58 92 04/20/18 04:25 04/20/18 04:25 04/20/18 04:25 04/20/18 04:25 04/20/18 04:25 Exam: General: alert, awake, oriented to person only, no acute distress HEENT: moist mucus membranes CV: RRR, no murmurs Lungs: diminished bilaterally, no wheezing or rales Abd: soft, nontender, normal bowel sounds, incision healing clean dry and intact Ext: no edema, pulses palpable Skin: normal color, no rash. - Assessment and Plan (1) Sepsis Current Visit: Yes Status: Resolved Assessment and Plan: Resolved. Secondary to acute cholecystitis with necrotic gallbladder POD 7 s/p cholecystectomy No additional antibiotics at this time. (2) Acute encephalopathy Current Visit: Yes Status: Acute Assessment and Plan: Secondary to Sepsis from necrotic gallbladder/acute cholecystitis vs alcohol encephalopathy, vs withdrawal vs deconditioning. Mental status likely at baseline. Lactulose prn Most recent ammonia normal -AVOID benzo/narcotics/sedatives as planning for discharge. Need to try to control agitation at evenings before discharge. -Haldol prn 2mg for acute evening agitation. -Continue folate and thiamine -PT/OT participation -Social work for placement, considering Tuesday discharge. -Sitter due to acute evening agitation. (3) Fall Current Visit: Yes Status: Acute Assessment and Plan: Presented to ED via transfer from [place] with complaint of fall. Workup was negative. CT neck and head negative for acute findings. No exam findings of significant injuries. Continue with Fall precautions. Encourage PT/OT participation. (4) Alcoholism Current Visit: Yes Status: Chronic Assessment and Plan: History of known alcoholism with depedence. -Sitter (5) Schizophrenia Current Visit: Yes Status: Chronic Assessment and Plan: History of schizophrenia or bipolar -Continue with cogentin and Valproic acid -Sitter -Psychiatry reconsulted due to continued sleepy/delirium, question if patient at baseline. (6) Acute cholecystitis Current Visit: Yes Status: Resolved Assessment and Plan: Acute cholecystitis with necrotic gallbladder, POD 6, s/p cholecystectomy. (7) Alcohol withdrawal delirium Current Visit: Yes Status: Resolved Assessment and Plan: per plan in assessment above (8) Hypoxia Current Visit: Yes Status: Acute Assessment and Plan: Resolved, currently off supplemental oxygen, satting well on room air. Incentive spirometry nebulizer treatments as needed. Most likely due to deconditioning vs possible TREMAYNE. (9) Protein-calorie malnutrition, moderate Current Visit: Yes Status: Acute Assessment and Plan: Patient has improved po intake. Pre albumin 11.8 on admission (10) NIKITA (acute kidney injury) Current Visit: Yes Status: Resolved Assessment and Plan: Resolved, back to baseline. DVT Prophylaxis: Heparin sq - Time Spent with Patient Total time spent is greater than 50% in coordination of care (as documented) at patient's floor/unit and/or counseling patient: Internal Medicine: Result - Labs CBC & Chem 7: 04/19/18 04:00 04/19/18 04:00 - ABG Interpretation ABG results: PT/INR, D-dimer PT 13.7 Seconds (9.4-12.1) H 03/30/18 15:19 Consult Discharge Plan - Plan Additional Instructions: Coordinate mental health follow up once surgery is complete. General Surgical Discharge Instructions 1. No pushing, pulling, or lifting greater than 15 lbs for 2 weeks 2. You may shower beginning today, but no tub baths, soaking, or swimming for 2 weeks. 3. Take ibuprofen every 8 hours for discomfort. If this does not relieve discomfort, you may take the as needed Percocet. Take narcotics as directed. Do not take more narcotics then directed and do not share your narcotics with any other person. Do not drink alcohol while on narcotics. 4. Take stool softeners (Colace) or a water based laxative (Miralax) while taking narcotics. You may hold for loose stools. 5. Report any fevers greater than 100.5F, increase abdominal discomfort, drainage that looks like pus, increased redness or pain at the surgical site, or any vomiting. 6. Report any pain in the calves, shortness of breath, or rapid heartbeat. 7. Follow-up in the office as directed. Referrals: Matthew Pedraza MD [Partnered Physician] - 05/02/18 8:45 am [place],PCP [Primary Care Provider] - 04/14/18 10:30 am (THIS APPOINTMENT IS WITH [facility]) <Severo Washington - Last Filed: 04/20/18 13:11> Hospitalist Progress Note - Encounter Date of Encounter: 04/20/18 - Exam Vitals: Temp Pulse Resp BP Pulse Ox 98.1 F 101 22 145/88 95 04/20/18 13:00 04/20/18 13:00 04/20/18 13:00 04/20/18 13:00 04/20/18 09:39 - Assessment and Plan (1) Fall Current Visit: Yes Status: Acute (2) Alcoholism Current Visit: Yes Status: Chronic (3) NIKITA (acute kidney injury) Current Visit: Yes Status: Resolved (4) Schizophrenia Current Visit: Yes Status: Chronic (5) Acute cholecystitis Current Visit: Yes Status: Resolved (6) Acute encephalopathy Current Visit: Yes Status: Acute (7) Alcohol withdrawal delirium Current Visit: Yes Status: Resolved (8) Overweight (BMI 25.0-29.9) Current Visit: No Status: Chronic (9) Constipation Current Visit: Yes Status: Resolved (10) Sepsis Current Visit: Yes Status: Resolved (11) Hypoxia Current Visit: Yes Status: Acute (12) Protein-calorie malnutrition, moderate Current Visit: Yes Status: Acute - Time Spent with Patient Total time spent is greater than 50% in coordination of care (as documented) at patient's floor/unit and/or counseling patient: Internal Medicine: Result - Labs CBC & Chem 7: 04/19/18 04:00 04/19/18 04:00 - ABG Interpretation ABG results: PT/INR, D-dimer PT 13.7 Seconds (9.4-12.1) H 03/30/18 15:19 - Attending Attestation I have seen and examined this pt independently. I have discussed with resident physician Dr Furomoto regarding the management plan. Agree with the documentation. <Julián Davis - Last Filed: 04/20/18 11:24> (1) Sepsis Qualifiers: Sepsis type: sepsis due to unspecified organism Qualified Code(s): A41.9 - Sepsis, unspecified organism (3) Fall Qualifiers: Encounter type: initial encounter Qualified Code(s): W19.XXXA - Unspecified fall, initial encounter (5) Schizophrenia Qualifiers: Schizophrenia type: paranoid schizophrenia Qualified Code(s): F20.0 - Paranoid schizophrenia <Severo Washington - Last Filed: 04/20/18 13:11> (1) Fall Qualifiers: Encounter type: initial encounter Qualified Code(s): W19.XXXA - Unspecified fall, initial encounter (4) Schizophrenia Qualifiers: Schizophrenia type: paranoid schizophrenia Qualified Code(s): F20.0 - Paranoid schizophrenia (9) Constipation Qualifiers: Constipation type: unspecified constipation type Qualified Code(s): K59.00 - Constipation, unspecified (10) Sepsis Qualifiers: Sepsis type: sepsis due to unspecified organism Qualified Code(s): A41.9 - Sepsis, unspecified organism
--- NOTE | 2018-04-20 13:35 | Consult Note ---
Date of Encounter: 04/20/18 Time of Encounter: 12:40 Assessment & Recommendation (1) Delirium Current visit: Yes Status: Acute (2) Schizophrenia Current visit: Yes Status: Chronic Qualifiers: Schizophrenia type: undifferentiated schizophrenia Qualified Code(s): F20.3 - Undifferentiated schizophrenia (3) Alcoholism Current visit: Yes Status: Chronic History of Present Illness Patient: new to practice Requesting Physician: Severo Washington MD Reason for consult: reconsulted for agitation/baseline. History of present illness: Mr. Gooden is a 57 year old male was consulted today for h/o schizphrenia and agitation and question if baseline. Patient at present was very restless, and answered some questions but had to be redirected. His chart was reviwed and also was seen by psych on03/31/18.i have no collateral info , onlt from chart He has h/o schizophrenia,alcohol dependence , substance use and s/p surgery for gall bladder and sepsis . Patient h/o DT , he at present is confused , he denied any suicidal ideation/ homicidal ideation , states life like this sucks. he states he hears voices off and on but lately he is seeing things , he was not oriented only to month , he at present has agitation mostly in evenings , not sleeping and very restless , visual hallucination. this is not presentation of Schizophrenia or agitation related to it. it is mostly medically related , he is also having loose stools and most likely delirium A/P delirium seconday to medical condition h/o schizophrenia Alcohol dependendence s/p gall bladder surgery /sepsis. Plan please get Valproic acid level can give low dose haldol for severe agitation . Thank you for consult will sign off. CC: Severo Washington MD I am shitting a lot Past Med Surg Social Fam HX - Past Medical History Medical history: non-contributory - Past Psychiatric History Psychiatric history: Reports: schizophrenia, previous psychiatric hospitalization Family psychiatric history: Unknown Family History of Suicide: Unknown - Past Surgical History Surgical History: appendectomy - Social History Smoking Status: Never smoker Smokeless Tobacco Status: No Alcohol use: heavy Drug use: unknown - Family History Father Living Status: Hx Family Cancer: Yes Medications & Allergies Aspirin [Lo-Dose Aspirin EC] 81 mg PO DAILY 04/06/18 [History] Atorvastatin Calcium [Lipitor] 20 mg PO HS 04/06/18 [History] Benztropine [Cogentin] 1 mg PO BID 04/06/18 [History] Cholecalciferol (D-3) [Vitamin D] 2,000 unit PO DAILY 04/06/18 [History] Divalproex (24 HR) [Depakote ER (24 HR)] 1,000 mg PO BID 04/06/18 [History] Ibuprofen [Ibu] 600 mg PO TID PRN 04/06/18 [History] 3 Allergy/AdvReac Type Severity Reaction Status Date / Time No Known Allergies Allergy Verified 03/25/18 00:58 Review of Systems Psychiatric: Reports: depression (hx of schizophrenia), homicidal ideation, auditory hallucinations, confusion Psychiatry Exam - Constitutional Vitals: Temp Pulse Resp BP Pulse Ox 98.1 F 101 22 145/88 95 04/20/18 13:00 04/20/18 13:00 04/20/18 13:00 04/20/18 13:00 04/20/18 09:39 General appearance: age & developmentally appropriate - Psychiatric Patient Orientation: Yes Other (only oriented to month) Level of alertness: Alert Behavior: anxious, restless Eye Contact: Minimal Contact Mood Description: Anxious Affect description: constricted Speech Volume: Normal Speech pattern: slowed Thought Process: Slowed Thinking Thought Content: Yes Intact Perceptual Disturbances: Yes Visual hallucinations Attention Span Ability: Unable to Sustain Attention Judgment: Fair Insight: Partial Results - Labs Labs: Laboratory Last Values WBC 6.5 K/mcL (4.3-11.1) 04/19/18 04:00 RBC 3.40 M/mcL (4.19-5.50) L 04/19/18 04:00 Hgb 10.7 g/dL (12.9-16.9) L 04/19/18 04:00 Hct 33.3 % (37.5-50.1) L 04/19/18 04:00 MCV 97.9 fL (83.0-100.0) 04/19/18 04:00 MCH 31.5 pg (28.0-33.3) 04/19/18 04:00 MCHC 32.1 g/dL (31.6-35.5) 04/19/18 04:00 RDW 11.9 % (11.5-14.5) 04/19/18 04:00 Plt Count 186 K/mcL (140-400) 04/19/18 04:00 MPV 10.6 fL (9.4-12.4) 04/19/18 04:00 Immature Gran % 0.9 % (0-4) 04/19/18 04:00 Seg Neutrophils % 54.4 % 04/19/18 04:00 Band Neutrophils % 2.0 % (0-4) 04/06/18 05:07 Lymphocytes % 30.0 % 04/19/18 04:00 Monocytes % 10.8 % 04/19/18 04:00 Eosinophils % 3.1 % 04/19/18 04:00 Basophils % 0.8 % 04/19/18 04:00 Myelocytes % 4.0 % (0) H 04/04/18 05:28 Neutrophils # 3.5 K/mcL (1.6-8.9) 04/19/18 04:00 Lymphocytes # 1.9 K/mcL (0.6-4.6) 04/19/18 04:00 Monocytes # 0.7 K/mcL (0.0-1.3) 04/19/18 04:00 Eosinophils # 0.2 K/mcL (0.0-0.6) 04/19/18 04:00 Basophils # 0.1 K/mcL (0.0-0.2) 04/19/18 04:00 Platelet Estimate Normal (Normal) 04/06/18 05:07 Immature Plt Fraction 3.9 % (1.1-6.1) 04/13/18 03:20 Macrocytosis Present (Not Present) A 04/03/18 05:20 ESR 124 mm/hr (0-10) H 03/30/18 15:19 PT 13.7 Seconds (9.4-12.1) H 03/30/18 15:19 INR 1.2 03/30/18 15:19 Sodium 142 mEq/L (136-145) 04/19/18 04:00 Potassium 3.9 mEq/L (3.5-5.1) 04/19/18 04:00 Chloride 106 mEq/L (98-107) 04/19/18 04:00 Carbon Dioxide 28 mEq/L (23-29) 04/19/18 04:00 BUN 15 mg/dL (6-20) 04/19/18 04:00 Creatinine 1.28 mg/dL (0.70-1.30) 04/19/18 04:00 Est GFR ( Amer) > 60 (> 60) 04/19/18 04:00 Est GFR (Non-Af Amer) 58 (> 60) L 04/19/18 04:00 BUN/Creatinine Ratio 12 (6-26) 04/19/18 04:00 Glucose 93 mg/dL (70-105) 04/19/18 04:00 POC Glucose 102 mg/dL (70-99) H 04/19/18 12:30 Calculated Osmolality 295 (280-300) 04/19/18 04:00 Lactic Acid 0.6 mmol/L (0.5-2.2) 04/13/18 02:30 Calcium 9.2 mg/dL (8.6-10.3) 04/19/18 04:00 Phosphorus 4.0 mg/dL (2.7-4.5) 04/18/18 03:50 Magnesium 2.2 mg/dL (1.6-2.6) 04/18/18 03:50 Total Bilirubin 0.4 mg/dL (0.3-1.0) 04/16/18 03:58 Direct Bilirubin 0.1 mg/dL (0.0-0.2) 04/04/18 05:28 Indirect Bilirubin 0.3 mg/dL (0.0-1.2) 04/04/18 05:28 AST 26 Units/L (13-39) 04/16/18 03:58 ALT 10 Units/L (7-52) 04/16/18 03:58 Alkaline Phosphatase 64 Units/L (34-104) 04/16/18 03:58 Ammonia 47 mcmol/L (16-53) 04/15/18 03:55 Creatine Kinase 550 Units/L (30-223) H 04/01/18 15:30 CK-MB (CK-2) 14.1 ug/L (0.0-5.0) H 03/31/18 00:38 CK-MB (CK-2) % NOT DONE (0.0-5.0) 03/31/18 00:38 Troponin I 0.03 ng/mL (< 0.04) 03/30/18 15:19 C-Reactive Protein 161 mg/L (Less than 10) H 03/30/18 15:19 Serum Total Protein 6.9 g/dL (6.4-8.9) 04/16/18 03:58 Albumin 3.1 g/dL (3.5-5.7) L 04/16/18 03:58 Globulin 3.8 g/dL (2.4-3.5) H 04/16/18 03:58 Albumin/Globulin Ratio 0.8 (1.1-2.2) L 04/16/18 03:58 Prealbumin 11.8 mg/dL (17.0-34.0) L 04/15/18 03:55 Triglycerides 228 mg/dL (< 150) H 04/18/18 03:50 Vitamin B12 777 pg/mL (250-1100) 04/05/18 08:27 Folate 15.0 ng/mL (3.0-16.0) 04/05/18 08:27 Urine Color Yellow (Yellow) 04/10/18 04:45 Urine Clarity Clear (Clear) 04/10/18 04:45 Urine pH 5.5 pH Units (5.0-8.0) 04/10/18 04:45 Ur Specific [place] >= 1.030 (1.010-1.025) H 04/10/18 04:45 Urine Protein 100 mg/dL (Neg-Trace) H 04/10/18 04:45 Urine Glucose (UA) Normal mg/dL (Normal) 04/10/18 04:45 Urine Ketones 15 mg/dL (Negative) H 04/10/18 04:45 Urine Blood Large (Negative) H 04/10/18 04:45 Urine Nitrite Negative (Negative) 04/10/18 04:45 Urine Bilirubin Moderate (Negative) H 04/10/18 04:45 Urine Urobilinogen Normal mg/dL (Normal) 04/10/18 04:45 Ur Leukocyte Esterase Negative (Negative) 04/10/18 04:45 Urine Microscopic RBC TNTC per hpf (0-3) H 04/10/18 04:45 Urine Microscopic WBC Present per hpf (0-3) 04/10/18 04:45 Ur Squamous Epith Cells Present per lpf (None-Few) 04/10/18 04:45 Ur Renal Epithelial Cell Present per hpf (None-Few) 04/10/18 04:45 Amorphous Sediment Many (Few) H 04/10/18 04:45 Urine Bacteria Present per hpf (None-Few) 04/10/18 04:45 Hyaline Casts Few per lpf (None-Few) 04/10/18 04:45 Granular Casts Present per lpf (None Seen) H 04/10/18 04:45 Urine Mucus Present (Few) 04/10/18 04:45 Ur Culture Indicated? NO (NO) 04/10/18 04:45 CSF Volume 2.0 mL 03/30/18 16:00 CSF Appearance Clear (Clear) 03/30/18 16:00 CSF Color Colorless (Colorless) 03/30/18 16:00 CSF RBC < 0.002 M/mcL (0.000-0.002) 03/30/18 16:00 CSF Tot Nucleated Cells < 3 TNC/mcL (0-5) 03/30/18 16:00 CSF Glucose 85 mg/dL (40-70) H 03/30/18 16:00 CSF Xanth Comm Not Observed (Not Observe) 03/30/18 16:00 CSF Total Protein 44 mg/dL (15-45) 03/30/18 16:00 Nasal Screen MRSA (PCR) Negative (Negative) 04/11/18 01:00 Vancomycin Trough 20 mcg/mL (5-10) H 04/12/18 13:17 Urine Opiates Screen Negative ng/mL (Usswup=924) 03/31/18 00:19 Ur Barbiturates Screen Negative ng/mL (Vavdmg=994) 03/31/18 00:19 Ur Phencyclidine Scrn Negative ng/mL (Cutoff=25) 03/31/18 00:19 Ur Amphetamines Screen Negative ng/mL (Qqoyae=0903) 03/31/18 00:19 U Benzodiazepines Scrn Negative ng/mL (Cibayl=494) 18 00:19 Urine Cocaine Screen Negative ng/mL (Cutoff= 300) 18 00:19 U Marijuana (THC) Screen Negative ng/mL (Cutoff = 50) 18 00:19 Ur Drug Screen Interp See Below 03/31/18 00:19 Ethyl Alcohol 13 mg/dL (Less than 10) H 03/30/18 15:19 Hepatitis A IgM Ab Nonreactive (Nonreactive) 03/31/18 16:31 Hep Bs Antigen Nonreactive (Nonreactive) 03/31/18 16:31 Hep B Core IgM Ab Nonreactive (Nonreactive) 03/31/18 16:31 Hepatitis C Ab Screen Nonreactive (Nonreactive) 03/31/18 16:31 Specimen Rejected Miscellaneous 04/10/18 04:37 Consult Discharge Plan - Plan Additional Instructions: Coordinate mental health follow up once surgery is complete. General Surgical Discharge Instructions 1. No pushing, pulling, or lifting greater than 15 lbs for 2 weeks 2. You may shower beginning today, but no tub baths, soaking, or swimming for 2 weeks. 3. Take ibuprofen every 8 hours for discomfort. If this does not relieve discomfort, you may take the as needed Percocet. Take narcotics as directed. Do not take more narcotics then directed and do not share your narcotics with any other person. Do not drink alcohol while on narcotics. 4. Take stool softeners (Colace) or a water based laxative (Miralax) while taking narcotics. You may hold for loose stools. 5. Report any fevers greater than 100.5F, increase abdominal discomfort, drainage that looks like pus, increased redness or pain at the surgical site, or any vomiting. 6. Report any pain in the calves, shortness of breath, or rapid heartbeat. 7. Follow-up in the office as directed. Referrals: Matthew Pedraza MD [Partnered Physician] - 05/02/18 8:45 am ID,PCP [Primary Care Provider] - 04/14/18 10:30 am (THIS APPOINTMENT IS WITH THE [facility])
[2018-04-20] MEDS: Acetaminophen 325 MG TABLET PO PRN (15:08)
[2018-04-21] MEDS: Haloperidol Lactate 5 MG/ML VIAL IVP PRN (02:08)
[2018-04-21] MEDS: *HR* Heparin 5,000 UNIT/ML VIAL SQ SCH ×2 (05:29→17:25)
--- NOTE | 2018-04-21 09:29 | Discharge Summary ---
<Julián Davis - Last Filed: 04/21/18 13:29> - NOTES TO OUTPATIENT PROVIDER Notes to Outpatient Provider: Patient presented with CC of AMS and fall, admitted for sepsis, acute encephalopathy, fall, nikita. During admission was determined to have acute cholecystitis with necrotic gallbladder, s/p cholecystectomy 04/12/18, alcohol withdrawal treated with CIWA protocol, and improvement in mental status but needed as needed haldol for occasional agitation. Did have hypoxia at times in evening, we suspect patient has possible TREMAYNE and recommend outpatient eval. Patient is suspected to be back at his baseline mental status and has been having normal appetite up to discharge. No new meds, no new labs/imaging recommended. Follow up with PCP within 2-3 days of discharge. Follow up with Surgery as outpatient in 3-5 days. Orders not resulted at time of discharge: Pending orders 04/11/18 00:53 Culture,Sputum with Gram Stain [RM] Routine -Not completed during admission. Date of Encounter: 04/21/18 Time of Encounter: 09:29 - Discharge Diagnosis (1) Sepsis Priority: Primary Status: Resolved Assessment and Plan: Resolved. Secondary to acute cholecystitis with necrotic gallbladder POD 8 s/p cholecystectomy No additional antibiotics at this time. Qualifiers: Sepsis type: sepsis due to unspecified organism Qualified Code(s): A41.9 - Sepsis, unspecified organism (2) Acute encephalopathy Priority: Primary Status: Acute Assessment and Plan: Secondary to Sepsis from necrotic gallbladder/acute cholecystitis vs alcohol encephalopathy, vs withdrawal vs deconditioning. Mental status likely at baseline. Lactulose prn Most recent ammonia normal -AVOID benzo/narcotics/sedatives as planning for discharge. Need to try to control agitation at evenings before discharge. -Haldol prn 2mg for acute evening agitation. -Continue folate and thiamine -PT/OT participation -Social work for placement -Sitter due to acute evening agitation. (3) Fall Priority: Primary Status: Acute Assessment and Plan: Presented to ED via transfer from OR with complaint of fall. Workup was negative. CT neck and head negative for acute findings. No exam findings of significant injuries. Continue with Fall precautions. Encourage PT/OT participation. Qualifiers: Encounter type: initial encounter Qualified Code(s): W19.XXXA - Unspecified fall, initial encounter (4) Alcoholism Priority: Secondary Status: Chronic Assessment and Plan: History of known alcoholism with depedence. -Sitter (5) Schizophrenia Priority: Secondary Status: Chronic Assessment and Plan: History of schizophrenia or bipolar Psych consulted, reviewed, no new recommendations, Valproic acid level within acceptable range. -Continue with cogentin and Valproic acid -Sitter Qualifiers: Schizophrenia type: undifferentiated schizophrenia Qualified Code(s): F20.3 - Undifferentiated schizophrenia (6) Acute cholecystitis Priority: Primary Status: Resolved Assessment and Plan: Acute cholecystitis with necrotic gallbladder, POD 8, s/p cholecystectomy. (7) Alcohol withdrawal delirium Priority: Primary Status: Resolved (8) Hypoxia Priority: Primary Status: Acute Assessment and Plan: Resolved, currently off supplemental oxygen, satting well on room air. Incentive spirometry nebulizer treatments as needed. Most likely due to deconditioning vs possible TREMAYNE. (9) Protein-calorie malnutrition, moderate Priority: Secondary Status: Acute Assessment and Plan: Patient has improved po intake. Pre albumin 11.8 on admission (10) NIKITA (acute kidney injury) Priority: Primary Status: Resolved Assessment and Plan: Resolved, back to baseline. Hospital course: Srini Gooden 57 year old male with history of alcoholism and schizophrenia who presented to [facility] via EMS for fall and altered mental status. The patient fell in the bathroom of a senior care and EMS was called because he was snoring and could not be woken. Patient has had several falls while intoxicated and often goes into a coma state with muscle rigidity and shaking. Vitals were stable but slow mentation and diaphoretic. He has a past history of alcoholism, bipolar and delusional thinking. Encephalopathy likely due to acute alcohol intoxication, head CT was negative. NIKITA serum Cr was elevated and treated with IVF. For his fall CXR, CT of head and neck were negative. Patient was placed under [facility] protocol for alcoholism. For lactic academia a lumbar puncture was done to rule out meningitis. Patient had hyperammonemia with a level of [address] Abd. Was done which showed cholecystitis with a necrosis that was treated with cholecystectomy on April 12 and pain medication for comfort. Psych consulted for schizophrenia and delirium treated with potassium, Ativan and Haldol. Mental status improved, agitation treated with Haldol prn. Discharge pending placement. Patient did well overnight, did have some agitation around 2am which was treated with 2mg haldol. Patient has no new complaints, alert and oriented to person only and answers questions when prompted, but then discusses and mumbles unrelated things. Denies fevers, sweats, chest pain, troubles breathing, abdominal pain, changes in bowels or bladder, or weakness. - Time Spent with Patient Total time spent providing and/or coordinating discharge services: - Discharge Medications Prescriptions: Folic Acid 1 mg PO DAILY #30 tablet Metoprolol XL (24 HR) Succ [Toprol Xl] 12.5 mg PO DAILY #30 tab.er.24h Polyethylene Glycol 3350 [MiraLAX] 17 gm PO DAILY #30 powd.pack Thiamine (B-1) [Vitamin B-1] 100 mg PO DAILY #30 tablet Home Medications: Aspirin [Lo-Dose Aspirin EC] 81 mg PO DAILY 04/06/18 [History] Atorvastatin Calcium [Lipitor] 20 mg PO HS 04/06/18 [History] Benztropine [Cogentin] 1 mg PO BID 04/06/18 [History] Cholecalciferol (D-3) [Vitamin D] 2,000 unit PO DAILY 04/06/18 [History] Divalproex (24 HR) [Depakote ER (24 HR)] 1,000 mg PO BID 04/06/18 [History] Ibuprofen [Ibu] 600 mg PO TID PRN 04/06/18 [History] Benztropine [Cogentin] 1 mg PO BID tablet 04/21/18 [Rx] Folic Acid 1 mg PO DAILY #30 tablet 04/21/18 [Rx] Metoprolol XL (24 HR) Succ [Toprol Xl] 12.5 mg PO DAILY #30 tab.er.24h 04/21/18 [Rx] Non-Formulary Medication 1 each IM QMONTH each 04/21/18 [Rx] Polyethylene Glycol 3350 [MiraLAX] 17 gm PO DAILY #30 powd.pack 04/21/18 [Rx] Thiamine (B-1) [Vitamin B-1] 100 mg PO DAILY #30 tablet 04/21/18 [Rx] Valproic Acid Oral Soln [Depakene Oral Soln] 500 mg PO 1500 udc 04/21/18 [Rx] Valproic Acid Oral Soln [Depakene Oral Soln] 750 mg PO BID udc 04/21/18 [Rx] Allergies/Adverse Reactions: 3 Allergy/AdvReac Type Severity Reaction Status Date / Time No Known Allergies Allergy Verified 03/25/18 00:58 Date of admission: 03/31/18 11:18 Primary care physician: PCP [facility] Consults: 04/11/18 15:21 Consult to Surgery [CONS] Routine Consulting Provider: Surgery [facility] Reason for Consult: acutue cholecystitis Call Completed: Yes 04/12/18 13:10 Consult to Invasive Line Access Team [CONS] Routine Reason for Consult: Limited vascular access Line Type: EPIV 04/14/18 14:17 Consult to Invasive Line Access Team [CONS] Routine Reason for Consult: Picc Line Insertion Line Type: PICC 04/14/18 16:13 Consult to Invasive Line Access Team [CONS] Routine Reason for Consult: Picc Line Insertion Line Type: PICC 04/19/18 13:51 Consult to Psychiatry [CONS] Routine Consulting Provider: Psychiatry [facility] Reason consult: Agitation Other reason and/or additional details: Hx of schizophrenia. Intermittent confusion/agitation/poor intake. Call Completed: Yes [facility] Anticipated date of discharge: 04/21/18 - Constitutional Vitals: Temp Pulse Resp BP Pulse Ox 97.2 F L 99 12 116/72 94 04/21/18 09:05 04/21/18 09:05 04/21/18 09:05 04/21/18 09:05 04/21/18 09:05 General appearance: Present: A&O X 1, no acute distress, obese, answers questions appropriately (generally answers appropriately). Absent: cooperative Exam: General: alert, awake, oriented to person only, no acute distress HEENT: moist mucus membranes CV: RRR, no murmurs Lungs: diminished bilaterally, no wheezing or rales Abd: soft, nontender, normal bowel sounds, incision healing clean dry and intact Ext: no edema, pulses palpable, no asterixis MSK: 5/5 bilaterally all extremities, but moves a little slower than normal. Skin: normal color, no rash. - Patient Status Disposition: Transfer SNF Condition: Fair Functional capacity at discharge: uses cane/walker Overall status at discharge: patient is progressing back to baseline - Discharge Instructions Follow Up With: Matthew Pedraza MD [Partnered Physician] - 05/02/18 8:45 am OR,PCP [Primary Care Provider] - 04/14/18 10:30 am (THIS APPOINTMENT IS WITH THE [facility] TEAM) Additional Instructions: Coordinate mental health follow up once surgery is complete. General Surgical Discharge Instructions 1. No pushing, pulling, or lifting greater than 15 lbs for 2 weeks 2. You may shower beginning today, but no tub baths, soaking, or swimming for 2 weeks. 3. Take ibuprofen every 8 hours for discomfort. If this does not relieve discomfort, you may take the as needed Percocet. Take narcotics as directed. Do not take more narcotics then directed and do not share your narcotics with any other person. Do not drink alcohol while on narcotics. 4. Take stool softeners (Colace) or a water based laxative (Miralax) while taking narcotics. You may hold for loose stools. 5. Report any fevers greater than 100.5F, increase abdominal discomfort, drainage that looks like pus, increased redness or pain at the surgical site, or any vomiting. 6. Report any pain in the calves, shortness of breath, or rapid heartbeat. 7. Follow-up in the office as directed. - Diet and Activity Activity: ambulate only with your walker, as per physical therapy Diet: advance to your usual diet <Severo Washington - Last Filed: 04/21/18 14:28> - NOTES TO OUTPATIENT PROVIDER Notes to Outpatient Provider: I double checked with RN and was told that pt has received his paliperidone 156mg IM this morning, it is a q28day medication so next dose should be 28 days later. Orders not resulted at time of discharge: Pending orders 04/11/18 00:53 Culture,Sputum with Gram Stain [RM] Routine Date of Encounter: 04/21/18 - Discharge Diagnosis (1) Fall Status: Acute Qualifiers: Encounter type: initial encounter Qualified Code(s): W19.XXXA - Unspecified fall, initial encounter (2) Alcoholism Status: Chronic (3) NIKITA (acute kidney injury) Status: Resolved (4) Schizophrenia Status: Chronic Qualifiers: Schizophrenia type: undifferentiated schizophrenia Qualified Code(s): F20.3 - Undifferentiated schizophrenia (5) Acute cholecystitis Status: Resolved (6) Acute encephalopathy Status: Acute (7) Alcohol withdrawal delirium Status: Resolved (8) Overweight (BMI 25.0-29.9) Status: Chronic (9) Constipation Status: Resolved Qualifiers: Constipation type: unspecified constipation type Qualified Code(s): K59.00 - Constipation, unspecified (10) Sepsis Status: Resolved Qualifiers: Sepsis type: sepsis due to unspecified organism Qualified Code(s): A41.9 - Sepsis, unspecified organism (11) Hypoxia Status: Acute (12) Protein-calorie malnutrition, moderate Status: Acute Hospital course: Mr. Gooden is a 57 year old male - Time Spent with Patient Total time spent providing and/or coordinating discharge services: Date of admission: 03/31/18 11:18 Primary care physician: [facility] Consults: 04/11/18 15:21 Consult to Surgery [CONS] Routine Consulting Provider: [facility] Reason for Consult: acutue cholecystitis Call Completed: Yes 04/12/18 13:10 Consult to Invasive Line Access Team [CONS] Routine Reason for Consult: Limited vascular access Line Type: EPIV 04/14/18 14:17 Consult to Invasive Line Access Team [CONS] Routine Reason for Consult: Picc Line Insertion Line Type: PICC 04/14/18 16:13 Consult to Invasive Line Access Team [CONS] Routine Reason for Consult: Picc Line Insertion Line Type: PICC 04/19/18 13:51 Consult to Psychiatry [CONS] Routine Consulting Provider: Psychiatry [facility] Reason consult: Agitation Other reason and/or additional details: Hx of schizophrenia. Intermittent confusion/agitation/poor intake. Call Completed: Yes - Constitutional Vitals: Temp Pulse Resp BP Pulse Ox 97.6 F 89 12 106/71 94 04/21/18 12:44 04/21/18 12:44 04/21/18 12:44 04/21/18 12:44 04/21/18 12:44 - Attending Attestation I have seen and examined this pt independently. I have discussed with resident physician Dr Davis regarding the discharge and follow up plan. Agree with the documentation.
[2018-04-21] MEDS: Sennosides/Docusate Sodium TABLET PO SCH (09:45)
[2018-04-21] MEDS: Cholecalciferol (D-3) 1,000 UNIT TABLET PO SCH (09:45)
[2018-04-21] MEDS: Aspirin 81 MG TAB.CHEW PO SCH (09:45)
[2018-04-21] MEDS: Folic Acid 1 MG TABLET PO SCH (09:45)
[2018-04-21] MEDS: Lactulose Oral Soln 20 GM/30 ML UDC PO SCH (09:45)
[2018-04-21] MEDS: Metoprolol XL (24 HR) Succ 25 MG TAB.ER.24H PO SCH (09:45)
[2018-04-21] MEDS: Thiamine (B-1) 100 MG TABLET PO SCH (09:45)
[2018-04-21] MEDS: Valproic Acid Oral Soln 250 MG/5 ML UDC PO SCH ×2 (09:55→17:25)
[2018-04-21] MEDS: Acetaminophen 325 MG TABLET PO PRN (09:55)
[2018-04-21] MEDS ORDERED: PALIPERIDONE 156 MG IM SCH (11:00)
[2018-04-21] MEDS ORDERED: INVEGA SUSTENNA 156 MG IM SCH (12:00)
--- NOTE | 2018-04-21 14:41 | Physician Discharge Referral ---
ExtendedCare Referral Info Transfer To: [facility] Provider in Charge after Transfer: Other ([place] provider) - Diagnosis (1) Fall Priority: Primary Status: Acute (2) Alcoholism Priority: Primary Status: Chronic (3) NIKITA (acute kidney injury) Priority: Primary Status: Resolved (4) Schizophrenia Priority: Secondary Status: Chronic (5) Acute cholecystitis Priority: Primary Status: Resolved (6) Acute encephalopathy Priority: Primary Status: Acute (7) Alcohol withdrawal delirium Priority: Primary Status: Resolved (8) Overweight (BMI 25.0-29.9) Priority: Secondary Status: Chronic (9) Constipation Priority: Secondary Status: Resolved (10) Sepsis Priority: Primary Status: Resolved (11) Hypoxia Priority: Secondary Status: Acute (12) Protein-calorie malnutrition, moderate Priority: Secondary Status: Acute Prognosis: Fair - Transfer Medications Prescriptions: Folic Acid 1 mg PO DAILY #30 tablet Metoprolol XL (24 HR) Succ [Toprol Xl] 12.5 mg PO DAILY #30 tab.er.24h Polyethylene Glycol 3350 [MiraLAX] 17 gm PO DAILY #30 powd.pack Thiamine (B-1) [Vitamin B-1] 100 mg PO DAILY #30 tablet Home Medications: Aspirin [Lo-Dose Aspirin EC] 81 mg PO DAILY 04/06/18 [History] Atorvastatin Calcium [Lipitor] 20 mg PO HS 04/06/18 [History] Benztropine [Cogentin] 1 mg PO BID 04/06/18 [History] Cholecalciferol (D-3) [Vitamin D] 2,000 unit PO DAILY 04/06/18 [History] Divalproex (24 HR) [Depakote ER (24 HR)] 1,000 mg PO BID 04/06/18 [History] Ibuprofen [Ibu] 600 mg PO TID PRN 04/06/18 [History] Benztropine [Cogentin] 1 mg PO BID tablet 04/21/18 [Rx] Folic Acid 1 mg PO DAILY #30 tablet 04/21/18 [Rx] Metoprolol XL (24 HR) Succ [Toprol Xl] 12.5 mg PO DAILY #30 tab.er.24h 04/21/18 [Rx] Non-Formulary Medication 1 each IM QMONTH each 04/21/18 [Rx] Polyethylene Glycol 3350 [MiraLAX] 17 gm PO DAILY #30 powd.pack 04/21/18 [Rx] Thiamine (B-1) [Vitamin B-1] 100 mg PO DAILY #30 tablet 04/21/18 [Rx] Valproic Acid Oral Soln [Depakene Oral Soln] 500 mg PO 1500 udc 04/21/18 [Rx] Valproic Acid Oral Soln [Depakene Oral Soln] 750 mg PO BID udc 04/21/18 [Rx] Allergies/Adverse Reactions: 3 Allergy/AdvReac Type Severity Reaction Status Date / Time No Known Allergies Allergy Verified 03/25/18 00:58 - Respiratory Orders Smoking Cessation: Smoking cessation has been advised. For more information, call the [place] Tobacco Quit Line at 3-736-FHTS-NOW. - Advance Directives Code Status: Full Code - Rehabiliation Orders Rehab Potential: Good Rehab Orders: Evaluation for Physical Therapy, Evaluation for Occupational Therapy - Diet Orders Mechanical Soft CERTIFICATION: I certify that the transfer of the above named patient to an Extended Care Facility is necessary for the continuing treatment of the diagnosis listed. The above information is true and accurate reflection of patient's current condition. Confidential - Redisclosure prohibited without a patient's written consent.
[2018-04-21 16:05] VITALS: BP 131/77
== END 2018-04-21 18:35 | DRG 987 ==
LOC: EMEROOARM 15:10 → 3BNU 15:10 → SUATTDRO 03-31 11:18 → 2NNU 04-01 17:04 → 2ANU 04-17 10:45
PROVIDERS: ADMIT Internal Medicine; ATTEND Internal Medicine

== ENCOUNTER 2018-05-07 21:05 | Observation (INO) ==
[2018-05-07] MEDS ORDERED: Nitroglycerin 0.4 MG TAB.SUBL SL ONE (21:13)
[2018-05-07] MEDS ORDERED: 0.9 % Sodium Chloride 500 ML IVC ONE (21:13)
--- NOTE | 2018-05-07 21:17 | Emergency Department Note ---
Disposition Clinical Impression: Chest pain Qualifiers: Chest pain type: unspecified Qualified Code(s): R07.9 - Chest pain, unspecified Anemia Qualifiers: Anemia type: unspecified type Qualified Code(s): D64.9 - Anemia, unspecified Disposition: Admitted As Inpatient Condition: Fair [facility]Primary Care Provider[facility] - Forms: ED Satisfaction Letter Time of Disposition: 21:58 Chest Pain HPI - General Chief Complaint: ED Chest Pain Stated Complaint: Chest Pain Time Seen by Provider: 05/07/18 21:08 Source: patient, EMS Mode of arrival: EMS Limitations: no limitations Vital Signs Reviewed: Yes Nursing Notes Reviewed: Yes - History of Present Illness HPI Narrative: 58-year-old male with history of Parkinson, CKD, hypertension presents for evaluation of chest pain. Patient was inpatient at the [facility]. Patient describes nonexertional squeezing midsternal chest pain that started around 1800 this evening. Lasted 2 hours. Prior to arrival to the ED the patient received full dose aspirin as well as 1 nitroglycerin. Notes that the pain improved after 1 nitroglycerin. Patient reports some diaphoresis but no nausea or vomiting. No radiation of pain. No aggravating factors identified. Patient denies history of ACS or cardiac disease. Patient states that he has had his gallbladder removed proximal a month ago and the patient states he has had abdominal cramping in the past. Severity scale (1-10): 6 - Related Data Home Medications Medication Instructions Recorded Confirmed Aspirin [Lo-Dose Aspirin EC] 81 mg PO DAILY 04/06/18 04/06/18 Atorvastatin Calcium [Lipitor] 20 mg PO HS 04/06/18 04/06/18 Benztropine [Cogentin] 1 mg PO BID 04/06/18 04/06/18 Cholecalciferol (D-3) [Vitamin D] 2,000 unit PO DAILY 04/06/18 04/06/18 Divalproex (24 HR) [Depakote ER 1,000 mg PO BID 04/06/18 04/06/18 (24 HR)] Ibuprofen [Ibu] 600 mg PO TID PRN 04/06/18 04/06/18 Previous Rx's Medication Instructions Recorded Benztropine [Cogentin] 1 mg PO BID tablet 04/21/18 Folic Acid 1 mg PO DAILY #30 tablet 04/21/18 Metoprolol XL (24 HR) Succ [Toprol 12.5 mg PO DAILY #30 tab.er.24h 04/21/18 Xl] Non-Formulary Medication 1 each IM QMONTH each 04/21/18 Polyethylene Glycol 3350 [MiraLAX] 17 gm PO DAILY #30 powd.pack 04/21/18 Thiamine (B-1) [Vitamin B-1] 100 mg PO DAILY #30 tablet 04/21/18 Valproic Acid Oral Soln [Depakene 500 mg PO 1500 udc 04/21/18 Oral Soln] Valproic Acid Oral Soln [Depakene 750 mg PO BID udc 04/21/18 Oral Soln] Allergies Allergy/AdvReac Type Severity Reaction Status Date / Time No Known Allergies Allergy Verified 03/25/18 00:58 All systems ED: reviewed and negative except as stated. Constitutional: Denies: fever Cardiovascular: Reports: chest pain Respiratory: Denies: cough, dyspnea Gastrointestinal: Denies: abdominal pain, nausea, vomiting Chest Pain PMH - Past Medical History Medical history: Reports: hypertension Surgical history: Reports: appendectomy Psychiatric history: Reports: schizophrenia, previous psychiatric hospitalization - Social History Smoking Status: Former smoker Alcohol use: Reports: none Drug use: Reports: unknown Physical Exam - General Limitations: no limitations General appearance: alert, in no apparent distress, other (Parkinsonian features ) - Head Head exam: atraumatic, normocephalic, normal inspection - Eye Eye exam: Present: normal appearance, PERRL, EOMI - ENT ENT exam: normal exam, mucous membranes dry - Neck Neck exam: Present: normal inspection - Chest Chest inspection: Present: normal inspection, symmetric chest wall rise. Absent : tenderness - Respiratory Respiratory exam: Present: normal lung sounds bilaterally. Absent: respiratory distress - Cardiovascular Cardiovascular exam: Present: normal rhythm, tachycardia. Absent: systolic murmur - Abdominal Exam Abdominal exam: Present: soft, Non-Tender - Extremities Exam Extremities exam: Present: normal inspection. Absent: pedal edema - Back Exam Back exam: Present: normal inspection - Neurological Exam Neurological exam: Present: alert, oriented X3, CN II-XII intact - Skin Skin exam: Present: warm, dry, intact, normal color Course Course Narrative: Patient seen and examined. Patient had initial troponin obtained at 1900 which was negative. Patient will get basic Jose Angel pulmonary screening evaluation with EKG, chest x-ray and labs. Disposition likely admission - Reevaluation(s) Reevaluation #1: Patient seen and examined. Patient got relief after 2 nitroglycerin. Resting comfortably. Awaiting labs. Time: 21:57 Reevaluation #2: Patient seen resting currently. No acute distress. Time: 22:08 Vital Signs Temperature 99.1 F 05/07/18 21:09 Pulse Rate 109 05/07/18 21:09 Respiratory Rate 16 05/07/18 21:09 Blood Pressure 128/78 05/07/18 21:09 O2 Sat by Pulse Oximetry 95 05/07/18 21:09 Temperature 99.1 F 05/07/18 21:09 Pulse Rate 108 05/07/18 21:40 Respiratory Rate 18 05/07/18 21:40 Blood Pressure 134/94 05/07/18 21:40 O2 Sat by Pulse Oximetry 96 05/07/18 21:40 Oxygen Delivery Oxygen Delivery Room Air Chest Pain - MDM Narrative Medical decision making narrative: 58-year-old male penis for evaluation of chest pain. Patient describes nonexertional squeezing sensation in his retrosternal. Without radiation. Patient was evaluated at the inpatient the NH and had initial troponin there which was negative. Repeat troponin here is also negative. Patient has had relief with 3 doses of nitroglycerin. No history of cardiac disease in the past. Does have history of hypertension. Patient denies any pleuritic component. Patient's chest pain is described more as unstable angina. Patient is also postop however patient has no pleuritic component the pain and is not hypoxic. Patient has low gestalt of having a PE. Patient's abdominal exam is unremarkable. Patient does have a soft abdomen with well-healed laparoscopic surgical incision. - Lab Data Lab results reviewed: Yes I reviewed the patient's lab results. Result diagrams: 05/07/18 21:27 05/07/18 21:27 Lab Results 05/07/18 05/07/18 05/07/18 Range/Units 21:27 21:27 21:27 WBC 6.2 (4.3-11.1) K/mcL RBC 3.76 L (4.19-5.50) M/mcL Hgb 11.8 L (12.9-16.9) g/dL Hct 35.0 L (37.5-50.1) % MCV 93.1 (83.0-100.0) fL MCH 31.4 (28.0-33.3) pg MCHC 33.7 (31.6-35.5) g/dL RDW 11.5 (11.5-14.5) % Plt Count 176 (140-400) K/mcL MPV 10.0 (9.4-12.4) fL Immature Gran % 0.3 (0-4) % Seg Neutrophils % 55.1 % Lymphocytes % 33.9 % Monocytes % 4.7 % Eosinophils % 5.2 % Basophils % 0.8 % Neutrophils # 3.4 (1.6-8.9) K/mcL Lymphocytes # 2.1 (0.6-4.6) K/mcL Monocytes # 0.3 (0.0-1.3) K/mcL Eosinophils # 0.3 (0.0-0.6) K/mcL Basophils # 0.1 (0.0-0.2) K/mcL PT 11.9 (9.4-12.1) Seconds INR 1.1 APTT 31.9 (26.0-36.0) Seconds Sodium (136-145) mEq/L Potassium (3.5-5.1) mEq/L Chloride (98-107) mEq/L Carbon Dioxide (23-29) mEq/L BUN (6-20) mg/dL Creatinine (0.70-1.30) mg/dL Est GFR ( Amer) (> 60) Est GFR (Non-Af Amer) (> 60) BUN/Creatinine Ratio (6-26) Glucose (70-105) mg/dL Calculated Osmolality (280-300) Calcium (8.6-10.3) mg/dL Total Bilirubin (0.3-1.0) mg/dL Direct Bilirubin (0.0-0.2) mg/dL Indirect Bilirubin (0.0-1.2) mg/dL AST (13-39) Units/L ALT (7-52) Units/L Alkaline Phosphatase (34-104) Units/L Troponin I (< 0.04) ng/mL B-Natriuretic Peptide 33 (Less than 100) pg/mL Serum Total Protein (6.4-8.9) g/dL Albumin (3.5-5.7) g/dL Globulin (2.4-3.5) g/dL Albumin/Globulin Ratio (1.1-2.2) Lipase (11-82) Units/L 05/07/18 05/07/18 Range/Units 21:27 21:27 WBC (4.3-11.1) K/mcL RBC (4.19-5.50) M/mcL Hgb (12.9-16.9) g/dL Hct (37.5-50.1) % MCV (83.0-100.0) fL MCH (28.0-33.3) pg MCHC (31.6-35.5) g/dL RDW (11.5-14.5) % Plt Count (140-400) K/mcL MPV (9.4-12.4) fL Immature Gran % (0-4) % Seg Neutrophils % % Lymphocytes % % Monocytes % % Eosinophils % % Basophils % % Neutrophils # (1.6-8.9) K/mcL Lymphocytes # (0.6-4.6) K/mcL Monocytes # (0.0-1.3) K/mcL Eosinophils # (0.0-0.6) K/mcL Basophils # (0.0-0.2) K/mcL PT (9.4-12.1) Seconds INR APTT (26.0-36.0) Seconds Sodium 136 (136-145) mEq/L Potassium 3.9 (3.5-5.1) mEq/L Chloride 100 (98-107) mEq/L Carbon Dioxide 27 (23-29) mEq/L BUN 8 (6-20) mg/dL Creatinine 1.12 (0.70-1.30) mg/dL Est GFR ( Amer) > 60 (> 60) Est GFR (Non-Af Amer) > 60 (> 60) BUN/Creatinine Ratio 7 (6-26) Glucose 121 H (70-105) mg/dL Calculated Osmolality 282 (280-300) Calcium 9.8 (8.6-10.3) mg/dL Total Bilirubin 0.5 (0.3-1.0) mg/dL Direct Bilirubin 0.1 (0.0-0.2) mg/dL Indirect Bilirubin 0.4 (0.0-1.2) mg/dL AST 37 (13-39) Units/L ALT 34 (7-52) Units/L Alkaline Phosphatase 120 H (34-104) Units/L Troponin I < 0.03 (< 0.04) ng/mL B-Natriuretic Peptide (Less than 100) pg/mL Serum Total Protein 8.1 (6.4-8.9) g/dL Albumin 4.5 (3.5-5.7) g/dL Globulin 3.6 H (2.4-3.5) g/dL Albumin/Globulin Ratio 1.3 (1.1-2.2) Lipase 34 (11-82) Units/L - Radiology Data Radiology results reviewed: Yes I reviewed the patient's radiology results. Chest X-Ray 05/07/18 21:14 IMPRESSION: No acute process. D/ / Michael Bill MD / Michael Bill MD Interpreting Provider: Michael Bill MD - EKG Data EKG attestation: Yes I reviewed and interpreted this EKG. EKG shows normal: sinus rhythm Rate: tachycardia Rhythm: NSR Leland/QRS: normal Interpretation: no acute changes, unchanged when compared to prior tracing (date ), nonspecific ST-T wave changes Heart Score - Score History: Moderately Suspicious EKG: Non Specific repolarisation Disturbance Age: 45-65 Risk Factors: 1-2 risk factors Troponin: Less than normal limit HEART Score Total: 4 S.B.A.Suhas - S.B.A.Suhas Situation: Demographics Background: Presenting Complaint Assessment: Vital Signs, Course and respsone to treatment, Patient/Family Expectation Recommendation: Barrier(s) to disposition, Recommendation based on pending studies, treatments, or consults S.B.A.RJoel Report Given to: Dr. Kelley White Repor Time: 22:19
[2018-05-07 21:44] LABS: Basophils # 0.1 K/mcL (0.0-0.2); Basophils % 0.8 %; Eosinophils # 0.3 K/mcL (0.0-0.6); Eosinophils % 5.2 %; Hemoglobin 11.8 g/dL (12.9-16.9); Immature Granulocytes % 0.3 % (0-4); Lymphocytes # 2.1 K/mcL (0.6-4.6); Lymphocytes % 33.9 %; Mean Corpuscular HGB Conc 33.7 g/dL (31.6-35.5); Mean Corpuscular Hemoglobin 31.4 pg (28.0-33.3); Mean Corpuscular Volume 93.1 fL (83.0-100.0); Monocytes # 0.3 K/mcL (0.0-1.3); Monocytes % 4.7 %; Neutrophils # 3.4 K/mcL (1.6-8.9); Platelet Count 176 K/mcL (140-400); Red Blood Count 3.76 M/mcL (4.19-5.50); Red Cell Distribution Width 11.5 % (11.5-14.5); Segmented Neutrophils % 55.1 %
[2018-05-07 21:51] LABS: INR 1.1; Prothrombin Time 11.9 Seconds (9.4-12.1)
[2018-05-07 21:54] LABS: Activated Partial Thrombo Time 31.9 Seconds (26.0-36.0)
[2018-05-07 22:02] LABS: Albumin 4.5 g/dL (3.5-5.7); Albumin/Globulin Ratio 1.3 (1.1-2.2); Bilirubin,Direct 0.1 mg/dL (0.0-0.2); Bilirubin,Indirect 0.4 mg/dL (0.0-1.2); Bilirubin,Total 0.5 mg/dL (0.3-1.0); Globulin 3.6 g/dL (2.4-3.5); Total Protein 8.1 g/dL (6.4-8.9)
[2018-05-07 22:04] LABS: BUN/Creatinine Ratio 7 (6-26); Blood Urea Nitrogen 8 mg/dL (6-20); Calcium 9.8 mg/dL (8.6-10.3); Carbon Dioxide 27 mEq/L (23-29); Chloride 100 mEq/L (98-107); Glucose 121 mg/dL (70-105); Osmolality,Calculated 282 (280-300); Potassium 3.9 mEq/L (3.5-5.1); Sodium 136 mEq/L (136-145); eGFR For Non-African Americans > 60 (> 60)
[2018-05-07 22:05] LABS: Troponin I < 0.03 ng/mL (< 0.04)
--- NOTE | 2018-05-07 22:36 | Emergency Department Note ---
Disposition Clinical Impression: Chest pain Qualifiers: Chest pain type: unspecified Qualified Code(s): R07.9 - Chest pain, unspecified Anemia Qualifiers: Anemia type: unspecified type Qualified Code(s): D64.9 - Anemia, unspecified Disposition: Admitted As Inpatient Condition: Fair General Adult HPI - General Chief complaint: ED Chest Pain Stated complaint: Chest Pain Time Seen by Provider: 05/07/18 21:08 Source: patient, EMS Mode of arrival: EMS Limitations: no limitations Nursing Notes Reviewed: Yes Vital Signs Reviewed: Yes - History of Present Illness Pain Scale: 6 - Related Data Home Medications Medication Instructions Recorded Confirmed Aspirin [Lo-Dose Aspirin EC] 81 mg PO DAILY 04/06/18 04/06/18 Atorvastatin Calcium [Lipitor] 20 mg PO HS 04/06/18 04/06/18 Benztropine [Cogentin] 1 mg PO BID 04/06/18 04/06/18 Cholecalciferol (D-3) [Vitamin D] 2,000 unit PO DAILY 04/06/18 04/06/18 Divalproex (24 HR) [Depakote ER 1,000 mg PO BID 04/06/18 04/06/18 (24 HR)] Ibuprofen [Ibu] 600 mg PO TID PRN 04/06/18 04/06/18 Previous Rx's Medication Instructions Recorded Benztropine [Cogentin] 1 mg PO BID tablet 04/21/18 Folic Acid 1 mg PO DAILY #30 tablet 04/21/18 Metoprolol XL (24 HR) Succ [Toprol 12.5 mg PO DAILY #30 tab.er.24h 04/21/18 Xl] Non-Formulary Medication 1 each IM QMONTH each 04/21/18 Polyethylene Glycol 3350 [MiraLAX] 17 gm PO DAILY #30 powd.pack 04/21/18 Thiamine (B-1) [Vitamin B-1] 100 mg PO DAILY #30 tablet 04/21/18 Valproic Acid Oral Soln [Depakene 500 mg PO 1500 udc 04/21/18 Oral Soln] Valproic Acid Oral Soln [Depakene 750 mg PO BID udc 04/21/18 Oral Soln] Allergies Allergy/AdvReac Type Severity Reaction Status Date / Time No Known Allergies Allergy Verified 03/25/18 00:58 Constitutional: Denies: fever Cardiovascular: Reports: chest pain Respiratory: Denies: cough, dyspnea Gastrointestinal: Denies: abdominal pain, nausea, vomiting Past Medical History - Past Medical History Medical history: Reports: hypertension Surgical history: Reports: appendectomy Psychiatric history: Reports: schizophrenia, previous psychiatric hospitalization - Social History Smoking Status: Former smoker Smokeless Tobacco Status: No Alcohol use: Reports: none Drug use: Reports: unknown Physical Exam - General Limitations: no limitations General appearance: alert, in no apparent distress, other (Parkinsonian features ) Course Vital Signs Temperature 99.1 F 05/07/18 21:09 Pulse Rate 109 05/07/18 21:09 Respiratory Rate 16 05/07/18 21:09 Blood Pressure 128/78 05/07/18 21:09 O2 Sat by Pulse Oximetry 95 05/07/18 21:09 Temperature 99.1 F 05/07/18 21:09 Pulse Rate 108 05/07/18 21:40 Respiratory Rate 18 05/07/18 21:40 Blood Pressure 134/94 05/07/18 21:40 O2 Sat by Pulse Oximetry 96 05/07/18 21:40 Oxygen Delivery Oxygen Delivery Room Air Medical Decision Making - Medical Records Medical records reviewed: Yes I reviewed the patient's medical records. - Lab Data Lab results reviewed: Yes I reviewed the patient's lab results. Result diagrams: 05/07/18 21:27 05/07/18 21:27 Lab Results 05/07/18 05/07/18 05/07/18 Range/Units 21:27 21:27 21:27 WBC 6.2 (4.3-11.1) K/mcL RBC 3.76 L (4.19-5.50) M/mcL Hgb 11.8 L (12.9-16.9) g/dL Hct 35.0 L (37.5-50.1) % MCV 93.1 (83.0-100.0) fL MCH 31.4 (28.0-33.3) pg MCHC 33.7 (31.6-35.5) g/dL RDW 11.5 (11.5-14.5) % Plt Count 176 (140-400) K/mcL MPV 10.0 (9.4-12.4) fL Immature Gran % 0.3 (0-4) % Seg Neutrophils % 55.1 % Lymphocytes % 33.9 % Monocytes % 4.7 % Eosinophils % 5.2 % Basophils % 0.8 % Neutrophils # 3.4 (1.6-8.9) K/mcL Lymphocytes # 2.1 (0.6-4.6) K/mcL Monocytes # 0.3 (0.0-1.3) K/mcL Eosinophils # 0.3 (0.0-0.6) K/mcL Basophils # 0.1 (0.0-0.2) K/mcL PT 11.9 (9.4-12.1) Seconds INR 1.1 APTT 31.9 (26.0-36.0) Seconds Sodium (136-145) mEq/L Potassium (3.5-5.1) mEq/L Chloride (98-107) mEq/L Carbon Dioxide (23-29) mEq/L BUN (6-20) mg/dL Creatinine (0.70-1.30) mg/dL Est GFR ( Amer) (> 60) Est GFR (Non-Af Amer) (> 60) BUN/Creatinine Ratio (6-26) Glucose (70-105) mg/dL Calculated Osmolality (280-300) Calcium (8.6-10.3) mg/dL Total Bilirubin (0.3-1.0) mg/dL Direct Bilirubin (0.0-0.2) mg/dL Indirect Bilirubin (0.0-1.2) mg/dL AST (13-39) Units/L ALT (7-52) Units/L Alkaline Phosphatase (34-104) Units/L Troponin I (< 0.04) ng/mL B-Natriuretic Peptide 33 (Less than 100) pg/mL Serum Total Protein (6.4-8.9) g/dL Albumin (3.5-5.7) g/dL Globulin (2.4-3.5) g/dL Albumin/Globulin Ratio (1.1-2.2) Lipase (11-82) Units/L 05/07/18 05/07/18 Range/Units 21:27 21:27 WBC (4.3-11.1) K/mcL RBC (4.19-5.50) M/mcL Hgb (12.9-16.9) g/dL Hct (37.5-50.1) % MCV (83.0-100.0) fL MCH (28.0-33.3) pg MCHC (31.6-35.5) g/dL RDW (11.5-14.5) % Plt Count (140-400) K/mcL MPV (9.4-12.4) fL Immature Gran % (0-4) % Seg Neutrophils % % Lymphocytes % % Monocytes % % Eosinophils % % Basophils % % Neutrophils # (1.6-8.9) K/mcL Lymphocytes # (0.6-4.6) K/mcL Monocytes # (0.0-1.3) K/mcL Eosinophils # (0.0-0.6) K/mcL Basophils # (0.0-0.2) K/mcL PT (9.4-12.1) Seconds INR APTT (26.0-36.0) Seconds Sodium 136 (136-145) mEq/L Potassium 3.9 (3.5-5.1) mEq/L Chloride 100 (98-107) mEq/L Carbon Dioxide 27 (23-29) mEq/L BUN 8 (6-20) mg/dL Creatinine 1.12 (0.70-1.30) mg/dL Est GFR ( Amer) > 60 (> 60) Est GFR (Non-Af Amer) > 60 (> 60) BUN/Creatinine Ratio 7 (6-26) Glucose 121 H (70-105) mg/dL Calculated Osmolality 282 (280-300) Calcium 9.8 (8.6-10.3) mg/dL Total Bilirubin 0.5 (0.3-1.0) mg/dL Direct Bilirubin 0.1 (0.0-0.2) mg/dL Indirect Bilirubin 0.4 (0.0-1.2) mg/dL AST 37 (13-39) Units/L ALT 34 (7-52) Units/L Alkaline Phosphatase 120 H (34-104) Units/L Troponin I < 0.03 (< 0.04) ng/mL B-Natriuretic Peptide (Less than 100) pg/mL Serum Total Protein 8.1 (6.4-8.9) g/dL Albumin 4.5 (3.5-5.7) g/dL Globulin 3.6 H (2.4-3.5) g/dL Albumin/Globulin Ratio 1.3 (1.1-2.2) Lipase 34 (11-82) Units/L - Radiology Data Radiology results reviewed: Yes I reviewed the patient's radiology results. Chest X-Ray 05/07/18 21:14 IMPRESSION: No acute process. D/ / Michael Bill MD / Michael Bill MD Interpreting Provider: Michael Bill MD - EKG Data EKG #1 EKG attestation: Yes I reviewed and interpreted this EKG. EKG results narrative: EKG shows a sinus tachycardia with ventricular rate of 107. No acute ST segment elevation or depression. No significant change from previous EKG dated 03/30/2018. Attestation Statement - Attestation Attestation: I, Ayad Hall MD, personally evaluated this patient and discussed their management with the resident physician. I reviewed the resident's note and agree with the documented findings, medical decision making, and plan of care. 58-year-old male who is an inpatient at the [facility] and was transferred here because of an episode of chest pain this evening. Patient states he was just sitting watching television when he started having some squeezing mid substernal chest discomfort. No radiation of the chest pain. He did get diaphoretic and felt a little short of breath. No nausea or vomiting. No palpitations. Patient was given nitroglycerin and had improvement in the discomfort but then it returned. He had a troponin done at the ID which was normal. Transferred here for further evaluation and management as they do not have cardiology available at the ID. Patient did have a laparoscopic cholecystectomy about a month ago. He states he has been doing fine from that. No cough or fever. No pain or swelling in the legs. On examination patient is a well-developed well-nourished male in no acute distress. He is alert and oriented 3. There is no cyanosis or diaphoresis. Chest is nontender to palpation. Breath sounds are clear and equal bilaterally. Heart regular with a mild tachycardia. Abdomen soft and nontender with normal bowel sounds. Labs reviewed and unremarkable. Troponin negative. Chest x-ray negative. EKG shows a mild sinus tach with rate of 107 no acute changes. Patient did receive nitroglycerin 2 here in the emergency department with relief of his chest pain and at time of my examination denies any chest pain. The hospitalist, Dr. Benson, was consulted and accepted admission of the patient.
[2018-05-07] MEDS ORDERED: Naloxone 0.4 MG/ML INJ IVP PRN (23:39)
--- NOTE | 2018-05-08 00:53 | Internal Med History&Physical ---
<Lui Benson Malik - Last Filed: 05/08/18 06:45> Date of Encounter: 05/08/18 Internal Medicine - H&P: HPI History of present illness: Mr. Gooden is a 58 year old male Internal Medicine - H&P: Meds Aspirin [Lo-Dose Aspirin EC] 81 mg PO DAILY 04/06/18 [History] Atorvastatin Calcium [Lipitor] 20 mg PO HS 04/06/18 [History] Benztropine [Cogentin] 1 mg PO BID 04/06/18 [History] Cholecalciferol (D-3) [Vitamin D] 2,000 unit PO DAILY 04/06/18 [History] Divalproex (24 HR) [Depakote ER (24 HR)] 1,000 mg PO HS 04/06/18 [History] Ibuprofen [Ibu] 600 mg PO TID PRN 04/06/18 [History] Folic Acid 1 mg PO DAILY #30 tablet 04/21/18 [Rx] Metoprolol XL (24 HR) Succ [Toprol Xl] 12.5 mg PO DAILY #30 tab.er.24h 04/21/18 [Rx] Non-Formulary Medication 1 each IM QMONTH each 04/21/18 [Rx] Polyethylene Glycol 3350 [MiraLAX] 17 gm PO DAILY #30 powd.pack 04/21/18 [Rx] Thiamine (B-1) [Vitamin B-1] 100 mg PO DAILY #30 tablet 04/21/18 [Rx] Valproic Acid Oral Soln [Depakene Oral Soln] 500 mg PO 1500 udc 04/21/18 [Rx] Valproic Acid Oral Soln [Depakene Oral Soln] 750 mg PO BID udc 04/21/18 [Rx] Lidocaine [Aspercreme] 1 each TP DAILY 05/07/18 [History] Paliperidone 156 mg IM Q28D 05/07/18 [History] Thiamine Mononitrate [Vitamin B-1] 100 mg PO DAILY 05/07/18 [History] 3 Allergy/AdvReac Type Severity Reaction Status Date / Time No Known Allergies Allergy Verified 03/25/18 00:58 All Systems PM: A 10-system review of systems was performed and is negative for pertinent findings except as documented above in the HPI. - Constitutional Vitals: Temp Pulse Resp BP Pulse Ox 98.7 F 101 16 146/91 95 05/08/18 02:52 05/08/18 02:52 05/08/18 02:52 05/08/18 02:52 05/08/18 02:52 Internal Med - H&P Results - Labs CBC & Chem 7: 05/08/18 04:15 05/08/18 04:15 Labs: Short CBC 05/08/18 Range/Units 04:15 WBC 4.2 L (4.3-11.1) K/mcL Hgb 10.7 L (12.9-16.9) g/dL Hct 32.8 L (37.5-50.1) % Plt Count 151 (140-400) K/mcL Neutrophils # 2.3 (1.6-8.9) K/mcL BMP 05/08/18 04:15 Sodium 136 Potassium 3.9 Chloride 108 H Carbon Dioxide 25 BUN 8 Creatinine 0.98 Glucose 103 Calcium 9.2 Cardiac Enzymes 05/08/18 Range/Units 04:15 Troponin I < 0.03 (< 0.04) ng/mL Liver Function 05/08/18 Range/Units 04:15 Total Bilirubin 0.4 (0.3-1.0) mg/dL AST 31 (13-39) Units/L ALT 27 (7-52) Units/L Alkaline Phosphatase 98 (34-104) Units/L Albumin 3.9 (3.5-5.7) g/dL - Assessment and plan (1) DVT prophylaxis Current Visit: Yes Status: Acute (2) Schizophrenia Current Visit: No Status: Chronic Qualifiers: Schizophrenia type: undifferentiated schizophrenia Qualified Code(s): F20.3 - Undifferentiated schizophrenia (3) Chest pain Current Visit: Yes Status: Acute Qualifiers: Chest pain type: unspecified Qualified Code(s): R07.9 - Chest pain, unspecified (4) S/P laparoscopic cholecystectomy Current Visit: Yes Status: Acute - Time Spent With Patient Total time spent is greater than 50% in coordination of care (as documented) at patient's floor/unit and/or counseling patient: - Attending Attestation Patient seen and examined. Chart reviewed. Case discussed with resident. Agree with assessment and plan. Patient is a 58-year-old male with a past medical history of chronic kidney disease, hypertension schizophrenia, smoking history and ethanol abuse who presents with atypical chest pain relieved with nitroglycerin. Initial troponins were negative. EKG was unremarkable. Rule out acute coronary syndrome. Trend troponin. Exercise stress test in the a.m. <Saima Hobbs - Last Filed: 05/08/18 08:25> Date of Encounter: 05/08/18 Time of Encounter: 00:15 Internal Medicine - H&P: HPI Chief complaint: chest pain History of present illness: Mr. Gooden is a 58 year old male with PMH of hypertension, CKD, schizophrenia, parkinsonism, and EtOH abuse who presents for evaluation of chest pain. He was transferred from [place] where he was an inpatient for physical rehab. Patients chest pain began around 18:00 while patient was lying in bed. It was described as a squeezing sensation in the center of his chest and lasted for 1 hour. He denies radiation of pain; no radiation to upper extremities, neck, or jaw. Chest pain was not reproducible and was not made worse by anything. Nitroglycerin tablets helped relieve this pain. He admits to experiencing associated diaphoresis and nausea. The chest pain is not pleuritic. Patient states he had similar chest pain one month ago. Per review of records from prior admissions to [place], the patients reliability as a historian is questionable. He denies past cardiac history when asked, however he also denies history of hypertension or kidney disease, which he does have. He denies family history of heart disease, he reports most deaths in family from lung cancer. Reports tobacco and EtOH cessation 30 days; denies other drugs including marijuana. ED course: Labs significant for negative troponin, otherwise unremarkable. EKG shows sinus tachycardia and no acute ischemic changes--unchanged compared to previous EKG in march. CXR negative for acute cardiopulmonary processes. He was admitted to the hospitalist service for further evaluation of his chest pain and to rule out ACS. Past Med Surg Social Fam HX - Past Medical History Medical history: hypertension Additional medical history: ckd, parkinsons Psychiatric history: schizophrenia, previous psychiatric hospitalization - Past Surgical History Surgical History: appendectomy - Social History Smoking Status: Former smoker Smokeless Tobacco Status: No Alcohol use: none Drug use: unknown - Family History Father Living Status: Hx Family Cancer: Yes (LUNG) All Systems PM: A 10-system review of systems was performed and is negative for pertinent findings except as documented above in the HPI. - Constitutional Constitutional: as per HPI, no chills, no fever(s) - Cardiovascular Cardiovascular ROS IM: as per HPI, no dyspnea, no edema, no irregular heart rhythm - Respiratory Respiratory: as per HPI, no dyspnea on exertion, no pain on inspiration - Gastrointestinal Gastrointestinal: as per HPI, no constipation, no diarrhea, no vomiting - Genitourinary Genitourinary ROS male: no difficulty urinating - Constitutional Vitals: Temp Pulse Resp BP Pulse Ox 98.6 F 98 16 148/94 96 05/07/18 23:24 05/07/18 23:24 05/07/18 23:24 05/07/18 23:24 05/07/18 23:24 Exam: General: vital signs noted, no acute distress, non-toxic appearance Head: normocephalic, atraumatic Eyes: EOMI, PERRL, sclera anicteric ENT: moist mucous membranes Neck: supple, trachea midline Cardio: regular rhythm, tachycardic; no murmurs, gallops, rubs; + S1/S2; no edema Pulm: CTAB, no wheezes/rhonchi/rales, no respiratory distress, diminished airflow bilaterally Abd: soft, nontender, nondistended, normal bowel sounds, no rebound/rigidity/ guarding, scars from laparoscopic cholecystectomy noted Neuro: CN II-XII grossly intact; no focal deficit; moves all extremities spontaneously; AAOx3; resting tremor, stiff posture Ext: no lower extremity edema; 2+/4 pedal pulses equal bilaterally MSK: no visible deformities, no joint swelling Psych: parkinsonian features, flat affect, cooperative, answers questions appropriately, doesnt appear anxious or agitated Skin: warm, dry, intact, laparoscopic cholecystectomy scars appear to be healing well Internal Med - H&P Results - Labs CBC & Chem 7: 05/08/18 04:15 05/08/18 04:15 - Assessment and plan (1) Chest pain Current Visit: Yes Status: Acute Assessment and plan: Resolved Troponin negative x 1 EKG showing sinus tachycardia rate 107, no significant change from 03/30/18 EKG, and no acute ischemic changes CXR negative for acute cardiopulmonary process Pain relieved with NTG Pharm stress test and perfusion studies ordered Trend troponins x2 Sublingual NTG for chest pain PRN Qualifiers: Chest pain type: unspecified Qualified Code(s): R07.9 - Chest pain, unspecified (2) S/P laparoscopic cholecystectomy Current Visit: Yes Status: Acute Assessment and plan: 04/12/18 Laparoscopic cholecystectomy secondary to acute cholecystitis and necrotic gallbladder Scars from trochar insertion appear to be healing well (3) Schizophrenia Current Visit: Yes Status: Chronic Assessment and plan: Parkinsonian features likely due to side effects of long-term antipsychotic use Continue home meds Qualifiers: Schizophrenia type: undifferentiated schizophrenia Qualified Code(s): F20.3 - Undifferentiated schizophrenia (4) Tobacco abuse Current Visit: Yes Status: Acute Assessment and plan: Reports last tobacco use was 30 days ago (5) Alcohol abuse Current Visit: Yes Status: Acute Assessment and plan: Reports his last drink was 30 days ago (6) DVT prophylaxis Current Visit: Yes Status: Acute Assessment and plan: Heparin 5,000 units SubQ Q12H - Time Spent With Patient Total time spent is greater than 50% in coordination of care (as documented) at patient's floor/unit and/or counseling patient:
[2018-05-08] MEDS ORDERED: Naloxone 0.4 MG/ML INJ IVP PRN (00:56)
[2018-05-08 04:44] LABS: Basophils % 0.7 %; Eosinophils # 0.2 K/mcL (0.0-0.6); Eosinophils % 5.2 %; Hematocrit 32.8 % (37.5-50.1); Hemoglobin 10.7 g/dL (12.9-16.9); Immature Granulocytes % 0.2 % (0-4); Lymphocytes # 1.4 K/mcL (0.6-4.6); Lymphocytes % 33.7 %; Mean Corpuscular HGB Conc 32.6 g/dL (31.6-35.5); Mean Corpuscular Hemoglobin 30.9 pg (28.0-33.3); Mean Corpuscular Volume 94.8 fL (83.0-100.0); Mean Platelet Volume 10.2 fL (9.4-12.4); Monocytes # 0.3 K/mcL (0.0-1.3); Monocytes % 6.7 %; Neutrophils # 2.3 K/mcL (1.6-8.9); Platelet Count 151 K/mcL (140-400); Red Blood Count 3.46 M/mcL (4.19-5.50); Red Cell Distribution Width 11.6 % (11.5-14.5); Segmented Neutrophils % 53.5 %
[2018-05-08 05:06] LABS: Alanine Aminotransferase 27 Units/L (7-52); Albumin 3.9 g/dL (3.5-5.7); Albumin/Globulin Ratio 1.2 (1.1-2.2); Alkaline Phosphatase 98 Units/L (34-104); Aspartate Amino Transferase 31 Units/L (13-39); BUN/Creatinine Ratio 8 (6-26); Bilirubin,Total 0.4 mg/dL (0.3-1.0); Blood Urea Nitrogen 8 mg/dL (6-20); Calcium 9.2 mg/dL (8.6-10.3); Carbon Dioxide 25 mEq/L (23-29); Chloride 108 mEq/L (98-107); Globulin 3.3 g/dL (2.4-3.5); Glucose 103 mg/dL (70-105); Osmolality,Calculated 281 (280-300); Potassium 3.9 mEq/L (3.5-5.1); Sodium 136 mEq/L (136-145); Total Protein 7.2 g/dL (6.4-8.9); eGFR For Non-African Americans > 60 (> 60)
[2018-05-08] MEDS ORDERED: Nitroglycerin 0.4 MG TAB.SUBL SL PRN (05:15)
[2018-05-08] MEDS ORDERED: Regadenoson 0.4 MG/5 ML SYRINGE IVP ONE (05:29)
[2018-05-08] MEDS ORDERED: *HR* Heparin 5,000 UNIT/ML VIAL SQ SCH (06:00)
--- NOTE | 2018-05-08 08:56 | Electrocardiograph Report ---
[place] [id number] Test Date: 2018-05-07 Pat Name: Srini Gooden Department: [id number] Room: 3B43 Gender: M Rehab Aid: : 1960 Requested By: Yuan Rogers Order Number: [id number] Reading MD: Nyla Lawrence Measurements Intervals [place] Rate: 107 P: 33 NV: 147 QRS: 70 QRSD: 94 T: 33 QT: 326 QTc: 435 Interpretive Statements Sinus tachycardia Baseline artifact limits interpretation Electronically Signed On 05-08-2018 8:54:33 EDT by Nyla Lawrence
[2018-05-08] MEDS ORDERED: Acetaminophen 325 MG TABLET PO PRN (09:27)
[2018-05-08 11:12] VITALS: BP 133/85
--- NOTE | 2018-05-08 11:14 | Discharge Summary ---
- NOTES TO OUTPATIENT PROVIDER Notes to Outpatient Provider: PCP at intermediate in 3 to 5 days. Orders not resulted at time of discharge: Pending orders 05/11/18 02:01 Out pt NM nandini perf SPECT multi [NM] Routine seocnd attempt 05/11/18 07:05 out pt SP pharm nuclear stress Routine 2nd attempt Date of Encounter: 05/08/18 Time of Encounter: 11:12 - Discharge Diagnosis (1) Chest pain Priority: Primary Status: Acute Assessment and Plan: Chest pain most likely atypical and work up unrevealing. Aalso symptoms completely resolved. Troponin negative x 2 EKG on admission showd mild sinus tachycardia rate 107, no significant change from 03/30/18 EKG, and no acute ischemic changes CXR negative for acute cardiopulmonary process Pain relieved with NTG on admission. Pharm stress test and perfusion studies ordered but pt unable to participate due to having tremors. He was unable to keep his arms up during imaging portion of the study. Sublingual NTG for chest pain PRN. Recommend out pt stress test rescheduled. Qualifiers: Chest pain type: unspecified Qualified Code(s): R07.9 - Chest pain, unspecified (2) Alcohol abuse Priority: Secondary Status: Acute Assessment and Plan: Reports his last drink was 30 days ago. Strongly recommend compliance with folic acid, vitamin B 12 and multivitamin daily supplements. (3) Schizophrenia Priority: Secondary Status: Chronic Assessment and Plan: Parkinsonian features likely due to side effects of long-term antipsychotic use Continue home meds Qualifiers: Schizophrenia type: undifferentiated schizophrenia Qualified Code(s): F20.3 - Undifferentiated schizophrenia (4) S/P laparoscopic cholecystectomy Priority: Secondary Status: Acute Assessment and Plan: 04/12/18 Laparoscopic cholecystectomy secondary to acute cholecystitis and necrotic gallbladder Scars from trochar insertion appear to be healing well (5) Tobacco abuse Priority: Secondary Status: Acute Assessment and Plan: Reports last tobacco use was 30 days ago Hospital course: Mr. Gooden is a 58 year old male with PMH of hypertension, CKD, schizophrenia, parkinsonism, and EtOH abuse who presents for evaluation of chest pain. He was transferred from [place] where he was an inpatient for physical rehab. Patients chest pain began around 18:00 while patient was lying in bed. It was described as a squeezing sensation in the center of his chest and lasted for 1 hour. He denies radiation of pain; no radiation to upper extremities, neck, or jaw. Chest pain was not reproducible and was not made worse by anything. Nitroglycerin tablets helped relieve this pain. He admits to experiencing associated diaphoresis and nausea. The chest pain is not pleuritic. Patient states he had similar chest pain one month ago. Per review of records from prior admissions to [place], the patients reliability as a historian is questionable. He denies past cardiac history when asked, however he also denies history of hypertension or kidney disease, which he does have. He denies family history of heart disease, he reports most deaths in family from lung cancer. Reports tobacco and EtOH cessation 30 days; denies other drugs including marijuana. ED course: Labs significant for negative troponin, otherwise unremarkable. EKG shows sinus tachycardia and no acute ischemic changes--unchanged compared to previous EKG in march. CXR negative for acute cardiopulmonary processes. He was admitted to the hospitalist service for further evaluation of his chest pain and to rule out ACS. Discharge discussed with: patient - Time Spent with Patient Total time spent providing and/or coordinating discharge services: Greater than 30 minutes - Discharge Medications Home Medications: Aspirin [Lo-Dose Aspirin EC] 81 mg PO DAILY 04/06/18 [History] Atorvastatin Calcium [Lipitor] 20 mg PO HS 04/06/18 [History] Benztropine [Cogentin] 1 mg PO BID 04/06/18 [History] Cholecalciferol (D-3) [Vitamin D] 2,000 unit PO DAILY 04/06/18 [History] Divalproex (24 HR) [Depakote ER (24 HR)] 1,000 mg PO HS 04/06/18 [History] Ibuprofen [Ibu] 600 mg PO TID PRN 04/06/18 [History] Folic Acid 1 mg PO DAILY #30 tablet 04/21/18 [Rx] Metoprolol XL (24 HR) Succ [Toprol Xl] 12.5 mg PO DAILY #30 tab.er.24h 04/21/18 [Rx] Non-Formulary Medication 1 each IM QMONTH each 04/21/18 [Rx] Polyethylene Glycol 3350 [MiraLAX] 17 gm PO DAILY #30 powd.pack 04/21/18 [Rx] Thiamine (B-1) [Vitamin B-1] 100 mg PO DAILY #30 tablet 04/21/18 [Rx] Valproic Acid Oral Soln [Depakene Oral Soln] 500 mg PO 1500 udc 04/21/18 [Rx] Valproic Acid Oral Soln [Depakene Oral Soln] 750 mg PO BID udc 04/21/18 [Rx] Lidocaine [Aspercreme] 1 each TP DAILY 05/07/18 [History] Paliperidone 156 mg IM Q28D 05/07/18 [History] Thiamine Mononitrate [Vitamin B-1] 100 mg PO DAILY 05/07/18 [History] Allergies/Adverse Reactions: 3 Allergy/AdvReac Type Severity Reaction Status Date / Time No Known Allergies Allergy Verified 03/25/18 00:58 Date of admission: 05/07/18 22:23 Primary care physician: PCP [facility] Consults: 05/08/18 07:51 Consult to Special Effects Makeup Artist [CONS] Routine Reason for SW Consult: PAT[facility] Discharging clinician: Velvet Pacheco Anticipated date of discharge: 05/08/18 - Constitutional Vitals: Temp Pulse Resp BP Pulse Ox 98.6 F 97 16 133/85 95 05/08/18 11:00 05/08/18 11:00 05/08/18 11:00 05/08/18 11:00 05/08/18 11:00 General appearance: Present: A&O X 3, no acute distress Exam: tremors possibly due to Hx ETOH - Head Head exam: Present: atraumatic, normocephalic - Eye Eye exam: Present: PERRL, conjuntiva pink, sclera anicteric Pupils: Present: PERRL - Neck Neck exam general surgery: Present: supple, trachea midline. Absent: lymphadenopathy - Respiratory Respiratory exam: Present: CTAB. Absent: accessory muscle use, rales, rhonchi, wheezes - Cardiovascular Cardiovascular exam: Present: RRR, +S1, +S2. Absent: diastolic murmur, gallop, rubs, systolic murmur - GI/Abdominal GI/Abdominal exam: Present: normal bowel sounds, soft, no peritoneal signs. Absent: distended, tenderness - Extremities Exam Extremities exam: Present: warm, radial pulses palpable and symmetrical. Absent : calf tenderness, cyanotic, pedal edema - Neurological Exam Neurological exam: Present: CN II-XII intact, oriented X3, no focal deficits. Absent: pronater drift, facial droop, speech deficit - Skin Skin exam: Present: dry, intact - Patient Status Disposition: Home, Self-Care Condition: Good Overall status at discharge: patient is back to baseline - Discharge Instructions Follow Up With: [facility] Care Provider[facility] - - Diet and Activity Activity: increase activity as tolerated Diet: advance to your usual diet
--- NOTE | 2018-05-08 13:07 | Electrocardiograph Report ---
[place] [id number] Test Date: 2018-05-07 Pat Name: Srini Gooden Department: [id number] Room: 3B43 Gender: M Supply Chain Systems Manager: : 1960 Requested By: Lui Benson Order Number: [id number] Reading MD: Nyla Lawrence Measurements Intervals [place] Rate: 109 P: 52 DE: 155 QRS: 83 QRSD: 91 T: 32 QT: 328 QTc: 442 Interpretive Statements Sinus tachycardia Electronically Signed On 05-08-2018 13:05:44 EDT by Nyla Lawrence
== END 2018-05-08 14:27 | disposition home or self-care (01) ==
LOC: 3BNU 21:05 → EMEROOARM 21:05 → 3BNU 23:01
PROVIDERS: ADMIT Internal Medicine; ATTEND Internal Medicine